=== PATIENT | male | born 1985 | race Caucasian/White ===

== ENCOUNTER 2025-08-27 11:47 | Day surgery (SDC) | payer OTHER, SELFPAY ==
--- NOTE | 2025-08-25 09:09 | EKG12_ITS ---
Test Reason : PRE OP Blood Pressure : */* mmHG Vent. Rate : 78 BPM Atrial Rate : 78 BPM P-R Int : 166 ms QRS Dur : 98 ms QT Int : 380 ms P-R-T Axes : 61 50 9 degrees QTcB Int : 433 ms Normal sinus rhythm Normal ECG Confirmed by Garo Omer ([id number]), editorial cartoonist ANJEL SANTIAGO ([id number]) on 08/26/2025 1:58:21 PM Referred By: Terrell Fox Confirmed By: Garo Omer
--- NOTE | 2025-08-25 09:50 | PAT.ANE_ITS ---
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 When Was Last Pacemaker Check QUESTION #4 FULL TEXT: You/Your Family Experience fever (hyperthermia) with Anesthesia Last Oral Intake Last Oral intake: Last Oral Intake NPO since Meds taken in AM with sips of water? Meds patient instructed to take am of surgery PONV PONV - electrostatic powder coating technician: PONV - electrostatic powder coating technician Female No 08/23/25 14:06 HX of Motion Sickness No 08/23/25 14:06 HX of N/V After Surgery No 08/23/25 14:06 Non-Smoker Yes 08/23/25 14:06 Duration of Surgery greater No 08/23/25 14:06 than 60 minutes Number of Risk Factors 1 08/23/25 14:06 PONV Score Low Risk 08/23/25 14:06 Respiratory Assessment Respiratory Assessment - electrostatic powder coating technician: Respiratory Tract Infection Hx - electrostatic powder coating technician Hx Respiratory Tract Infection No 08/23/25 14:06 STOP Sleep Apnea STOP Sleep Apnea - electrostatic powder coating technician: STOP Sleep Apnea - electrostatic powder coating technician Hx Hypertension Yes 08/23/25 14:06 Hx Sleep Apnea Yes 08/23/25 14:06 CPAP Yes 08/23/25 14:06 BIPAP No 08/23/25 14:06 Do you snore loudly (louder than talking or can be heard Do you often feel tired/ fatigued/ sleepy during daytime? Has anyone observed you stop breathing during sleep? STOP Results Positive 08/23/25 14:06 QUESTION #5 FULL TEXT : Do you snore loudly (louder than talking or can be heard through closed doors)? Tobacco Use History Tobacco Use History - electrostatic powder coating technician: Tobacco Use History - electrostatic powder coating technician Tobacco Use Smoking Status Never smoker 08/23/25 14:06 Hx Tobacco Use No 08/23/25 14:06 Years Smoking Packs Smoked per Day Smoking Cessation Date was within the last 15 years Hx Smoking Cessation Date Hx Smoking Cessation Counseling Hematologic Medial History Hematologic Hx - electrostatic powder coating technician: Hematologic Medical Hx - documentation consultant Hx of Blood Transfusion No 08/23/25 14:06 Hx of Transfusion in last 3 No 08/23/25 14:06 Months Date of Last Transfusion (if within last 3 months) Ever experience any problems No 08/23/25 14:06 with transfusion(s)? Specify any problems Hx of Preganancy in last 3 N/A 08/23/25 14:06 Months Nurse Filling Out Transfusion VLEHMAN 08/23/25 14:06 & Questions: Date: 08/23/25 08/23/25 14:06 Time: 14:16 08/23/25 14:06 Patient unable to answer at this time (ie. confused, unrespo /Reproduction History /Reproductive History - electrostatic powder coating technician: /Reproductive Hx- electrostatic powder coating technician Hx Now Gestational Age (in weeks): EDC: Hx Hx Para Hx Section SAB Does the father of the baby or his family experience fever w Father of the baby Malignant Hypertension history comment [facility] Medical History Wears contact lenses Cancer Anxiety Thyroid disease High cholesterol Gastric reflux CPAP (continuous positive airway pressure) dependence Sleep apnea Cardiology follow-up encounter History of echocardiogram Hypertension Hodgkin lymphoma History of carcinoma Home Medications ?Medication ?Instructions ?Recorded ?Last Taken ?Type finasteride 1 mg tablet 1 mg PO DAILY 08/23/25 Unkno wn History levothyroxine 175 mcg tablet 175 mcg PO DAILY 08/23/25 Unknown History lisinopril 20 mg tablet 20 mg PO QPM 08/23/25 Unknow n History lisinopril 20 1 tab PO DAILY 08/23/25 Unkn own History mg-hydrochlorothiazide 12.5 mg tablet minoxidil 2.5 mg tablet 2.5 mg PO DAILY 08/23/25 Unk nown History pantoprazole 40 mg tablet,delayed 40 mg PO DAILY 08/23 Unknown History release rosuvastatin 10 mg tablet 10 mg PO DAILY 08/23/25 Unkn own History sertraline 100 mg tablet 100 mg PO DAILY 08/23/25 Unk nown History Allergy/AdvReac Type Severity Reaction Status Date / Time No Known Allergies Allergy Verified 08/23/25 14:03 Surgical History History of vascular access device History of amputation of left great toe Social History Smoking Status: Never smoker Prior Cardiac Testing/Procedures Prior Cardiac Testing/Procedures: Echocardiogram (EF 55%, Bicuspid Aortic valve; mild regurgitation with mild . Followed by cardiology. no change in symptoms ) Addt'l Information Additional Findings: >4 Mets Recommendation Anesthesia Recommendation Anesthesia recommendation: OPTIMIZED for anesthesia
[2025-08-25 10:58] LABS: Magnesium 2.2 mg/dL (1.5-2.2)
[2025-08-25 11:08] LABS: Vitamin D,25 Hydroxy 22.8 ng/mL (30-100)
[2025-08-27] VITALS (8 sets, daily range): BP systolic 152–157; BP diastolic 90–100; PULSE 72–93; RESP 16–20; TEMP 36.1–37.2; O2SAT 95–100; BMI 44.4
--- NOTE | 2025-08-27 12:01 | PRE.ANES_ITS ---
ASA Classification* ASA Classification ASA Classification: 3 Assessment & Plan Anesthesia* Anesthesia Assessment Anesthesia Assessment: Discussed sedation and/or anesthesia options, risks, benefits, and alternatives with patient/parents/legal guardian/POA. Questions invited. The patient/parents/legal guardian/POA seems to understand and agrees to proceed with anesthesia plan. Reviewed the physical assessment, medical history, allergy history and patient home medications list prior to surgery/procedure/anesthetic and documented any changes. Performed airway and anesthesia risk assessments. Anesthesia Type Anesthesia Type: MAC (GA bkup. 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 When Was Last Pacemaker Check QUESTION #4 FULL TEXT: You/Your Family Experience fever (hyperthermia) with Anesthesia Last Oral Intake Last Oral intake: Last Oral Intake NPO since Meds taken in AM with sips of water? Meds patient instructed to take am of surgery PONV PONV - energy derivatives trader: PONV - energy derivatives trader Female No 08/23/25 14:06 HX of Motion Sickness No 08/23/25 14:06 HX of N/V After Surgery No 08/23/25 14:06 Non-Smoker Yes 08/23/25 14:06 Duration of Surgery greater No 08/23/25 14:06 than 60 minutes Number of Risk Factors 1 08/23/25 14:06 PONV Score Low Risk 08/23/25 14:06 Height & Weight Height & Weight: Anesthesia: Height & Weight Weight: 136.078 kg 08/26/25 09:51 Respiratory Assessment Respiratory Assessment - energy derivatives trader: Respiratory Tract Infection Hx - energy derivatives trader Hx Respiratory Tract Infection No 08/23/25 14:06 STOP Sleep Apnea STOP Sleep Apnea - energy derivatives trader: STOP Sleep Apnea - energy derivatives trader Hx Hypertension Yes 08/23/25 14:06 Hx Sleep Apnea Yes 08/23/25 14:06 CPAP Yes 08/23/25 14:06 BIPAP No 08/23/25 14:06 Do you snore loudly (louder than talking or can be heard Do you often feel tired/ fatigued/ sleepy during daytime? Has anyone observed you stop breathing during sleep? STOP Results Positive 08/23/25 14:06 QUESTION #5 FULL TEXT : Do you snore loudly (louder than talking or can be heard through closed doors)? Tobacco Use History Tobacco Use History - energy derivatives trader: Tobacco Use History - energy derivatives trader Tobacco Use Smoking Status Never smoker 08/23/25 14:06 Hx Tobacco Use No 08/23/25 14:06 Years Smoking Packs Smoked per Day Smoking Cessation Date was within the last 15 years Hx Smoking Cessation Date Hx Smoking Cessation Counseling Hematologic Medial History Hematologic Hx - energy derivatives trader: Hematologic Medical Hx - relish maker Hx of Blood Transfusion No 08/23/25 14:06 Hx of Transfusion in last 3 No 08/23/25 14:06 Months Date of Last Transfusion (if within last 3 months) Ever experience any problems No 08/23/25 14:06 with transfusion(s)? Specify any problems Hx of Preganancy in last 3 N/A 08/23/25 14:06 Months Nurse Filling Out Transfusion VLEHMAN 08/23/25 14:06 & Questions: Date: 08/23/25 08/23/25 14:06 Time: 14:16 08/23/25 14:06 Patient unable to answer at this time (ie. 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: /Reproductive Hx- energy derivatives trader Hx Now Gestational Age (in weeks): EDC: Hx Hx Para Hx Section SAB Does the father of the baby or his family experience fever w Father of the baby Malignant Hypertension history comment Active Medications Active Medications: Current Medications Generic Name Dose Route Start Last Admin Trade Name Freq PRN Reason Stop Dose Admin Acetaminophen 1,000 mg 08/27/25 14:00 Acetaminophen 500 Mg Tablet PO 08/27/25 14:01 PREOP ONE Gabapentin 600 mg 08/27/25 14:00 Gabapentin 600 Mg Tablet PO 08/27/25 14:01 PREOP ONE Cefazolin Sodium 3 gm/ Sodium 115 mls @ 200 mls/hr 08/27/25 14:00 Chloride IV 08/27/25 14:34 INTRAOP ONE Magnesium Sulfate 1 gm/ 102 mls @ 408 mls/hr 08/27/25 14:00 Dextrose IV 08/27/25 14:14 PREOP ONE Insulin Human Lispro 1 - 6 unit 08/27/25 14:00 Insulin Lispro 100 Unit/Ml Insuln.Pen SC 08/27/25 20:00 Q4H PRN PRN BG>/= 180, SEE PROTOCOL Protocol [facility] Medical History Wears contact lenses Cancer Anxiety Thyroid disease High cholesterol Gastric reflux CPAP (continuous positive airway pressure) dependence Sleep apnea Cardiology follow-up encounter History of echocardiogram Hypertension Hodgkin lymphoma History of carcinoma Home Medications ?Medication ?Instructions ?Recorded ?Last Taken ?Type finasteride 1 mg tablet 1 mg PO DAILY 08/23/25 Unkno wn History levothyroxine 175 mcg tablet 175 mcg PO DAILY 08/23/25 Unknown History lisinopril 20 mg tablet 20 mg PO QPM 08/23/25 Unknow n History lisinopril 20 1 tab PO DAILY 08/23/25 Unkn own History mg-hydrochlorothiazide 12.5 mg tablet minoxidil 2.5 mg tablet 2.5 mg PO DAILY 08/23/25 Unk nown History pantoprazole 40 mg tablet,delayed 40 mg PO DAILY 08/23 Unknown History release rosuvastatin 10 mg tablet 10 mg PO DAILY 08/23/25 Unkn own History sertraline 100 mg tablet 100 mg PO DAILY 08/23/25 Unk nown History Allergy/AdvReac Type Severity Reaction Status Date / Time No Known Allergies Allergy Verified 08/23/25 14:03 Surgical History History of vascular access device History of amputation of left great toe Social History Smoking Status: Never smoker Review of Systems (Anesthesia) ROS Narrative System reviewed and no additional complaints, except as documented.
--- NOTE | 2025-08-27 12:06 | PCM.OPRPT ---
Operative Report (Standard) Operative Information Date of Procedure: 08/27/25 Pre-Operative Diagnosis: 1. Pain, left foot 2. Hammertoe, second digit, left foot Post-Operative Diagnosis: 1. Pain, left foot 2. Hammertoe, second digit, left foot Surgery/Procedure Performed: Procedure #1: Proximal interphalangeal joint arthrodesis, second digit, left foot Procedure #2: Distal interphalangeal joint arthroplasty, second digit, left foot mail carriers supervisor: Yes Certified Travel Counselor: Kiya Henderson PGY2 Tasks completed by hair assistant: Closing and Retracting Additional entry level administrative assistant?: Yes Additional Marine Engine Mechanic #2: Anusha Celestin PGY1 Tasks completed by entry level administrative assistant #2: Retracting Additional entry level administrative assistant?: No Type of Anesthesia: Local MAC RN Documented Start/Stop Times: Operation Date: 08/27/25 14:00 Case Time Into Pre-Op 08/27/25 11:59 Out of Pre-Op 08/27/25 14:49 Anesthesia Start 08/27/25 14:55 Into Room 08/27/25 14:55 Procedure Start 08/27/25 15:16 Procedure End 08/27/25 16:26 Anesthesia End 08/27/25 16:29 Out of Room 08/27/25 16:29 Into Recovery 08/27/25 16:31 Into Phase II Recovery 08/27/25 16:51 Out of Recovery 08/27/25 16:51 Out of Phase II 08/27/25 17:56 Procedure Start Time: 15:16 Procedure Stop Time: 16:26 Select all DRAINS/GRAFTS/IMPLANTS that apply: Implanted device Implanted device details: [facility] proximal interphalangeal joint hammertoe implant Special Medications: Per anesthesia Estimated Blood Loss: 15 mL Fluids Replaced: Per anesthesia Specimen collected: No Description of surgery: Indications For Operation: Mr. Alvarado is a 40-year-old male who was admitted to [facility] for left foot second digit hammertoe surgery. Patient unfortunately sustained a high impact trauma a few years ago causing disruption and amputation to the left hallux and injuring his second digit. Since then the patient has dealt with a rigid contracture/claw toe since the injury. He has been having difficulty walking with pain to the left second digit. He was seen in the office for surgical consultation evaluation due to the contraction and pain to the left foot we both agreed to move forward with elective surgery. Patient did have formal surgical consultation with all risk and benefits discussed with patient great detail. Chart review consent was signed. Due to contracture and pain to the left foot it was deemed necessary at this time to take the patient to the operating room to perform the above procedure to help get him in a more rectus toe and to decrease his constant pain to the left foot. The nature of the problem, anticipated procedures, postop recovery/convalences and risk/complications include but not limited to infection, wound healing complications, digital amputation, hypertrophic scarring, numbness, tingling, chronic pain, CRPS, over and under correction, recurrence of deformity, DVT and or PE and the need for further surgery have been discussed in great detail with the patient. All questions have been answered to the patient's satisfaction. There are no guarantees given as to the outcome of the procedure. Description of Procedure: Under mild sedation, the patient was brought into the operating room and placed on the operating table in supine position. Once the patient was under monitored anesthesia care, the left second digit was blocked using approximately 20 cc 0.5% Marcaine plain. Next, a well-padded calf tourniquet was applied to the left lower extremity. Next, the left lower extremity was prepped and draped in normal aseptic manner. Next, a timeout was then undertaken verifying the correct patient, extremity, visibility of preoperative markings, availability of the equipment. Next, attention was directed to the left lower extremity. Using a foreign Esmarch, left lower extremity was exsanguinated and elevated to 60 degrees for 1 minute and set to 250 mmHg. Procedure #1: Proximal interphalangeal joint arthrodesis, second digit, left foot (CPT code: 91814?T1) Next, attention was directed to the dorsal aspect of the second digit. A sterile skin marker was used to alesia out incision from the level of the second metatarsal phalangeal joint to the distal intermediate phalanx of the second digit. Using a #15 blade full-thickness incision down to subcutaneous tissue was performed. Continued blunt dissection was carried down to the level of the extensor tendon with moist Ray-Sheri. Capsulotomy was performed at the level of the proximal interphalangeal joint and the extensor tendon was removed sharply back exposing the second metatarsal phalangeal joint. Next capsulotomy was performed at the level of the second metatarsal phalangeal joint. Louis push-up test was performed and the toe sat in a more rectus fashion. Next using a sagittal saw and #114 blade the osteotomy at the head of the proximal phalanx was performed, removed and passed the back table to be discarded. Next using the [place] elevator the deformed second digit nail was removed and discarded without incident. The base of the intermediate phalanx was removed using the sagittal saw and #114 blade without incident. The area was flushed with copious normal saline. Next using the K wire provided by [employer], this was inserted into the proximal phalanx and using the cannulated drill on power the company pilot hole for the implant was performed without incident. Next the K wire was retrograded through the intermediate phalanx and out the tip of the toe and the implant threads were made using the tap on power per the manufactures recommendation with the rep in the room. Next, the proximal interphalangeal joint PEEK was implanted in the intermediate phalanx and secured in place in the proximal phalanx with anatomic apposition obtained. Placement was identified clinically as well as on large C arm fluoroscopy and the area again was flushed with copious amounts of normal saline. Procedure #2: Distal interphalangeal joint arthroplasty, second digit, left foot Next, attention was directed to the distal interphalangeal joint that was rigidly contracted. Using a #15 blade the capsulotomy was performed and the joint was freed. Minimal range of motion was improved. Next using the sagittal saw and 114 blade the arthroplasty at the level of the head of the intermediate phalanx was performed. Once the osteotomy was performed there was improved range of motion to the distal interphalangeal joint and the toe sat in a more rectus position. The area was flushed with copious normal saline. The distal phalanx and intermediate phalanx were secured in a more rectus position using 3-0 Vicryl in over and over suture technique. The medial and lateral collateral ligaments of the proximal interphalangeal joint were reapproximated using 3-0 Vicryl and simple interrupted suture technique. The extensor tendon was placed on the dorsal aspect of the proximal phalanx with physiological tension and secured in place with over and over suture using 3-0 Vicryl. The subcutaneous layer was reapproximated and closed using 3-0 Vicryl in running locking suture technique. The calf tourniquet was deflated to the left lower extremity and reperfusion was noted instantly to the left lower extremity with all bleeders cauterized and ligated as necessary. The skin was reapproximated closed using 3-0 nylon in simple interrupted suture technique. The left lower extremity was wiped clean and patted dry. Betadine soaked Adaptic was applied over the incision followed by dry sterile dressing and a single layer Alex compression bandage was donned to left lower extremity followed by surgical shoe. The patient tolerated the procedure and anesthesia well and apparent satisfactory condition and was transported to the PACU for further monitoring prior to discharge home. Vital signs stable and vascular status intact to all digits bilateral. Post Operative Plan: Weightbearing: Partial weightbearing to heel left lower extremity with surgical shoe. Full weightbearing right lower extremity. Antibiotics: 3 g Ancef through the IV DVT Prophylaxis: Ambulation Acosta: None Dressing: Betadine soaked Adaptic, dry sterile dressing single-layer Alex compression bandage left lower extremity. Surgical shoe. X-Rays: Post-operative films taken on the operating room. Pain Medication: Oxycodone 5 mg, Tylenol 650 mg Follow-up: Patient will follow-up at already scheduled postoperative appointment. Surgical Findings: 1. Anatomic apposition at the level of the proximal interphalangeal joint and distal interphalangeal joint, second digit, left foot Complications Complications: No Admit VTE Documentation VTE Present on Admission: No VTE Mechan Device Prophylaxis: SCD's VTE Pharm Prophylaxis ordered?: No Reason prophylaxis not ordered: Procedure Not Indicated
--- OUTSIDE RECORDS SUMMARY | 2025-08-27 12:16 | XMS RPT_ITS | CCD ---
Author Organization [facility] Care Team Providers Care Ui Ux Web Developer Name Role Phone Tam Virk Unavailable Unavailable Moreau, Christopher Charley Unavailable Unavailable Moreau, Germania Unavailable Unavailable Moreau, Germania Whitehead Unavailable Unavailable MoreauGermania Unavailable Unavailable StencelTam Unavailable Unavailable Furness, Oliver T Unavailable Unavailable Moreau, Sarkisopher D Unavailable Unavailable StenTam rodrigez Primary Care Provider Tam Virk Primary Care Provider Unavail able Tam Virk MD Primary Care Provider Unav ailable Stencel Tam THOMAS Primary Care Provider Unav ailable Furness, Oliver T Unavailable Unavailable Unavailable Luisito THOMAS, Germania Primary Care Provider Luisito THOMAS, Germania Primary Care Provider [phone] PROVIDER, UNKNOWN Referring Unavailable PRAKASH CALDWELL Attending Unavailable Luisito, [facility] Unavailable SILVINA MATOS Attending Unavailable Luisito, [facility] Unavailable PROVIDER, UNKNOWN Referring Unavailable SILVINA MATOS Attending Unavailable Luisito, [facility] Primary Care Unavailable PROVIDER, UNKNOWN Referring Unavailable Luisito, [facility] Primary Care Unavailable EMILY KAN Attending Unavailable PROVIDER, UNKNOWN Referring Unavailable Germania Moreau Referring Unavaila ble Furness, Oliver Sammy Primary [facility] Dr. Arnaldo Paige Jr Attending Unavailab le Germania Moreau Attending Unavaila ble Germania Moreau Referring Unavaila ble Furness, Oliver Sammy Primary Care Germania Paige Attending Unavaila ble MoreauGermania whitehead Referring Unavaila ble Furness, Oliver Sammy Primary Care Unavai lable Furnsergio, Oliver Unavailable Cheyenne Broussard Unavailable Unavailable Germania Moreau Unavailable Ga Cunha Unavailable Unavailable Germania Moreau Primary Care Provider Prakash Caldwell MD Unavailable Furnsergio, Dr. Oliver Christianson Primary Care Un available Bobo, Ms. Cheyenne Alas Attending Unava ilable Guerline, Ms. Ga Adhikari Attending Unavai lable Furnsergio, Dr. Oliver Christianson Primary Care Un available Raza, Dr. Eduard Cabrera Attending Unavaila ble Furness, Dr. Oliver Christianson Primary Care Un available Luisito THOMAS, Germania Mcclure Primary Care Provider Germania Moreau Primary Care Provider Prakash Caldwell MD Unavailable VELASCO, LATRICE Attending Unavailable GERMANIA MOREAU Primary Care Unavaila ble VELASCO, LATRICE Attending Unavailable VELASCO, LATRICE Referring Unavailable MOREAU, GERMANIA MCCLURE Primary Care Unavaila ble VELASCO, LATRICE Attending Unavailable MOREAU, GERMANIA MCCLURE Primary Care Unavaila ble VELASCO, LATRICE Attending Unavailable VELASCO, LATRICE Referring Unavailable MOREAU, GERMANIA MCCLURE Primary Care Unavaila ble VELASCO, LATRICE Admitting Unavailable VELASCO, LATRICE Attending Unavailable MOREAU, GERMANIA MCCLURE Primary Care Unavaila ble VELASCO, LATRICE Attending Unavailable SELF Referring Unavailable MOREAU, GERMANIA MCCLURE Primary Care Unavaila ble VELASCO, LATRICE Attending Unavailable VELASCO, LATRICE Referring Unavailable MOREAUGERMANIA Whitehead Primary Care Unavaila ble Germania Moreau MD Primary Care Provider GERMANIA MOREAU Referring Unavailable GERMANIA MOREAU Primary Care Unavailable Germania Moreau Primary Care Provider Germania Moreau MD Primary Care Provider GERMANIA MOREAU Primary Care Unavailable GERMANIA MOREAU Primary Care Unavailable Germania Moreau Primary Care Provider [phone] Terrell Fox Attending Unavailable EMILY KAN Attending Unavailable EMILY KAN Referring Unavailable GERMANIA MOREAU Primary Care Unavailable PRAKASH CALDWELL Attending Unavailable GERMANIA MOREAU Primary Care Unavailable EMILY KAN Attending Unavailable GERMANIA MOREAU Primary Care Unavailable GERMANIA MOREAU Attending Unavailable GERMANIA MOREAU Primary Care Unavailable Medications Current Medications Medication Drug Class(es) Dates Sig (Normalized) Sig (Original) acetaminophen 325 mg / oxyCODONE hydrochloride 5 mg oral tablet (2 sources) Opioid Agonist Start: 07-28-2020 End: 08-04-2020 take 1 tablet by mouth every six hours as needed for pain oxyCODONE-acetam inophen (PERCOCET) 5-325 MG per tablet Indications: Mediastinal mass , S/P thoracotomy Take 1 tablet by mouth every 6 hours as needed for Pain (ACUTE POST SURGICAL PAIN) for up to 7 days. 20 tablet 0 07/28/2020 08/04/2020 Active albuterol 0.833 mg/ml / ipratropium bromide 0.167 mg/ml inhalant solution (1 source) Anticholinergic, beta2-Adrenergic Agonist Start: 07-27-2020 1 ampule, Inhalation, EVERY 4 HOURS WHILE AWAKE, First dose on Sat07/27/20 at 2000 ALPRAZolam 0.25 mg disintegrating oral tablet (2 sources) Benzodiazepine Start: 12-06-2020 ALPRAZolam (NIRAVAM) dissolvable tablet 0.25 mg Start: 07-27-2020 End: 07-27-2020 ALPRAZolam (NIRAVAM) dissolv able tablet 0.25 mg amoxicillin 875 mg / clavulanate 125 mg oral tablet (1 source) Penicillin-class Antibacterial Start: 10-26-2022 End: 11-04-2022 take 1 tablet by mouth twice daily at mealtime amoxicillin-clavulanate 875 mg-125 mg oral tablet ; 1 tab(s) orally 2 times a day x 10 days. Take with a meal. Quantity: 20 Refills: 0 Ordered: 26-Oct-2022 Cheyenne Broussard Start: 26-Oct-2022 End: 04-Nov-2022 Generic Substitution Allowed Comments: Finish all this medication unless otherwise directed by prescriber.Take with food or milk. Comment on above: Finish all this medi cation unless otherwise directed by prescriber.Take with food or milk. ascorbic acid 60 mg / beta carotene 5000 unt / copper sulfate 40 mg / dl-alpha tocopheryl acetate 30 unt / sodium selenite 0.04 mg / zinc oxide 40 mg oral tablet (15 sources) Vitamin C take 1 tablet by mouth once daily Multiple Vitamins-Minerals (THERAPEUTIC MULTIVITAMIN-MINERALS) tablet Take 1 tablet by mouth daily 0 Active brompheniramine maleate 0.4 mg/ml / dextromethorphan hydrobromide 2 mg/ml / pseudoephedrine hydrochloride 6 mg/ml oral solution (1 source) alpha-Adrenergic Agonist, Uncompetitive M-tezymk-K-asparta te Receptor Antagonist, Sigma-1 Agonist Start: 11-13-2022 take 10 mL by mouth every six hours brompheniramine/pseudoep hedrine/dextromethorphan [id number] mL oral syrup ; 5-10 milliliter(s) orally every 6 hours PRN cough/congestion Quantity: 240 Refills: 0 Ordered: 13-Nov-2022 Ga Cunha Start: 13-Nov-2022 Generic Substitution Allowed Comments: May cause drowsiness. Alcohol may intensify this effect. Use care when operating dangerous machinery.Obtain medical advice before taking any non-prescription drugs as some may affect the action of this medication. Comment on above: May cause drowsiness . Alcohol may intensify this effect. Use care when operating dangerous machinery.Obtain medical advice before taking any non-prescription drugs as some may affect the action of this medication. 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 90 tablet 3 05/16/2023 08/07/2023 Discontinued (Med List Cleanup) finasteride (Pro pecia) 1 MG tablet finasteride Irineo tity: 0 Refills: 0 Ordered: 28-Oct-2022 Lai Broussardn Generic Substitution Allowed 3 ml heparin sodium, porcine 100 unt/ml prefilled syringe (12 sources) Unfractionated Heparin, Anti-coagulant Start: 05-03-2021 End: 05-04-2021 heparin flush 100 UNIT/ML injection 500 Units Start: 01-17-2021 End: 01-18-2021 heparin flush 100 UNIT/ML in jection 500 Units Start: 01-03-2021 End: 01-04-2021 heparin flush 100 UNIT/ML in jection 500 Units Start: 12-20-2020 End: 12-21-2020 heparin flush 100 UNIT/ML in jection 500 Units Start: 12-07-2020 End: 12-08-2020 heparin flush 100 UNIT/ML in jection 500 Units Start: 11-22-2020 End: 11-23-2020 heparin flush 100 UNIT/ML in jection 500 Units Start: 11-08-2020 End: 11-09-2020 heparin flush 100 UNIT/ML in jection 500 Units Start: 10-25-2020 End: 10-26-2020 heparin flush 100 UNIT/ML in jection 500 Units Start: 10-11-2020 End: 10-12-2020 heparin flush 100 UNIT/ML in jection 500 Units Start: 09-27-2020 End: 09-28-2020 heparin flush 100 UNIT/ML in jection 500 Units Start: 09-13-2020 End: 09-14-2020 heparin flush 100 UNIT/ML in jection 500 Units Start: 08-30-2020 End: 08-31-2020 heparin flush 100 UNIT/ML in jection 500 Units hydroCHLOROthiazide 12.5 mg / lisinopril 20 mg oral tablet (20 sources) Thiazide Diuretic, Angiotensin Converting Enzyme Inhibitor Start: 05-16-2023 End: 02-15-2026 take 1 tablet by mouth once daily in the morning lisinopril-hydroCHLOROthiazide 20-12.5 MG tablet Take 1 tablet by mouth every morning. 90 tablet 3 02/15/2025 02/15/2026 Active Start: 08-05-2021 lisinopril-hyd roCHLOROthiazide (PRINZIDE;ZESTORETIC) 20-12.5 MG per tablet Start: 06-14-2021 take 1 tablet by meri th once daily Lisinopril-hydroCHLOROthiazide 20-12.5 M G Oral Tablet TAKE 1 TABLET BY MOUTH EVERY DAY Quantity: 60 Refills: 6 Ordered: 19-Jul-2021 Germania Moreau MD Start : 14-Jun-2021 Active End: 01-29-2024 take 1 tablet by mouth once daily lisinopril-hydroCHLOROthiazide 10-12.5 M G tablet Take 1 tablet by mouth daily. 0 01/29/2024 Discontinued (Dose adjustment) HYDROmorphone (DILAUDID) injection 0.25 mg (1 source) Start: 07-27-2020 HYDROmorphone (DILAUDID) injection 0.25 mg 4 ml labetalol hydrochloride 5 mg/ml cartridge (1 source) beta-Adrenergi c Adrian Start: 07-27-2020 10 mg, Intravenous, EVERY 4 HOURS PRN, High Blood Pressure, SBP >160, hold for HR <70, Starting 07/27/20 at 1708 levothyroxine sodium 0.175 mg oral tablet (20 sources) l-Thyroxine Start: 08-05-2024 End: 08-05-2025 take 1 tablet by mouth once daily levothyroxine (Synthroid, Levoxyl) 175 mcg tablet Indications: Hypothyroidism due to acquired atrophy of thyroid Take 1 tablet (175 mcg) by mouth once daily. 90 tablet 3 08/05/2024 08/05/2025 Active Start: 06-25-2024 End: 08-05-2024 take 1 tablet by mouth once daily levothyroxine (Synthroid, Levoxyl) 150 mcg tablet Indications: Hypothyroidism due to acquired atrophy of thyroid Take 1 tablet (150 mcg) by mouth once daily. 90 tablet 3 06/25/2024 08/05/2024 Discontinued (Reorder) Start: 12-24-2018 End: 05-15-2024 take 1 tablet by mouth once daily levothyroxine (Synthroid, Levoxyl) 150 mcg tablet Indications: Hypothyroidism due to acquired atrophy of thyroid Take 1 tablet (150 mcg) by mouth once daily. 90 tablet 3 05/16/2023 05/15/2024 Active Start: 01-26-2011 End: 01-29-2024 levothyroxine (Synthroid, Le voxyl) 112 MCG tablet Take 112 mcg by mouth. 0 01/26/2011 01/29/2024 Discontinued (Therapy completed) take 1 tablet by meri th once daily Synthroid 150 mcg (0.15 mg) oral tablet ; 1 tab(s) orally once a day Quantity: 0 Refills: 0 Ordered: 15-Feb-2020 Gila Palencia Generic Substitution Allowed Comment on above: Take 150 mcg by mout h once daily. lisinopril 20 mg oral tablet (20 sources) Angiotensin Converting Enzyme Inhibitor Start: 4 End: 6 take 1 tablet by mouth once daily in the evening lisinopril 20 MG tablet Take 1 tablet (20 mg) by mouth every evening. 90 tablet 3 02/15/2025 02/15/2026 Active Start: 05-06-2020 take 2 tablets by mo uth once daily lisinopril (ZESTRIL, PRINIVIL) 10 mg tablet Take 20 mg by mouth once daily. 0 05/06/2020 Active Start: 05-14-2018 take 1 tablet by meri th twice daily Lisinopril 10 MG Oral Tablet TAKE 1 TABLET TWICE DAILY. Quantity: 180 Refills: 3 Ordered: 25-Nov-2020 Oliver Pradhan MD Start : 14-May-2018 Active Start: 05-14-2018 lisinopril (ME INIVIL;ZESTRIL) 10 MG tablet Take 10 mg by mouth daily Taking 20mg 0 05/06/2020 Active Comment on above: Take 20 mg by mouth once daily. Multiple Vitamins-Minerals (THERAPEUTIC MULTIVITAMIN-MINERALS) tablet (7 sources) take 1 tablet by mouth once daily Multiple Vitamins-Minerals (THERAPEUTIC MULTIVITAMIN-MINERALS) tablet Take 1 tablet by mouth daily 0 Active Multivitamin preparation (2 sources) take 1 tablet by mouth once daily Multiple Vitamins oral tablet ; 1 tab(s) orally once a day Quantity: 0 Refills: 0 Ordered: 21-Jun-2021 Eloisa Mackey Generic Substitution Allowed ondansetron 8 mg disintegrating oral tablet (18 sources) Serotonin-3 Receptor Antagonist Start: 08-30-20 20 ondansetron (ZOFRAN-ODT) 8 MG TBDP disintegrating tablet Indications: CINV (chemotherapy-induced nausea and vomiting) Place 1 tablet under the tongue every 8 hours as needed for Nausea or Vomiting Don't use until day 3 of each cycle. 30 tablet 2 08/30/2020 Active Start: 07-27-2020 take 4 mg by mouth e very six hours as needed for nausea 4 mg, Intravenous, EVERY 6 HOURS PRN, Nausea, Vomiting, Starting Sat07/27/20 at 1708 Administer if oral route cannot be used. Post-op oxyCODONE (1 source) Opioid Agonist Start: 07-27-2020 oxyCODONE (ROXICODONE) immediate release tablet 5 mg pantoprazole 40 mg delayed release oral tablet (20 sources) Proton Pump Inhibitor Start: 03-12-2018 End: 08-05-2025 take 1 tablet by mouth in the morning pantoprazole (ProtoNix) 40 MG EC tablet Take 40 mg by mouth in the morning. 03/12/2018 Active Comment on above: Take 40 mg by mouth once daily. polyethylene glycol [id number] mg powder for oral solution (1 source) Osmotic Laxative Start: 07-28-2020 polyethylene glycol (GLYCOLAX) packet 17 g predniSONE 10 mg oral tablet (1 source) Start: 11-13-2022 End: 11-18-2022 take 6 tablets by mouth once daily at mealtime, then take 1 tablet by mouth once daily, then take 1 tablet by mouth once daily, then take 1 tablet by mouth once daily, then take 1 tablet by mouth once daily, then take 1 tablet by mouth once daily predniSONE 10 mg oral tablet ; 6 tab(s) orally once a day x 1 days5 tab(s) orally once a day x 1 days4 tab(s) orally once a day x 1 days3 tab(s) orally once a day x 1 days2 tab(s) orally once a day x 1 days1 tab(s) orally once a day x 1 days Quantity: 21 Refills: 0 Ordered: 13-Nov-2022 Ga Cunha Start: 13-Nov-2022 End: 18-Nov-2022 Generic Substitution Allowed Comments: It is very important that you take or use this exactly as directed. Do not skip doses or discontinue unless directed by your doctor.Obtain medical advice before taking any non-prescription drugs as some may affect the action of this medication.Take with food or milk. Comment on above: It is very important that you take or use this exactly as directed. Do not skip doses or discontinue unless directed by your doctor.Obtain medical advice before taking any non-prescription drugs as some may affect the action of this medication.Take with food or milk. prochlorperazine 10 mg oral tablet (17 sources) Phenothiazine Start: 08-30-2020 take 1 tablet by mouth every six hours as needed for nausea prochlorperazine (COMPAZINE) 10 MG tablet Indications: CINV (chemotherapy-induce d nausea and vomiting) Take 1 tablet by mouth every 6 hours as needed (nausea) 30 tablet 2 08/30/2020 Active rosuvastatin calcium 10 mg oral tablet (9 sources) HMG-CoA Reductase Inhibitor Start: 02-07-2024 End: 02-04-2026 take 1 tablet by mouth once daily rosuvastatin (Crestor) 10 MG tablet Indications: Mixed hyperlipidemia Take 1 tablet (10 mg) by mouth daily. 90 tablet 3 02/04/2025 02/04/2026 Active sertraline 100 mg oral tablet (20 sources) Serotonin Reuptake Inhibitor Start: 11-29-2021 take 1.5 tablets by mouth once daily Sertraline HCl - 100 MG Oral Tablet TAKE 1.5 TABLET Daily Quantity: 135 Refills: 3 Ordered: 29-Nov-2021 Germania Moreau MD Start : 29-Nov-2021 Active Start: 07-27-2020 take 100 mg by mouth once suzette y 100 mg, Oral, DAILY, First dose on Sat07/27/20 at 1730 Start: 03-03-2018 End: 08-05-2025 take 1 tablet by mouth once daily sertraline (Zoloft) 100 mg tablet Indications: Anxiety Take 1 tablet (100 mg) by mouth once daily. 90 tablet 3 08/05/2024 08/05/2025 Active Comment on above: Take 100 mg by mouth once daily. 3 ml sodium chloride 9 mg/ml injection (20 sources) Start: 05-03-2021 End: 05-04-2021 sodium chloride flush 0.9 % injection 5-40 mL Start: 01-31-2021 End: 01-31-2021 0.9 % sodium chloride infusi on Start: 01-17-2021 End: 01-18-2021 sodium chloride flush 0.9 % injection 10 mL Start: 01-17-2021 End: 01-17-2021 0.9 % sodium chloride infusi on Start: 01-03-2021 End: 01-04-2021 sodium chloride flush 0.9 % injection 10 mL Start: 01-03-2021 End: 01-03-2021 0.9 % sodium chloride infusi on Start: 12-20-2020 End: 12-21-2020 sodium chloride flush 0.9 % injection 10 mL Start: 12-20-2020 End: 12-20-2020 0.9 % sodium chloride infusi on Start: 12-07-2020 End: 12-08-2020 sodium chloride flush 0.9 % injection 10 mL Start: 12-06-2020 End: 12-07-2020 0.9 % sodium chloride infusi on Start: 11-22-2020 End: 11-23-2020 sodium chloride flush 0.9 % injection 10 mL Start: 11-22-2020 End: 11-22-2020 0.9 % sodium chloride infusi on Start: 11-08-2020 End: 11-09-2020 sodium chloride flush 0.9 % injection 10 mL Start: 11-08-2020 End: 11-08-2020 0.9 % sodium chloride infusi on Start: 10-25-2020 End: 10-26-2020 sodium chloride flush 0.9 % injection 10 mL Start: 10-25-2020 End: 10-25-2020 0.9 % sodium chloride infusi on Start: 10-11-2020 End: 10-11-2020 0.9 % sodium chloride infusi on Start: 10-11-2020 End: 10-12-2020 sodium chloride flush 0.9 % injection 10 mL Start: 09-27-2020 End: 09-28-2020 sodium chloride flush 0.9 % injection 10 mL Start: 09-27-2020 End: 09-27-2020 0.9 % sodium chloride infusi on Start: 09-13-2020 End: 09-14-2020 sodium chloride flush 0.9 % injection 10 mL Start: 09-13-2020 End: 09-13-2020 0.9 % sodium chloride infusi on Start: 08-30-2020 End: 08-31-2020 sodium chloride flush 0.9 % injection 10 mL Start: 08-30-2020 End: 08-30-2020 0.9 % sodium chloride infusi on Start: 08-19-2020 0.9 % sodium c hloride infusion Start: 07-27-2020 10 mL, Intrave nous, EVERY 12 HOURS SCHEDULED (2 times per day), First dose on Sat07/27/20 at 2100, Post-op Start: 07-27-2020 take 10 mL intravenous route o nce 10 mL, Intravenous, PRN, Line Care, Starting Sat07/27/20 at 1708 After every IV line use Post-op valACYclovir 1000 mg oral tablet (1 source) Herpesvirus Nucleoside Analog DNA Polymerase Inhibitor, Herpes Simplex Virus Nucleoside Analog DNA Polymerase Inhibitor, Herpes Zoster Virus Nucleoside Analog DNA Polymerase Inhibitor Start: 10-19-2020 End: 10-29-2020 take 1 tablet by mouth three times daily valACYclovir (VALTREX) 1 g tablet Take 1 tablet by mouth 3 times daily for 10 days 30 tablet 0 10/19/2020 10/29/2020 Active Completed/Discontinued Medications Medication Drug Class(es) Dates Sig (Normalized) Sig (Original) acetaminophen 325 mg oral tablet (14 sources) Start: 01-31-2021 End: 01-31-2021 acetaminophen (TYLENOL) tablet 650 mg Start: 01-17-2021 End: 01-17-2021 acetaminophen (TYLENOL) tabl et 650 mg Start: 01-03-2021 End: 01-03-2021 acetaminophen (TYLENOL) tabl et 650 mg Start: 12-20-2020 End: 12-20-2020 acetaminophen (TYLENOL) tabl et 650 mg Start: 12-07-2020 End: 12-07-2020 acetaminophen (TYLENOL) tabl et 650 mg Start: 11-22-2020 End: 11-22-2020 acetaminophen (TYLENOL) tabl et 650 mg Start: 11-08-2020 End: 11-08-2020 acetaminophen (TYLENOL) tabl et 650 mg Start: 10-25-2020 End: 10-25-2020 acetaminophen (TYLENOL) tabl et 650 mg Start: 10-11-2020 End: 10-11-2020 acetaminophen (TYLENOL) tabl et 650 mg Start: 09-27-2020 End: 09-27-2020 acetaminophen (TYLENOL) tabl et 650 mg Start: 09-13-2020 End: 09-13-2020 acetaminophen (TYLENOL) tabl et 650 mg Start: 08-30-2020 End: 08-30-2020 acetaminophen (TYLENOL) tabl et 650 mg Start: 07-27-2020 End: 07-27-2020 take 1 dose by mouth three times daily 1,000 mg, Oral, EVERY 8 HOURS SCHEDULED (3 times per day), First dose on Sat07/27/20 at 2200 Maximum dose of acetaminophen is 4000 mg from all sources in 24 hours. Post-op [id number] 200 actuat albuterol 0.09 mg/actuat metered dose inhaler (1 source) beta2-Adrenergic Agonist Start: 11-13-2022 take 2 puff(s) by inhalation twice daily as needed for cough albuterol 90 mcg/inh inhalation aerosol ; 2 puff(s) inhaled 2 times a day as needed for cough Quantity: 8.5 Refills: 0 Ordered: 13-Nov-2022 Ga Cunha Start: 13-Nov-2022 Generic Substitution Allowed Comments: For inhalation only.It is very important that you take or use this exactly as directed. Do not skip doses or discontinue unless directed by your doctor.Obtain medical advice before taking any non-prescription drugs as some may affect the action of this medication.Shake well before use. Comment on above: For inhalation only.It is very important that you take or use this exactly as directed. Do not skip doses or discontinue unless directed by your doctor.Obtain medical advice before taking any non-prescription drugs as some may affect the action of this medication.Shake well before use. alteplase (CATHFLO) injection 2 mg (3 sources) Start: 12-06-2020 End: 12-06-2020 alteplase (CATHFLO) injection 2 mg Start: 11-22-2020 End: 11-22-2020 alteplase (CATHFLO) injectio n 2 mg Start: 10-11-2020 End: 10-11-2020 alteplase (CATHFLO) injectio n 2 mg brentuximab vedotin (ADCETRI S) 120 mg in sodium chloride 0.9 % 100 mL chemo ivpb (12 sources) Start: 01-31-2021 End: 01-31-2021 brentuximab vedotin (ADCETRI S) 120 mg in sodium chloride 0.9 % 100 mL chemo ivpb Start: 01-17-2021 End: 01-17-2021 brentuximab vedotin (ADCETRI S) 120 mg in sodium chloride 0.9 % 100 mL chemo ivpb Start: 01-03-2021 End: 01-03-2021 brentuximab vedotin (ADCETRI S) 120 mg in sodium chloride 0.9 % 100 mL chemo ivpb Start: 12-20-2020 End: 12-20-2020 brentuximab vedotin (ADCETRI S) 120 mg in sodium chloride 0.9 % 100 mL chemo ivpb Start: 12-07-2020 End: 12-07-2020 brentuximab vedotin (ADCETRI S) 120 mg in sodium chloride 0.9 % 100 mL chemo ivpb Start: 11-22-2020 End: 11-22-2020 brentuximab vedotin (ADCETRI S) 120 mg in sodium chloride 0.9 % 100 mL chemo ivpb Start: 11-08-2020 End: 11-08-2020 brentuximab vedotin (ADCETRI S) 120 mg in sodium chloride 0.9 % 100 mL chemo ivpb Start: 10-25-2020 End: 10-25-2020 brentuximab vedotin (ADCETRI S) 120 mg in sodium chloride 0.9 % 100 mL chemo ivpb Start: 10-11-2020 End: 10-11-2020 brentuximab vedotin (ADCETRI S) 120 mg in sodium chloride 0.9 % 100 mL chemo ivpb Start: 09-27-2020 End: 09-27-2020 brentuximab vedotin (ADCETRI S) 120 mg in sodium chloride 0.9 % 100 mL chemo ivpb Start: 09-13-2020 End: 09-13-2020 brentuximab vedotin (ADCETRI S) 120 mg in sodium chloride 0.9 % 100 mL chemo ivpb Start: 08-30-2020 End: 08-30-2020 brentuximab vedotin (ADCETRI S) 120 mg in sodium chloride 0.9 % 100 mL chemo ivpb calcium chloride 0.0014 meq/ ml / potassium chloride 0.004 meq/ml / sodium chloride 0.103 meq/ml / sodium lactate 0.028 meq/ml injectable solution (2 sources) Start: 07-27-2020 End: 07-28-2020 Intravenous, at 75 mL/hr, CONTINUOUS, Starting 07/27/20 at 1730, For 12 hours, Post-op Start: 07-27-2020 End: 07-27-2020 lactated ringers infusion ceFAZolin 1000 mg injection (1 source) Cephalosporin Antibacterial Start: 08-19-2020 End: 08-19-2020 ceFAZolin (ANCEF) 1 g in dextrose 5 % 50 mL IVPB (premix) celecoxib 400 mg oral capsule (1 source) Nonsteroidal Anti-inflammatory Drug Start: 07-27-2020 End: 07-27-2020 celecoxib (CELEBREX) capsule 400 mg dacarbazine (DTIC) 1,010 mg in sodium chloride 0.9 % 500 mL chemo IVPB (12 sources) Start: 01-31-2021 End: 01-31-2021 dacarbazine (DTIC) 1,010 mg in sodium chloride 0.9 % 500 mL chemo IVPB Start: 01-17-2021 End: 01-17-2021 dacarbazine (DTIC) 1,010 mg in sodium chloride 0.9 % 500 mL chemo IVPB Start: 01-03-2021 End: 01-03-2021 dacarbazine (DTIC) 1,010 mg in sodium chloride 0.9 % 500 mL chemo IVPB Start: 12-20-2020 End: 12-20-2020 dacarbazine (DTIC) 1,010 mg in sodium chloride 0.9 % 500 mL chemo IVPB Start: 12-07-2020 End: 12-07-2020 dacarbazine (DTIC) 1,010 mg in sodium chloride 0.9 % 500 mL chemo IVPB Start: 11-22-2020 End: 11-22-2020 dacarbazine (DTIC) 1,010 mg in sodium chloride 0.9 % 500 mL chemo IVPB Start: 11-08-2020 End: 11-08-2020 dacarbazine (DTIC) 1,010 mg in sodium chloride 0.9 % 500 mL chemo IVPB Start: 10-25-2020 End: 10-25-2020 dacarbazine (DTIC) 1,010 mg in sodium chloride 0.9 % 500 mL chemo IVPB Start: 10-11-2020 End: 10-11-2020 dacarbazine (DTIC) 1,010 mg in sodium chloride 0.9 % 500 mL chemo IVPB Start: 09-27-2020 End: 09-27-2020 dacarbazine (DTIC) 1,010 mg in sodium chloride 0.9 % 500 mL chemo IVPB Start: 09-13-2020 End: 09-13-2020 dacarbazine (DTIC) 1,010 mg in sodium chloride 0.9 % 500 mL chemo IVPB Start: 08-30-2020 End: 08-30-2020 dacarbazine (DTIC) 1,010 mg in sodium chloride 0.9 % 500 mL chemo IVPB dexamethasone (DECADRON) 12 mg in sodium chloride 0.9 % IVPB (12 sources) Start: 01-31-2021 End: 01-31-2021 dexamethasone (DECADRON) 12 mg in sodium chloride 0.9 % IVPB Start: 01-17-2021 End: 01-17-2021 dexamethasone (DECADRON) 12 mg in sodium chloride 0.9 % IVPB Start: 01-03-2021 End: 01-03-2021 dexamethasone (DECADRON) 12 mg in sodium chloride 0.9 % IVPB Start: 12-20-2020 End: 12-20-2020 dexamethasone (DECADRON) 12 mg in sodium chloride 0.9 % IVPB Start: 12-07-2020 End: 12-07-2020 dexamethasone (DECADRON) 12 mg in sodium chloride 0.9 % IVPB Start: 11-22-2020 End: 11-22-2020 dexamethasone (DECADRON) 12 mg in sodium chloride 0.9 % IVPB Start: 11-08-2020 End: 11-08-2020 dexamethasone (DECADRON) 12 mg in sodium chloride 0.9 % IVPB Start: 10-25-2020 End: 10-25-2020 dexamethasone (DECADRON) 12 mg in sodium chloride 0.9 % IVPB Start: 10-11-2020 End: 10-11-2020 dexamethasone (DECADRON) 12 mg in sodium chloride 0.9 % IVPB Start: 09-27-2020 End: 09-27-2020 dexamethasone (DECADRON) 12 mg in sodium chloride 0.9 % IVPB Start: 09-13-2020 End: 09-13-2020 dexamethasone (DECADRON) 12 mg in sodium chloride 0.9 % IVPB Start: 08-30-2020 End: 08-30-2020 dexamethasone (DECADRON) 12 mg in sodium chloride 0.9 % IVPB diphenhydrAMINE (BENADRYL) 5 0 mg, famotidine (PEPCID) 20 mg in sodium chloride 0.9 % 50 mL IVPB (12 sources) Start: 01-31-2021 End: 01-31-2021 diphenhydrAMINE (BENADRYL) 5 0 mg, famotidine (PEPCID) 20 mg in sodium chloride 0.9 % 50 mL IVPB Start: 01-17-2021 End: 01-17-2021 diphenhydrAMINE (BENADRYL) 5 0 mg, famotidine (PEPCID) 20 mg in sodium chloride 0.9 % 50 mL IVPB Start: 01-03-2021 End: 01-03-2021 diphenhydrAMINE (BENADRYL) 5 0 mg, famotidine (PEPCID) 20 mg in sodium chloride 0.9 % 50 mL IVPB Start: 12-20-2020 End: 12-20-2020 diphenhydrAMINE (BENADRYL) 5 0 mg, famotidine (PEPCID) 20 mg in sodium chloride 0.9 % 50 mL IVPB Start: 12-07-2020 End: 12-07-2020 diphenhydrAMINE (BENADRYL) 5 0 mg, famotidine (PEPCID) 20 mg in sodium chloride 0.9 % 50 mL IVPB Start: 11-22-2020 End: 11-22-2020 diphenhydrAMINE (BENADRYL) 5 0 mg, famotidine (PEPCID) 20 mg in sodium chloride 0.9 % 50 mL IVPB Start: 11-08-2020 End: 11-08-2020 diphenhydrAMINE (BENADRYL) 5 0 mg, famotidine (PEPCID) 20 mg in sodium chloride 0.9 % 50 mL IVPB Start: 10-25-2020 End: 10-25-2020 diphenhydrAMINE (BENADRYL) 5 0 mg, famotidine (PEPCID) 20 mg in sodium chloride 0.9 % 50 mL IVPB Start: 10-11-2020 End: 10-11-2020 diphenhydrAMINE (BENADRYL) 5 0 mg, famotidine (PEPCID) 20 mg in sodium chloride 0.9 % 50 mL IVPB Start: 09-27-2020 End: 09-27-2020 diphenhydrAMINE (BENADRYL) 5 0 mg, famotidine (PEPCID) 20 mg in sodium chloride 0.9 % 50 mL IVPB Start: 09-13-2020 End: 09-13-2020 diphenhydrAMINE (BENADRYL) 5 0 mg, famotidine (PEPCID) 20 mg in sodium chloride 0.9 % 50 mL IVPB Start: 08-30-2020 End: 08-30-2020 diphenhydrAMINE (BENADRYL) 5 0 mg, famotidine (PEPCID) 20 mg in sodium chloride 0.9 % 50 mL IVPB 25 ml DOXOrubicin hydrochloride 2 mg/ml injection (12 sources) Anthracycline Topoisomerase Inhibitor Start: 01-31-2021 End: 01-31-2021 DOXOrubicin HCl (ADRIAMYCIN) chemo syringe 68 mg Start: 01-17-2021 End: 01-17-2021 DOXOrubicin HCl (ADRIAMYCIN) chemo syringe 68 mg Start: 01-03-2021 End: 01-03-2021 DOXOrubicin HCl (ADRIAMYCIN) chemo syringe 68 mg Start: 12-20-2020 End: 12-20-2020 DOXOrubicin HCl (ADRIAMYCIN) chemo syringe 68 mg Start: 12-07-2020 End: 12-07-2020 DOXOrubicin HCl (ADRIAMYCIN) chemo syringe 68 mg Start: 11-22-2020 End: 11-22-2020 DOXOrubicin HCl (ADRIAMYCIN) chemo syringe 68 mg Start: 11-08-2020 End: 11-08-2020 DOXOrubicin HCl (ADRIAMYCIN) chemo syringe 68 mg Start: 10-25-2020 End: 10-25-2020 DOXOrubicin HCl (ADRIAMYCIN) chemo syringe 68 mg Start: 10-11-2020 End: 10-11-2020 DOXOrubicin HCl (ADRIAMYCIN) chemo syringe 68 mg Start: 09-27-2020 End: 09-27-2020 DOXOrubicin HCl (ADRIAMYCIN) chemo syringe 68 mg Start: 09-13-2020 End: 09-13-2020 DOXOrubicin HCl (ADRIAMYCIN) chemo syringe 68 mg Start: 08-30-2020 End: 08-30-2020 DOXOrubicin HCl (ADRIAMYCIN) chemo syringe 68 mg doxycycline hyclate 100 mg oral tablet (3 sources) Tetracycline-class Drug Start: 03-06-2023 End: 03-20-2023 take 1 tablet by mouth twice daily at mealtime doxycycline (VIBRA-TABS) 100 mg tablet Indications: Traumatic amputation of left great toe, subsequent encounter ([facility]) Take 1 tablet by mouth twice daily with meals for 14 days. 28 tablet 0 03/06/2023 03/20/2023 Start: 11-13-2022 End: 11-22-2022 take 1 tablet by mouth twice daily doxycycline hyclate 100 mg oral tablet ; 1 tab(s) orally 2 times a day Quantity: 20 Refills: 0 Ordered: 13-Nov-2022 Ga Cunha Start: 13-Nov-2022 End: 22-Nov-2022 Generic Substitution Allowed Comments: Avoid prolonged or excessive exposure to direct and/or artificial sunlight while taking this medication.Do not take this drug if you are .Finish all this medication unless otherwise directed by prescriber.Medication should be taken with plenty of water. Comment on above: Avoid prolonged or e xcessive exposure to direct and/or artificial sunlight while taking this medication.Do not take this drug if you are .Finish all this medication unless otherwise directed by prescriber.Medication should be taken with plenty of water. Take 1 tablet by [facility] twice daily with meals for 14 days. EPINEPHrine 0.01 mg/ml / lidocaine hydrochloride 10 mg/ml injectable solution (1 source) Antiarrhythmic, alpha-Adrenergic Agonist, beta-Adrenergic Agonist, Catecholamine, Amide Local Anesthetic Start: 0 End: 0 lidocaine-EPINEPHrine 1 percent-[id number] injection famotidine 20 mg oral tablet (1 source) Histamine-2 Receptor Antagonist Start: 0 End: 0 famotidine (PEPCID) tablet 20 mg 2 ml fentaNYL 0.05 mg/ml injection (2 sources) Opioid Agonist Start: 0 End: 0 fentaNYL (SUBLIMAZE) injection fosaprepitant (EMEND) 150 mg in sodium chloride 0.9 % 250 mL IVPB (12 sources) Start: 1 End: 1 fosaprepitant (EMEND) 150 mg in sodium chloride 0.9 % 250 mL IVPB Start: 01-17-2021 End: 01-17-2021 fosaprepitant (EMEND) 150 mg in sodium chloride 0.9 % 250 mL IVPB Start: 01-03-2021 End: 01-03-2021 fosaprepitant (EMEND) 150 mg in sodium chloride 0.9 % 250 mL IVPB Start: 12-20-2020 End: 12-20-2020 fosaprepitant (EMEND) 150 mg in sodium chloride 0.9 % 250 mL IVPB Start: 12-07-2020 End: 12-07-2020 fosaprepitant (EMEND) 150 mg in sodium chloride 0.9 % 250 mL IVPB Start: 11-22-2020 End: 11-22-2020 fosaprepitant (EMEND) 150 mg in sodium chloride 0.9 % 250 mL IVPB Start: 11-08-2020 End: 11-08-2020 fosaprepitant (EMEND) 150 mg in sodium chloride 0.9 % 250 mL IVPB Start: 10-25-2020 End: 10-25-2020 fosaprepitant (EMEND) 150 mg in sodium chloride 0.9 % 250 mL IVPB Start: 10-11-2020 End: 10-11-2020 fosaprepitant (EMEND) 150 mg in sodium chloride 0.9 % 250 mL IVPB Start: 09-27-2020 End: 09-27-2020 fosaprepitant (EMEND) 150 mg in sodium chloride 0.9 % 250 mL IVPB Start: 09-13-2020 End: 09-13-2020 fosaprepitant (EMEND) 150 mg in sodium chloride 0.9 % 250 mL IVPB Start: 08-30-2020 End: 08-30-2020 fosaprepitant (EMEND) 150 mg in sodium chloride 0.9 % 250 mL IVPB gabapentin 300 mg oral capsule (1 source) Anti-epileptic Agent Start: 07-27-2020 End: 07-27-2020 gabapentin (NEURONTIN) capsule 300 mg homatropine hydrobromide 50 mg/ml ophthalmic solution (1 source) Cholinergic Muscarinic Agonist Start: 08-18-2020 End: 08-30-2020 homatropine 5 % ophthalmic solution hydroCHLOROthiazide 25 mg oral tablet (8 sources) Thiazide Diuretic hydroCHLOROthi azide (HYDRODIURIL, ESIDRIX) 25 mg tablet Take 12.5 mg by mouth once daily. 0 Active Comment on above: Take 12.5 mg by mout h once daily. 10 ml lidocaine hydrochloride 20 mg/ml injection (1 source) Antiarrhythmic, Amide Local Anesthetic Start: 08-19-2020 End: 08-19-2020 lidocaine PF 2 % injection 1 ml LORazepam 2 mg/ml injection (20 sources) Benzodiazepine Start: 01-03-2021 End: 01-03-2021 LORazepam (ATIVAN) injection 0.5 mg Start: 12-07-2020 End: 12-07-2020 LORazepam (ATIVAN) injection 0.5 mg Start: 06-22-2020 LORazepam (ATI VAN) 0.5 mg Take 0.5 mg by mouth as needed. 0 06/23/2020 Active Comment on above: Take 0.5 mg by mouth as needed. 2 ml midazolam 1 mg/ml injection (2 sources) Benzodiazepine Start: 08-19-20 End: 08-19-20 midazolam (VERSED) injection MULTI-VITAMIN ORAL (8 sources) take 1 capsule by mouth once daily MULTI-VITAMIN ORAL Take 1 capsule by mouth once daily. 0 Active Comment on above: Take 1 capsule by mo uth once daily. 5 ml palonosetron 0.05 mg/ml injection (12 sources) Serotonin-3 Receptor Antagonist Start: 02-01-20 End: 02-01-20 palonosetron (ALOXI) injection 0.25 mg Start: 01-17-2021 End: 01-17-2021 palonosetron (ALOXI) injecti on 0.25 mg Start: 01-03-2021 End: 01-03-2021 palonosetron (ALOXI) injecti on 0.25 mg Start: 12-20-2020 End: 12-20-2020 palonosetron (ALOXI) injecti on 0.25 mg Start: 12-07-2020 End: 12-07-2020 palonosetron (ALOXI) injecti on 0.25 mg Start: 11-22-2020 End: 11-22-2020 palonosetron (ALOXI) injecti on 0.25 mg Start: 11-08-2020 End: 11-08-2020 palonosetron (ALOXI) injecti on 0.25 mg Start: 10-25-2020 End: 10-25-2020 palonosetron (ALOXI) injecti on 0.25 mg Start: 10-11-2020 End: 10-11-2020 palonosetron (ALOXI) injecti on 0.25 mg Start: 09-27-2020 End: 09-27-2020 palonosetron (ALOXI) injecti on 0.25 mg Start: 09-13-2020 End: 09-13-2020 palonosetron (ALOXI) injecti on 0.25 mg Start: 08-30-2020 End: 08-30-2020 palonosetron (ALOXI) injecti on 0.25 mg 0.6 ml pegfilgrastim 10 mg/ml prefilled syringe (12 sources) Leukocyte Growth Factor Start: 01-31-2021 End: 01-31-2021 pegfilgrastim (NEULASTA) on-body injector 6 mg Start: 01-17-2021 End: 01-17-2021 pegfilgrastim (NEULASTA) on- body injector 6 mg Start: 01-03-2021 End: 01-03-2021 pegfilgrastim (NEULASTA) on- body injector 6 mg Start: 12-20-2020 End: 12-20-2020 pegfilgrastim (NEULASTA) on- body injector 6 mg Start: 12-07-2020 End: 12-07-2020 pegfilgrastim (NEULASTA) on- body injector 6 mg Start: 11-22-2020 End: 11-22-2020 pegfilgrastim (NEULASTA) on- body injector 6 mg Start: 11-08-2020 End: 11-08-2020 pegfilgrastim (NEULASTA) on- body injector 6 mg Start: 10-25-2020 End: 10-25-2020 pegfilgrastim (NEULASTA) on- body injector 6 mg Start: 10-11-2020 End: 10-11-2020 pegfilgrastim (NEULASTA) on- body injector 6 mg Start: 09-27-2020 End: 09-27-2020 pegfilgrastim (NEULASTA) on- body injector 6 mg Start: 09-13-2020 End: 09-13-2020 pegfilgrastim (NEULASTA) on- body injector 6 mg Start: 08-30-2020 End: 08-30-2020 pegfilgrastim (NEULASTA) on- body injector 6 mg perflutren lipid microspheres (DEFINITY) injection 0.64 mg (1 source) Start: 08-22-2020 End: 08-22-2020 perflutren lipid microspheres (DEFINITY) injection 0.64 mg perflutren protein A microsphere (Optison) 3 mL in sodium chloride (PF) 0.9 % 10 mL IV (2 sources) Start: 04-28-2025 End: 04-28-2025 0-10 mL, IntraVENous, IMG once PRN, other, suboptimal echo image, Starting on Sat04/28/25 at 0909, For 1 dose, CV Procedural Medications, Administer via slow IVP for suboptimal echocardiogram enhancement. May administer as divided doses to reach optimal image enhancement triamcinolone acetonide 1 mg/ml topical cream (6 sources) Corticosteroid Start: 06-14-2021 Triamcinolone Acetonide 0.1 % External Cream APPLY SPARINGLY TO AFFECTED AREA(S) 3 TIMES A DAY Quantity: 1 Refills: 2 Ordered: 14-Jun-2021 Germania Moreau MD Start : 14-Jun-2021 Active vinBLAStine (VELBAN) 16 mg in sodium chloride 0.9 % 50 mL chemo IVPB (10 sources) Start: 01-03-2021 End: 01-03-2021 vinBLAStine (VELBAN) 16 mg in sodium chloride 0.9 % 50 mL chemo IVPB Start: 12-20-2020 End: 12-20-2020 vinBLAStine (VELBAN) 16 mg i n sodium chloride 0.9 % 50 mL chemo IVPB Start: 12-07-2020 End: 12-07-2020 vinBLAStine (VELBAN) 16 mg i n sodium chloride 0.9 % 50 mL chemo IVPB Start: 11-22-2020 End: 11-22-2020 vinBLAStine (VELBAN) 16 mg i n sodium chloride 0.9 % 50 mL chemo IVPB Start: 11-08-2020 End: 11-08-2020 vinBLAStine (VELBAN) 16 mg i n sodium chloride 0.9 % 50 mL chemo IVPB Start: 10-25-2020 End: 10-25-2020 vinBLAStine (VELBAN) 16 mg i n sodium chloride 0.9 % 50 mL chemo IVPB Start: 10-11-2020 End: 10-11-2020 vinBLAStine (VELBAN) 16 mg i n sodium chloride 0.9 % 50 mL chemo IVPB Start: 09-27-2020 End: 09-27-2020 vinBLAStine (VELBAN) 16 mg i n sodium chloride 0.9 % 50 mL chemo IVPB Start: 09-13-2020 End: 09-13-2020 vinBLAStine (VELBAN) 16 mg i n sodium chloride 0.9 % 50 mL chemo IVPB Start: 08-30-2020 End: 08-30-2020 vinBLAStine (VELBAN) 16 mg i n sodium chloride 0.9 % 50 mL chemo IVPB water 1000 mg/ml injectable solution (1 source) Start: 10-11-2020 End: 10-11-2020 sterile water injection 2.2 mL Start: 10-11-2020 End: 10-11-2020 sterile water injection 2.2 mL Problems Active Problems Problem Classification Problem Date Documented Date Episodic/Chronic Acute bronchitis (1 source) Acute bronchitis, unspecified; Translations: [Acute bronchitis, unspecified] Onset: 11-13-2022 Episodic Anxiety disorders (20 sources) Anxiety; Translations: [Anxiety disorder, unspecified] Onset: 07-07-2020 07-07-2020 Chronic Cancer; other and unspecified primary (12 sources) H/O: neoplasm; Translations: [Personal history of other specified diseases] Episodic Comment on above: 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 removed on colonoscopy February 2020.; Cardiac and circulatory congenital anomalies (10 sources) Bicuspid aortic valve; Translations: [Congenital insufficiency of aortic valve] Onset: 04-28-2025 01-29-2024 Chronic Complications of surgical procedures or medical care (20 sources) Hypothyroidism following external radiotherapy; Translations: [Postprocedural hypothyroidism] Onset: 07-07-2020 07-07-2020 Chronic Disorders of lipid metabolism (4 sources) Mixed hyperlipidemia; Translations: [Mixed hyperlipidemia] 01-29-2024 Chronic E Codes: Adverse effects of medical drugs (3 sources) Antineoplastic adverse reaction; Translations: [Adverse effect of antineoplastic and immunosuppressive drugs, initial encounter] Onset: 05-16-2022 Episodic E Codes: Struck by; against (1 source) Other cause of strike by thrown, projected or falling object, initial encounter; Translations: [Oth cause of strike by thrown, projected or fall obj, init] Onset: 02-02-2023 Episodic Esophageal disorders (20 sources) Gastroesophageal reflux disease; Translations: [Gastro-esophageal reflux disease without esophagitis] Onset: 04-09-2013 07-07-2020 Chronic Essential hypertension (20 sources) Hypertensive disorder; Translations: [Essential (primary) hypertension] Onset: 07-07-2020 07-07-2020 Chronic Heart valve disorders (2 sources) Nonrheumatic aortic (valve) insufficiency; Translations: [Nonrheumatic aortic (valve) insufficiency] Onset: 05-16-2022 Chronic Hodgkin`s disease (20 sources) Hodgkin's disease (clinical); 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, nodular sclerosis of intrathoracic lymph nodes] Onset: 04-03-2012 07-07-2020 Chronic Non-Hodgkin`s lymphoma (1 source) History of Hodgkin lymphoma; Translations: [History of Hodgkin's lymphoma] Episodic Other aftercare (1 source) Other senior living (current) drug therapy; Translations: [Other director long term care (current) drug therapy] Onset: 02-02-2023 Episodic Other connective tissue disease (1 source) Pain in left foot; Translations: [Pain in left foot] Onset: 02-02-2023 Episodic Other injuries and conditions due to external causes (1 source) Unspecified injury of left foot, initial encounter; Translations: [Unspecified injury of left foot, initial encounter] Onset: 02-02-2023 Episodic Other lower respiratory disease (1 source) Solitary pulmonary nodule; Translations: [Lung nodule] Episodic Other nutritional; endocrine; and metabolic disorders (2 sources) Morbid (severe) obesity due to excess calories; Translations: [Morbid (severe) obesity due to excess calories] Onset: 07-04-2022 Chronic Other nutritional; endocrine; and metabolic disorders (2 sources) Body mass index (BMI) 40.0-44.9, adult; Translations: [Body mass index [BMI] 40.0-44.9, adult] Onset: 07-04-2022 Chronic Other nutritional; endocrine; and metabolic disorders (19 sources) Body mass index 40+ - severely obese; Translations: [Body mass index (BMI) 40.0-44.9, adult] Onset: 02-03-2023 Chronic Other nutritional; endocrine; and metabolic disorders (4 sources) Severe obesity; Translations: [Morbid (severe) obesity due to excess calories] Chronic Other upper respiratory disease (2 sources) Pain in throat 10-26-2022 Episodic Comment on above: SORE THROAT Other upper respiratory disease (1 source) Nasal congestion; Translations: [Nasal congestion] Onset: 11-13-2022 Episodic Other upper respiratory infections (9 sources) Acute sinusitis; Translations: [Acute sinusitis, unspecified] Onset: 10-26-2022 10-26-2022 Episodic Comment on above: URI Residual codes; unclassified (1 source) Hypersomnia; Translations: [Hypersomnia, unspecified] 08-07-2023 Chronic Residual codes; unclassified (2 sources) Hypersomnia, unspecified; Translations: [Hypersomnia, unspecified] Onset: 08-28-2023 Chronic Residual codes; unclassified (2 sources) Pallor; Translations: [Pallor] Onset: 02-02-2023 Episodic Thyroid disorders (20 sources) Hypothyroidism; Translations: [Hypothyroidism, unspecified] Onset: 04-03-2012 07-07-2020 Chronic Comment on above: Secondary to radiati on to neck/chest for his Hodgkin's lymphoma; Unclassified (19 sources) Patient encounter status; Translations: [Procreative management] Onset: 11-17-2015 07-07-2020 Unclassified (1 source) History of thoracic surgery; Translations: [S/P thoracotomy] Unclassified (19 sources) Radiation-induced hypothyroidism; Translations: [Other] Onset: 07-07-2020 07-03-2022 Unclassified (1 source) Cough, unspecified; Translations: [Cough, unspecified] Onset: 11-13-2022 Unclassified (1 source) Established Patient Onset: 02-20-2023 Past or Other Problems Problem Classification Problem Date Documented Da te Episodic/Chronic Allergic reactions (20 sources) Contact dermatitis; Translations: [Contact dermatitis and other eczema, unspecified cause] Onset: 08-23-2021 08-23-2021 Episodic Contraceptive and procreative management (20 sources) Patient encounter status; Translations: [Encounter for procreative management, unspecified] Onset: 11-17-2015 07-07-2020 Episodic Fracture of lower limb (3 sources) Displaced fracture of middle phalanx of left lesser toe(s), initial encounter for open fracture; Translations: [Open fracture of phalanx of foot] Onset: 02-02-2023 Resolved: 08-07-2023 08-07-2023 Episodic Gastrointestinal hemorrhage (20 sources) Rectal hemorrhage; Translations: [Hemorrhage of anus and rectum] Onset: 07-07-2020 Resolved: 08-07-2023 07-07-2020 Episodic Hemorrhoids (20 sources) Internal hemorrhoids; Translations: [Other hemorrhoids] Onset: 07-07-2020 Resolved: 08-07-2023 07-07-2020 Episodic Lymphadenitis (20 sources) Lymphadenopathy; Translations: [Generalized enlarged lymph nodes] Onset: 07-07-2020 Resolved: 08-07-2023 07-07-2020 Episodic Open wounds of extremities (11 sources) Partial traumatic amputation of left great toe, initial encounter; Translations: [Traumatic amputation, greater toe] Onset: 02-02-2023 Resolved: 08-07-2023 Chronic Other circulatory disease (20 sources) Difficult venous access; Translations: [Other specified disorders of veins] Onset: 04-11-2021 Resolved: 08-07-2023 Episodic Other lower respiratory disease (20 sources) Lung mass; Translations: [Other nonspecific abnormal finding of lung field] Onset: 07-07-2020 Resolved: 08-07-2023 07-07-2020 Episodic Other skin disorders (20 sources) Mediastinal mass; Translations: [Other diseases of mediastinum, not elsewhere classified] Onset: 07-27-2020 Resolved: 08-07-2023 07-27-2020 Episodic Other upper respiratory disease (1 source) Other specified disorders of nose and nasal sinuses; Translations: [Other specified disorders of nose and nasal sinuses] Onset: 10-26-2022 Episodic Thyroid disorders (6 sources) Atrophy of thyroid - acquired; Translations: [Atrophy of thyroid (acquired)] Onset: 02-19-2023 08-05-2024 Episodic NEGATED: Highlighted row has not occurred!Residual codes; unclassified (7 sources) Disease Episodic Results Test Name Value Interpretation Reference Range Facility 36on 07-20-2025 36 Cardiac risk assessm ent requested for 08/27/25 left foot arthrodesis of the 2nd proximal Interphalangeal joint and arthroplasty of the 2nd distal interphalangeal joint. [facility] 04/07/25 Normal [facility] US Heart TransthoracicOrdere d By: Nelson Condon on 04-28-2025 Aortic Arch 3.1 cm [employer] Phone: Aortic Sinus Valsalva 3.9 cm [employer] Phone: Aortic Sinus Valsalva Index 1.43 cm/m2 [employer] Phone: Aortic valve Mean systole pressure gradient by US.doppler derived full Bernoulli 11 mmHg [employer] Phone: Aortic valve Orifice area by US 4.2 cm2 [employer] Phone: Aortic valve Peak systolic flow by US.doppler 1.5 m/s [employer] Phone: Ascending Aorta 3.6 cm [employer] Phone: Ascending Aorta Index 1.32 cm/m2 [employer] Phone: AV Area by Peak Velocity 1.6 cm2 [employer] Phone: AV Area by VTI 1.5 cm2 [employer] Phone: AV Peak Gradient 19 mmHg [employer] Phone: AV Peak Velocity 2.2 m/s [employer] Phone: AV Velocity Ratio 0.36 [employer] Phone: AV VTI 51.7 cm [employer] Work Phone: ERIKA/BSA Peak Velocity 0.6 cm2/m2 Sum [facility] [employer] Work Phone: ERIKA/BSA VTI 0.6 cm2/m2 [facility] Phone: E/E' Lateral 7.55 [facility] [employer] Phone: E/E' Ratio (Averaged) 7.92 Sum [employer] Work Phone: E/E' Septal 8.3 [facility] [employer] Phone: Fractional Shortening 2D 27 % 28 - 44 % [facility] [employer] [facility] Phone: Interpretation and review of laboratory results Abnormal [facility] [employer] [facility] Phone: IVSd 1.2 cm Abnormal 0.6 - 1.0 cm [employer] Phone: LA Diameter 4.5 cm [facility] Phone: LA Size Index 1.65 cm/m2 [employer] Phone: LA Volume 2C 54 mL 18 - 58 mL [employer] Phone: LA Volume 4C 76 mL Abnormal 18 - 58 mL [employer] Phone: LA Volume A/L 73 mL [employer] Phone: LA Volume BP 67 mL Abnormal 18 - 58 mL [employer] Phone: LA Volume Index 2C 20 mL/m2 16 - 34 mL/m2 [facility] [employer] [facility] Phone: LA Volume Index 4C 28 mL/m2 16 - 34 mL/m2 [employer] Phone: LA Volume Index A/L 27 mL/m2 16 - 34 mL/m2 [facility] [employer] [facility] Phone: LA Volume Index BP 25 ml/m2 16 - 34 ml/m2 [employer] Phone: Left ventricular Ejection fraction by US.2D+Calculated by biplane method of disks 59 % 55 - 100 % [facility] [employer] [facility] Phone: LV E' Lateral Velocity 11 cm/s [facility] Work Phone: LV E' Septal Velocity 10 cm/s [facility] Work Phone: LV EDV A2C 84 mL [facility] [employer] Work Phone: LV EDV A4C 174 mL [facility] [employer] Work Phone: LV EDV BP 135 mL 67 - 155 mL [facility] [employer] Work Phone: LV EDV Index A2C 31 mL/m2 [facility] [employer] Work Phone: LV EDV Index A4C 64 mL/m2 [facility] [employer] Work Phone: LV EDV Index BP 50 mL/m2 [facility] [employer] Work Phone: LV Ejection Fraction A2C 55 % [facility] [employer] Work Phone: LV Ejection Fraction A4C 57 % [facility] [employer] Work Phone: LV ESV A2C 38 mL [facility] [employer] Work Phone: LV ESV A4C 75 mL [facility] [employer] Work Phone: LV ESV BP 55 mL 22 - 58 mL [facility] [employer] Work Phone: LV ESV Index A2C 14 mL/m2 [facility] [employer] Work Phone: LV ESV Index A4C 28 mL/m2 [facility] [employer] Work Phone: LV ESV Index BP 20 mL/m2 [facility] [employer] Work Phone: LV Mass 2D 206.4 g 88 - 224 g [facility] [employer] Work Phone: LV Mass 2D Index 75.9 g/m2 49 - 115 g/m2 [facility] [employer] Work Phone: LV RWT Ratio 0.46 [facility] [employer] Work Phone: LVIDd 4.8 cm 4.2 - 5.9 cm [facility] [employer] Work Phone: LVIDd Index 1.76 cm/m2 [facility] [employer] Work Phone: LVIDs 3.5 cm [facility] [employer] Work Phone: LVIDs Index 1.29 cm/m2 [facility] Work Phone: LVOT Cardiac Output 5.1 liter/mi nut e [facility] Work Phone: LV[facility] 2.3 [facility] Mean Gradient 2 [facility] [employer] Work Phone: LVOT Peak Gradient 3 mmHg [facility] [employer] Work Phone: LVOT Peak Velocity 0.8 m/s [facility] Phone: LVOT Stroke Volume Index 29.9 mL/m2 [facility] Phone: LVOT SV 81.4 ml [facility] [employer] Work Phone: LVOT VTI 19.6 cm [facility] [employer] Work Phone: LVOT:AV VTI Index 0.38 [facility] [employer] Work Phone: LVPWd 1.1 cm Abnormal 0.6 - 1.0 cm [facility] [employer] Work Phone: MV A Velocity 0.66 m/s [facility] [employer] Work Phone: MV E Velocity 0.83 m/s [facility] [employer] Work Phone: MV E Wave Deceleration Time 215.3 ms [facility] [employer] Work Phone: MV E/A 1.26 [facility] [employer] Work Phone: Pulm Vein Peak D Velocity 0.5 m/s [facility] [employer] Work Phone: Pulm Vein Peak S Velocity 0.6 m/s [facility] [employer] Work Phone: Pulm Vein S/D 1.2 [facility] [employer] Work Phone: RA Area 4C 48.3 mL [facility] [employer] Work Phone: RV Basal Dimension 3.4 cm [facility] [employer] Work Phone: RV Free Wall Peak S' 11 cm/s [facility] Work Phone: RV Longitudinal Dimension 9.5 cm [facility] [employer] Work Phone: RV Mid Dimension 3 cm [facility] [employer] Phone: Sinotubular Junction 3.[address] [facility] [employer] Work Phone: TAPSE 2.1 cm 1.7 cm [facility] [employer] Work Phone: [facility] [employer] Work Phone: Heart Transthoracicon Left Ventricle: Left ventricle size is normal. Mildly increased wall thickness. Normal left ventricular systolic function. EF by 2D Simpsons Biplane is 59%. Normal wall motion. Right Ventricle: Right ventricle size is normal. Normal systolic function. Aortic Valve: Bicuspid valve with commisural fusion of the left and noncoronary cusps. No cusp thickening. No cusp calcification. Mild (1+) regurgitation. Mild stenosis of the aortic valve. AV mean gradient is 11 mmHg. LVOT:AV VTI Index is 0.38. AV area by continuity VTI is 1.5 cm2. Left Ventricle Left ventricle size is normal. Mildly increased wall thickness. Normal left ventricular systolic function. EF by 2D Simpsons Biplane is 59%. Normal wall motion. Normal diastolic function. Right Ventricle Right ventricle size is normal. Normal systolic function. Left Atrium Left atrium size is normal. Normal flow patterns in the pulmonary veins. Right Atrium Right atrium size is normal. IVC/SVC Cannot estimate RA pressure due to the IVC not being visualized. Mitral Valve Valve structure is normal. No regurgitation. No stenosis noted. Tricuspid Valve Not well visualized. Valve structure is normal. Trace regurgitation. Unable to assess RVSP due to not being able to assess RA pressure. Aortic Valve Bicuspid valve with commisural fusion of the left and noncoronary cusps. No cusp thickening. No cusp calcification. Mild (1+) regurgitation. Mild stenosis of the aortic valve. AV mean gradient is 11 mmHg. LVOT:AV VTI Index is 0.38. AV area by continuity VTI is 1.5 cm2. Pulmonic Valve The pulmonic valve visualization is suboptimal but appears to be functioning normally. Valve structure is normal. Trace regurgitation. Ascending Aorta Normal sized sinuses of Valsalva and ascending aorta. Pericardium No pericardial effusion. Septum No interatrial shunt visualized on color Doppler. Study Details Image quality: suboptimal. Heart rate: 66 bpm. Blood pressure: 138/84 mmHg. Technical qualifiers: Technically difficult study, technically difficult study with poor endocardial visualization and technically difficult study due to patient's body habitus. Ultrasound enhancement agent was given to enhance imaging. Wall Scoring Baseline Score Index: 1.00 The left ventricular wall motion is normal. CV CPACS 37on 04-07-2025 37 Echocardiogram Normal [facility] Office Visiton 04-07-2025 Follow-up visit [id number] More Santos 1985 M Date Provider Department Center 04/07/2025 [id number] [facility]ADO [facility] None Family History Problem Relation Age of Onset Heart disease Maternal Grandfather High Blood Pressure Maternal Grandfather Hypertension Maternal Grandfather Anxiety disorder Father High Blood Pressure Father Hyperlipidemia Father Hypertension Father Heart disease Paternal Grandfather High Blood Pressure Paternal Grandfather Hyperlipidemia Paternal Grandfather Hypertension Paternal Grandfather High Blood Pressure Maternal Grandmother Diabetes Maternal Grandmother Cancer Maternal Grandmother Diabetes type II Maternal Grandmother Hyperlipidemia Maternal Grandmother Hypertension Maternal Grandmother High Blood Pressure Mother Hyperlipidemia Mother Hypertension Mother Cancer Paternal Grandmother Diabetes Paternal Grandmother High Blood Pressure Paternal Grandmother Hypertension Paternal Grandmother Family Status - Relation Status Age at Maternal Grandfather Father Alive Paternal Grandfather Maternal Grandmother Mother Alive Paternal Grandmother Level of Service:62519 ME OFFICE/OUTPATIENT ESTABLISHED MOD MDM 30 MIN Reason for Visit and Comments: Annual Exam [83] [facility] 36on 02-15-2025 36 [place] 01/28. Labs 07/22. NOV 04/07. Rx pended for review. [facility] 36 PT in need of refill on Lisinopril 20 mg before his NOV with GO on 04/07/25. Please route to [facility] [phone] [facility] 36on 02-04-2025 36 [place] 01/29/24, NOV 03/17 12/08- Lipids 05/20/24. Rx pended. [facility] 36 PT called to set up his annual 04/07/25 in [place]. Pt states he needs a refill Rosuvastatin 10 mg Please send to his [facility] [phone] [facility] Office Visiton 11-18-2024 Follow-up visit [id number] More Santos 1985 M Date Provider Department Center 11/18/2024 [id number] [facility] ONC None Family History Problem Relation Age of Onset Heart disease Maternal Grandfather High Blood Pressure Maternal Grandfather Hypertension Maternal Grandfather Anxiety disorder Father High Blood Pressure Father Hyperlipidemia Father Hypertension Father Heart disease Paternal Grandfather High Blood Pressure Paternal Grandfather Hyperlipidemia Paternal Grandfather Hypertension Paternal Grandfather High Blood Pressure Maternal Grandmother Diabetes Maternal Grandmother Cancer Maternal Grandmother Diabetes type II Maternal Grandmother Hyperlipidemia Maternal Grandmother Hypertension Maternal Grandmother High Blood Pressure Mother Hyperlipidemia Mother Hypertension Mother Cancer Paternal Grandmother Diabetes Paternal Grandmother High Blood Pressure Paternal Grandmother Hypertension Paternal Grandmother Family Status - Relation Status Age at Maternal Grandfather Father Alive Paternal Grandfather Maternal Grandmother Mother Alive Paternal Grandmother Level of Service:79864 ME OFFICE/OUTPATIENT ESTABLISHED LOW [facility] 20 MIN Reason for Visit and Comments: Follow-up [341348] [facility] Progress Noteon 11-18-2024 Progress Note Patient ID: Devorah Santos is a 39 y.o. male. HPI Doing well. No fevers, night sweats or weight loss. he has the following oncology history 1. Stage II Hodgkin's lymphoma diagnosed and treated at [facility] in 2000. He received 6 cycles of VIOLA/ABVD followed by XRT. Disease sites were neck and chest. 2. Survivorship course complicated by hypothyroidism and anxiety. 3. 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 4. Started Adriamycin, Brentuximab, vinblastine and dacarbazine with Neulasta support day 1 and day 15 every 28 days. Completed 6 cycles February 2021 Review of Systems - Oncology No nausea, vomiting, diarrhea, fever, night sweats, chills, cough, shortness of breath, chest pain BSA: 2.82 meters squared BP (!) 146/103 Pulse 83 Temp 36.3 ?C (97.4 ?F) (Temporal) Ht 1.88 m (6' 2) Wt (!) 152 kg (335 lb 8 oz) SpO2 93% BMI 43.08 kg/m? Physical Exam No lymphadenopathy or hepatosplenomegaly. No lower extremity edema. Lab Results Component Value Date WBC 6.6 05/20/2024 HGB 15.2 05/20/2024 HCT 44.4 05/20/2024 MCV 83.1 05/20/2024 PLT 214 05/20/2024 Assessment/Plan There are no diagnoses linked to this encounter. he appears to be in complete remission. Will do only symptom guided imaging. 2. Follow-up in 6 months. 3. Continue follow-up with medical weight management and Dr. Kan (cardio oncology) as well. 4. I have counseled him on diet and exercise. Patient verbalizes understanding and agrees with the plan. Plan as of 11/18/24 Normal [facility] TSH WITH REFLEX TO FREE T4 I F ABNORMALon 09-30-2024 TSH Qn 2.84 m[IU]/L Normal 0.44-3.98 [facility] Comment on above: Order Comment: TSH t esting is performed using different testing methodology at [facility] than at [facility]. Direct result comparisons should only be made within the same method. Performed By: #### T HYDS #### VERA MARTIN ([id number]) [facility] ([facility]) [address] [place] [address] 52284 CBC W Auto Differential pane l (Bld)on 07-22-2024 Basophils (Bld) [#/Vol] 0.03 x10*3/uL Normal 0.00-0.10 [facility] Comment on above: Performed By: #### 5 7021-8 #### VERA MARTIN ([id number]) [facility] ([facility]) [address] [place] [address] 90794 Basophils/100 WBC (Bld) 0.5 % Normal 0.0-2.0 [facility] Comment on above: Performed By: #### 5 7021-8 #### VERA MARTIN ([id number]) [facility] ([facility]) [address] [place] [address] 06259 Eosinophils (Bld) [#/Vol] 0.13 x10*3/uL Normal 0.00-0.70 [facility] Comment on above: Performed By: #### 5 7021-8 #### VERA MARTIN ([id number]) [facility] ([facility]) [address] [place] [address] 78615 Eosinophils/100 WBC (Bld) 2.0 % Normal 0.0-6.0 [facility] Comment on above: Performed By: #### 5 7021-8 #### VERA MARTIN ([id number]) [facility] ([facility]) [address] [place] [address] 40976 Erythrocyte distribution width (RBC) [Ratio] 12.2 % Normal 11.5-14.5 [facility] Comment on above: Performed By: #### 5 7021-8 #### VERA MARTIN ([id number]) [facility] ([facility]) [address] [place] [address] 95136 Hematocrit (Bld) [Volume fraction] 46.3 % Normal 41.0-52.0 [facility] Comment on above: Performed By: #### 5 7021-8 #### VERA MARTIN ([id number]) [facility] ([facility]) [address] [place] [address] 90686 Hemoglobin (Bld) [Mass/Vol] 15.7 g/dL Normal 13.5-17.5 [facility] Comment on above: Performed By: #### 5 7021-8 #### VERA MARTIN ([id number]) [facility] ([facility]) [address] [place] [address] 01423 Immature granulocytes (Bld) [#/Vol] 0.02 x10*3/uL Normal 0.00-0.70 [facility] Comment on above: Performed By: #### 5 7021-8 #### VERA MARTIN ([id number]) [facility] ([facility]) [address] [place] [address] 36654 Immature granulocytes/100 WBC (Bld) 0.3 % Normal 0.0-0.9 [facility] Comment on above: Result Comment: Noelle ture Granulocyte Count (IG) includes promyelocytes, myelocytes and metamyelocytes but does not include bands. Percent differential counts (%) should be interpreted in the context of the absolute cell counts (cells/UL). Performed By: #### 5 7021-8 #### VERA MARTIN ([id number]) [facility] ([facility]) [address] [place] [address] 51699 Lymphocytes (Bld) [#/Vol] 1.86 x10*3/uL Normal 1.20-4.80 [facility] Comment on above: Performed By: #### 5 7021-8 #### VERA MARTIN ([id number]) [facility] ([facility]) [address] [place] [address] 20839 Lymphocytes/100 WBC (Bld) 28.3 % Normal 13.0-44.0 [facility] Comment on above: Performed By: #### 5 7021-8 #### VERA MARTIN ([id number]) [facility] ([facility]) [address] [place] [address] 10215 MCH (RBC) [Entitic mass] 28.7 pg Normal 26.0-34.0 [facility] Comment on above: Performed By: #### 5 7021-8 #### VERA MARTIN ([id number]) [facility] ([facility]) [address] [place] [address] 20097 MCHC (RBC) [Mass/Vol] 33.9 g/dL Normal 32.0-36.0 [facility] Comment on above: Performed By: #### 5 7021-8 #### VERA MARTIN ([id number]) [facility]) [address] [place] [address] 17797 MCV (RBC) [Entitic vol] 85 fL Normal 80-100 [facility] Comment on above: Performed By: #### 5 7021-8 #### VERA MARTIN ([id number]) [facility] ([facility]) [address] [place] [address] 77414 Monocytes (Bld) [#/Vol] 0.52 x10*3/uL Normal 0.10-1.00 [facility] Comment on above: Performed By: #### 5 7021-8 #### VERA MARTIN ([id number]) [facility]) [address] [place] [address] 79636 Monocytes/100 WBC (Bld) 7.9 % Normal 2.0-10.0 [facility] Comment on above: Performed By: #### 5 7021-8 #### VERA MARTIN ([id number]) [facility] ([facility]) [address] [place] [address] 50846 Neutrophils (Bld) [#/Vol] 4.01 x10*3/uL Normal 1.20-7.70 [facility] Comment on above: Result Comment: Perc ent differential counts (%) should be interpreted in the context of the absolute cell counts (cells/uL). Performed By: #### 5 7021-8 #### VERA MARTIN ([id number]) [facility] ([facility]) [address] [place] [address] 34069 Neutrophils/100 WBC (Bld) 61.0 % Normal 40.0-80.0 [facility] Comment on above: Performed By: #### 5 7021-8 #### VERA MARTIN ([id number]) [facility] ([facility]) [address] [place] [address] 04082 Nucleated RBC/100 WBC (Bld) [Ratio] 0.0 /100 WBCs Normal 0.0-0.0 [facility] Comment on above: Performed By: #### 5 7021-8 #### VERA MARTIN ([id number]) [facility] ([facility]) [address] [place] [address] 55910 Platelets (Bld) [#/Vol] 223 x10*3/uL Normal 150-450 [facility] Comment on above: Performed By: #### 5 7021-8 #### VERA MARTIN ([id number]) [facility] ([facility]) [address] [place] [address] 77761 RBC (Bld) [#/Vol] 5.47 x10*6/uL Normal 4.50-5.90 [facility] Comment on above: Performed By: #### 5 7021-8 #### VERA MARTIN ([id number]) [facility]) [address] [place] [address] WBC (Bld) [#/Vol] 6.6 x10*3/uL Normal 4.4-11.3 [facility] Comment on above: Performed By: #### 5 7021-8 #### VERA MARTIN ([id number]) [facility] ([facility]) [address] [place] [address] Comprehensive metabolic 2000 panelon 07-22-2024 Albumin BCP dye [Mass/Vol] 4.5 g/dL Normal 3.4-5.0 [facility] Comment on above: Performed By: #### 2 4323-8 #### VERA MARTIN ([id number]) [facility]) [address] [place] [address] ALP [Catalytic activity/Vol] 80 U/L Normal 33-120 [facility] Comment on above: Performed By: #### 2 4323-8 #### VERA MARTIN ([id number]) [facility]) [address] [place] [address] ALT With P-5'-P [Catalytic activity/Vol] 35 U/L Normal 10-52 [facility] Comment on above: Result Comment: Maritza ents treated with Sulfasalazine may generate falsely decreased results for ALT. Performed By: #### 2 4323-8 #### VERA MARTIN ([id number]) [facility]) [address] [place] [address] Anion gap [Moles/Vol] 10 mmol/L Normal 10-20 [facility] Comment on above: Performed By: #### 2 4323-8 #### VERA MARTIN ([id number]) [facility]) [address] [place] [address] 22566 AST With P-5'-P [Catalytic activity/Vol] 28 U/L Normal 9-39 [facility] Comment on above: Performed By: #### 2 4323-8 #### VERA MARTIN ([id number]) [facility] ([facility]) [address] [place] [address] Bilirubin [Mass/Vol] 0.5 mg/dL Normal 0.0-1.2 [facility] Comment on above: Performed By: #### 2 4323-8 #### VERA MARTIN ([id number]) [facility] ([facility]) [address] [place] [address] Calcium [Mass/Vol] 9.8 mg/dL Normal 8.6-10.3 [facility] Comment on above: Performed By: #### 2 4323-8 #### VERA MARTIN ([id number]) [facility] ([facility]) [address] [place] [address] Chloride [Moles/Vol] 101 mmol/L Normal 98-107 [facility] Comment on above: Performed By: #### 2 4323-8 #### VERA MARTIN ([id number]) [facility]) [address] [place] [address] 06433 CO2 [Moles/Vol] 33 mmol/L High 21-32 [facility] Comment on above: Performed By: #### 2 4323-8 #### VERA MARTIN ([id number]) [facility]) [facility] [place] [address] Creatinine [Mass/Vol] 1.01 mg/dL Normal 0.50-1.30 [facility] Comment on above: Performed By: #### 2 4323-8 #### VERA MARTIN ([id number]) [facility]) [address] [place] [address] 52365 GFR/1.73 sq M.predicted MDRD (S/P/Bld) [Vol rate/Area] mL/min/{1.73_m2} Normal >60 [facility] Comment on above: Result Comment: Calc ulations of estimated GFR are performed using the 2020 CKD-EPI Study Refit equation without the race variable for the IDMS-Traceable creatinine methods. https://jasn.asnjournals.org/content//ASN.18403 25552 Performed By: #### 2 4323-8 #### VERA MARTIN ([id number]) [facility]) [facility] [place] [address] Glucose [Mass/Vol] 85 mg/dL Normal 74-99 [facility] Comment on above: Performed By: #### 2 432-8 #### VERA MARTIN ([id number]) [facility]) [address] [place] [address] 42767 Potassium [Moles/Vol] 4.0 mmol/L Normal 3.5-5.3 [facility] Comment on above: Performed By: #### 2 4322-8 #### VERA MARTIN ([id number]) [facility]) [address] [place] [address] 91981 Protein [Mass/Vol] 7.1 g/dL Normal 6.4-8.2 [facility] Comment on above: Performed By: #### 2 4322-8 #### VERA MARTIN ([id number]) [facility]) [address] [place] [address] 46863 Sodium [Moles/Vol] 140 mmol/L Normal 136-145 [facility] Comment on above: Performed By: #### 2 4322-8 #### VERA MARTIN ([id number]) [facility]) [address] [place] [address] 24555 Urea nitrogen [Mass/Vol] 18 mg/dL Normal 6-23 [facility] Comment on above: Performed By: #### 2 4322-8 #### VERA MARTIN ([id number]) [facility]) [address] [place] [address] 87496 TSH WITH REFLEX TO FREE T4 I F ABNORMALon 07-22-2024 TSH Qn 4.37 m[IU]/L High 0.44-3.98 [facility] Comment on above: Order Comment: TSH t esting is performed using different testing methodology at [facility] than at other [facility]. Direct result comparisons should only be made within the same method. Performed By: #### T HYDS #### VERA MARTIN ([id number]) [facility]) [facility] [place] [id number] Thyroxine.freeon 07-22-2024 Free T4 [Mass/Vol] 1.01 ng/dL Normal 0.61-1.12 [facility] Comment on above: Order Comment: Thyro xine Free testing is performed using different testing methodology at [facility] than at other [facility]. Direct result comparisons should only be made within the same method. Biotin can cause falsely elevated free T4 results. Patients taking a Biotin dose of up to 10 mg/day should refrain from taking Biotin for 24 hours before sample collection. Patient taking a Biotin dose of >10 mg/day should consult with their physician or the laboratory before the blood draw. Performed By: #### 3 024-7 #### GAMEZ MARIO ([id number]) [facility]) [facility] [place] [address] CBC W Auto Differential pane l (Bld)on 05-20-2024 Basophils (Bld) [#/Vol] 0.0 10*3/uL 0.0 - 0.2 10*3/uL [employer] Basophils/100 WBC (Bld) 0.6 % 0.0 - 2.0 % [employer] Eosinophils (Bld) [#/Vol] 0.2 10*3/uL 0.0 - 0.5 10*3/uL [facility] Eosinophils/100 WBC (Bld) 2.6 % 0.0 - 6.0 % [facility] [employer] Erythrocyte distribution width (RBC) [Ratio] 12.9 % 11.5 - 15.0 % [employer] Hematocrit (Bld) [Volume fraction] 44.4 % 40.0 - 52.0 % [employer] Hemoglobin (Bld) [Mass/Vol] 15.2 g/dL 13.0 - 18.0 g/dL [employer] Immature granulocytes (Bld) [#/Vol] 0.0 10*3/uL NINF - 0.1 10*3/uL [facility] [employer] Immature granulocytes/100 WBC (Bld) 0.3 % 0.0 - 2.0 % [facility] [employer] Interpretation and review of laboratory results Normal [facility] [employer] Lymphocytes (Bld) [#/Vol] 1.9 10*3/uL 1.0 - 4.3 10*3/uL [facility] Lymphocytes/100 WBC (Bld) 29.4 % 15.0 - 45.0 % [facility] MCH (RBC) [Entitic mass] 28.5 pg 26.0 - 34.0 pg [facility] MCHC (RBC) [Mass/Vol] 34.2 % 30.5 - 36.0 % [facility] MCV (RBC) [Entitic vol] 83.1 fL 77.0 - 99.0 fL [facility] Monocytes (Bld) [#/Vol] 0.6 10*3/uL 0.0 - 0.9 10*3/uL [facility] Monocytes/100 WBC (Bld) 9.5 % 5.0 - 13.0 % [facility] Neutrophils (Bld) [#/Vol] 3.8 10*3/uL 1.8 - 7.5 10*3/uL [facility] Neutrophils/100 WBC (Bld) 57.6 % 38.0 - 82.0 % [facility] Nucleated RBC/100 WBC (Bld) [Ratio] 0.0 % [facility] Platelet mean volume (Bld) [Entitic vol] 11.2 fL 9.0 - 12.7 fL [facility] Platelets (Bld) [#/Vol] 214 10*3/uL 140 - 440 10*3/uL [facility] RBC (Bld) [#/Vol] 5.34 10*6/uL 4.40 - 5.9 0 10*6/uL [facility] WBC (Bld) [#/Vol] 6.6 10*3/uL 3.6 - 10.7 10*3/uL [facility] CNOVon 07-10-2023 CNOV Office Visit (AGPOB1 ) ----- DEVORAH SANTOS ([id number]) 1985 M Date Time Provider Department 07/10/23 8:45 AM LATRICE VELASCO During your visit today, we recorded the following information about you: Respiration Weight Height 20/minute 149.8 kg 1.88 m Latrice Velasco MD 07/10/2023 2:57 PM Signed ORTHOPAEDIC OFFICE NOTE CHIEF COMPLAINT: Follow-up traumatic amputation left great toe and laceration left second toe HISTORY OF PRESENT ILLNESS: Devorah Santos is a 38 year old male who presents for Follow-up evaluation after traumatic amputation of left great toe and laceration of left second toe treated on 02/03/2023. Overall he is doing pretty well. For the most part he is pain-free and ambulates issue. He is using shoe orthotics which she thinks are helpful. He does have issues with going up and down stairs where he has pain in the second toe. He is also developed some callus along the bottom aspect of the toe. He denies current fevers chills nausea vomiting weight loss fatigue or malaise. Reviewed nursing note and current pain scale. 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- 6 months chemo and radiation PAST SURGICAL HISTORY Procedure Laterality Date COLONOSCOPY 02/2020 large benign polyp PAST SURGICAL HISTORY OF Right lymph node biopsy PAST SURGICAL HISTORY OF port placement PAST SURGICAL HISTORY OF removal port FAMILY HISTORY Problem Relation Age of Onset Hypertension Mother Hypertension Father Social History Tobacco Use Smoking status: Never Smokeless tobacco: Never Substance Use Topics Alcohol use: Never Drug use: Not Currently MEDICATIONS: Current Outpatient Medications Medication Sig hydroCHLOROthiazide (HYDRODIURIL, ESIDRIX) 25 mg tablet Take 12.5 mg by mouth once daily. sertraline (ZOLOFT) 100 mg tablet Take 100 mg by mouth once daily. MULTI-VITAMIN ORAL Take 1 capsule by mouth once daily. pantoprazole DR (PROTONIX) 40 mg tablet Take 40 mg by mouth once daily. levothyroxine (SYNTHROID) 150 mcg tablet Take 150 mcg by mouth once daily. lisinopril (ZESTRIL, PRINIVIL) 10 mg tablet Take 20 mg by mouth once daily. LORazepam (ATIVAN) 0.5 mg Take 0.5 mg by mouth as needed. No current facility-administered medications for this visit. ALLERGIES: ALLERGIES No Known Allergies PHYSICAL EXAMINATION: Resp 20 Ht 6' 2 (1.88m) Wt 330 lb 3.2 oz (149.8kg) BMI 42.38 kg/(m2). General Appearance: Well appearing, alert, in no acute distress, well-hydrated, well nourished. Skin: Skin color, texture, turgor normal, no suspicious rashes or lesions. Psych: Patient is alert and oriented to person, time and place. Mood and affect are normal. Respiratory: Breathing is symmetric and unlabored Extremities: Left lower extremities examined. Overall appearance is much improved. The great toe is now almost completely healed. There are small areas of scabbing along the lateral aspect of the wound. The second toe also is almost completely healed a small areas of scabbing on the plantar surface of the toe. There is still moderate swelling present at the toe. There is minimal tenderness palpation there is no sign of active infection Lymphatic: There is no palpable lymphadenopathy Neurologic: Bilateral lower extremities were examined. There is 5/5 strength with hip flexion, knee extension, dorsiflexion, EHL, plantar flexion. Sensation intact in all nerve dermatomes IMAGES: No results found for this or any previous visit (from the past 36 hour(s)). Plan ASSESSMENT AND PLAN: 1. Traumatic amputation of left great toe, subsequent encounter (HCC) - ICD9: V54.89, 895.0, ICD10: S98.112D Functional Plan: Patient is a 38-year-old male presenting for follow-up evaluation after traumatic amputation of left great toe and laceration of left second toe with multiple open fractures. Overall he is doing okay. For most part he is pain-free although he has developed a callus along the plantar aspect of the second toe. He did his think that the orthotics are helpful. I discussed this with him at length. I did recommend that he follow-up with the orthotics personally see if he can offload the second toe any better. We discussed if it becomes significantly symptomatic could discuss some sort of fusion procedure to correct the alignment at the toe. At this point time he would like to see how he does in the future. He would prefer to follow-up with me as needed for this or any other issue. All his questions were answered satisfactorily. He expressed understanding of and agreement with the treatment plan. Medical Decision Making: Problems: Moderate: Acute complicated injury Risk: Low: Low risk from testing/treatment Medical Decision Making Level: 3 - Low Return if s (more content not included)... Normal [facility] 05-08-2023 CNOV Office Visit (AGPOB1 ) ----- DEVORAH SANTOS ([id number]) 1985 M Date Time Provider Department 05/08/23 10:30 AM LATRICE VELASCO AGPOB1 During your visit today, we recorded the following information about you: Respiration Weight Height 20/minute 147.3 kg 1.88 m Latrice Velasco MD 05/08/2023 11:03 AM Signed ORTHOPAEDIC OFFICE NOTE CHIEF COMPLAINT: Follow-up traumatic amputation left great toe HISTORY OF PRESENT ILLNESS: Devorah Santos is a 38 year old male who presents for Follow-up evaluation of traumatic partial amputation of left great toe near potation of left second toe on 02/03/2023. Overall he is doing well. For the most part he is pain-free. He states that he has some issues with prolonged walking especially with golfing. Feels like he is placing pressure on different areas of his toes than before. He denies current fevers chills nausea vomiting weight loss fatigue or malaise. Reviewed nursing note and current pain scale. 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- 6 months chemo and radiation PAST SURGICAL HISTORY Procedure Laterality Date COLONOSCOPY 02/2020 large benign polyp PAST SURGICAL HISTORY OF Right lymph node biopsy PAST SURGICAL HISTORY OF port placement PAST SURGICAL HISTORY OF removal port FAMILY HISTORY Problem Relation Age of Onset Hypertension Mother Hypertension Father Social History Tobacco Use Smoking status: Never Smokeless tobacco: Never Substance Use Topics Alcohol use: Never Drug use: Not Currently MEDICATIONS: Current Outpatient Medications Medication Sig hydroCHLOROthiazide (HYDRODIURIL, ESIDRIX) 25 mg tablet Take 12.5 mg by mouth once daily. sertraline (ZOLOFT) 100 mg tablet Take 100 mg by mouth once daily. MULTI-VITAMIN ORAL Take 1 capsule by mouth once daily. pantoprazole DR (PROTONIX) 40 mg tablet Take 40 mg by mouth once daily. levothyroxine (SYNTHROID) 150 mcg tablet Take 150 mcg by mouth once daily. lisinopril (ZESTRIL, PRINIVIL) 10 mg tablet Take 20 mg by mouth once daily. LORazepam (ATIVAN) 0.5 mg Take 0.5 mg by mouth as needed. No current facility-administered medications for this visit. ALLERGIES: ALLERGIES No Known Allergies PHYSICAL EXAMINATION: Resp 20 Ht 6' 2 (1.88m) Wt 324 lb 12.8 oz (147.3kg) BMI 41.68 kg/(m2). General Appearance: Well appearing, alert, in no acute distress, well-hydrated, well nourished. Skin: Skin color, texture, turgor normal, no suspicious rashes or lesions. Psych: Patient is alert and oriented to person, time and place. Mood and affect are normal. Respiratory: Breathing is symmetric and unlabored Extremities: Left lower extremities examined. Overall appearance is much improved. The great toe is now almost completely healed. There are small areas of scabbing along the lateral aspect of the wound. The second toe also is almost completely healed a small areas of scabbing on the plantar surface of the toe. There is still moderate swelling present at the toe. There is minimal tenderness palpation there is no sign of active infection Lymphatic: There is no palpable lymphadenopathy Neurologic: Bilateral lower extremities were examined. There is 5/5 strength with hip flexion, knee extension, dorsiflexion, EHL, plantar flexion. Sensation intact in all nerve dermatomes IMAGES: No results found for this or any previous visit (from the past 36 hour(s)). Plan ASSESSMENT AND PLAN: 1. Traumatic amputation of left great toe, subsequent encounter ([facility]) - ICD9: V54.89, 895.0, ICD10: S98.112D Functional Plan: Patient is a 38-year-old male presenting for follow-up evaluation of traumatic partial rotation of left great toe and near amputation of the left second toe on 02/03/2023. Overall he is doing much better. For most part he is pain-free. The appearance of the toes is much improved. He ambulates independently without issue. He does have some discomfort with prolonged walking leg during golfing. I will place a referral to [employer] to discuss proper orthotic wear for him to provide support to specific areas of pressure. I will see him back in 2 months for repeat evaluation unless issue should arise sooner. All of his questions were answered satisfactorily. He expressed understanding of and agreement with the treatment plan. Medical Decision Making: Problems: Moderate: Acute complicated injury Risk: Low: Low risk from testing/treatment Medical Decision Making Level: 3 - Low Return in about 2 months (around 07/08/2023). Latrice Velasco MD Referring Provider: LATRICE VELASCO [[id number]] Allergies As of Date: 05/08/2023 (No Known Allergies) Date Reviewed: 05/08/2023 Reviewed by: Latrice Velasco MD - Fully Assessed Reason for Visit: Established Patient [175] P (more content not included)... Normal [facility] CBC W Auto Differential pane l (Bld)on 04-24-2023 Basophils (Bld) [#/Vol] 0.0 10*3/uL 0.0 - 0.2 10*3/uL [facility] BALALIKEA Basophils/100 WBC (Bld) 0.5 % 0.0 - 2.0 % [facility] Eosinophils (Bld) [#/Vol] 0.2 10*3/uL 0.0 - 0.5 10*3/uL [facility] Eosinophils/100 WBC (Bld) 2.7 % 1.0 - 6.0 % [facility] Erythrocyte distribution width (RBC) [Ratio] 13.4 % 11.5 - 14.5 % [facility] Hematocrit (Bld) [Volume fraction] 44.1 % 40.0 - 52.0 % [facility] Hemoglobin (Bld) [Mass/Vol] 15.1 g/dL 13.0 - 18.0 g/dL [facility] Interpretation and review of laboratory results Normal [facility] Lymphocytes (Bld) [#/Vol] 1.9 10*3/uL 1.0 - 4.3 10*3/uL [facility] Lymphocytes/100 WBC (Bld) 30.9 % 20.0 - 40.0 % [facility] MCH (RBC) [Entitic mass] 28.5 pg 26.0 - 34.0 pg [facility] MCHC (RBC) [Mass/Vol] 34.3 % 32.0 - 36.0 % [facility] MCV (RBC) [Entitic vol] 83.1 fL 80.0 - 98.0 fL [facility] Monocytes (Bld) [#/Vol] 0.6 10*3/uL 0.0 - 0.8 10*3/uL [facility] Monocytes/100 WBC (Bld) 10.0 % 2.0 - 10.0 % [facility] Neutrophils (Bld) [#/Vol] 3.5 10*3/uL 1.8 - 7.0 10*3/uL [facility] Neutrophils/100 WBC (Bld) 55.9 % 40.0 - 80.0 % [facility] Nucleated RBC/100 WBC (Bld) [Ratio] 0.1 % [facility] Platelet mean volume (Bld) [Entitic vol] 8.0 fL 7.4 - 12.4 fL [facility] Platelets (Bld) [#/Vol] 183 10*3/uL 140 - 440 10*3/uL [facility] RBC (Bld) [#/Vol] 5.31 10*6/uL 4.40 - 5.9 0 10*6/uL [facility] WBC (Bld) [#/Vol] 6.3 10*3/uL 3.6 - 10.7 10*3/uL [facility] CNPNon 04-23-2023 CNPN Telephone (AGPOB1) ----- DEVORAH SANTOS ([id number]) 1985 M Date Time Provider Department 04/23/23 LATRICE VELASCO [facility] During your visit today, we recorded the following information about you: Dhruv Liberty Myriam Rojasty 04/23/2023 10:12 AM Signed ----- Message from Germania Mccarty sent at 04/22/2023 11:18 AM EDT ----- Regarding: Orthopedics / Open Foot: Pain / Post Op Within 90 Day Period Subject Line Format: Orthopedics / [Provider Name or Open AND Body Part] / [Issue] Patient has been identified by name and Date of (Y/N): yes Patient: Devorah Santos Date of : 1985 Previous Provider Seen: joseline Body Part(s) Identified: left toe Diagnosis/Reason For Visit: post op Reason for the call/escalation: 90 days If reason for call/escalation is discharge from ED/ER or Hospital, which facility was the patient seen at: no Was an appointment scheduled (Y/N): n Person calling if other than patient: no Return call to if other than patient: no Best contact number: [phone] Thank you, Germania Mccarty April 22, 2023 11:18 AM Suad Woo 04/23/2023 10:12 AM Signed Sent to [facility] Allergies As of Date: 04/23/2023 (No Known Allergies) Date Reviewed: 03/20/2023 Reviewed by: Latrice Velasco MD - Fully Assessed Reason for Visit: Appointment [186] Prescriptions as of 04/23/2023 - hydroCHLOROthiazide (HYDRODIURIL, ESIDRIX) 25 mg tablet Take 12.5 mg by mouth once daily. - sertraline (ZOLOFT) 100 mg tablet Take 100 mg by mouth once daily. - MULTI-VITAMIN ORAL Take 1 capsule by mouth once daily. - pantoprazole DR (PROTONIX) 40 mg tablet Take 40 mg by mouth once daily. - levothyroxine (SYNTHROID) 150 mcg tablet Take 150 mcg by mouth once daily. - lisinopril (ZESTRIL, PRINIVIL) 10 mg tablet Take 20 mg by mouth once daily. - LORazepam (ATIVAN) 0.5 mg Take 0.5 mg by mouth as needed. Problem List As Of Date 04/23/2023 Noted Resolved Procreative management [Z31.9] 11/17/2015 Traumatic amputation toe, left, initial encount*02/02/2023 02/04/2023 Obesity, Class III, BMI >= 40 [E66.01] 02/03/2023 Encounter Status:Closed by SUAD WOO on 04/23/23 [facility] 04-11-2023 [facility] Telephone (AGPOB1) ----- DEVORAH SANTOS ([id number]) 1985 M Date Time Provider Department 04/11/23 LATRICE VELASCO During your visit today, we recorded the following information about you: Dhruv Liberty Suad Rojas 04/11/2023 9:32 AM Signed ----- Message from Anabella Perez sent at 04/09/2023 12:47 PM EDT ----- Regarding: Orthopedics / Open Foot: Pain / Post Op Within 90 Day Period Subject Line Format: Orthopedics / Open Foot: Pain / Post Op Within 90 Day Period Patient has been identified by name and Date of (Y/N): y Patient: Devorah Santos Date of : 1985 Previous Provider Seen: Dr. Velasco Body Part(s) Identified: left foot-great toe---requesting to reschedule on 04-24-23 in the afternoon he has another appointment on that day in the morning. Diagnosis/Reason For Visit: post op Reason for the call/escalation: post op within 90 day period If reason for call/escalation is discharge from ED/ER or Hospital, which facility was the patient seen at: n/a Was an appointment scheduled (Y/N): n Person calling if other than patient: no Return call to if other than patient: no Best contact number: [phone] Thank you, Anabella Perez April 09, 2023 12:47 PM Allergies As of Date: 04/11/2023 (No Known Allergies) Date Reviewed: 03/20/2023 Reviewed by: Latrice Velasco MD - Fully Assessed Reason for Visit: Appointment [186] Prescriptions as of 04/11/2023 - hydroCHLOROthiazide (HYDRODIURIL, ESIDRIX) 25 mg tablet Take 12.5 mg by mouth once daily. - sertraline (ZOLOFT) 100 mg tablet Take 100 mg by mouth once daily. - MULTI-VITAMIN ORAL Take 1 capsule by mouth once daily. - pantoprazole DR (PROTONIX) 40 mg tablet Take 40 mg by mouth once daily. - levothyroxine (SYNTHROID) 150 mcg tablet Take 150 mcg by mouth once daily. - lisinopril (ZESTRIL, PRINIVIL) 10 mg tablet Take 20 mg by mouth once daily. - LORazepam (ATIVAN) 0.5 mg Take 0.5 mg by mouth as needed. Problem List As Of Date 04/11/2023 Noted Resolved Procreative management [Z31.9] 11/17/2015 Traumatic amputation toe, left, initial encount*02/02/2023 02/04/2023 Obesity, Class III, BMI >= 40 [E66.01] 02/03/2023 Encounter Status:Closed by [facility] CAREGIVER SUAD ROJAS on 04/11/23 [facility] 04-09-2023 CNPN Telephone (AGHWN) ----- DEVORAH SANTOS ([id number]) 1985 M Date Time Provider Department 04/09/23 [facility] During your visit today, we recorded the following information about you: Ara Mcclure 04/09/2023 9:17 AM Signed Left vm to call us and have his appt rescheduled. Left number for main ortho line and my direct line. [facility] 04-09-23 9:12am Allergies As of Date: 04/09/2023 (No Known Allergies) Date Reviewed: 03/20/2023 Reviewed by: Latrice Velasco MD - Fully Assessed Reason for Visit: Appointment Rescheduled [1024] Prescriptions as of 04/09/2023 - hydroCHLOROthiazide (HYDRODIURIL, ESIDRIX) 25 mg tablet Take 12.5 mg by mouth once daily. - sertraline (ZOLOFT) 100 mg tablet Take 100 mg by mouth once daily. - MULTI-VITAMIN ORAL Take 1 capsule by mouth once daily. - pantoprazole DR (PROTONIX) 40 mg tablet Take 40 mg by mouth once daily. - levothyroxine (SYNTHROID) 150 mcg tablet Take 150 mcg by mouth once daily. - lisinopril (ZESTRIL, PRINIVIL) 10 mg tablet Take 20 mg by mouth once daily. - LORazepam (ATIVAN) 0.5 mg Take 0.5 mg by mouth as needed. Problem List As Of Date 04/09/2023 Noted Resolved Procreative management [Z31.9] 11/17/2015 Traumatic amputation toe, left, initial encount*02/02/2023 02/04/2023 Obesity, Class III, BMI >= 40 [E66.01] 02/03/2023 Encounter Status:Closed by ARA MCCLURE on 04/09/23 [facility] CNOVon 03-20-2023 CNOV Office Visit (AGPOB1 ) ----- TOMDEVORAH ([id number]) 1985 M Date Time Provider Department 03/20/23 2:45 PM LATRICE VELASCOB1 During your visit today, we recorded the following information about you: Respiration Weight Height 16/minute 148.3 kg 1.88 m Latrice Velasco MD 03/20/2023 3:50 PM Signed ORTHOPAEDIC OFFICE NOTE CHIEF COMPLAINT: Follow-up multiple left foot injuries HISTORY OF PRESENT ILLNESS: Devorah Santos is a 38 year old male who presents for Follow-up evaluation of traumatic amputation of great toe and multiple lacerations. Overall he is doing okay. He continues to be relatively pain-free. He gets around well with his postoperative shoe. He continues with daily dressing changes. He recently returned from [place] and tolerated this trip well. He denies current fevers chills nausea vomiting weight loss fatigue or malaise Reviewed nursing note and current pain scale. 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- 6 months chemo and radiation PAST SURGICAL HISTORY Procedure Laterality Date COLONOSCOPY 02/2020 large benign polyp PAST SURGICAL HISTORY OF Right lymph node biopsy PAST SURGICAL HISTORY OF port placement PAST SURGICAL HISTORY OF removal port FAMILY HISTORY Problem Relation Age of Onset Hypertension Mother Hypertension Father Social History Tobacco Use Smoking status: Never Smokeless tobacco: Never Substance Use Topics Alcohol use: Never Drug use: Not Currently MEDICATIONS: Current Outpatient Medications Medication Sig doxycycline (VIBRA-TABS) 100 mg tablet Take 1 tablet by mouth twice daily with meals for 14 days. hydroCHLOROthiazide (HYDRODIURIL, ESIDRIX) 25 mg tablet Take 12.5 mg by mouth once daily. sertraline (ZOLOFT) 100 mg tablet Take 100 mg by mouth once daily. MULTI-VITAMIN ORAL Take 1 capsule by mouth once daily. pantoprazole DR (PROTONIX) 40 mg tablet Take 40 mg by mouth once daily. levothyroxine (SYNTHROID) 150 mcg tablet Take 150 mcg by mouth once daily. lisinopril (ZESTRIL, PRINIVIL) 10 mg tablet Take 20 mg by mouth once daily. LORazepam (ATIVAN) 0.5 mg Take 0.5 mg by mouth as needed. No current facility-administered medications for this visit. ALLERGIES: ALLERGIES No Known Allergies PHYSICAL EXAMINATION: Resp 16 Ht 6' 2 (1.88m) Wt 327 lb (148.3kg) BMI 41.97 kg/(m2). General Appearance: Well appearing, alert, in no acute distress, well-hydrated, well nourished. Skin: Skin color, texture, turgor normal, no suspicious rashes or lesions. Psych: Patient is alert and oriented to person, time and place. Mood and affect are normal. Respiratory: Breathing is symmetric and unlabored Extremities: Left lower extremities examined. Partially amputated left great toe seems to be healing well. There is a small amount of eschar along the plantar lateral aspect of the wound. There is no drainage or sign of infection. Second toe appears okay. Overall appearance has improved. There is less swelling. There continues to be purplish discoloration along the end of the toe. There is multiple eschar formations. There is no longer significant drainage. 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 There is minimal tenderness palpation. Lymphatic: There is no palpable lymphadenopathy Neurologic: Bilateral lower extremities were examined. There is 5/5 strength with hip flexion, knee extension, dorsiflexion, EHL, plantar flexion. Sensation intact in all nerve dermatomes IMAGES: No results found for this or any previous visit (from the past 36 hour(s)). Plan ASSESSMENT AND PLAN: 1. Traumatic amputation of left great toe, subsequent encounter ([facility]) - ICD9: V54.89, 895.0, ICD10: S98.112D Functional Plan: Patient is a 38-year-old male presenting for follow-up evaluation after multiple traumatic left toe injuries. Overall he is doing okay. For the most part he is pain-free and is ambulating with the assistance of his postoperative shoe. Overall appearance is somewhat improved compared to last visit. He is no longer having significant drainage. He should continue with daily dressing changes and wound care. We will continue to watch this clinically. I will see him back in 3 weeks for repeat evaluation less issue should arise sooner. All his questions were answered satisfactorily. He expressed understanding of and agreement with the treatment plan. Return in about 3 weeks (around 04/10/2023). Latrice Velasco MD Referring Provider: SELF [200] Allergies As of Date: 03/20/2023 (No Known Allergies) Date Reviewed: 03/20/2023 Reviewed by: Latrice Velasco MD - Fully Assessed Reason for Visit: Established Patient [175] Follow Up [171] Primary Visit Diagnosis:Traumatic amputation of left great toe, subsequent encounter ([facility]) [S98.112D] Pr (more content not included)... Normal [facility] CNOVon 03-06-2023 CNOV Office Visit (AGPOB1 ) ----- DEVORAH SANTOS ([id number]) 1985 M Date Time Provider Department 03/06/23 3:30 PM LATRICE VELASCO During your visit today, we recorded the following information about you: Respiration Weight Height 18/minute 144.7 kg 1.88 m Latrice Velasco MD 03/07/2023 11:07 AM Signed ORTHOPAEDIC OFFICE NOTE CHIEF COMPLAINT: Follow-up traumatic amputation right great toe HISTORY OF PRESENT ILLNESS: Devorah Santos is a 38 year old male who presents for Follow-up evaluation after traumatic right great toe amputation and open fractures with lacerations of the left second toe. Overall he seems to be doing okay. For the most part his pain is well controlled. He has been doing regular dressing changes on the second toe. He has been using a knee walker to ambulate at work. He has been wearing a cast shoe otherwise. He is getting set to go on a trip to [place] next week. He denies current fevers chills nausea vomiting weight loss fatigue or malaise. Reviewed nursing note and current pain scale. 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- 6 months chemo and radiation PAST SURGICAL HISTORY Procedure Laterality Date COLONOSCOPY 02/2020 large benign polyp PAST SURGICAL HISTORY OF Right lymph node biopsy PAST SURGICAL HISTORY OF port placement PAST SURGICAL HISTORY OF removal port FAMILY HISTORY Problem Relation Age of Onset Hypertension Mother Hypertension Father Social History Tobacco Use Smoking status: Never Smokeless tobacco: Never Substance Use Topics Alcohol use: Never Drug use: Not Currently MEDICATIONS: Current Outpatient Medications Medication Sig hydroCHLOROthiazide (HYDRODIURIL, ESIDRIX) 25 mg tablet Take 12.5 mg by mouth once daily. sertraline (ZOLOFT) 100 mg tablet Take 100 mg by mouth once daily. MULTI-VITAMIN ORAL Take 1 capsule by mouth once daily. pantoprazole DR (PROTONIX) 40 mg tablet Take 40 mg by mouth once daily. levothyroxine (SYNTHROID) 150 mcg tablet Take 150 mcg by mouth once daily. lisinopril (ZESTRIL, PRINIVIL) 10 mg tablet Take 20 mg by mouth once daily. LORazepam (ATIVAN) 0.5 mg Take 0.5 mg by mouth as needed. doxycycline (VIBRA-TABS) 100 mg tablet Take 1 tablet by mouth twice daily with meals for 14 days. No current facility-administered medications for this visit. ALLERGIES: ALLERGIES No Known Allergies PHYSICAL EXAMINATION: Resp 18 Ht 6' 2 (1.88m) Wt 319 lb (144.7kg) BMI 40.94 kg/(m2). General Appearance: Well appearing, alert, in no acute distress, well-hydrated, well nourished. Skin: Skin color, texture, turgor normal, no suspicious rashes or lesions. Psych: Patient is alert and oriented to person, time and place. Mood and affect are normal. Respiratory: Breathing is symmetric and unlabored Extremities: Left lower extremities examined. Partially amputated left great toe seems to be healing well. There is a small amount of eschar along the plantar lateral aspect of the wound. There is no drainage or sign of infection. Second toe appears okay. Some of the eschar has sloughed off and there is fresh appearing skin underneath. There is mild associated drainage. There is still significant swelling and ecchymosis at the distal aspect of the toe. Overall the discoloration seems little bit improved.. There is minimal tenderness palpation. Lymphatic: There is no palpable lymphadenopathy Neurologic: Bilateral lower extremities were examined. There is 5/5 strength with hip flexion, knee extension, dorsiflexion, EHL, plantar flexion. Sensation intact in all nerve dermatomes IMAGES: No results found for this or any previous visit (from the past 36 hour(s)). Plan ASSESSMENT AND PLAN: 1. Traumatic amputation of left great toe, subsequent encounter ([facility]) - ICD9: V54.89, 895.0, ICD10: S98.112D Functional Plan: Patient is a 38-year-old male presenting for follow-up evaluation after traumatic partial amputation of his left great toe and laceration with open fractures left second toe. Overall he is doing okay. Clinically seems to be doing well. There is no significant pain or sign of infection. Soft tissue on his second toe continues to look questionable. Some of his blisters have sloughed off and there is underlying wounds. Overall his swelling and discoloration seems a bit improved. He is getting set to go on a trip with his family this been planned for quite a while. We will give him plenty of dressings for his local wound care. I will also prescribe him some antibiotics as a precautionary measure. I would like him to get into wound care once he returns from his trip. I will see him back in approximately 3 weeks for repeat evaluation less issue should arise sooner. All of his questions were answered s (more content not included)... Normal [facility] CNOVon 02-20-2023 CNOV Office Visit (AGPOB1 ) ----- DEVORAH SANTOS ([id number]) 1985 M Date Time Provider Department 02/20/23 10:00 AM LATRICE VELASCO AGPOB1 During your visit today, we recorded the following information about you: Respiration Weight Height 20/minute 144.8 kg 1.88 m Latrice Velasco MD 02/20/2023 1:23 PM Signed ORTHOPAEDIC OFFICE NOTE CHIEF COMPLAINT: Follow-up traumatic left great toe amputation and open second toe fractures. HISTORY OF PRESENT ILLNESS: Devorah Santos is a 37 year old male who presents for Follow-up evaluation of traumatic left great toe amputation and open left second toe fractures on on 02/03/2023. Overall the patient is doing well. For most part he is pain-free. He is getting around with a postoperative shoe and using a knee walker at work. He is doing dressing changes daily. He denies current fevers chills nausea vomiting weight loss fatigue or malaise. Reviewed nursing note and current pain scale. 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- 6 months chemo and radiation PAST SURGICAL HISTORY Procedure Laterality Date COLONOSCOPY 02/2020 large benign polyp PAST SURGICAL HISTORY OF Right lymph node biopsy PAST SURGICAL HISTORY OF port placement PAST SURGICAL HISTORY OF removal port FAMILY HISTORY Problem Relation Age of Onset Hypertension Mother Hypertension Father Social History Tobacco Use Smoking status: Never Smokeless tobacco: Never Substance Use Topics Alcohol use: Never Drug use: Not Currently MEDICATIONS: Current Outpatient Medications Medication Sig hydroCHLOROthiazide (HYDRODIURIL, ESIDRIX) 25 mg tablet Take 12.5 mg by mouth once daily. sertraline (ZOLOFT) 100 mg tablet Take 100 mg by mouth once daily. MULTI-VITAMIN ORAL Take 1 capsule by mouth once daily. pantoprazole DR (PROTONIX) 40 mg tablet Take 40 mg by mouth once daily. levothyroxine (SYNTHROID) 150 mcg tablet Take 150 mcg by mouth once daily. lisinopril (ZESTRIL, PRINIVIL) 10 mg tablet Take 20 mg by mouth once daily. LORazepam (ATIVAN) 0.5 mg Take 0.5 mg by mouth as needed. No current facility-administered medications for this visit. ALLERGIES: ALLERGIES No Known Allergies PHYSICAL EXAMINATION: Resp 20 Ht 6' 2 (1.88m) Wt 319 lb 3.2 oz (144.8kg) BMI 40.97 kg/(m2). General Appearance: Well appearing, alert, in no acute distress, well-hydrated, well nourished. Skin: Skin color, texture, turgor normal, no suspicious rashes or lesions. Psych: Patient is alert and oriented to person, time and place. Mood and affect are normal. Respiratory: Breathing is symmetric and unlabored Extremities: Left lower extremities examined. Partially amputated left great toe seems to be healing well. There is a small amount of eschar along the plantar lateral aspect of the wound. There is no drainage or sign of infection. The second toe laceration appears to be healing well again with some scarring and eschar along the laceration site. There is still persistent swelling at the second toe and purplish discoloration. There is fracture blistering along the dorsal aspect of the toe. There is minimal tenderness palpation. Lymphatic: There is no palpable lymphadenopathy Neurologic: Bilateral lower extremities were examined. There is 5/5 strength with hip flexion, knee extension, dorsiflexion, EHL, plantar flexion. Sensation intact in all nerve dermatomes IMAGES: No results found for this or any previous visit (from the past 36 hour(s)). Plan ASSESSMENT AND PLAN: 1. Traumatic amputation of left great toe, subsequent encounter ([facility]) - ICD9: V54.89, 895.0, ICD10: S98.112D Functional Plan: Patient is a 37-year-old male presenting follow-up evaluation after partial amputation left great toe and left open second toe fractures treated on 02/03/2023. Overall he is doing well. For the most part he is pain-free. He has been compliant with wearing his postoperative shoe and is using a knee walker to ambulate at work. Today his great toe appears to be healing well. There is persistent swelling discoloration and blistering at the second toe. Overall this looks a little worse compared to his previous visit. There is no signs of active infection. We will continue to watch this closely clinically. I will see him back in approximately 10 days for repeat evaluation less issue should arise sooner. All of his questions were answered satisfactorily. He expressed understanding of and agreement with the treatment plan Return in about 10 days (around 2023). Latrice Velasco MD Referring Provider: SELF [200] Allergies As of Date: 02/20/2023 (No Known Allergies) Date Reviewed: 02/20/2023 Reviewed by: Latrice Velasco MD - Fully Assessed Reason for Visit: Established Patient [175] Follow Up [171] (more content not included)... Normal [facility] CNOVon 02-14-2023 CNOV Office Visit (AGHWN) ----- DEVORAH SANTOS ([id number]) 1985 M Date Time Provider Department 02/14/23 3:45 PM LATRICE VELASCO During your visit today, we recorded the following information about you: Respiration Weight Height 18/minute 142.9 kg 1.88 m Latrice Velasco MD 02/14/2023 5:12 PM Signed ORTHOPAEDIC OFFICE NOTE CHIEF COMPLAINT: Left great toe amputation HISTORY OF PRESENT ILLNESS: Devorah Santos is a 37 year old male who presents for Postoperative evaluation following revision amputation left great toe as well as laceration of left second toe and open fractures of the left second toe. Overall he seems to be doing well. His pain is progressing regularly. He has been compliant with his postoperative shoe wear. He has been ambulating with the assistance of a knee walker at work. He denies current fevers chills nausea vomiting weight loss fatigue or malaise. Reviewed nursing note and current pain scale. 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- 6 months chemo and radiation PAST SURGICAL HISTORY Procedure Laterality Date COLONOSCOPY 02/2020 large benign polyp PAST SURGICAL HISTORY OF Right lymph node biopsy PAST SURGICAL HISTORY OF port placement PAST SURGICAL HISTORY OF removal port FAMILY HISTORY Problem Relation Age of Onset Hypertension Mother Hypertension Father Social History Tobacco Use Smoking status: Never Smokeless tobacco: Never Substance Use Topics Alcohol use: Never Drug use: Not Currently MEDICATIONS: Current Outpatient Medications Medication Sig hydroCHLOROthiazide (HYDRODIURIL, ESIDRIX) 25 mg tablet Take 12.5 mg by mouth once daily. sertraline (ZOLOFT) 100 mg tablet Take 100 mg by mouth once daily. MULTI-VITAMIN ORAL Take 1 capsule by mouth once daily. pantoprazole DR (PROTONIX) 40 mg tablet Take 40 mg by mouth once daily. levothyroxine (SYNTHROID) 150 mcg tablet Take 150 mcg by mouth once daily. lisinopril (ZESTRIL, PRINIVIL) 10 mg tablet Take 20 mg by mouth once daily. LORazepam (ATIVAN) 0.5 mg Take 0.5 mg by mouth as needed. No current facility-administered medications for this visit. ALLERGIES: ALLERGIES No Known Allergies PHYSICAL EXAMINATION: Resp 18 Ht 6' 2 (1.88m) Wt 315 lb (142.9kg) BMI 40.43 kg/(m2). General Appearance: Well appearing, alert, in no acute distress, well-hydrated, well nourished. Skin: Skin color, texture, turgor normal, no suspicious rashes or lesions. Psych: Patient is alert and oriented to person, time and place. Mood and affect are normal. Respiratory: Breathing is symmetric and unlabored Extremities: Left lower extremities examined. Partially amputated left great toe seems to be healing well. There is a small amount of eschar along the plantar lateral aspect of the wound. Sutures are in place. There is no drainage or sign of infection. The second toe laceration appears to be healing well again with some scarring and eschar along the laceration site. There is still persistent swelling at the second toe and purplish discoloration. There is fracture blistering along the dorsal aspect of the toe. There is minimal tenderness palpation. Lymphatic: There is no palpable lymphadenopathy Neurologic: Bilateral lower extremities were examined. There is 5/5 strength with hip flexion, knee extension, dorsiflexion, EHL, plantar flexion. Sensation intact in all nerve dermatomes IMAGES: No results found for this or any previous visit (from the past 36 hour(s)). Plan ASSESSMENT AND PLAN: 1. Traumatic amputation of left great toe, subsequent encounter ([facility]) - ICD9: V54.89, 895.0, ICD10: S98.112D Functional Plan: Patient is a 37-year-old male present for follow-up evaluation partial amputation of left great toe and open fractures of the left second toe. Overall he is doing well. His pain is progressing regularly. He has been compliant with his postoperative shoe wear. I like him to continue to wear this. Sutures were removed in clinic today. Overall his second toe is a somewhat dusky appearance. I would like to continue to monitor his wounds as well as blood flow to the second toe closely. I will see him back next week for repeat evaluation and wound check unless issues arise sooner. All of his questions were answered satisfactorily. He expressed understanding of and agreement with treatment plan. Return in about 1 week (around 02/21/2023). Latrice Velasco MD Referring Provider: LATRICE VELASCO [[id number]] Allergies As of Date: 02/14/2023 (No Known Allergies) Date Reviewed: 02/14/2023 Reviewed by: Latrice Velasco MD - Fully Assessed Reason for Visit: Post Op [174] Primary Visit Diagnosis:Traumatic amputation of left great toe, subsequent encounter ([facility]) [S98.112D] Prescriptions as of 0 (more content not included)... Normal [facility] ----- DEVORAH SANTOS ([id number]) 1985 M Date Time Provider Department 02/12/23 NARENDRA CRAMER P[facility]P During your visit today, we recorded the following information about you: Allergies As of Date: 02/12/2023 (No Known Allergies) Date Reviewed: 02/04/2023 Reviewed by: Savannah Oleary RN - Fully Assessed Reason for Visit: Follow Up Phone Call [[id number]] Cmt: Post Discharge F/U - attempt made. No answer. Prescriptions as of 02/12/2023 - hydroCHLOROthiazide (HYDRODIURIL, ESIDRIX) 25 mg tablet Take 12.5 mg by mouth once daily. - sertraline (ZOLOFT) 100 mg tablet Take 100 mg by mouth once daily. - MULTI-VITAMIN ORAL Take 1 capsule by mouth once daily. - pantoprazole DR (PROTONIX) 40 mg tablet Take 40 mg by mouth once daily. - levothyroxine (SYNTHROID) 150 mcg tablet Take 150 mcg by mouth once daily. - lisinopril (ZESTRIL, PRINIVIL) 10 mg tablet Take 20 mg by mouth once daily. - LORazepam (ATIVAN) 0.5 mg Take 0.5 mg by mouth as needed. Problem List As Of Date 02/12/2023 Noted Resolved Procreative management [Z31.9] 11/17/2015 Traumatic amputation toe, left, initial encount*02/02/2023 02/04/2023 Obesity, Class III, BMI >= 40 [E66.01] 02/03/2023 Encounter Status:Closed by NARENDRA CRAMER on 02/12/23 Normal [facility] Basic metabolic 2000 panelon 02-04-2023 Anion gap [Moles/Vol] 11 mmol/L Normal 9-18 [facility] Comment on above: Order Comment: Speci men Type: BLOOD SPECIMEN Ordering Facility: [facility] Address: [address] [place] [address] Performed By: #### 2 4321-2 #### [facility] CLIA [id number] 1 [place] [address] [place] Calcium [Mass/Vol] 8.7 mg/dL Normal 8.5-10.2 [facility] Comment on above: Order Comment: Speci men Type: BLOOD SPECIMEN Ordering Facility: [facility] Address: [address] [place] [address] Performed By: #### 2 4321-2 #### [facility] CLIA [id number] 1 [place] [address] [place] Chloride [Moles/Vol] 100 mmol/L Normal 97-105 [facility] Comment on above: Order Comment: Speci men Type: BLOOD SPECIMEN Ordering Facility: [facility] Address: [address] [place] [address] Performed By: #### 2 4321-2 #### [facility] CLIA [id number] [address] OF [facility] CO2 [Moles/Vol] 28 mmol/L Normal 22-30 [facility] Comment on above: Order Comment: Speci men Type: BLOOD SPECIMEN Ordering Facility: [facility] Address: [address] [address] Performed By: #### 2 4321-2 #### [facility] CLIA [id number] [address] [place] [address] Creatinine [Mass/Vol] 1.23 mg/dL High 0.73-1.22 [facility] Comment on above: Order Comment: Speci men Type: BLOOD SPECIMEN Ordering Facility: [facility] Address: [address] [place] [address] Performed By: #### 2 4321-2 #### [facility] CLIA [id number] [address] [place] [address] ESTIMATED GLOMERULAR FILTRATION RATE 78 mL/min/1.73m??? Normal >=60 [facility] Comment on above: Order Comment: Speci men Type: BLOOD SPECIMEN Ordering Facility: [facility] Address: [address] [place] [address] Result Comment: Chelsey mated Glomerular Filtration Rate (eGFR) is calculated using the 2020 CKD-EPI creatinine equation. This equation utilizes serum creatinine, sex, and age as parameters. The creatinine assay has traceable calibration to isotope dilution-mass spectrometry. Refer to KDIGO guidelines for clinical interpretation. In patients with unstable renal function, e.g. those with acute kidney injury, the eGFR may not accurately reflect actual GFR. Performed By: #### 2 4321-2 #### [facility] CLIA [id number] [address] [place] [address] Glucose [Mass/Vol] 112 mg/dL High 74-99 [facility] Comment on above: Order Comment: Rafaeli men Type: BLOOD SPECIMEN Ordering Facility: [facility] Address: [address] [place] [address] Result Comment: The [place] [employer] (ADA) provides guidance for cutoff values for fasting glucose and random glucose. The ADA defines fasting as no caloric intake for at least 8 hours. Fasting plasma glucose results between 100 to 125 mg/dL indicate increased risk for diabetes (prediabetes). Fasting plasma glucose results greater than or equal to 126 mg/dL meet the criteria for diagnosis of diabetes. In the absence of unequivocal hyperglycemia, results should be confirmed by repeat testing. In a patient with classic symptoms of hyperglycemia or hyperglycemic crisis, random plasma glucose results greater than or equal to 200 mg/dL meet the criteria for diagnosis of diabetes. Reference: Standards of Medical Care in Diabetes 2016, [place] [employer]. Diabetes Care. 2016.39(Suppl 1). Performed By: #### 2 4321-2 #### [facility] CLIA [id number] 1 [place] [address] [place] Potassium [Moles/Vol] 3.7 mmol/L Normal 3.7-5.1 [facility] Comment on above: Order Comment: Deo virk Type: BLOOD SPECIMEN Ordering Facility: [facility] Address: [address] [place] [address] Performed By: #### 2 4321-2 #### [facility] CLIA [id number] 1 [place] [address] [place] Sodium [Moles/Vol] 139 mmol/L Normal 136-144 [facility] Comment on above: Order Comment: Rafaeli men Type: BLOOD SPECIMEN Ordering Facility: [facility] Address: [address] [place] [address] Performed By: #### 2 4321-2 #### [facility] CLIA [id number] [address] [place] Urea nitrogen [Mass/Vol] 12 mg/dL Normal 9-24 [facility] Comment on above: Order Comment: Rafaeli men Type: BLOOD SPECIMEN Ordering Facility: [facility] Address: [address] [address] Performed By: #### 2 4321-2 #### [facility] CLIA [id number] [address] CBC W Auto Differential pane l (Bld)on 02-04-2023 Basophils (Bld) [#/Vol] 0.03 10*3/uL Normal <0.11 [facility] Comment on above: Order Comment: Speci men Type: BLOOD SPECIMEN Ordering Facility: [facility] Address: [address] [address] Performed By: #### 5 7021-8 #### [facility] CLIA [id number] [address] Basophils/100 WBC (Bld) 0.2 % Normal [facility] Comment on above: Order Comment: Speci men Type: BLOOD SPECIMEN Ordering Facility: [facility] Address: [address] [address] Performed By: #### 5 7021-8 #### [facility] CLIA [id number] [address] Differential cell count method Nom (Bld) Auto Normal [facility] Comment on above: Order Comment: Speci men Type: BLOOD SPECIMEN Ordering Facility: [facility] Address: [address] [address] Performed By: #### 5 7021-8 #### [facility] CLIA [id number] [address] [place] Eosinophils (Bld) [#/Vol] 0.09 10*3/uL Normal <0.46 [facility] Comment on above: Order Comment: Speci men Type: BLOOD SPECIMEN Ordering Facility: [facility] Address: [address] [address] Performed By: #### 5 7021-8 #### [facility] CLIA [id number] [address] Eosinophils/100 WBC (Bld) 0.7 % Normal [facility] Comment on above: Order Comment: Speci men Type: BLOOD SPECIMEN Ordering Facility: [facility] Address: [address] [address] Performed By: #### 5 7021-8 #### [facility] CLIA [id number] [address] Erythrocyte distribution width (RBC) [Ratio] 13.1 % Normal 11.5-15.0 [facility] Comment on above: Order Comment: Speci men Type: BLOOD SPECIMEN Ordering Facility: [facility] Address: [address] [address] Performed By: #### 5 7021-8 #### [facility] CLIA [id number] [address] OF [facility] Hematocrit (Bld) [Volume fraction] 37.5 % Low 39.0-51.0 [facility] Comment on above: Order Comment: Speci men Type: BLOOD SPECIMEN Ordering Facility: [facility] Address: [address] [place] [address] Performed By: #### 5 7021-8 #### [facility] CLIA [id number] [address] Hemoglobin (Bld) [Mass/Vol] 12.6 g/dL Low 13.0-17.0 [facility] Comment on above: Order Comment: Speci men Type: BLOOD SPECIMEN Ordering Facility: [facility] Address: [address] [address] Performed By: #### 5 7021-8 #### [facility] CLIA [id number] [address] Immature granulocytes (Bld) [#/Vol] 0.07 10*3/uL Normal <0.10 [facility] Comment on above: Order Comment: Speci men Type: BLOOD SPECIMEN Ordering Facility: [facility] Address: [address] [place] [address] Performed By: #### 5 7021-8 #### [facility] CLIA [id number] [address] Immature granulocytes/100 WBC (Bld) 0.5 % Normal [facility] Comment on above: Order Comment: Speci men Type: BLOOD SPECIMEN Ordering Facility: [facility] Address: [address] [place] [address] Performed By: #### 5 7021-8 #### [facility] CLIA [id number] [address] Lymphocytes (Bld) [#/Vol] 2.11 10*3/uL Normal 1.00-4.00 [facility] Comment on above: Order Comment: Speci men Type: BLOOD SPECIMEN Ordering Facility: [facility] Address: [address] [place] [address] Performed By: #### 5 7021-8 #### [facility] CLIA [id number] [address] [place] [address] Lymphocytes/100 WBC (Bld) 16.2 % Normal [facility] Comment on above: Order Comment: Speci men Type: BLOOD SPECIMEN Ordering Facility: [facility] Address: [address] [place] [address] Performed By: #### 5 7021-8 #### [facility] CLIA [id number] [address] MCH (RBC) [Entitic mass] 28.5 pg Normal 26.0-34.0 [facility] Comment on above: Order Comment: Speci men Type: BLOOD SPECIMEN Ordering Facility: [facility] Address: [address] [place] [address] Performed By: #### 5 7021-8 #### [facility] CLIA [id number] [address] MCHC (RBC) [Mass/Vol] 33.6 g/dL Normal 30.5-36.0 [facility] Comment on above: Order Comment: Speci men Type: BLOOD SPECIMEN Ordering Facility: [facility] Address: [address] [place] [address] Performed By: #### 5 7021-8 #### [facility] CLIA [id number] 1 [place] [address] [place] MCV (RBC) [Entitic vol] 84.8 fL Normal 80.0-100.0 [facility] Comment on above: Order Comment: Speci men Type: BLOOD SPECIMEN Ordering Facility: [facility] Address: [address] [address] Performed By: #### 5 7021-8 #### [facility] CLIA [id number] 1 [place] [address] [place] Monocytes (Bld) [#/Vol] 1.16 10*3/uL High <0.87 [facility] Comment on above: Order Comment: Speci men Type: BLOOD SPECIMEN Ordering Facility: [facility] Address: [address] [place] [address] Performed By: #### 5 7021-8 #### [facility] CLIA [id number] [address] Monocytes/100 WBC (Bld) 8.9 % Normal [facility] Comment on above: Order Comment: Speci men Type: BLOOD SPECIMEN Ordering Facility: [facility] Address: [address] [place] [address] Performed By: #### 5 7021-8 #### [facility] CLIA [id number] [address] [place] Neutrophils (Bld) [#/Vol] 9.53 10*3/uL High 1.45-7.50 [facility] Comment on above: Order Comment: Speci men Type: BLOOD SPECIMEN Ordering Facility: [facility] Address: [address] [address] Performed By: #### 5 7021-8 #### [facility] CLIA [id number] [address] [place] Neutrophils/100 WBC (Bld) 73.5 % Normal [facility] Comment on above: Order Comment: Speci men Type: BLOOD SPECIMEN Ordering Facility: [facility] Address: [address] [address] Performed By: #### 5 7021-8 #### [facility] CLIA [id number] [address] [address] [place] Nucleated RBC (Bld) [#/Vol] 10*3/uL Normal <0.01 [facility] Comment on above: Order Comment: Speci men Type: BLOOD SPECIMEN Ordering Facility: [facility] Address: [address] [address] Performed By: #### 5 7021-8 #### [facility] CLIA [id number] [address] [place] Nucleated RBC/100 WBC (Bld) [Ratio] 0.0 /100 WBC Normal [facility] Comment on above: Order Comment: Speci men Type: BLOOD SPECIMEN Ordering Facility: [facility] Address: [address] [address] Performed By: #### 5 7021-8 #### [facility] CLIA [id number] [address] [place] Platelet mean volume (Bld) [Entitic vol] 10.6 fL Normal 9.0-12.7 [facility] Comment on above: Order Comment: Speci men Type: BLOOD SPECIMEN Ordering Facility: [facility] Address: [address] [address] Performed By: #### 5 7021-8 #### [facility] CLIA [id number] [address] [place] Platelets (Bld) [#/Vol] 174 10*3/uL Normal 150-400 [facility] Comment on above: Order Comment: Speci men Type: BLOOD SPECIMEN Ordering Facility: [facility] Address: [address] [address] Performed By: #### 5 7021-8 #### [facility] CLIA [id number] [address] [place] RBC (Bld) [#/Vol] 4.42 10*6/uL Normal 4.20-6.00 [facility] Comment on above: Order Comment: Speclavinia virk Type: BLOOD SPECIMEN Ordering Facility: [facility] Address: [address] Performed By: #### 5 7021-8 #### [facility] CLIA [id number] [address] WBC (Bld) [#/Vol] 12.99 10*3/uL High 3.70-11.00 [facility] Comment on above: Order Comment: Speci men Type: BLOOD SPECIMEN Ordering Facility: [facility] Address: [address] Performed By: #### 5 7021-8 #### [facility] CLIA [id number] [address] CNDSon 02-04-2023 CNDS HNO ID: [id number] Author: Rossana Rouse APRN.STYLIST APPRENTICE Service: Orthopaedic Surgery Author Type: Nurse Practitioner Type: Discharge Summary Filed: 02/04/2023 10:49 AM Note Text: ----- Attestation signed by Latrice Velasco MD at 02/12/2023 1:58 PM Latrice Velasco M.D. Attending Staff, Department of Orthopedic Surgery [facility] ----- ORTHOPEDIC SURGERY DISCHARGE SUMMARY ADMISSION DATE: 02/02/2023 DISCHARGE DATE: 02/04/2023 Attending Physician: Latrice Velasco MD Admitting Diagnosis: Traumatic amputation left great toe, laceration left great toe Discharge Diagnosis: Same as admitting Additional Diagnoses: ACTIVE PROBLEM LIST Procreative Management Obesity, Class III, BMI >= 40 Surgeries During Hospitalization: Procedure(s) (LRB): AMPUTATION TOE(S) (Left) DEBRIDEMENT MUSCLE/FASCIAFIRST 20 SQ CM OR LESS FOOT (Left) Consultations: Physical Therapy Case Management Occupational Therapy Hospital Course: The patient is a 37 year old male who has been followed by Dr. Latrice Velasco MD, . It was determined he would benefit from surgery. The procedure, its risks, benefits, and potential complications were discussed in detail with the patient or POA prior to surgery. Understanding of all topics was conveyed by the patient or POA, and consent was given for surgery. The patient was emergently admitted through the Emergency Department to [facility] on 02/02/2023. Surgery was scheduled and on 02/03/2023 he underwent a Procedure(s) (LRB): AMPUTATION TOE(S) (Left) DEBRIDEMENT MUSCLE/FASCIAFIRST 20 SQ CM OR LESS FOOT (Left). The procedure was tolerated well and he was sent to the post operative recovery room in stable condition, where he also did well. He was subsequently sent to his hospital room for postoperative management. Once on the floor his postoperative course was unremarkable and he did well. His diet was advanced which he tolerated. His pain was well controlled. He was weaned to room air. He was stable for discharge on POD#1. Complete and comprehensive discharge instructions were provided to the patient as well as necessary prescriptions. The patient had no further questions and was advised to call with any questions, concerns, or problems. Patient was hemodynamically stable postoperatively. Relevant labs included: Hemoglobin (g/dL) Date Value 02/04/2023 12.6 (L) 02/03/2023 14.4 Hematocrit (%) Date Value 02/04/2023 37.5 (L) 02/03/2023 43.6 Discharge Antibiotics: Prior to surgery the patient was treated with antibiotics and continued with antibiotics 24 hours postoperatively. Duricef BID x 7 days at discharge. DVT Prophylaxis: Sequential Compression Devices Complications: Internal medicine was consulted for post op medical management. Weight Bearing: WBAT LLE in post op shoe. Patient Condition @ Discharge: Stable BP 105/51 Pulse 62 Temp 36.6 ?C (97.9 ?F) (Oral) Resp 18 Ht 188 cm (6' 2) Wt (!) 142.9 kg (315 lb) SpO2 98% on RA BMI 40.44 kg/m? Discharge Disposition: Home with Self Care The patient was instructed to follow-up in FOLLOW UP WITH DR. LATRICE VELASCO IN 2 WEEKS. CALL FOR SCHEDULED APPOINTMENT Highest Readmission Risk Score: 12 The 30 day readmissions risk score is derived from an internally validated risk model which evaluates patient level characteristics, utilization history, medication orders and lab results up until the day of discharge. Patients with a score of 40 or above are considered highest risk for readmission. Specific patient level drivers will be listed at the bottom of the summary. The 30 day readmissions risk score is derived from an internally validated risk model which evaluates patient level characteristics, utilization history, medication orders and lab results up until the day of discharge. Patients with a score of 40 or above are considered highest risk for readmission. Specific patient level drivers will be listed at the bottom of the summary. Discharge Medications: Current Discharge Medication List START taking these medications oxyCODONE IR (ROXICODONE) 5 mg Take 5 mg by mouth every 6 hours as needed for pain. Qty: 28 tablet Refills: 0 Associated Diagnoses:Partial traumatic amputation of great toe, left, initial encounter (HCC); Traumatic amputation toe, left, initial encounter (HCC) cefADROxil (DURICEF) 500 mg Take 500 mg by mouth every 12 hours. Qty: 14 capsule Refills: 0 CONTINUE these medications which have NOT CHANGED hydroCHLOROthiazide (HYDRODIURIL, ESIDRIX) 12.5 mg Take 12.5 mg by mouth once daily. sertraline (ZOLOFT) 100 mg Take 100 mg by mouth once daily. pantoprazole DR (PROTONIX) 40 mg Take 40 mg by mouth once daily. levothyroxine (SYNTHROID) 150 mcg Take 150 mcg by mouth once daily. (more content not included)... [facility] Suzie 02-04-2023 SHADIA Telephone (AGPOB1) ----- TOM,DEVORAH Urbina ([id number]) 1985 M Date Time Provider Department 02/04/23 LATRICE VELASCO During your visit today, we recorded the following information about you: Holli Brcok [facility] 02/04/2023 2:59 PM Addendum Pt scheduled to see Dr. Velasco next week on February [address] Velasco' direction. -ML ----- Message from Mirna Camilla sent at 02/04/2023 1:28 PM EDT ----- Regarding: Orthopedics / Open Foot: Pain / Post Op Within 90 Day Period Subject Line Format: Orthopedics / [Provider Name or Open AND Body Part] / [Issue] Patient has been identified by name and Date of (Y/N): Y Patient: Devorah Santos Date of : 1985 Previous Provider Seen: DR. Maximus VELASCO Body Part(s) Identified: TOE AMPUTATION Diagnosis/Reason For Visit: Reason for the call/escalation: POST OP If reason for call/escalation is discharge from ED/ER or Hospital, which facility was the patient seen at: NA Was an appointment scheduled (Y/N): N Person calling if other than patient: SPOUSE - ARMIDA Return call to if other than patient: Best contact number: [phone] Thank you, Mirna Cmailla February 04, 2023 1:28 PM Allergies As of Date: 02/04/2023 (No Known Allergies) Date Reviewed: 02/04/2023 Reviewed by: Savannah Oleary RN - Fully Assessed Reason for Visit: Returning Patient's Call [[id number]] Prescriptions as of 02/04/2023 - oxyCODONE IR (ROXICODONE) 5 mg immediate release tablet Take 1 tablet by mouth every 6 hours as needed for pain for up to 7 days. - cefADROxil (DURICEF) 500 mg capsule Take 1 capsule by mouth every 12 hours for 7 days. - hydroCHLOROthiazide (HYDRODIURIL, ESIDRIX) 25 mg tablet Take 12.5 mg by mouth once daily. - sertraline (ZOLOFT) 100 mg tablet Take 100 mg by mouth once daily. - MULTI-VITAMIN ORAL Take 1 capsule by mouth once daily. - pantoprazole DR (PROTONIX) 40 mg tablet Take 40 mg by mouth once daily. - levothyroxine (SYNTHROID) 150 mcg tablet Take 150 mcg by mouth once daily. - lisinopril (ZESTRIL, PRINIVIL) 10 mg tablet Take 20 mg by mouth once daily. - LORazepam (ATIVAN) 0.5 mg Take 0.5 mg by mouth as needed. Problem List As Of Date 02/04/2023 Noted Resolved Procreative management [Z31.9] 11/17/2015 Traumatic amputation toe, left, initial encount*02/02/2023 02/04/2023 Obesity, Class III, BMI >= 40 [E66.01] 02/03/2023 Encounter Status:Closed by [facility] HOLLI ROJAS on 02/04/23 [facility] ALLIED HEALTHon 02-03-2023 ALLIED HEALTH HNO ID: [id number] Author: RT Corrie(R) Service: Radiology Author Type: Tank Driver Type: Allied Health Filed: 02/03/2023 11:54 AM Note Text: Radiology Service Progress Note PATIENT NAME: Devorah Santos DATE OF SERVICE: February 03, 2023 TIME: 11:53 AM PATIENT IDENTITY VERIFICATION COMPLETED USING TWO (2) IDENTIFIERS: Name and Date of confirmed by patient verbally and Name and Date of confirmed by identification band. FALL SCREENING: Has the patient had 2 falls in the last year or 1 fall with injury or currently using an Ambulatory Assistive Device (Walker, Cane, Wheelchair, Crutches, etc.)? Inpatient: Screened on floor PATIENT GENDER DATA: Male PATIENT RELEVANT IMPLANT DATA REVIEWED: Not Applicable RADIOLOGY DEPARTMENT: General X-ray: Exam(s) Completed: Chest X-Ray PERIPHERAL IV DATA: Not applicable SIGNED BY: RT Monica(R) February 03, 2023 11:53 AM [facility] ANES POSTPROC EVALon 023 ANES POSTPROC EVAL HNO ID: [id number] Author: Kaiser Jones MD Service: Anesthesiology Author Type: Physician Type: Anesthesia Postprocedure Evaluation Filed: 02/03/2023 2:00 PM Note Text: POST ANESTHESIA EVALUATION NOTE : 1985 Procedure Summary Date: 02/03/23 Room / Location: [facility] OR / OR OR Anesthesia Start: 927 Anesthesia Stop: 1047 Procedures: AMPUTATION TOE(S) (Left: Toe great ) DEBRIDEMENT MUSCLE/FASCIAFIRST 20 SQ CM OR LESS FOOT (Left: Foot) Diagnosis: Traumatic amputation toe, left, initial encounter (HCC) (Traumatic amputation toe, left, initial encounter (HCC) [S98.132A]) Surgeons: Latrice Velasco MD Responsible Provider: Kaiser Jones MD Anesthesia Type: general ASA Status: 3 Anesthesia Type: general Airway Type: LMA Last Vitals Vitals Value Taken Time BP 95/59 02/03/23 1320 Temp 36.7 ?C (98.1 ?F) 02/03/23 1300 HR SpO2 89 02/03/23 1326 Resp 16 02/03/23 1326 SpO2 93 % 02/03/23 1326 Vitals shown include unvalidated device data. Post Anesthesia Patient Status Patient Evaluation: PACU. PACU/ICU Patient Condition: stable. Anticipated Disposition: inpatient floor unplanned admission. Neurological Status: aware and responsive. Pulmonary Status: breathing comfortably on supplemental oxygen Airway Control: returned to baseline unsupported. Cardiovascular Status: stable. Pain Management: clinically adequate Postoperative Hydration: acceptable. Intraoperative Events: no significant anesthesia events Post Operative Nausea/Vomiting Status: no significant post operative nausea or vomiting Recommendation: continue current plan of care and further care per PACU/ICU/floor team. Other Remarks: Patient with possible aspiration after removal of iGel. Maintained O2 saturation above 90% in PACU, but required supplemental oxygen. Decision to admit patient overnight for observation and O2 weaning.. Anesthesia Observations No Documentation SIGNATURE: Kaiser Jones MD PATIENT NAME: Devorah Santos DATE: February 03, 2023 TIME: 1:58 PM CSN: [id number] Normal [facility] ANES PRE-OPon 02-03-2023 ANES PRE-OP HNO ID: [id number] Author: Kaiser Jones MD Service: Anesthesiology Author Type: Physician Type: Anesthesia Preprocedure Evaluation Filed: 02/03/2023 9:18 AM Note Text: ANESTHESIOLOGY DAY OF SURGERY NOTE : 1985 Procedure Information Date: 02/03/23 Procedures: AMPUTATION TOE(S) (Left: Foot) DEBRIDEMENT MUSCLE/FASCIAFIRST 20 SQ CM OR LESS FOOT (Left: Foot) Location: [facility] [place] Surgeons: Latrice Velasco MD Estimated body mass index is 40.44 kg/m? as calculated from the following: Height as of this encounter: 188 cm (6' 2). Weight as of this encounter: 142.9 kg (315 lb). Most recent hematocrit and potassium results: No results found for this basename: HCT,HEMATOCRIT,K,POTASSIU M Relevant Problems Dermatology (+) Traumatic amputation toe, left, initial encounter (HCC) HTN Morbid obesity History of peripheral neuropathy 2/2 chemo for lymphoma Presented with traumatic partial amputation of left 1st and 2nd toes. Now for revision amputation. I - PHYSICAL EVALUATION AIRWAY Patient intubated: No. Tracheostomy tube not present Mallampati: III. TM distance: >3 FB. Neck ROM: full ROM without neurological symptoms. Mouth opening: adequate. Short neck: no. Thick neck: yes Britt present: no Lip Bite Test: I DENTAL Dental findings: teeth intact. Additional exam findings: no II - ANESTHESIA PLAN ASA Score: 3 Anesthetic Plan: general Airway type: LMA The patient is not a current smoker. NPO Status: adequate Beta Adrian Monitoring Plan Monitoring plan: standard ASA. Post Procedure Analgesic Plan Postoperative analgesic plan: parenteral or oral opioids. Informed Consent Anesthetic risks, benefits, alternatives, personnel and consent discussed: yes. Patient / Responsible Alliance Party agrees to proceed: yes Patient / Surrogate agrees to blood products: blood products not planned Significant changes in the patient condition since the History and Physical, not otherwise documented in primary service progress note: no. Potential Anesthesia issues that may suggest increased risk of complications or contraindication to planned procedure: none. Vitals Value Taken Time BP 137/91 02/02/23 2200 Pulse 77 02/02/23 2200 Resp 15 02/02/23 2200 Temp SpO2 95 % 02/02/23 2308 Vitals shown include unvalidated device data. Facility-Administered Medications as of 02/02/2023 Medication Dose Route Frequency - [COMPLETED] fentaNYL 50 mcg/mL 50 mcg injection (SUBLIMAZE) 50 mcg INTRAVENOUS ONCE - [COMPLETED] lidocaine 10 mg/mL (1 %) 200 mg injection (XYLOCAINE) 20 mL INTRADERMAL ONCE - [COMPLETED] tetanus diphtheria pertussis Tdap vaccine (PF) 0.5 mL injection (ADACEL) 0.5 mL INTRAMUSCULAR ONCE (IMMUNIZATION) - ceFAZolin iv piggyback 2 g in D5W (iso-osmotic) 100 mL (ANCEF) 2 g INTRAVENOUS q 8 HR - [COMPLETED] HYDROmorphone 1 mg injection (DILAUDID) 1 mg INTRAVENOUS ONCE Outpatient Medications as of 02/02/2023 Medication Sig - hydroCHLOROthiazide (HYDRODIURIL, ESIDRIX) 25 mg tablet Take 12.5 mg by mouth once daily. - sertraline (ZOLOFT) 100 mg tablet Take 100 mg by mouth once daily. - MULTI-VITAMIN ORAL Take 1 capsule by mouth once daily. - pantoprazole DR (PROTONIX) 40 mg tablet Take 40 mg by mouth once daily. - levothyroxine (SYNTHROID) 150 mcg tablet Take 150 mcg by mouth once daily. - lisinopril (ZESTRIL, PRINIVIL) 10 mg tablet Take 20 mg by mouth once daily. - LORazepam (ATIVAN) 0.5 mg Take 0.5 mg by mouth as needed. I have interviewed and examined the patient. I have reviewed the medical record and/or the pre-anesthesia evaluation, pertinent labs, and test results. This contains updated information obtained within 48 hours of Surgery/Procedure. SIGNATURE: Kaiser Jones MD PATIENT NAME: Devorah Santos DATE: February 02, 2023 TIME: 11:16 PM CSN: [id number] [facility] BRIEF OP NOTon 02-03-2023 BRIEF OP NOT HNO ID: [id number] Author: Anson Onofre MD Service: Orthopaedic Surgery Author Type: Resident Type: Brief Op Note Filed: 02/03/2023 11:27 PM Note Text: BRIEF OPERATIVE / PROCEDURE NOTE LOG ID: [id number] SURGERY/PROCEDURE DATE: 02/03/2023 INCISION/PROCEDURE START TIME: 9:49 AM INCISION CLOSE/PROCEDURE END TIME: 10:20 AM SURGEON(S)/PROCEDURALIST( S) AND PATTERNMAKER(S): Surgeon(s) and Role: * Latrice Velasco MD - Primary * Bam Richard MD - Resident - Assisting * Anson Onofre MD - Resident - Observing No Additional Staff SURGERY/PROCEDURE(S): Revision amputation left great toe, primary closure left 2nd toe laceration ANESTHESIA: Choice - Anesthesia Consult FINDINGS: See OP note ESTIMATED BLOOD LOSS: Less than 20 mls ANTIBIOTICS: Ancef SPECIMENS: None COMPLICATIONS: None PRE-OP/PRE-PROCEDURE DIAGNOSIS: Traumatic amputation left great toe, laceration left great toe POST-OP/POST-PROCEDURE DIAGNOSIS: Same Post-Operative Plan: -management per ortho -dressing/splints status: Soft dressings LLE with colin taping 2nd/3rd toes; post-op shoe LLE -WBAT LLE in post-op shoe -pain control -DVT ppx: SCDs, early ambuation -post-operative antibiotics: Duricef x 7 days -diet: clears liquid diet advance diet as tolerated to regular diet -disposition: DC home tomorrow, will keep the patient over the night due to oxygen requirements after possible aspiration event during extubation. Consulted medicine for respiratory management. Esteban Richard MD Orthopaedic Surgery 02/03/2023 10:32 AM Normal [facility] Basic metabolic 2000 panelon 02-03-2023 Anion gap [Moles/Vol] 10 mmol/L Normal 9-18 [facility] Comment on above: Order Comment: Speci men Type: BLOOD SPECIMEN Ordering Facility: [facility] Address: [address] [place] [address] Performed By: #### 2 4321-2 #### [facility] CLIA [id number] [address] [place] [address] [place] Calcium [Mass/Vol] 9.3 mg/dL Normal 8.5-10.2 [facility] Comment on above: Order Comment: Speci men Type: BLOOD SPECIMEN Ordering Facility: [facility] Address: [address] [address] Performed By: #### 2 4321-2 #### [facility] CLIA [id number] [address] [place] [address] [place] Chloride [Moles/Vol] 101 mmol/L Normal 97-105 [facility] Comment on above: Order Comment: Speci men Type: BLOOD SPECIMEN Ordering Facility: [facility] Address: [address] [address] Performed By: #### 2 4321-2 #### [facility] CLIA [id number] [address] CO2 [Moles/Vol] 28 mmol/L Normal 22-30 [facility] Comment on above: Order Comment: Speci men Type: BLOOD SPECIMEN Ordering Facility: [facility] Address: [address] [place] [address] Performed By: #### 2 4321-2 #### [facility] CLIA [id number] [address] Creatinine [Mass/Vol] 0.92 mg/dL Normal 0.73-1.22 [facility] Comment on above: Order Comment: Speci men Type: BLOOD SPECIMEN Ordering Facility: [facility] Address: [address] [place] [address] Performed By: #### 2 4321-2 #### [facility] CLIA [id number] [address] ESTIMATED GLOMERULAR FILTRATION RATE 110 mL/min/1.73m??? Normal >=60 [facility] Comment on above: Order Comment: Speci men Type: BLOOD SPECIMEN Ordering Facility: [facility] Address: [address] [place] [address] Result Comment: Chelsey mated Glomerular Filtration Rate (eGFR) is calculated using the 2020 CKD-EPI creatinine equation. This equation utilizes serum creatinine, sex, and age as parameters. The creatinine assay has traceable calibration to isotope dilution-mass spectrometry. Refer to KDIGO guidelines for clinical interpretation. In patients with unstable renal function, e.g. those with acute kidney injury, the eGFR may not accurately reflect actual GFR. Performed By: #### 2 4321-2 #### [facility] CLIA [id number] [address] Glucose [Mass/Vol] 116 mg/dL High 74-99 [facility] Comment on above: Order Comment: Speci men Type: BLOOD SPECIMEN Ordering Facility: [facility] Address: [address] [place] [address] Result Comment: The [place] [employer] (ADA) provides guidance for cutoff values for fasting glucose and random glucose. The ADA defines fasting as no caloric intake for at least 8 hours. Fasting plasma glucose results between 100 to 125 mg/dL indicate increased risk for diabetes (prediabetes). Fasting plasma glucose results greater than or equal to 126 mg/dL meet the criteria for diagnosis of diabetes. In the absence of unequivocal hyperglycemia, results should be confirmed by repeat testing. In a patient with classic symptoms of hyperglycemia or hyperglycemic crisis, random plasma glucose results greater than or equal to 200 mg/dL meet the criteria for diagnosis of diabetes. Reference: Standards of Medical Care in Diabetes 2016, [place] [employer]. Diabetes Care. 2016.39(Suppl 1). Performed By: #### 2 4321-2 #### [facility] CLIA [id number] [address] [place] [address] Potassium [Moles/Vol] 3.7 mmol/L Normal 3.7-5.1 [facility] Comment on above: Order Comment: Deo virk Type: BLOOD SPECIMEN Ordering Facility: [facility] Address: [address] [address] Performed By: #### 2 4321-2 #### [facility] CLIA [id number] [address] [place] [address] Sodium [Moles/Vol] 139 mmol/L Normal 136-144 [facility] Comment on above: Order Comment: Deo virk Type: BLOOD SPECIMEN Ordering Facility: [facility] Address: [address] [address] Performed By: #### 2 4321-2 #### [facility] CLIA [id number] [address] [place] [address] Urea nitrogen [Mass/Vol] 11 mg/dL Normal 9-24 [facility] Comment on above: Order Comment: Rafaeli men Type: BLOOD SPECIMEN Ordering Facility: [facility] Address: [address] [address] Performed By: #### 2 4321-2 #### [facility] CLIA [id number] [address] [place] [address] [place] CBC W Auto Differential pane l (Bld)on 02-03-2023 Basophils (Bld) [#/Vol] 0.03 10*3/uL Normal <0.11 [facility] Comment on above: Order Comment: Speci men Type: BLOOD SPECIMEN Ordering Facility: [facility] Address: [address] [address] Performed By: #### 5 7021-8 #### [facility] CLIA [id number] [address] [place] [address] [place] Basophils/100 WBC (Bld) 0.3 % Normal [facility] Comment on above: Order Comment: Speci men Type: BLOOD SPECIMEN Ordering Facility: [facility] Address: [address] [place] [address] Performed By: #### 5 7021-8 #### [facility] CLIA [id number] [address] [place] Differential cell count method Nom (Bld) Auto Normal [facility] Comment on above: Order Comment: Speci men Type: BLOOD SPECIMEN Ordering Facility: [facility] Address: [address] [address] Performed By: #### 5 7021-8 #### [facility] CLIA [id number] [address] [place] Eosinophils (Bld) [#/Vol] 0.06 10*3/uL Normal <0.46 [facility] Comment on above: Order Comment: Speci men Type: BLOOD SPECIMEN Ordering Facility: [facility] Address: [address] [address] Performed By: #### 5 7021-8 #### [facility] CLIA [id number] [address] [place] Eosinophils/100 WBC (Bld) 0.6 % Normal [facility] Comment on above: Order Comment: Speci men Type: BLOOD SPECIMEN Ordering Facility: [facility] Address: [address] [address] Performed By: #### 5 7021-8 #### [facility] CLIA [id number] [address] OF [facility] Erythrocyte distribution width (RBC) [Ratio] 12.6 % Normal 11.5-15.0 [facility] Comment on above: Order Comment: Speci men Type: BLOOD SPECIMEN Ordering Facility: [facility] Address: [address] [address] Performed By: #### 5 7021-8 #### [facility] CLIA [id number] [address] OF [facility] Hematocrit (Bld) [Volume fraction] 43.6 % Normal 39.0-51.0 [facility] Comment on above: Order Comment: Speci men Type: BLOOD SPECIMEN Ordering Facility: [facility] Address: [address] [place] [address] Performed By: #### 5 7021-8 #### [facility] CLIA [id number] [address] OF [place] Hemoglobin (Bld) [Mass/Vol] 14.4 g/dL Normal 13.0-17.0 [facility] Comment on above: Order Comment: Speci men Type: BLOOD SPECIMEN Ordering Facility: [facility] Address: [address] [place] [address] Performed By: #### 5 7021-8 #### [facility] CLIA [id number] [address] Immature granulocytes (Bld) [#/Vol] 0.03 10*3/uL Normal <0.10 [facility] Comment on above: Order Comment: Speci men Type: BLOOD SPECIMEN Ordering Facility: [facility] Address: [address] [place] [address] Performed By: #### 5 7021-8 #### [facility] CLIA [id number] [address] Immature granulocytes/100 WBC (Bld) 0.3 % Normal [facility] Comment on above: Order Comment: Speci men Type: BLOOD SPECIMEN Ordering Facility: [facility] Address: [address] [address] Performed By: #### 5 7021-8 #### [facility] CLIA [id number] [address] Lymphocytes (Bld) [#/Vol] 1.66 10*3/uL Normal 1.00-4.00 [facility] Comment on above: Order Comment: Speci men Type: BLOOD SPECIMEN Ordering Facility: [facility] Address: [address] [address] Performed By: #### 5 7021-8 #### [facility] CLIA [id number] [address] Lymphocytes/100 WBC (Bld) 16.5 % Normal [facility] Comment on above: Order Comment: Speci men Type: BLOOD SPECIMEN Ordering Facility: [facility] Address: [address] [address] Performed By: #### 5 7021-8 #### [facility] CLIA [id number] [address] MCH (RBC) [Entitic mass] 27.8 pg Normal 26.0-34.0 [facility] Comment on above: Order Comment: Speci men Type: BLOOD SPECIMEN Ordering Facility: [facility] Address: [address] [address] Performed By: #### 5 7021-8 #### [facility] CLIA [id number] [address] OF [facility] MCHC (RBC) [Mass/Vol] 33.0 g/dL Normal 30.5-36.0 [facility] Comment on above: Order Comment: Speci men Type: BLOOD SPECIMEN Ordering Facility: [facility] Address: [address] [address] Performed By: #### 5 7021-8 #### [facility] CLIA [id number] [address] OF [facility] MCV (RBC) [Entitic vol] 84.2 fL Normal 80.0-100.0 [facility] Comment on above: Order Comment: Speci men Type: BLOOD SPECIMEN Ordering Facility: [facility] Address: [address] [address] Performed By: #### 5 7021-8 #### [facility] CLIA [id number] [address] OF [place] Monocytes (Bld) [#/Vol] 0.70 10*3/uL Normal <0.87 [facility] Comment on above: Order Comment: Speci men Type: BLOOD SPECIMEN Ordering Facility: [facility] Address: [address] [address] Performed By: #### 5 7021-8 #### [facility] CLIA [id number] [address] Monocytes/100 WBC (Bld) 6.9 % Normal [facility] Comment on above: Order Comment: Speci men Type: BLOOD SPECIMEN Ordering Facility: [facility] Address: [address] [address] Performed By: #### 5 7021-8 #### [facility] CLIA [id number] [address] [place] Neutrophils (Bld) [#/Vol] 7.60 10*3/uL High 1.45-7.50 [facility] Comment on above: Order Comment: Speci men Type: BLOOD SPECIMEN Ordering Facility: [facility] Address: [address] [place] [address] Performed By: #### 5 7021-8 #### [facility] CLIA [id number] [address] [place] Neutrophils/100 WBC (Bld) 75.4 % Normal [facility] Comment on above: Order Comment: Speci men Type: BLOOD SPECIMEN Ordering Facility: [facility] Address: [address] [place] [address] Performed By: #### 5 7021-8 #### [facility] CLIA [id number] [address] OF [place] Nucleated RBC (Bld) [#/Vol] 10*3/uL Normal <0.01 [facility] Comment on above: Order Comment: Speci men Type: BLOOD SPECIMEN Ordering Facility: [facility] Address: [address] [address] Performed By: #### 5 7021-8 #### [facility] CLIA [id number] [address] [place] Nucleated RBC/100 WBC (Bld) [Ratio] 0.0 /100 WBC Normal [facility] Comment on above: Order Comment: Speci men Type: BLOOD SPECIMEN Ordering Facility: [facility] Address: [address] [address] Performed By: #### 5 7021-8 #### [facility] CLIA [id number] [address] [place] Platelet mean volume (Bld) [Entitic vol] 10.1 fL Normal 9.0-12.7 [facility] Comment on above: Order Comment: Speci men Type: BLOOD SPECIMEN Ordering Facility: [facility] Address: [address] [address] Performed By: #### 5 7021-8 #### [facility] CLIA [id number] [address] [place] Platelets (Bld) [#/Vol] 212 10*3/uL Normal 150-400 [facility] Comment on above: Order Comment: Speci men Type: BLOOD SPECIMEN Ordering Facility: [facility] Address: [address] [address] Performed By: #### 5 7021-8 #### [facility] CLIA [id number] 1 [place] [address] [place] RBC (Bld) [#/Vol] 5.18 10*6/uL Normal 4.20-6.00 [facility] Comment on above: Order Comment: Speci men Type: BLOOD SPECIMEN Ordering Facility: [facility] Address: [address] [address] Performed By: #### 5 7021-8 #### [facility] CLIA [id number] [address] OF [facility] WBC (Bld) [#/Vol] 10.08 10*3/uL Normal 3.70-11.00 [facility] Comment on above: Order Comment: Speci men Type: BLOOD SPECIMEN Ordering Facility: [facility] Address: [address] [place] [address] Performed By: #### 5 7021-8 #### [facility] CLIA [id number] [address] CONFIRM BLOOD TYPEon 023 ABO AB Normal [facility] Comment on above: Order Comment: Speci men Type: BLOOD SPECIMEN Ordering Facility: [facility] Address: [address] [place] [address] Performed By: #### C ONABO #### [facility] CLIA [id number] [address] [place] [address] Rh Nom (Bld) Positive Normal [facility] Comment on above: Order Comment: Speci men Type: BLOOD SPECIMEN Ordering Facility: [facility] Address: [address] [place] [address] Performed By: #### C ONABO #### [facility] CLIA [id number] [address] [place] [address] ED NOTEon 02-03-2023 ED NOTE HNO ID: [id number] Author: Rossy Bartholomew RN Service: ? Author Type: Registered Nurse Type: ED Notes Filed: 02/02/2023 10:58 PM Note Text: Report to 52B RN. Normal [facility] NURSING PROGon 02-03-2023 NURSING PROG HNO ID: [id number] Author: Merle Forman RN Service: Nursing Author Type: Registered Nurse Type: Nursing Progress Note Filed: 02/03/2023 1:19 PM Note Text: Spoke to Dr. Onofre re: increased need for oxygen=4liters nasal cannula, per suggestion of Dr. Jones and to keep patient overnight on 5200B with continuous pulse oximeter monitoring. Normal [facility] NURSING PROG HNO ID: [id number] Author: Merle Forman RN Service: Nursing Author Type: Registered Nurse Type: Nursing Progress Note Filed: 02/03/2023 1:17 PM Note Text: Dr. Jones aware that patient requires 4 liters of oxygen to maintain saturation of 90-92%. Using inc. Spirometer well and pulling 4000 ml with each breath. Instructed to call ortho resident to have patient stay overnight on floor with continuous pulse ox monitoring. Normal [facility] NURSING PROG HNO ID: [id number] Author: Merle Forman RN Service: Nursing Author Type: Registered Nurse Type: Nursing Progress Note Filed: 02/03/2023 11:16 AM Note Text: Dr. Jones at the bedside and aware that patient lung sounds are abnormal.On expiration lungs sounds are questionable pleural rub. Orders received. Normal [facility] OPERATIVE NOon 02-03-2023 OPERATIVE NO HNO ID: [id number] Author: Latrice Velasco MD Service: Orthopaedic Surgery Author Type: Physician Type: Operative Report Filed: 02/12/2023 2:02 PM Note Text: [facility] - Operative Report DEVORAH SANTOS : 1985 AGE: 37. SEX: M PATIENT TYPE: I HOSP SVC: Surgical LOCATION: [id number] ATTENDING PHYSICIAN: LATRICE VELASCO CSN NUMBER: [id number] DATE OF SURGERY/PROCEDURE: 02/03/2023 INCISION/PROCEDURE START TIME: 9:49 AM INCISION CLOSE/PROCEDURE END TIME: 10:20 AM PREOPERATIVE DIAGNOSIS: 1. Near complete amputation left great toe with open distal phalanx fracture. 2. Open left second distal and middle phalanx fractures. POSTOPERATIVE DIAGNOSIS: 1. Near complete amputation left great toe with open distal phalanx fracture. 2. Open left second distal and middle phalanx fractures. SURGEON: Latrice Velasco MD PATTERNMAKER: 1. Esteban Richard M.D. 2. Anson Onofre M.D. SURGERY/PROCEDURE: 1. I and D open left great toe distal phalanx fracture. 2. Amputation left great toe at the IP joint. 3. Irrigation and debridement open left middle and proximal phalanx fractures. 4. Repair moderately complex laceration, left second toe, 4 cm. ANESTHESIA: General endotracheal plus local. FLUIDS: Per Anesthesia Service. OPERATIVE INDICATIONS: The patient is a 37-year-old male, who presented to the emergency department after sustaining a crush injury to the left foot. Clinically, he had circumferential laceration at the left great toe at the level of the distal phalanx. This was almost completely amputated with disruption of the neurovascular bundle on either side of the toe leaving the toe dysvascular. This was associated with a comminuted open distal phalanx fracture. There was also a moderately complex bakari-circumferential laceration along the medial aspect of the left second toe near the PIP joint. This was associated with open fractures of the middle and proximal phalanx. He was subsequently placed in a splint and given antibiotics. He was then admitted and indicated for the above-stated procedure. He was apprised of risks, benefits, and alternatives to surgery. All questions were answered satisfactorily. He decided to proceed with the operation. DESCRIPTION OF PROCEDURE: The patient was met in the preoperative holding area. History and physical as well as a valid signed consent form was updated. The site was marked. A preoperative huddle was performed. All checkpoints were met satisfactorily. Patient then brought back to the operating room on a hospital bed. He was transferred supine on the operating table. The Anesthesia Service took control of the head, neck, and airway. General endotracheal anesthesia was induced. All dependent areas were padded appropriately. The lower extremity was then prepped and draped in normal sterile fashion. A time-out was performed per [facility] protocol and all checkpoints met satisfactorily. The patient was continued on the antibiotics that he was receiving on the floor. An upper body Dre Hugger was started for warming. SCD was placed in the right lower extremity for DVT prophylaxis. At the conclusion of the time-out, the left lower extremity examined. Again, the great toe had a circumferential laceration associated with open distal phalanx fracture. The tip of the toe was noted to be dysvascular and decision was made to proceed with amputation of the toe. The wound at the open fracture site was thoroughly irrigated with 3 L of sterile normal saline. The toe was found to be only connected to the rest of the foot via the flexor tendon. This was divided sharply and the toe was freed from the table. Exposed distal phalanx was then debrided back with a rongeur at the level of the IP joint. The end of the proximal phalanx was then reshaped and skin flaps were found to be adequate for closure. There was some excess skin along the distal medial aspect of the wound that was debrided back sharply to offer equal flaps on either side. This was closed loosely with multiple 2-0 nylon sutures. We then turned our attention to the left 2nd toe. There was a moderately complex bakari-circumferential laceration extending over the PIP joint. This was noted to track down to fracture site at the middle and proximal phalanges. This area was thoroughly irrigated with 3 L of sterile normal saline and all nonviable skin and subcutaneous tissue was excised. The wound was then closed with interrupted 3-0 nylon sutures. Sterile dressings were applied and a well- padded cast shoe was placed. The patient was then awoken by Anesthesia and transferred back to hospital bed. He was delivered to the recovery room in stable and extubated condition, having tolerated surgery well. POSTOPERATIVE PLAN: 1. Pain control. 2. Nonweightbearing left lower extremity. 3. Plan discharge with 1 week of p.o. antibiotics given his open fracture. (more content not included)... Normal [facility] PT panel Coag (PPP)on 2022 INR Coag (PPP) [Relative time] 1.0 {INR} Normal 0.9-1.3 [facility] Comment on above: Order Comment: Speci men Type: BLOOD SPECIMEN Ordering Facility: [facility] Address: [address] [place] [id number] Result Comment: Kandis min K Antagonist (VKA) Therapeutic Range: INR 2 to 3 (Target INR of 2.5) Note: For patients treated with VKA drugs, such as warfarin, the [employer] 2012 Guideline recommends a therapeutic INR range of 2 to 3 (target INR of 2.5). This recommendation includes high-risk patients with antiphospholipid syndrome with previous arterial or venous thromboembolism, current-generation mechanical or bioprosthetic aortic heart valve replacement. Note: Patients with mechanical aortic valve replacement and additional risk factors for thromboembolic events (atrial fibrillation, previous thromboembolism, LV dysfunction, hypercoagulable conditions) or an older generation mechanical AVR (i.e., ball in-Cage) or any mechanical MVR should have a INR therapeutic range of 2.5 to 3.5 (target INR of 3). Suman GH, et al. Chest 2012, 141:7S-47S Mel RA, et al. [facility] 2017, 70: 252-289 Performed By: #### 5 7021-8 #### [facility] CLIA [id number] [address] OF [facility] PT Coag (PPP) [Time] 10.7 s Normal 9.7-13.0 [facility] Comment on above: Order Comment: Speci men Type: BLOOD SPECIMEN Ordering Facility: [facility] Address: [address] [place] [address] Performed By: #### 5 7021-8 #### [facility][1] CLIA [id number] [address] SURGICAL PATHOLOGYon 023 CASE REPORT Normal [facility] Comment on above: Order Comment: Speci men Type: TISSUE SPECIMENOrdering Facility: [facility] Address: [address] [place] [address] Result Comment: Surg ical Pathology Report Case: [id number] Authorizing Provider: Latrice Velasco MD Collected: 02/03/2023 09:51 AM Ordering Location: [facility] Received: 02/04/2023 08:51 AM Pathologist: Kamille Gary MD Specimen: DIGIT FIRST, LEFT FOOT, big toe Performed By: #### S ####[facility] [id number] [address] CLINICAL HISTORY Normal [facility] Comment on above: Order Comment: Speci men Type: TISSUE SPECIMENOrdering Facility: [facility] Address: [address] [place] [address] Result Comment: Pre- op diagnosis: Traumatic amputation toe, left, initial encounter ([facility]) [S98.132A] Performed By: #### S ####[facility] [id number] [address] FINAL DIAGNOSIS Normal [facility] Comment on above: Order Comment: Speci men Type: TISSUE SPECIMENOrdering Facility: [facility] Address: [address] [place] [address] Result Comment: A. L eft foot, third digit, amputation: -- Bone with fresh intertrabecular hemorrhage, consistent with fracture site. -- Overlying skin and soft tissue with fresh hemorrhage and vascular congestion, clinically trauma. Performed By: #### S ####[facility] [id number] [address] FINAL PERFORMING LAB Normal [facility] Comment on above: Order Comment: Deo virk Type: TISSUE SPECIMENOrdering Facility: [facility] Address: [address] [place] [address] Result Comment: Diag nostic interpretation performed at [facility], [address] [place] [address] CLIA# [id number] Ccnp: Andreina Benito M.D. Performed By: #### S ####[facility] [id number] [address] GROSS DESCRIPTION Normal [facility] Comment on above: Order Comment: Deo virk Type: TISSUE SPECIMENOrdering Facility: [facility] Address: [address] [place] [address] Result Comment: A. D IGIT FIRST, LEFT FOOT Received in formalin labeled as big toe is a digit with additional skin and bone fragments measuring 4 x 4 x 2 cm. The proximal digit demonstrates crush artifact with dark red hemorrhagic bone. The additional fragments also show focal hemorrhage and aggregating to 4.0 x 3.0 x 1.0 cm. A skin lesion is not seen. A primary care sales representative section of the digit and a probable fracture site is submitted in 1 cassette after decalcification. Gross examination performed at [facility], [address] [place] [address] CLIA#[id number] [facility] February 04, 2023 12:42 PM Performed By: #### S ####[facility] [id number] [address] OF [place] TYPE + SCREENon 02-03-2023 ABO AB Normal [facility] Comment on above: Order Comment: Speci men Type: BLOOD SPECIMEN Ordering Facility: [facility] Address: [address] [place] [address] Performed By: #### T SCR #### [facility] CLIA [id number] [address] HISTORICAL AB SCR STATUS Negative Normal [facility] Comment on above: Order Comment: Speci men Type: BLOOD SPECIMEN Ordering Facility: [facility] Address: [address] [place] [address] Performed By: #### T SCR #### [facility] CLIA [id number] [address] Rh Nom (Bld) Positive Normal [facility] Comment on above: Order Comment: Speci men Type: BLOOD SPECIMEN Ordering Facility: [facility] Address: [address] [place] [address] Performed By: #### T SCR #### [facility] CLIA [id number] [address] TYPE AND SCREEN EXPIRATION 02/05/2023 23:59 Normal [facility] Comment on above: Order Comment: Speci men Type: BLOOD SPECIMEN Ordering Facility: [facility] Address: [address] [place] [address] Performed By: #### T SCR #### [facility] CLIA [id number] [address] OF [place] XR CHEST 1V FRONTALon 2022 XR CHEST 1V FRONTAL * * *Final Report* * * DATE OF EXAM: Feb 03 2023 11:54AM AKX [id number] - XR CHEST 1V FRONTAL / PROCEDURE REASON: Post-operative / post-procedure assessment, asymptomatic * * * * Physician Interpretation * * * * EXAMINATION: CHEST RADIOGRAPH (SINGLE VIEW AP OR PA) CLINICAL HISTORY: Post-operative / post-procedure assessment, asymptomatic hypoxia; possible aspiration MQ: XC1_5 Comparison: RESULT: Lines, tubes, and devices: None. Lungs and pleura: No consolidation. No lung mass. No pleural effusion. Cardiomediastinal silhouette: Normal cardiomediastinal silhouette. Other: . IMPRESSION: No acute radiographic abnormality. Manager Generation: SUZAN Transcribe Date/Time: Feb 03 2023 4:52P Dictated by : MARJORIE MORSE MD This examination was interpreted and the report reviewed and electronically signed by: MARJORIE MORSE MD on Feb 03 2023 4:53PM EST [id number] Normal [facility] aPTT PPPon 02-03-2023 aPTT Coag (PPP) [Time] 24.5 s Normal 23.0-32.4 [facility] Comment on above: Order Comment: Speci men Type: BLOOD SPECIMEN Ordering Facility: [facility] Address: [address] [place] [address] Performed By: #### 5 7021-8 #### [facility] CLIA [id number] [address] ED NOTEon 02-02-2023 ED NOTE HNO ID: [id number] Author: Rossy Bartholomew RN Service: ? Author Type: Registered Nurse Type: ED Notes Filed: 02/02/2023 8:32 PM Note Text: Ortho at bedside. [facility] ED NOTE HNO ID: [id number] Author: Rossy Bartholomew RN Service: ? Author Type: Registered Nurse Type: ED Notes Filed: 02/02/2023 8:14 PM Note Text: Xray at bedside. [facility] ED NOTE HNO ID: [id number] Author: Rossy Bartholomew RN Service: ? Author Type: Registered Nurse Type: ED Notes Filed: 02/02/2023 8:06 PM Note Text: Xray made aware. [facility] ED NOTE HNO ID: [id number] Author: Maryann Guthrie RN Service: ? Author Type: Registered Nurse Type: ED Notes Filed: 02/02/2023 7:30 PM Note Text: Bed: 11-ED Expected date: Expected time: Means of arrival: Comments: Squad when clean Normal [facility] ED PROV NOTEon 02-02-2023 ED PROV NOTE HNO ID: [id number] Author: Lenin Contreras DO Service: Emergency Medicine Author Type: Physician Type: ED Provider Notes Filed: 02/20/2023 11:38 PM Note Text: Attending Note I have personally performed a face to face assessment of the patient and have reviewed the resident note. I performed a substantive portion of the visit including all aspects of the following. My erickson findings include: 37-year-old male presenting with a open fractures to the left first and second digits on the left foot. 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 He was wearing his steel toed boot. Suffered a near amputation of the left great toe and an open fracture to the left second toe as well. Initially seen at another facility and transferred here for orthopedic evaluation. Unsure of tetanus. Did receive antibiotics at the other facility. Here for further evaluation. Patient afebrile blood pressure 1 454/94 pulse 84 respirations 16 sat 98% on room air Focused exam left lower extremity shows open fractures to the left first and second toes. No other trauma to the foot ankle or remainder of the left lower extremity. Plan repeat x-rays, orthopedic evaluation, update tetanus. 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 20 g R arm. The patient is a 37-year-old male with past medical history as below presenting for left toe pain. Patient is a transfer from [facility] for orthopedic consult. 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 He is here for orthopedic consultation. PAST MEDICAL HISTORY Diagnosis Date Anxiety GERD (gastroesophageal reflux disease) Hypertension Hypothyroid Lymphoma (HCC) 2001 hodgkins- 6 months chemo and radiation PAST SURGICAL HISTORY Procedure Laterality Date COLONOSCOPY 02/2020 large benign polyp PAST SURGICAL HISTORY OF Right lymph node biopsy PAST SURGICAL HISTORY OF port placement PAST SURGICAL HISTORY OF removal port FAMILY HISTORY Problem Relation Age of Onset Hypertension Mother Hypertension Father Social History Tobacco Use Smoking status: Never Smokeless tobacco: Never Substance and Sexual Activity Alcohol use: Never Drug use: Not Currently Sexual activity: Not on file ALLERGIES No Known Allergies Review of Systems Constitutional: Negative for fatigue and fever. HENT: Negative for congestion, ear discharge, rhinorrhea and trouble swallowing. Eyes: Negative for photophobia and redness. Respiratory: Negative for cough, shortness of breath and wheezing. Cardiovascular: Negative for chest pain, palpitations and leg swelling. Gastrointestinal: Negative for abdominal pain, constipation, diarrhea, nausea and vomiting. Genitourinary: Negative for dysuria and flank pain. Musculoskeletal: Negative for joint swelling and myalgias. Skin: Positive for color change and wound. Negative for rash. Neurological: Negative for seizures, syncope, light-headedness and headaches. Psychiatric/Behavioral: Negative for behavioral problems, confusion and decreased concentration. The patient is not nervous/anxious and is not hyperactive. Physical Exam Vitals [02/02/23 1933] BP Pulse Temp Temp src Resp SpO2 Weight Height 151/99 84 36.7 ?C (98.1 ?F) Oral 16 98 % (!) 142.9 kg (315 lb) 1.88 m (6' 2) Physical Exam Vitals and nursing note reviewed. Constitutional: Appearance: Normal appearance. HENT: Head: Normocephalic and atraumatic. Right Ear: External ear normal. Left Ear: External ear normal. Nose: Nose normal. Mouth/Throat: Mouth: Mucous membranes are moist. Pharynx: Oropharynx is clear. Eyes: Extraocular Movements: Extraocular movements intact. Conjunctiva/sclera: Conjunctivae normal. Pupils: Pupils are equal, round, and reactive to light. Cardiovascular: Rate and Rhythm: Normal rate and regular rhythm. Pulses: Normal pulses. Heart sounds: Normal heart sounds. No murmur heard. No gallop. Pulmonary: Effort: Pulmonary effort is normal. No respiratory distress. Breath sounds: Normal breath sounds. No wheezing, rhonchi or rales. Abdominal: General: Abdomen is flat. Palpations: Abdomen is soft. Tenderness: There is no abdominal tenderness. There is no guarding or rebound. Musculoskeletal: General: Deformity (Mostly amputated toes noted to the left foot. Great toe dusky in color with decreased sensation. Second digit also dusky with decreased sensation although patient does have sensation to light touch. No ankle injury) present. No swelling or tenderness. Cervical back: Normal range of motion and neck supple. No muscular tenderness. Right lower leg: No edema. Left lower leg: No edema. Skin: General: Skin is warm and dry. Capillary Refill: Capillary refill takes less than 2 seconds. Coloration: Skin is not pale. Findings: No rash. Neurological: General: No focal deficit present. Mental Status: He is alert and oriented to person, place, and time. Mental status is at baseline. Motor: No weakness. Psychiatric: Mood and Affect: Mood normal. Behavior: Behavior normal. Thought Content: Thought content normal. Judgment: Judgment normal. Diagnostic Testing ED Labs Ordered and Reviewed - No data to display Procedures ED Course / Clinical Impression Clinical Impressions as of 02/02/232101 Partial traumatic amputation of great toe, left, initial encounter (HCC) MDM / Disposition / Plan 37 year old male presents with partial toe amputation. On initial assessment patient was found non-toxic, no acute distress, vitals hemodynamically stable and afebrile. Initial concern for need for orthopedic consult. Orthopedic surgery was consult (more content not included)... Normal [facility] FOOT COMPLETE, MIN 3 VIEWSon 02-02-2023 FOOT COMPLETE, MIN 3 VIEWS Patient Name: DEVORAH SANTOS STUDY: FOOT; COMPLETE, MIN 3 VIEWS; Left; 02/02/2023 4:45 pm INDICATION: trauma . COMPARISON: None. ACCESSION NUMBER(S): [id number] ORDERING CLINICIAN: EDUARD RAZA FINDINGS: There is an acute fracture involving the distal phalanx of the great toe with lateral displacement. No evidence of intra-articular extension area there is also a comminuted intra-articular fracture of the base of the 2nd middle phalanx with lateral displacement of the fracture fragments. There are a few punctate radiodense foci in the soft tissues of the great toe that may be bone fragments or radiopaque foreign bodies. There is a juxta-articular erosion at the 5th PIP joint involving the middle phalanx. This could be related to prior gout or infection. IMPRESSION: Please see above. Electronically signed by: MARIA R BRADLEY MD [facility] HISTORY PHYSICALon HISTORY PHYSICAL HNO ID: [id number] Author: Latrice Velasco MD Service: Orthopaedic Surgery Author Type: Physician Type: HANDP Filed: 02/03/2023 11:41 PM Note Text: ATTENDING STAFF REVIEW I personally saw and examined the patient. I agree with the resident's assessment and plan. I communicated with the resident staff as needed if, in my opinion, additional clarification, evaluation, and/or treatment was necessary. Patient with open fracture of the left great and second toe with near amputation of the great toe. The great toe is dysvascular and we discussed IANDD with amputation and well as IANDD + wound closure of 2nd toe. We will plan non-operative management of 2nd toe fractures otherwise. All questions were answered. Plan OR today. Delayed Entry - I saw/examined the patient on 02/03/2023 Latrice Velasco M.D. Attending Staff, Department of Orthopedic Surgery [facility] Orthopaedic Surgery History and Physical Chief Complaint: Partial amputation of the left great toe and second toe Admitting Physician: Dr. Velasco Date: February 02, 2023 Time: 8:57 PM History of Present Illness Devorah Santos is a 37 year old male who presents for the above injury. 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 Patient had immediate and severe pain in the left foot. He was initially seen at an outside hospital which demonstrated a partial amputation of the left great toe and laceration to the medial second toe. Patient does not have sensation at the tip of the partially amputated great toe. Tenuous sensation of the second toe however the patient does have peripheral neuropathy status postchemotherapy for lymphoma. He denies any other complaints at this time.. Review of Systems A 10-point review of systems was completed and is otherwise non-contributory to the patient's presenting condition. History 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- 6 months chemo and radiation PAST SURGICAL HISTORY Procedure Laterality Date COLONOSCOPY 02/2020 large benign polyp PAST SURGICAL HISTORY OF Right lymph node biopsy PAST SURGICAL HISTORY OF port placement PAST SURGICAL HISTORY OF removal port HEPATITIS B(1 of 3 - 3-dose series) Never done HEPATITIS C SCREENING Never done HIV SCREENING Never done DTAP,TDAP,TD(1 - Tdap) Never done COVID-19 VACCINE(5 - Booster for Moderna series) due on 09/16/2021 DEPRESSION ASSESSMENT Never done INFLUENZA(Season Ended) due on 05/17/2023 LIPID SCREEN due on 10/10/2027 A review of the patient's history was completed and is otherwise non-contributory to the patient's presenting condition. Medications hydroCHLOROthiazide (HYDRODIURIL, ESIDRIX) 25 mg tabletTake 12.5 mg by mouth once daily.Disp: Rfl: sertraline (ZOLOFT) 100 mg tabletTake 100 mg by mouth once daily.Disp: Rfl: MULTI-VITAMIN ORALTake 1 capsule by mouth once daily.Disp: Rfl: pantoprazole DR (PROTONIX) 40 mg tabletTake 40 mg by mouth once daily.Disp: Rfl: levothyroxine (SYNTHROID) 150 mcg tabletTake 150 mcg by mouth once daily.Disp: Rfl: lisinopril (ZESTRIL, PRINIVIL) 10 mg tabletTake 20 mg by mouth once daily.Disp: Rfl: LORazepam (ATIVAN) 0.5 mgTake 0.5 mg by mouth as needed.Disp: Rfl: Allergies Patient has no known allergies. Family History Family History Reviewed Including Cardiac Diseases, Psychiatric Diseases, AND Substance Abuse Problem: Hypertension Relation: Mother Age of Onset: (Not Specified) Problem: Hypertension Relation: Father Age of Onset: (Not Specified) Social History Employer And Job Title: None on file Years Of Education Completed: Not specified Marital Status: Social History Tobacco Use Smoking status: Never Smokeless tobacco: Never Substance Use Topics Alcohol use: Never Drug use: Not Currently Physical Examination Vitals BP 154/94 Pulse 84 Temp 36.7 ?C (98.1 ?F) (Oral) Resp 16 Ht 188 cm (6' 2) Wt (!) 142.9 kg (315 lb) SpO2 98% BMI 40.44 kg/m? General Alert and oriented. NAD. Skin No rashes or lesions. Appropriate skin turgor. Cardiovascular RRR. Peripheral pulses symmetric. Pulmonary Non-labored breathing on room air. Symmetric chest expansion. GI/Abdomen Abdomen soft, non-tender, and non-distended. Neuro CN II-XII grossly intact. Psych Appropriate mood and affect. Left Lower Extremity There is obvious deformity involving the left great toe. There is also a laceration involving the medial aspect of the left second toe that extends to the plantar aspect of the toe. Skin bridge attachment of the great toe. Sensation not intact to the distal tip of the great toe. Capillary refill not intact to the great toe. Pinprick to the great toe did not demo (more content not included)... Normal [facility] Provider Note - ED v3on 05-2 Provider Note - ED v3 Provider Note: Chart Review: ED NOTES ED NOTES: 37-year-old male presents with a traumatic near amputation of distal aspect of left great toe. Patient was at work wearing steel toed shoes when he had a large heavy piece of rock come down on the shoe causing his steel in the boot to near amputated the end of the left great toe. Patient was pale and pasty upon arrival. IV was established and he was given 2 mg of IV morphine and a liter of fluids along with 1 g of Ancef. Continued to have pain with minimal oozing of blood. Patient received another 2 mg of IV morphine. Patient continued to have pain and was given 50 mcg of fentanyl IV. Patient states this helped significantly. Patient has been reassessed by myself multiple times and I have updated him with plan of care. I was able to clean the amputated segment with chlorhexidine. I did reposition the segment with the residual portion of the great toe. Adaptic was placed over the wound in a circumferential manner. A splint was placed under the great toe and this was wrapped with Jennifer to stabilize. Patient did have a small amount of oozing of blood. The base of the second toe and medial aspect of that showed a open laceration also. There is no bleeding from that area. I was able to speak to the trauma attending at [facility]. accept the patient. Ambulance has been contacted and await their arrival. Patient has remained stable while here in the department. Patient's vital signs improved as did his color after fluid resuscitation. Patient is hemodynamically stable upon discharge. 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 rock came up steel toe boot cut Into his Lt great toe.)(1). The historian is the patientspouse. Triage Information: Most recent Vital Sign Value Date Temp (F): 99 02-02-2023 16:19 Temp (C): 37.2 02-02-2023 16:19 Heart Rate (beats/min): 79 02-02-2023 16:19 Respirations (breaths/min): 20 02-02-2023 16:19 SpO2 (%): 94 02-02-2023 16:19 BP Systolic (mm Hg): 94 02-02-2023 16:19 BP Diastolic (mm Hg): 58 02-02-2023 16:19 PAST MEDICAL HISTORY ALLERGIES/INTOLERANCES: No Known Allergies HEALTH HISTORY: Medical History Name:Hypertension Code:I10 Name:Hypothyroidism Code:E03.9 Name:Anxiety Code:F41.9 Name:GERD (gastroesophageal reflux disease) Code:K21.9 Name:History of Hodgkin's lymphoma Code:Z85.71 OUTPATIENT MEDICATIONS: Home Medications Review Status for Reconciliation: Complete Med Status: Patient Currently Takes Medications Drug Name: Synthroid 150 mcg (0.15 mg) oral tablet Instructions: 1 tab(s) orally once a day Drug Name: Protonix 40 mg oral delayed release tablet Instructions: 1 tab(s) orally once a day Drug Name: sertraline 100 mg oral tablet Instructions: 1 tab(s) orally once a day Drug Name: lisinopril-hydrochlorothi azide 20 mg-12.5 mg oral tablet Instructions: 1 tab(s) orally once a day Drug Name: Multiple Vitamins oral tablet Instructions: 1 tab(s) orally once a day Drug Name: finasteride 1 mg oral tablet Instructions: 1 tab(s) orally once a day Drug Name: clobetasol 0.05% topical solution Instructions: Apply topically to scalp area once a day SIGNIFICANT EVENTS: No documented data. REVIEW OF SYSTEMS MUSCULOSKELETAL: POSITIVE for: pain All other systems reviewed and are negative PHYSICAL EXAM Image Comments: Physical examination-skin very pale and pallorous Extremity-left great toe is almost totally amputated above the IP joint. Neurovascular is intact with no active bleeding. CRITICAL CARE VITAL SIGNS: T PRBP SpO2O2(LPM) %FiO2 Method 02-Feb-2023 16:19:[id number]/58 94 room air, no respiratory support DISPOSITION Diagnosis/Annotation: ED Dx Name:Traumatic amputation of left great toe Code:S98.112A Name:Open fracture of second toe of left foot Code:S92.502B Disposition: transferred Facility Name: [facility] Consulting Physician Name: James Transfer Accepted: no CONSULT CRITICAL CARE TIME Is this a critically ill patient: yes Billing Provider Critical Care Time (mins): 50 Primary Critical Care Issue/Treatment (See MDM/ED Course/Tx Plan for greater detail): -- This patient is known, or believed, to have sustained life or limb threatening trauma. We are treating with appropriate blood products, fluids and/or pressors, and orthopedic/surgical intervention, as indicated, as well as doing intensive diagnostic evaluation and monitoring. Please see MDM/ED Course/Treatment Plan for greater detail. Additional Critical Care Provided: direct patient care (not related to procedure), additional history taking, interpretation of diagnostic studies, documentation and consultation with other physicians Electronic (more content not included)... 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 Triage Date/Time: 02-Feb-2023 16:19 JENNIFER: 2 Pain Rating (0-10): 9 = Severe Pain location: left foot Vital Signs: Temperature: 99.0F ( 37.2C) Blood Pressure: 94/58 Mean: Heart Rate: 79 Respiratory Rate: 20 Pulse Oximetry: 94% on room air, no respiratory support. Height: 6 feet 0.00 inches. 182.8 CM Weight: 308.6 pounds. Calculated 140.0 kg. (stated) Calculated BMI (kg/m2): 41.896 Calculated BSA (m2) 2.67 [place] Coma Scale: Best Eye Response: (E4) spontaneous Best Motor Response: (M6) obeys commands Best Verbal Response: (V5) oriented Trey Score: 15 Patient has homicidal thoughts: no Risk Screens Suicide Risk Screen In the Past Month: Have you wished you were or wished you could go to sleep and not wake up no In the Past Month: Have you had any actual thoughts of killing yourself no In Your Lifetime: Have you ever done anything, started to do anything, or prepared to do anything to end your life no Mendez Fall Scale Screening Has the patient fallen before (or is the patient in the ED as a result of a fall) has not had a fall Does the patient have an impaired gait does not have impaired gait Is the patient cognitively impaired not cognitively impaired Interventions: Mendez Fall Interventions: LOW INTERVENTIONS: *patient oriented to surroundings and call system, * patient/family falls education completed and documented, *patients fall status communicated during bedside handoff, *whiteboard updated, *mode of toileting discussed with patient, *bed in low position with brakes locked, *call light in reach, * non-skid footwear TRAVEL HISTORY Travel History Coronavirus Screening: no exposure or symptoms Travel Exposure History: NO travel to International locations in the past 30 days PAIN Pain Scale Used: CURRY Pain Rating (0-10): 9 = Severe Past Medical History: Past Medical History Reviewedno Electronic Signatures: Ximena Crowder (ELAINE GREENE) (Signed 02-Feb-2023 16:22) Authored: Quick Triage, Risk Screens, Pain, Travel History, Chart Review, Scores, Past Medical History Last Updated: 02-Feb-2023 16:22 by Ximena Crowder (ELAINE GREENE) [facility] XR FOOT 3V AP/LAT/OBL LTon 0 02-02-2023 XR FOOT 3V AP/LAT/OBL LT * * *Final Report* * * DATE OF EXAM: Feb 02 2023 8:21PM [id number] - XR FOOT 3V AP/LAT/OBL LT / PROCEDURE REASON: Fracture, foot * * * * Physician Interpretation * * * * EXAMINATION: XR FOOT 3V AP/LAT/OBL LT HISTORY: LEFT FOOT (TOE) PAIN INJURY Fracture, foot. TECHNIQUE: XR FOOT 3V AP/LAT/OBL LT Laterality: LEFT Number of different views (projections): 3 M: XB_1 COMPARISON: RESULT: There is a transverse fracture through the base of the first distal phalanx. There is associated soft tissue injury. Overall anatomic alignment is grossly maintained. No obvious intra-articular involvement. There is a mildly displaced fracture of the base of the second intermediate phalanx. Fracture fragment is displaced laterally. There also appears to be a small fracture fragment displaced medially. There appears to be associated soft tissue injury. This fracture appears to be intra-articular. Small fractures at the base of the third intermediate phalanx with intra-articular extension. No other significant abnormality. IMPRESSION: Fractures of the hallux, second and third digits as detailed above.. Manager Generation: SUZAN Transcribe Date/Time: Feb 02 2023 8:29P Dictated by : MARJORIE MORSE MD This examination was interpreted and the report reviewed and electronically signed by: MARJORIE MORSE MD on Feb 02 2023 8:34PM EST [id number] Normal [facility] Provider Note - ED v3on - Provider Note - ED v3 Provider Note: Chart Review: ED NOTES ED NOTES: Patient presents for evaluation of cough, sore throat, nasal congestion, rhinorrhea that has been ongoing for the past few days and refractory to OTC meds. Patient states that he was recently treated with Augmentin for sinusitis which she completed. He states symptoms returned proximately 2 days after completion of antibiotics. Denies fevers, nausea vomiting/diarrhea, chest pain, shortness of breath, abdominal pains or any other associated symptom or complaint. HISTORY OF PRESENTING ILLNESS DEVORAH is a 37 year old Male and was seen by me at 13-Nov-2022 11:40. Triage Information: Most recent Vital Sign Value Date PAST MEDICAL HISTORY ALLERGIES/INTOLERANCES: No Known Allergies HEALTH HISTORY: Medical History Name:Hypertension Code:I10 Name:Hypothyroidism Code:E03.9 Name:Anxiety Code:F41.9 Name:GERD (gastroesophageal reflux disease) Code:K21.9 Name:History of Hodgkin's lymphoma Code:Z85.71 OUTPATIENT MEDICATIONS: Home Medications Review Status for Reconciliation: Incomplete Med Status: Patient Currently Takes Medications Drug Name: Synthroid 150 mcg (0.15 mg) oral tablet Instructions: 1 tab(s) orally once a day Drug Name: Protonix 40 mg oral delayed release tablet Instructions: 1 tab(s) orally once a day Drug Name: sertraline 100 mg oral tablet Instructions: 1 tab(s) orally once a day Drug Name: lisinopril-hydrochlorothi azide 20 mg-12.5 mg oral tablet Instructions: 1 tab(s) orally once a day Drug Name: Multiple Vitamins oral tablet Instructions: 1 tab(s) orally once a day Drug Name: finasteride Instructions: null Drug Name: doxycycline hyclate 100 mg oral tablet Instructions: 1 tab(s) orally 2 times a day Drug Name: predniSONE 10 mg oral tablet Instructions: 6 tab(s) orally once a day x 1 days 5 tab(s) orally once a day x 1 days 4 tab(s) orally once a day x 1 days 3 tab(s) orally once a day x 1 days 2 tab(s) orally once a day x 1 days 1 tab(s) orally once a day x 1 days Drug Name: albuterol 90 mcg/inh inhalation aerosol Instructions: 2 puff(s) inhaled 2 times a day as needed for cough Drug Name: brompheniramine/pseudoeph edrine/dextromethorphan [id number]/5 mL oral syrup Instructions: 5-10 milliliter(s) orally every 6 hours PRN cough/congestion SIGNIFICANT EVENTS: No documented data. REVIEW OF SYSTEMS All other systems reviewed and are negative REVIEW OF SYSTEMS: Comments See HPI PHYSICAL EXAM CONSTITUTIONAL: Dull nasally voice, but appears well nourished, awake, alert, oriented to person, place, time/situation and in no apparent distress. HENMT: Airway patent, ears with clear tympanic membranes bilaterally. Nasal mucosa clear. Mouth with normal mucosa. Throat has no vesicles, no oropharyngeal exudates and uvula is midline. Face with no lymph node enlargement. EYES: Clear bilaterally, pupils equal, round and reactive to light. CARDIOVASCULAR: Normal rate, regular rhythm. Heart sounds S1, S2. No murmurs, rubs or gallops. PMI non-displaced. RESPIRATORY: Breath sounds clear and diminished bilaterally. Frequent dry cough during exam. NEUROLOGICAL: Alert and oriented, no focal deficits, no motor or sensory deficits. SKIN: Skin normal color for race, warm, dry and intact. No evidence of trauma. PSYCHIATRIC: Alert and oriented to person, place, time/situation. normal mood and affect. No apparent risk to self or others. CRITICAL CARE VITAL SIGNS: T PRBP SpO2O2(LPM) %FiO2 Method 28-Feb-2023 11:33:[id number]/91 95 MDM MDM/ED COURSE: Discussed Findings with: patient Data Reviewed: vital signs Treatment Plan: Rx doxycycline, prednisone, albuterol inhaler and Bromfed DM. Patient's clinical presentation is otherwise unremarkable at this time. Patient is discharged with instructions to follow-up with primary care or seek emergency medical attention for worsening symptoms or any new concerns. DISPOSITION Diagnosis/Annotation: ED Dx Name:Acute sinusitis Code:J01.90 Name:Acute bronchitis Code:J20.9 Disposition: discharged Type: home CONSULT CRITICAL CARE TIME Is this a critically ill patient: no Electronic Signatures: Ga Cunha (ESCALATOR MECHANIC-STYLIST APPRENTICE) (Signed 13-Nov-2022 13:52) Authored: ED Notes, HPI, PMH, ROS, PE, Results/Vital Signs, MDM/ED Course, Clinical Impression, Attestation, Chart Review, Scores Last Updated: 13-Nov-2022 13:52 by Ga Cunha (ESCALATOR MECHANIC-STYLIST APPRENTICE) [facility] Provider Note - ED v3on 10-17 Provider Note - ED v3 Provider Note: Chart Review: HISTORY OF PRESENTING ILLNESS DEVORAH is a 37 year old Male and was seen by me at 26-Oct-2022. The historian is the patient. Triage Information: Most recent Vital Sign Value Date PAST MEDICAL HISTORY ALLERGIES/INTOLERANCES: No Known Allergies HEALTH HISTORY: Medical History Name:Hypertension Code:I10 Name:Hypothyroidism Code:E03.9 Name:Anxiety Code:F41.9 Name:GERD (gastroesophageal reflux disease) Code:K21.9 Name:History of Hodgkin's lymphoma Code:Z85.71 Name:Hair loss Family history: no pertinent history. Social history: non-smoker. OUTPATIENT MEDICATIONS: Home Medications Review Status for Reconciliation: Complete Med Status: Patient Currently Takes Medications Drug Name: Synthroid 150 mcg (0.15 mg) oral tablet Instructions: 1 tab(s) orally once a day Drug Name: Protonix 40 mg oral delayed release tablet Instructions: 1 tab(s) orally once a day Drug Name: sertraline 100 mg oral tablet Instructions: 1 tab(s) orally once a day Drug Name: lisinopril-hydrochlorothi azide 20 mg-12.5 mg oral tablet Instructions: 1 tab(s) orally once a day Drug Name: Multiple Vitamins oral tablet Instructions: 1 tab(s) orally once a day Drug Name: amoxicillin-clavulanate 875 mg-125 mg oral tablet Instructions: 1 tab(s) orally 2 times a day x 10 days. Take with a meal. 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 No other known significant events or other known past surgical history. Has received 3 doses of the COVID-19 vaccine; has received the [id number] influenza vaccine. CRITICAL CARE VITAL SIGNS: T PRBP SpO2O2(LPM) %FiO2 Method 26-Oct-2022 18:19:[id number] 98 MDM MDM/ED COURSE: This note was generated with voice recognition software and may contain errors including spelling, grammar, syntax, and misrecognization of what was dictated Chief Complaint Sinus pressure/congestion, sore throat History of Present Illness Patient presents today for evaluation of sinus pressure/pain/tenderness (R side >L), a sore throat, and nasal congestion (yellow mucus) x 2 weeks. He also has a mild, non-productive cough and PND. Reports sinus discomfort increases when he leans over, and he is notably more congested in the AM when he wakes up. Has a slight headache today. Denies any fever/chills, body aches, ear pain, rashes, abdominal pain, chest pain, wheezing/shortness of breath, urinary symptoms, nausea/vomiting, and diarrhea. Appetite is normal and he is able to eat and drink fluids without difficulty; denies any loss of sense of taste or smell. Reports symptoms have persisted without much change since onset. Has been taking Mucinex, nasal spray, and using a humidifier without much relief; no other [id number] medications or home remedies for symptom management. His [id number] was recently ill with a sinus infection; no other known ill contacts. Has received the COVID-19 vaccine x3; has received this year's flu vaccine. Had COVID infection in 03/2022. Is not a smoker. No recent antibiotic use. Review of Systems 10 systems reviewed negative with exception of history of present illness listed above. Physical Examination General: Mildly ill-appearing, well nourished male; alert and oriented, in no acute distress. + audible nasal congestion. Eyes: Pupils equal, round and reactive to light. No conjunctival erythema; eyes non-icteric. HENT: + maxillary sinus tenderness (R>L), with audible nasal congestion. Bilat ear canals clear/unremarkable, but TMs with clear effusions bilat; no erythema, and not retracted or bulging. Nasal mucosa moderately boggy and edematous (R>L). Airway patent, oral mucosa moist. Posterior pharynx mildly injected but without vesicles or oropharyngeal exudate aside from PND. Uvula is midline. Trachea is midline. Managing oral secretions without difficulty. Neck: Supple. No palpable lymphadenopathy. Respiratory: Lungs are clear to auscultation; no wheezes, rhonchi, or rales. Respirations unlabored, Breath sounds are equal, Symmetrical chest wall expansion. + non-productive cough noted only upon request. Cardiovascular: Normal rate, Regular rhythm. Normal S1S2. No m/r/g. No peripheral edema. Gastrointestinal: Bowel sounds normoactive. Musculoskeletal: Grossly normal Integumentary: [place], warm, dry, and intact. No rashes or skin discoloration appreciated. Neurologic: Alert and oriented, no focal deficits Cognition and Speech: Oriented, Speech clear and coherent. Psychiatric: Cooperative, Appropriate mood & affect. Medical Decision Making Course: stable. Impression/Plan: Symptoms consistent with maxillary sinusitis, and per history, no improvement despite 2 weeks of conservative measures, so will begin treatment (more content not included)... Normal [facility] CBC AND DIFFERENTIALon 10-24 % AUTOMATED IMMATURE GRAN 0.2 % Normal 0.0 - 0.9 [facility] Comment on above: Result Comment: Noelle ture Granulocyte Count (IG) includes promyelocytes, myelocytes and metamyelocytes but does not include bands. Percent differential counts (%) should be interpreted in the context of the absolute cell counts (cells/L). Performed By: #### C BCDF #### [facility] [address] [place] [address] Basophils (Bld) [#/Vol] 0.04 10*3/uL Normal 0.00 - 0.10 [facility] Comment on above: Performed By: #### C BCDF #### [address] [address] Basophils/100 WBC (Bld) 0.5 % Normal 0.0 - 2.0 [facility] Comment on above: Performed By: #### C BCDF #### [address] [address] Eosinophils (Bld) [#/Vol] 0.20 10*3/uL Normal 0.00 - 0.70 [facility] Comment on above: Performed By: #### C BCDF #### [address] [address] Eosinophils/100 WBC (Bld) 2.3 % Normal 0.0 - 6.0 [facility] Comment on above: Performed By: #### C BCDF #### [address] [address] Erythrocyte distribution width (RBC) [Ratio] 12.0 % Normal 11.5 - 14.5 [facility] Comment on above: Performed By: #### C BCDF #### [address] [address] Hematocrit (Bld) [Volume fraction] 43.2 % Normal 41.0 - 52.0 [facility] Comment on above: Performed By: #### C BCDF #### [address] [address] Hemoglobin (Bld) [Mass/Vol] 14.7 g/dL Normal 13.5 - 17.5 [facility] Comment on above: Performed By: #### C BCDF #### [address] [address] Lymphocytes (Bld) [#/Vol] 1.75 10*3/uL Normal 1.20 - 4.80 [facility] Comment on above: Performed By: #### C BCDF #### [address] [address] Lymphocytes/100 WBC (Bld) 19.9 % Normal 13.0 - 44.0 [facility] Comment on above: Performed By: #### C BCDF #### [address] [place] [address] MCHC (RBC) [Mass/Vol] 34.0 g/dL Normal 32.0 - 36.0 [facility] Comment on above: Performed By: #### C BCDF #### [address] [address] MCV (RBC) [Entitic vol] 84 fL Normal 80 - 100 [facility] Comment on above: Performed By: #### C BCDF #### [address] [address] Monocytes (Bld) [#/Vol] 0.95 10*3/uL Normal 0.10 - 1.00 [facility] Comment on above: Performed By: #### C BCDF #### [address] [address] Monocytes/100 WBC (Bld) 10.8 % Normal 2.0 - 10.0 [facility] Comment on above: Performed By: #### C BCDF #### [address] [address] Neutrophils (Bld) [#/Vol] 5.85 10*3/uL Normal 1.20 - 7.70 [facility] Comment on above: Result Comment: Perc ent differential counts (%) should be interpreted in the context of the absolute cell counts (cells/L). Performed By: #### C BCDF #### [address] [address] Neutrophils/100 WBC (Bld) 66.3 % Normal 40.0 - 80.0 [facility] Comment on above: Performed By: #### C BCDF #### [address] [address] Platelets (Bld) [#/Vol] 223 10*3/uL Normal 150 - 450 [facility] Comment on above: Performed By: #### C BCDF #### [address] [address] RBC 5.16 x10E12/L Normal 4.50 - 5.90 [facility] Comment on above: Performed By: #### C BCDF #### [address] [address] WBC (Bld) [#/Vol] 8.8 10*3/uL Normal 4.4 - 11.3 [facility] Comment on above: Performed By: #### C BCDF #### [address] [address] BNPon 10-10-2022 Natriuretic peptide B (Bld) [Mass/Vol] 13 pg/mL Normal 0 - 99 [facility] Comment on above: Result Comment: . <1 00 pg/mL - Heart failure unlikely 100-299 pg/mL - Intermediate probability of acute heart . failure exacerbation. Correlate with clinical . context and patient history. >=300 pg/mL - Heart Failure likely. Correlate with clinical . context and patient history. BNP testing is performed using different testing methodology at [facility] than at [facility]. Direct result comparisons should only be made within the same method. Performed By: #### B NP2 #### [address] [address] LIPID PANEL (CORONARY RISK 2 )on 10-10-2022 Cholesterol [Mass/Vol] 208 mg/dL High 0 - 199 [facility] Comment on above: Result Comment: . AGE DESIRABLE BORDERLINE HIGH HIGH 0-19 Y 0 - 169 170 - 199 >/= 200 20-24 Y 0 - 189 190 - 224 >/= 225 >24 Y 0 - 199 200 - 239 >/= 240 All ranges are based on fasting samples. Specific therapeutic targets will vary based on patient-specific cardiac risk. . Pediatric guidelines reference:Pediatrics 2011, 128(S5). Adult guidelines reference: NCEP ATPIII Guidelines, LUISA 2001, 258:2486-97 . Venipuncture immediately after or during the administration of Metamizole may lead to falsely low results. Testing should be performed immediately prior to Metamizole dosing. Performed By: #### L IPID #### [address] [address] Cholesterol in HDL [Mass/Vol] 35.0 mg/dL Abnormal [facility] Comment on above: Result Comment: . AGE VERY LOW LOW NORMAL HIGH 0-19 Y < 35 < 40 40-45 ---- 20-24 Y ---- < 40 >45 ---- >24 Y ---- < 40 40-60 >60 . Performed By: #### L IPID #### [address] [address] Cholesterol in LDL [Mass/Vol] 128 mg/dL High 0 - 99 [facility] Comment on above: Result Comment: . NEAR BORD AGE DESIRABLE OPTIMAL HIGH HIGH VERY HIGH 0-19 Y 0 - 109 --- 110-129 >/= 130 ---- 20-24 Y 0 - 119 --- 120-159 >/= 160 ---- >24 Y 0 - 99 100-129 130-159 160-189 >/=190 . Performed By: #### L IPID #### [address] [address] Cholesterol in VLDL [Mass/Vol] 45 mg/dL High 0 - 40 [facility] Comment on above: Performed By: #### L IPID #### [address] [address] Cholesterol.total/Chol esterol in HDL [Mass ratio] 5.9 {ratio} Abnormal [facility] Comment on above: Result Comment: REF VALUES DESIRABLE < 3.4 HIGH RISK > 5.0 Performed By: #### L IPID #### [address] [address] NON-HDL CHOLESTEROL 173 mg/dL Normal [facility] Comment on above: Result Comment: AGE DESIRABLE BORDERLINE HIGH HIGH VERY HIGH 0-19 Y 0 - 119 120 - 144 >/= 145 >/= 160 20-24 Y 0 - 149 150 - 189 >/= 190 ---- >24 Y 30 MG/DL ABOVE LDL CHOLESTEROL GOAL . Performed By: #### L IPID #### [address] [address] Triglyceride [Mass/Vol] 226 mg/dL High 0 - 149 [facility] Comment on above: Result Comment: . AGE DESIRABLE BORDERLINE HIGH HIGH VERY HIGH 0 D-90 D 19 - 174 ---- ---- ---- 91 D- 9 Y 0 - 74 75 - 99 >/= 100 ---- 10-19 Y 0 - 89 90 - 129 >/= 130 ---- 20-24 Y 0 - 114 115 - 149 >/= 150 ---- >24 Y 0 - 149 150 - 199 200- 499 >/= 500 . Venipuncture immediately after or during the administration of Metamizole may lead to falsely low results. Testing should be performed immediately prior to Metamizole dosing. Performed By: #### L IPID #### [address] [address] ECG 12 lead - CLINIC PERFORM EDon 10-03-2022 Sinus Rhythm WITHIN NORMAL LIMITS [facility] COMPREHENSIVE PANELon 2021 Albumin [Mass/Vol] 4.3 g/dL Normal 3.4 - 5.0 [facility] Comment on above: Performed By: #### C MP #### [address] [address] ALP [Catalytic activity/Vol] 77 U/L Normal 33 - 120 [facility] Comment on above: Performed By: #### C MP #### [address] [address] ALT [Catalytic activity/Vol] 26 U/L Normal 10 - 52 [facility] Comment on above: Result Comment: Maritza ents treated with Sulfasalazine may generate falsely decreased results for ALT. Performed By: #### C MP #### [address] [address] Anion gap [Moles/Vol] 10 mmol/L Normal 10 - 20 [facility] Comment on above: Performed By: #### C MP #### [address] [address] AST [Catalytic activity/Vol] 24 U/L Normal 9 - 39 [facility] Comment on above: Performed By: #### C MP #### [address] [address] Bilirubin [Mass/Vol] 0.5 mg/dL Normal 0.0 - 1.2 [facility] Comment on above: Performed By: #### C MP #### [address] [address] Calcium [Mass/Vol] 9.7 mg/dL Normal 8.6 - 10.3 [facility] Comment on above: Performed By: #### C MP #### [address] [address] Chloride [Moles/Vol] 102 mmol/L Normal 98 - 107 [facility] Comment on above: Performed By: #### C MP #### [address] [address] Creatinine [Mass/Vol] 1.05 mg/dL Normal 0.50 - 1.30 [facility] Comment on above: Performed By: #### C MP #### [address] [address] eGFR MALE >90 Normal >90 [facility] Comment on above: Result Comment: CALC ULATIONS OF ESTIMATED GFR ARE PERFORMED USING THE 2020 CKD-EPI STUDY REFIT EQUATION WITHOUT THE RACE VARIABLE FOR THE IDMS-TRACEABLE CREATININE METHODS. https://jasn.asnjournals.org/content/early/ASN.41324 [address] Performed By: #### C MP #### [address] [address] Glucose [Mass/Vol] 100 mg/dL High 74 - 99 [facility] Comment on above: Performed By: #### C MP #### [address] [address] HCO3 (Bld) [Moles/Vol] 31 mmol/L Normal 21 - 32 [facility] Comment on above: Performed By: #### C MP #### [address] [address] Potassium [Moles/Vol] 4.1 mmol/L Normal 3.5 - 5.3 [facility] Comment on above: Performed By: #### C MP #### [address] [address] Protein [Mass/Vol] 7.5 g/dL Normal 6.4 - 8.2 [facility] Comment on above: Performed By: #### C MP #### [address] [address] Sodium [Moles/Vol] 139 mmol/L Normal 136 - 145 [facility] Comment on above: Performed By: #### C MP #### [address] [address] Urea nitrogen [Mass/Vol] 22 mg/dL Normal 6 - 23 [facility] Comment on above: Performed By: #### C MP #### [address] [address] Office Visit (Primary Care T xt/Forms)on 08-01-2022 Follow-up visit Diagnoses/Problems Assessed Hair loss (704.00) (L65.9) Hypertension (401.9) (I10) Hypothyroidism (244.9) (E03.9) Secondary to radiation to neck/chest for his Hodgkin's lymphoma Hodgkin's disease (201.90) (C81.90) Anxiety (300.00) (F41.9) GERD (gastroesophageal reflux disease) (530.81) (K21.9) Orders Anxiety Changed: From Sertraline HCl - 100 MG Oral Tablet TAKE 1.5 TABLET Daily To Sertraline HCl - 100 MG Oral Tablet Take 1 tablet daily Hodgkin's disease Complete Blood Count + Differential; Status:Active; Requested for:[id number]; Hypertension Renew: Lisinopril-hydroCHLOROthi azide 20-12.5 MG Oral Tablet; TAKE 1 TABLET BY MOUTH EVERY DAY Comprehensive Metabolic Panel; Status:Active; Requested for:[id number]; Hypothyroidism Renew: Levothyroxine Sodium 150 MCG Oral Tablet; take 1 tablet by mouth once daily TSH - Thyroid Stimulating Hormone, Serum; Status:Active; Requested for:[id number]; Patient Discussion/Summary Follow-up in 1 year with blood testing prior Provider Impressions Provider Impressions Free Text Note Form: Patient presents to the office today for 6-month follow-up for hypertension and hypothyroidism. Blood testing was just done this morning, results of which are not back yet, patient did have some blood test done this summer with oncology with normal CBC, seen cardiology for history of Adriamycin and radiation therapy to his chest for his lymphoma, cholesterol testing was slightly elevated, is also now established with bariatric medicine is trying to work on diet exercise and weight loss, was encouraged to do this for his cholesterol and defer medication at this point. Blood pressures under good control renal function in the past has been normal, acid reflux seems controlled with medication and dietary changes, anxiety is also doing okay with 100 mg of sertraline a day. Patient is using finasteride per dermatology for hair loss, seems to be helping with his hair loss, encouraged about diet exercise and weight loss we will plan to recheck again in 1 year. Chief Complaint 6 MO History of Present Illness No headache, chest pain, shortness of breath, dizziness, lightheadedness, or edema The patient is taking thyroid medications as directed without problems, labs done in the last year, no symptoms of excessive fatigue, edema or weight gain. Taking PPI daily without breakthrough symptoms. Reviewed dietary, caffeine, tobacco, alcohol, and NSAID use. No dyspepsia, dysphagia, reflux, melena, or abdominal pain. Seen cardiology and oncology for lymphoma had labs and Echo, trying to work on diet for cholesterol seen Bariatric medicine for weight HBP less than 140/90 emotionally doing OK taking finasteride for hair loss Review of Systems Constitutional: NAD, no fevers, chills, sweats or fatigue Rep: no cough or shortness of breath Cardio: no chest pain, edema, or palpitations GI: no nausea, vomiting, diarrhea, constipation, or heartburn : normal urine flow and stream, no nocturia or dysuria MS: no joint pain or significant limits of function Skin: no visible rashes or suspicious lesions Neuro: alert and oriented X4, no numbness, tingling or issues with balance Psych: no anxiety or depression 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49) (Z82.49) Maternal Grandfather Family history of coronary artery disease (V17.3) (Z82.49) Family history of mitral valve disorder (V17.49) (Z82.49) Paternal Grandfather Family history of mitral valve disorder (V17.49) (Z82.49) Aunt Family history of malignant neoplasm of breast (V16.3) (Z80.3) Social History Problems Denies alcohol consumption (V49.89) (Z78.9) Non-smoker (V49.89) (Z78.9) Patient has active power of defense attorney for health care (V49.89) (Z78.9) Patient has living will (V49.89) (Z78.9) Current Meds Medicati (more content not included)... Normal [facility] TSHon 08-01-2022 TSH Qn 3.02 m[IU]/L Normal 0.44 - 3.98 [facility] Comment on above: Result Comment: TSH testing is performed using different testing methodology at [facility] than at other [facility]. Direct result comparisons should only be made within the same method. Performed By: #### T SH2 #### [address] [address] Echocardiogram Cardio-Oncolo gyon 05-16-2022 TRANSTHORACIC ECHOCARDIOGRAM PATIENT: Devorah Santos STUDY DATE: 05/16/2022 : 1985 AGE: 37 HT/WT: 188 cm (74 142.9 kg in) (314.3 lb) GENDER: M BP: 149 / 100 LOCATION: [facility] PATIENT Outpatient [facility] STATUS: *ORDERING PHYSICIAN: * Emily Kan *READING PHYSICIAN: * Elisha Vallecillo *EMERGENCY OPERATOR: * Regi Arana INDICATIONS: Chemotherapy. CONCLUSIONS SUMMARY: 1. Left ventricle: Systolic function is normal by visual assessment. The estimated ejection fraction is 55%. There are no regional wall motion abnormalities. 2. Right ventricle: The cavity size is normal. Systolic function is normal. 3. Aortic valve: Bicuspid (fusion of non and left coronary cusp.); mildly thickened, mildly calcified leaflets. There is no stenosis. There is trivial, less than 1+ regurgitation. STUDY DATA: Complete transthoracic echocardiogram. Procedure: Image quality was adequate. The study was technically limited due to poor acoustic window availability. Intravenous imaging enhancement (Definity) was administered to opacify the chamber. Definity lot #: [id number]. M-mode, complete 2D, strain rate, complete spectral Doppler, and color flow Doppler images were acquired and archived for permanent storage and are available for subsequent review. Study status: Routine. Patient status: Outpatient. FINDINGS LEFT VENTRICLE: Average LV global longitudinal strain is 14. The cavity size is normal. Wall thickness is normal. Systolic function is normal by visual assessment. The estimated ejection fraction is 55%. There are no regional wall motion abnormalities. Left ventricular diastolic function parameters are normal. RIGHT VENTRICLE: The cavity size is normal. Systolic function is normal. VENTRICULAR SEPTUM: There is no evidence of a ventricular septal defect. LEFT ATRIUM: The atrium is normal in size. RIGHT ATRIUM: The atrium is normal in size. ATRIAL SEPTUM: Color Doppler shows no shunt. MITRAL VALVE: Structurally normal valve. Normal (thickness) leaflets. Doppler: There is no evidence for stenosis. There is no regurgitation. AORTIC VALVE: Bicuspid (fusion of non and left coronary cusp.); mildly thickened, mildly calcified leaflets. Doppler: There is no stenosis. There is trivial, less than 1+ regurgitation. Dimensionless index: 0.64. The valve area by the velocity-time integral method is 2.3 cm^2. The valve area index by the velocity-time integral method is 0.8 cm^2/m^2. The mean systolic gradient is 7 mm Hg. The peak systolic gradient is 11 mm Hg. The peak systolic velocity is 1.7 m/sec. TRICUSPID VALVE: Structurally normal valve. Normal thickness leaflets. Doppler: There is no significant regurgitation. PULMONIC VALVE: Well visualized. Structurally normal valve. Doppler: There is trivial, less than 1+ regurgitation. AORTA: The aorta is well visualized, normal, and normal size. PERICARDIUM: There is no pericardial effusion. SYSTEMIC VEINS: Inferior vena cava: The vessel is normal. The IVC collapses by greater than 50% with inspiration. Measurements Value Reference Aortic root ID 3.7 cm <4.6 Aortic root ID, STJ, ED 3.0 cm 2.3 - 3.5 Aortic root ID/bsa, STJ, ED 1.1 cm/m^2 1.1 - 1.9 Left ventricle Value Reference GLS, 2D 14.26 % LV ID, ED 4.8 cm 4.2 - 5.8 LV ID, ES 3.3 cm 2.5 - 4.0 LV ID/bsa, ED (L) 1.7 cm/m^2 2.2 - 3.0 LV ID/bsa, ES (L) 1.2 cm/m^2 1.3 - 2.1 LV PW thickness, ED 1.0 cm 0.6 - 1.0 LV PW/LV ID ratio, ED 0.21 LV wall mass 173 g 96 - 200 LV wall mass/bsa 62 g/m^2 50 - 102 Stroke volume/bsa, 1-p A2C 20.7 ml/m^2 LV end-diastolic volume, 1-p A4C 120 ml 69 - 185 LV end-systolic volume, 1-p A4C 45 ml 22 - 78 LV end-diastolic volume, 2-p 109 ml 62 - 150 LV end-systolic volume, 2-p 43 ml 21 - 61 (more content not included)... [facility] CARDIOLOGY Elisha Vallecillo MD - 05/16/2022 TRANSTHORACIC ECHOCARDIOGRAM PATIENT: Devorah Santos STUDY DATE: 05/16/2022 : 1985 AGE: 37 HT/WT: 188 cm (74 142.9 kg in) (314.3 lb) GENDER: M BP: 149 / 100 LOCATION: [facility] PATIENT Outpatient [facility] STATUS: *ORDERING PHYSICIAN: * Emily Kan *READING PHYSICIAN: * Elisha Vallecillo *EMERGENCY OPERATOR: * Regi Arana INDICATIONS: Chemotherapy. CONCLUSIONS SUMMARY: 1. Left ventricle: Systolic function is normal by visual assessment. The estimated ejection fraction is 55%. There are no regional wall motion abnormalities. 2. Right ventricle: The cavity size is normal. Systolic function is normal. 3. Aortic valve: Bicuspid (fusion of non and left coronary cusp.); mildly thickened, mildly calcified leaflets. There is no stenosis. There is trivial, less than 1+ regurgitation. STUDY DATA: Complete transthoracic echocardiogram. Procedure: Image quality was adequate. The study was technically limited due to poor acoustic window availability. Intravenous imaging enhancement (Definity) was administered to opacify the chamber. Definity lot #: [id number]. M-mode, complete 2D, strain rate, complete spectral Doppler, and color flow Doppler images were acquired and archived for permanent storage and are available for subsequent review. Study status: Routine. Patient status: Outpatient. FINDINGS LEFT VENTRICLE: Average LV global longitudinal strain is 14. The cavity size is normal. Wall thickness is normal. Systolic function is normal by visual assessment. The estimated ejection fraction is 55%. There are no regional wall motion abnormalities. Left ventricular diastolic function parameters are normal. RIGHT VENTRICLE: The cavity size is normal. Systolic function is normal. VENTRICULAR SEPTUM: There is no evidence of a ventricular septal defect. LEFT ATRIUM: The atrium is normal in size. RIGHT ATRIUM: The atrium is normal in size. ATRIAL SEPTUM: Color Doppler shows no shunt. MITRAL VALVE: Structurally normal valve. Normal (thickness) leaflets. Doppler: There is no evidence for stenosis. There is no regurgitation. AORTIC VALVE: Bicuspid (fusion of non and left coronary cusp.); mildly thickened, mildly calcified leaflets. Doppler: There is no stenosis. There is trivial, less than 1+ regurgitation. Dimensionless index: 0.64. The valve area by the velocity-time integral method is 2.3 cm^2. The valve area index by the velocity-time integral method is 0.8 cm^2/m^2. The mean systolic gradient is 7 mm Hg. The peak systolic gradient is 11 mm Hg. The peak systolic velocity is 1.7 m/sec. TRICUSPID VALVE: Structurally normal valve. Normal thickness leaflets. Doppler: There is no significant regurgitation. PULMONIC VALVE: Well visualized. Structurally normal valve. Doppler: There is trivial, less than 1+ regurgitation. AORTA: The aorta is well visualized, normal, and normal size. PERICARDIUM: There is no pericardial effusion. SYSTEMIC VEINS: Inferior vena cava: The vessel is normal. The IVC collapses by greater than 50% with inspiration. Measurements Value Reference Aortic root ID 3.7 cm <4.6 Aortic root ID, STJ, ED 3.0 cm 2.3 - 3.5 Aortic root ID/bsa, STJ, ED 1.1 cm/m^2 1.1 - 1.9 Left ventricle Value Reference GLS, 2D 14.26 % LV ID, ED 4.8 cm 4.2 - 5.8 LV ID, ES 3.3 cm 2.5 - 4.0 LV ID/bsa, ED (L) 1.7 cm/m^2 2.2 - 3.0 LV ID/bsa, ES (L) 1.2 cm/m^2 1.3 - 2.1 LV PW thickness, ED 1.0 cm 0.6 - 1.0 LV PW/LV ID ratio, ED 0.21 LV wall mass 173 g 96 - 200 LV wall mass/bsa 62 g/m^2 50 - 102 Stroke volume/bsa, 1-p A2C 20.7 ml/m^2 LV end-diastolic volume, 1-p A4C 120 ml 69 - 185 LV end-systolic volume, 1-p A4C 45 ml 22 - 78 LV end-diastolic volume, 2-p 109 ml 62 - 150 LV end-systolic volume, 2-p 43 ml 21 - 61 LV ejection fraction, 2-p 55 % 52 - 72 LV E/e', medial 8.8 Ventricular septum Value Reference IVS thickness, ED 1.0 cm 0.6 - 1.0 LVOT Value Reference LVOT ID, A-P 2.2 cm LVOT mean velocity, S 0.7 m/sec LVOT peak gradient, S 3 mm Hg Stroke volume (SV), LVOT DP 68 ml Stroke index (SV/bsa), LVOT DP 24 ml/m^2 Aortic valve Value Reference Aortic valve peak velocity, S 1.7 m/sec Aortic valve mean velocity, S 1.3 m/sec Aortic mean gradient, S 7 mm Hg Aortic peak gradient, S 11 mm H (more content not included)... [facility] Work Phone: Echocardiogram Cardio-Oncology Patient Name: [id number] Ultrasound ACCESSION EXAM DATE/TIME PROCEDURE ORDERING PROVIDER [phone] 05/16/2022 11:49 EDT Echocardiogram Cardio- MD KISHORE, EMILY Oncology Reason For Exam (Echocardiogram Cardio-Oncology) Adverse effect of antineoplastic and immunosuppressive drugs, initial encounter Report TRANSTHORACIC ECHOCARDIOGRAM PATIENT: Devorah Santos STUDY DATE: 05/16/2022 : 1985 AGE: 37 HT/WT: 188 cm (74 142.9 kg in) (314.3 lb) GENDER: M BP: 149 / 100 LOCATION: [facility] PATIENT [facility] STATUS: *ORDERING PHYSICIAN: * Emily Kan *READING PHYSICIAN: * Elisha Vallecillo *EMERGENCY OPERATOR: * Regi Arana INDICATIONS: Chemotherapy. CONCLUSIONS SUMMARY: 1. Left ventricle: Systolic function is normal by visual assessment. The estimated ejection fraction is 55%. There are no regional wall motion abnormalities. 2. Right ventricle: The cavity size is normal. Systolic function is normal. 3. Aortic valve: Bicuspid (fusion of non and left coronary cusp.); mildly thickened, mildly calcified leaflets. There is no stenosis. There is trivial, less than 1+ regurgitation. STUDY DATA: Complete transthoracic echocardiogram. Procedure: Image quality was adequate. The study was technically limited due to poor acoustic window availability. Intravenous imaging enhancement (Definity) was administered to opacify the chamber. Definity lot #: [id number]. M-mode, complete 2D, strain rate, complete spectral Doppler, and color flow Doppler images were acquired and archived for permanent storage and are available for subsequent review. Study status: Routine. Patient status: Outpatient. FINDINGS LEFT VENTRICLE: Average LV global longitudinal strain is 14. The cavity size is normal. Wall thickness is normal. Systolic function is Ultrasound Report normal by visual assessment. The estimated ejection fraction is 55%. There are no regional wall motion abnormalities. Left ventricular diastolic function parameters are normal. RIGHT VENTRICLE: The cavity size is normal. Systolic function is normal. VENTRICULAR SEPTUM: There is no evidence of a ventricular septal defect. LEFT ATRIUM: The atrium is normal in size. RIGHT ATRIUM: The atrium is normal in size. ATRIAL SEPTUM: Color Doppler shows no shunt. MITRAL VALVE: Structurally normal valve. Normal (thickness) leaflets. Doppler: There is no evidence for stenosis. There is no regurgitation. AORTIC VALVE: Bicuspid (fusion of non and left coronary cusp.); mildly thickened, mildly calcified leaflets. Doppler: There is no stenosis. There is trivial, less than 1+ regurgitation. Dimensionless index: 0.64. The valve area by the velocity-time integral method is 2.3 cm^2. The valve area index by the velocity-time integral method is 0.8 cm^2/m^2. The mean systolic gradient is 7 mm Hg. The peak systolic gradient is 11 mm Hg. The peak systolic velocity is 1.7 m/sec. TRICUSPID VALVE: Structurally normal valve. Normal thickness leaflets. Doppler: There is no significant regurgitation. PULMONIC VALVE: Well visualized. Structurally normal valve. Doppler: There is trivial, less than 1+ regurgitation. AORTA: The aorta is well visualized, normal, and normal size. PERICARDIUM: There is no pericardial effusion. SYSTEMIC VEINS: Inferior vena cava: The vessel is normal. The IVC collapses by greater than 50% with inspiration. Measurements Value Reference Aortic root ID 3.7 cm <4.6 Aortic root ID, STJ, ED 3.0 cm 2.3 - 3.5 Aortic root ID/bsa, STJ, ED 1.1 cm/m^2 1.1 - 1.9 Left ventricle Value Reference GLS, 2D 14.26 % LV ID, ED 4.8 cm 4.2 - 5.8 LV ID, ES 3.3 cm 2.5 - 4.0 LV ID/bsa, ED (L) 1.7 cm/m^2 2.2 - 3.0 LV ID/bsa, ES (L) 1.2 cm/m^2 1.3 - 2.1 LV PW thickness, ED 1.0 cm 0.6 - 1.0 LV PW/LV ID ratio, ED 0.21 LV wall mass 173 g 96 - 200 LV wall mass/bsa 62 g/m^2 50 - 102 Stroke volume/bsa, 1-p A2C 20.7 ml/m^2 LV end-diastolic volume, 1-p A4C 120 ml 69 - 185 LV end-systolic volume, 1-p A4C 45 ml 22 - 78 LV end-diastolic volume, 2-p 109 ml 62 - 150 LV end-systolic volume, 2-p 43 ml 21 - 61 LV ejection fraction, 2-p 55 % 52 - 72 LV E/e', medial 8.8 Ventricular septum Value Reference IVS thickness, ED 1.0 cm 0.6 - 1.0 LVOT Value Reference LVOT ID, A-P 2.2 cm LVOT mean velocity, S 0.7 m/sec LVOT peak gradient, S 3 mm Hg Ultrasound Repo (more content not included)... Normal [place] Echocardiogram Cardio-Oncolo gyOrdered By: Elisha Vallecillo on 05-16-2022 [employer] Work Phone: Office Visit (Primary Care T xt/Forms)on 01-24-2022 Follow-up visit Diagnoses/Problems Assessed Hypertension (401.9) (I10) GERD (gastroesophageal reflux disease) (530.81) (K21.9) Anxiety (300.00) (F41.9) Hodgkin's disease (201.90) (C81.90) Hypothyroidism (244.9) (E03.9) Secondary to radiation to neck/chest for his Hodgkin's lymphoma Orders GERD (gastroesophageal reflux disease) Renew: Pantoprazole Sodium 40 MG Oral Tablet Delayed Release; TAKE ONE TABLET BY MOUTH DAILY Hypertension Comprehensive Metabolic Panel; Status:Active; Requested for:27Jul2022; Hypothyroidism TSH - Thyroid Stimulating Hormone, Serum; Status:Active; Requested for:27Jul2022; Patient Discussion/Summary Follow-up in 6 months with blood testing prior for hypertension Provider Impressions Provider Impressions Free Text Note Form: Patient arrives to the office today for routine check on chronic medical problems. Blood pressures under good control, renal function is normal, patient had follow-up with oncology in the past couple months with negative evaluation. Patient's emotional normal state seems to be doing better, will recheck again in 6 months with blood test at that office visit. Chief Complaint 6 MO F/U REV LABS History of Present Illness No headache, chest pain, shortness of breath, dizziness, lightheadedness, or edema The patient is taking thyroid medications as directed without problems, labs done in the last year, no symptoms of excessive fatigue, edema or weight gain. Taking PPI daily without breakthrough symptoms. Reviewed dietary, caffeine, tobacco, alcohol, and NSAID use. No dyspepsia, dysphagia, reflux, melena, or abdominal pain. moods better, less anxious, not needing to use Ativan, overall some better seen oncologist in December, good evaluation HBP not checking, had been doing well Review of Systems Constitutional: NAD, no fevers, chills, sweats or fatigue Rep: no cough or shortness of breath Cardio: no chest pain, edema, or palpitations GI: no nausea, vomiting, diarrhea, constipation, or heartburn : normal urine flow and stream, no nocturia or dysuria MS: no joint pain or significant limits of function Skin: no visible rashes or suspicious lesions Neuro: alert and oriented X4, no numbness, tingling or issues with balance Psych: no anxiety or depression 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49) (Z82.49) Maternal Grandfather Family history of coronary artery disease (V17.3) (Z82.49) Family history of mitral valve disorder (V17.49) (Z82.49) Paternal Grandfather Family history of mitral valve disorder (V17.49) (Z82.49) Aunt Family history of malignant neoplasm of breast (V16.3) (Z80.3) Social History Problems Denies alcohol consumption (V49.89) (Z78.9) Non-smoker (V49.89) (Z78.9) Patient has active power of defense attorney for health care (V49.89) (Z78.9) Patient has living will (V49.89) (Z78.9) Current Meds Medication NameInstruction Levothyroxine Sodium 150 MCG Oral Tablettake 1 tablet by mouth once daily Lisinopril-hydroCHLOROthi azide 20-12.5 MG Oral TabletTAKE 1 TABLET BY MOUTH EVERY DAY LORazepam 0.5 MG Oral TabletTAKE 1 TABLET TWICE DAILY NEEDED. Pantoprazole Sodium 40 MG Oral Tablet Delayed ReleaseTAKE ONE TABLET BY MOUTH DAILY Sertraline HCl - 100 MG Oral TabletTAKE 1.5 TABLET Daily Allergies Medication No Known Drug Allergies Vitals Vital Signs Recorded: 24Jan2022 09:45AM Heart Rate: 81 Systolic: 100 Diastolic: 70 Height: 6 ft 2 in Weight: 318 lb 9 oz BMI Calculated: 40.9 kg/m2 BSA Calculated: 2.65 Tobacco Use: b) No O2 Saturation: 97 Patient Recorded Blood Pressure Systolic: 100 Patient Recorded Blood Pressure Diastolic: 70 Physical Exam Gen: Alert and oriented, no acute distress HEENT: normal TMs/external ear, conjunctiva normal, PERRLA/EOMI, neck supple, no lymphadenopathy or thyromegaly (more content not included)... Normal [employer] Tobacco Screening.on 022 Tobacco use status CPHS b) No [facility] Work Phone: CBC AND DIFFERENTIALon 01-17 Basophils (Bld) [#/Vol] 0.00 10*3/uL Normal 0.00 - 0.10 [facility] Comment on above: Performed By: #### C BCDF #### [address] [address] Basophils/100 WBC (Bld) 0.4 % Normal 0.0 - 2.0 [facility] Comment on above: Performed By: #### C BCDF #### [address] [address] Eosinophils (Bld) [#/Vol] 0.10 10*3/uL Normal 0.00 - 0.70 [facility] Comment on above: Performed By: #### C BCDF #### [address] [address] Eosinophils/100 WBC (Bld) 2.3 % Normal 0.0 - 6.0 [facility] Comment on above: Performed By: #### C BCDF #### [address] [address] Erythrocyte distribution width (RBC) [Ratio] 13.6 % Normal 11.5 - 14.5 [facility] Comment on above: Performed By: #### C BCDF #### [address] [address] Hematocrit (Bld) [Volume fraction] 43.9 % Normal 41.0 - 52.0 [facility] Comment on above: Performed By: #### C BCDF #### [address] [address] Hemoglobin (Bld) [Mass/Vol] 15.1 g/dL Normal 13.5 - 17.5 [facility] Comment on above: Performed By: #### C BCDF #### [address] [address] Lymphocytes (Bld) [#/Vol] 1.50 10*3/uL Normal 1.20 - 4.80 [facility] Comment on above: Performed By: #### C BCDF #### [address] [address] Lymphocytes/100 WBC (Bld) 26.7 % Normal 13.0 - 44.0 [facility] Comment on above: Performed By: #### C BCDF #### [address] [address] MCHC (RBC) [Mass/Vol] 34.4 g/dL Normal 32.0 - 36.0 [facility] Comment on above: Performed By: #### C BCDF #### [address] [address] MCV (RBC) [Entitic vol] 84 fL Normal 80 - 100 [facility] Comment on above: Performed By: #### C BCDF #### [address] [address] Monocytes (Bld) [#/Vol] 0.50 10*3/uL Normal 0.10 - 1.00 [facility] Comment on above: Performed By: #### C BCDF #### [address] [address] Monocytes/100 WBC (Bld) 9.5 % Normal 2.0 - 10.0 [facility] Comment on above: Performed By: #### C BCDF #### [address] [address] Neutrophils (Bld) [#/Vol] 3.50 10*3/uL Normal 1.20 - 7.70 [facility] Comment on above: Result Comment: Perc ent differential counts (%) should be interpreted in the context of the absolute cell counts (cells/L). Performed By: #### C BCDF #### [address] [address] Neutrophils/100 WBC (Bld) 61.1 % Normal 40.0 - 80.0 [facility] Comment on above: Performed By: #### C BCDF #### [address] [address] NUCLEATED RBC 0.1 /100 WBC Normal [facility] Comment on above: Performed By: #### C BCDF #### [address] [address] Platelets (Bld) [#/Vol] 197 10*3/uL Normal 150 - 450 [facility] Comment on above: Performed By: #### C BCDF #### [address] [address] RBC 5.25 x10E12/L Normal 4.50 - 5.90 [facility] Comment on above: Performed By: #### C BCDF #### [address] [address] WBC (Bld) [#/Vol] 5.8 10*3/uL Normal 4.4 - 11.3 [facility] Comment on above: Performed By: #### C BCDF #### [address] [address] COMPREHENSIVE PANELon 2021 Albumin [Mass/Vol] 4.5 g/dL Normal 3.4 - 5.0 [facility] Comment on above: Performed By: #### C MP #### [address] [address] ALP [Catalytic activity/Vol] 81 U/L Normal 33 - 120 [facility] Comment on above: Performed By: #### C MP #### [address] [address] ALT [Catalytic activity/Vol] 27 U/L Normal 10 - 52 [facility] Comment on above: Result Comment: Maritza ents treated with Sulfasalazine may generate falsely decreased results for ALT. Performed By: #### C MP #### [address] [address] Anion gap [Moles/Vol] 10 mmol/L Normal 10 - 20 [facility] Comment on above: Performed By: #### C MP #### [address] [address] AST [Catalytic activity/Vol] 27 U/L Normal 9 - 39 [facility] Comment on above: Performed By: #### C MP #### [address] [address] Bilirubin [Mass/Vol] 0.5 mg/dL Normal 0.0 - 1.2 [facility] Comment on above: Performed By: #### C MP #### [address] [address] Calcium [Mass/Vol] 9.2 mg/dL Normal 8.6 - 10.3 [facility] Comment on above: Performed By: #### C MP #### [address] [address] Chloride [Moles/Vol] 101 mmol/L Normal 98 - 107 [facility] Comment on above: Performed By: #### C MP #### [address] [address] Creatinine [Mass/Vol] 0.87 mg/dL Normal 0.50 - 1.30 [facility] Comment on above: Performed By: #### C MP #### [address] [address] eGFR MALE >90 Normal >90 [facility] Comment on above: Result Comment: CALC ULATIONS OF ESTIMATED GFR ARE PERFORMED USING THE 2020 CKD-EPI STUDY REFIT EQUATION WITHOUT THE RACE VARIABLE FOR THE IDMS-TRACEABLE CREATININE METHODS. https://jasn.asnjournals.org/content//ASN.95139 [address] Performed By: #### C MP #### [address] [address] Glucose [Mass/Vol] 98 mg/dL Normal 74 - 99 [facility] Comment on above: Performed By: #### C MP #### [address] [address] HCO3 (Bld) [Moles/Vol] 33 mmol/L High 21 - 32 [facility] Comment on above: Performed By: #### C MP #### [address] [address] Potassium [Moles/Vol] 4.1 mmol/L Normal 3.5 - 5.3 [facility] Comment on above: Performed By: #### C MP #### [address] [address] Protein [Mass/Vol] 7.3 g/dL Normal 6.4 - 8.2 [facility] Comment on above: Performed By: #### C MP #### [address] [address] Sodium [Moles/Vol] 140 mmol/L Normal 136 - 145 [facility] Comment on above: Performed By: #### C MP #### [address] [address] Urea nitrogen [Mass/Vol] 13 mg/dL Normal 6 - 23 [facility] Comment on above: Performed By: #### C MP #### [address] [address] Complete Blood Count + Diffe zuhair 01-17-2022 Basophils/100 WBC (Bld) 0.4 % 0.0 - 2.0 [facility] Work Phone: Erythrocyte distribution width (RBC) [Ratio] 13.6 % See Below [facility] Work Phone: Comment on above: Reference Range: 11. 5 - 14.5 Hematocrit (Bld) [Volume fraction] 43.9 % See Below [facility] Work Phone: Comment on above: Reference Range: 41. 0 - 52.0 Hemoglobin (Bld) [Mass/Vol] 15.1 g/dL See Below [facility] Work Phone: Comment on above: Reference Range: 13. 5 - 17.5 Lymphocytes/100 WBC (Bld) 26.7 % See Below [facility] Work Phone: Comment on above: Reference Range: 13. 0 - 44.0 MCHC (RBC) [Mass/Vol] 34.4 g/dL See Below [facility] Work Phone: Comment on above: Reference Range: 32. 0 - 36.0 MCV (RBC) [Entitic vol] 84 fL 80 - 100 [facility] Work Phone: Monocytes/100 WBC (Bld) 9.5 % 2.0 - 10.0 [facility] Work Phone: Neutrophils/100 WBC (Bld) 61.1 % See Below [facility] Work Phone: Comment on above: Reference Range: 40. 0 - 80.0 Platelets (Bld) [#/Vol] 197 10*3/uL 150 - 450 [facility] Work Phone: RBC (Bld) [#/Vol] 5.25 {x10E12/L} See Below [facility] [employer] [facility] Work Phone: Comment on above: Reference Range: 4.5 0 - 5.90 WBC (Bld) [#/Vol] 5.8 10*3/uL 4.4 - 11.3 [facility] Work Phone: Complete Blood Count + Differential 0.00 {x10E9/L} See Below [facility] Work Phone: Comment on above: Reference Range: 0.0 0 - 0.10 Complete Blood Count + Differential 0.10 {x10E9/L} See Below [facility] Work Phone: Comment on above: Reference Range: 0.0 0 - 0.70 Complete Blood Count + Differential 0.50 {x10E9/L} See Below [facility] Work Phone: Comment on above: Reference Range: 0.1 0 - 1.00 Complete Blood Count + Differential 1.50 {x10E9/L} See Below [facility] Work Phone: Comment on above: Reference Range: 1.2 0 - 4.80 Complete Blood Count + Differential 3.50 {x10E9/L} See Below [facility] Work Phone: Comment on above: Reference Range: 1.2 0 - 7.70 Percent differential counts (%) should be interpreted in the context of the absolute cell counts (cells/L). Complete Blood Count + Differential 2.3 % 0.0 - 6.0 [facility] Work Phone: Complete Blood Count + Differential 0.1 {/100_WBC} [facility] Work Phone: Laboratory - Chemistry and C hemistry - challengeon 01-17-2022 Albumin BCP dye [Mass/Vol] 4.5 g/dL 3.4 - 5.0 [facility] Work Phone: ALP [Catalytic activity/Vol] 81 U/L 33 - 120 [facility] Work Phone: ALT With P-5'-P [Catalytic activity/Vol] 27 U/L 10 - 52 [facility] Work Phone: Comment on above: Patients treated wit h Sulfasalazine may generate falsely decreased results for ALT. Anion gap [Moles/Vol] 10 mmol/L 10 - 20 [facility] Work Phone: AST With P-5'-P [Catalytic activity/Vol] 27 U/L 9 - 39 [facility] [employer] [facility] Work Phone: Bilirubin [Mass/Vol] 0.5 mg/dL 0.0 - 1.2 [facility] [employer] [facility] [facility] Work Phone: Calcium [Mass/Vol] 9.2 mg/dL 8.6 - 10.3 [facility] [employer] [facility] Work Phone: Chloride [Moles/Vol] 101 mmol/L 98 - 107 [facility] [employer] [facility] Work Phone: CO2 [Moles/Vol] 33 mmol/L above high threshold 21 - 32 [facility] Work Phone: Creatinine [Mass/Vol] 0.87 mg/dL See Below [facility] [employer] [facility] Work Phone: Comment on above: Reference Range: 0.5 0 - 1.30 Glucose [Mass/Vol] 98 mg/dL 74 - 99 [facility] [employer] [facility] Work Phone: Potassium [Moles/Vol] 4.1 mmol/L 3.5 - 5.3 [facility] [employer] [facility] Work Phone: Protein [Mass/Vol] 7.3 g/dL 6.4 - 8.2 [facility] [employer] [facility] Work Phone: Sodium [Moles/Vol] 140 mmol/L 136 - 145 [facility] [employer] [facility] Work Phone: Urea nitrogen [Mass/Vol] 13 mg/dL 6 - 23 [facility] Work Phone: No Panel Informationon 01-17 >90 >90 [facility] Work Phone: Comment on above: CALCULATIONS OF CHELSEY MATED GFR ARE PERFORMED USING THE 2020 CKD-EPI STUDY REFIT EQUATION WITHOUT THE RACE VARIABLE FOR THE IDMS-TRACEABLE CREATININE METHODS.https://jasn.asnjournals.org/content/early//A SN.6555427237 Office Visit (Primary Care T xt/Forms)on 11-29-2021 Follow-up visit Diagnoses/Problems Assessed Anxiety (300.00) (F41.9) Orders Anxiety Start: Sertraline HCl - 100 MG Oral Tablet; TAKE 1.5 TABLET Daily Hypothyroidism Renew: Levothyroxine Sodium 150 MCG Oral Tablet; take 1 tablet by mouth once daily Patient Discussion/Summary Keep Follow-Up continue with sertraline at 150 mg a day Provider Impressions Provider Impressions Free Text Note Form: Patient seen today for reevaluation of anxiety. Increase sertraline to 150 mg about a month ago and seems to be doing some better. 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 Chief Complaint ANX MED CK History of Present Illness Anxiety seems to be better taking 150 mg sertraline having more anxiety, worry about cancer and recurrence of lymphoma, seems obsessed about checking had increased medicine in the past month with some help seeing counseling sleeping OK HBP less than 140/90 No headache, chest pain, shortness of breath, dizziness, lightheadedness, or edema Review of Systems Constitutional: feeling tired, but no fever and no chills. Psychiatric: no mood changes, no sleep disturbances, no substance use, no feelings of anxiety, no panic attacks, no feelings of depression and no suicidal thoughts. 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49) (Z82.49) Maternal Grandfather Family history of coronary artery disease (V17.3) (Z82.49) Family history of mitral valve disorder (V17.49) (Z82.49) Paternal Grandfather Family history of mitral valve disorder (V17.49) (Z82.49) Aunt Family history of malignant neoplasm of breast (V16.3) (Z80.3) Social History Problems Denies alcohol consumption (V49.89) (Z78.9) Non-smoker (V49.89) (Z78.9) Patient has active power of defense attorney for health care (V49.89) (Z78.9) Patient has living will (V49.89) (Z78.9) Current Meds Medication NameInstruction Levothyroxine Sodium 150 MCG Oral Tablettake 1 tablet by mouth once daily Lisinopril-hydroCHLOROthi azide 20-12.5 MG Oral TabletTAKE 1 TABLET BY MOUTH EVERY DAY LORazepam 0.5 MG Oral TabletTAKE 1 TABLET TWICE DAILY NEEDED. Pantoprazole Sodium 40 MG Oral Tablet Delayed ReleaseTAKE ONE TABLET BY MOUTH DAILY Allergies Medication No Known Drug Allergies Vitals Vital Signs Recorded: 29Nov2021 09:28AM Systolic: 138 Diastolic: 80 Recorded: 29Nov2021 09:10AM Heart Rate: 86 Systolic: 150 Diastolic: 90 Height: 6 ft 2 in Weight: 319 lb 2 oz BMI Calculated: 40.97 kg/m2 BSA Calculated: 2.65 Tobacco Use: b) No PHQ-2 #1. Over the last 2 weeks have you felt down, depressed or hopeless? (If yes, answer PHQ-9 below): No PHQ-2 #2. Over the last 2 weeks have you felt little interest or pleasure in doing things? (If yes, answer PHQ-9 below): No Fall Screening: a) No falls within the last year O2 Saturation: 97 Physical Exam Constitutional - Well developed, well nourished, well hydrated and no acute distress. Vital signs reviewed. Neck - Full range of motion. No significant adenopathy. Thyroid not enlarged and no palpable nodules. Pulmonary - No grunting, flaring or retractions. No rales or wheezing. Good air exchange. Cardiovascular - Regular rate and rhythm. No significant murmur. Psychiatric - Judgment and insight: Intact. Mood and affect: Normal. Alert and oriented x 3. Recent and remote memory: Normal. Signatures Electronically signed by : Germania Moreau MD; Nov 29 2021 9:38AM EST (Author) Normal [employer] Tobacco Screening.on 022 Adult depression screening assessment No [employer] [facility] Work Phone: Fall risk assessment a) No falls within the last year [employer] [facility] Work Phone: Tobacco use status CP b) No [employer] [facility] Work Phone: Prothrombin Timeon 1 INR 1.0 Normal 0.9-1.1 [facility] [employer] [facility] Comment on above: Result Comment: Gumaro mmended Anticoagulant Therapy: SEE BELOW ----- INR of 2.0 - 3.0 : - Prophylaxis of Venous Thrombosis (high-risk surgery) - Treatment of Venous Thrombosis - Treatment of Pulmonary Embolism (Includes tissue heart valves, Acute Myocardial Infarction to prevent systemic embolism, Valvular Heart Disease, and Atrial Fibrillation) ----- INR of 2.5 - 3.5 : - Mechanical Prosthetic Valves (high risk) - If oral anticoagulant therapy is used to prevent Myocardial Infarction Performed By: #### P T #### [facility] [address] [place] [address] PT Coag (PPP) [Time] 10.9 s Normal 9.0-12.[address] [facility] [employer] [facility] Comment on above: Result Comment: . Performed By: #### P T #### [facility] [employer] [address] [place] [address] XA Special Angiography Elva mathews 08-29-2021 XA Special Angiography Procedure Patient Name: DEVORAH SANTOS Special Procedures ACCESSION EXAM DATE/TIME PROCEDURE ORDERING PROVIDER [id number] 08/29/2021 09:40 EST XA Special Angiography PRAKASH CALDWELL Procedure Reason For Exam (XA Special Angiography Procedure) med port removal Report EXAMINATION: Mediport removal. CLINICAL INFORMATION: Lymphoma. Mediport no longer required. Prior to the procedure, the details of the examination were explained to the patient. He understands the risks, alternative, and benefits and wishes to proceed. Informed written consent is obtained and placed in the chart. ANESTHESIA: 1 mg Versed and 50 mcg Fentanyl IV for intraservice conscious sedation. The patient was monitored by an independent observer/nurse for a total of 30 minutes. Local anesthesia is maintained with Lidocaine. OTHER MEDICATIONS: 1 gram Ancef IV. PROCEDURE: The patient was placed supine on the angiographic table. The right Mediport site was prepped and draped in the usual fashion. All elements of sterile technique were applied: cap, mask, sterile gown, proper hand hygiene including sterile gloves, a large sterile sheet, and hospital-approved cutaneous antisepsis at the site. An incision was made overlying the Mediport. Blunt dissection was required to remove the device. The site was closed with 2-O and 4-O absorbable Vicryl sutures. There were no immediate complications. The patient tolerated the procedure without difficulty and was transferred to the recovery room in stable condition. IMPRESSION: 1. Successful removal of the right-sided Mediport. There were no immediate complications. Report Dictated on Workstation: [id number] Final Dictating Physician: MD WERNER JEFFREY Signed Date and Time: 08/29/2021 10:55 am Signed by: MD WERNER JEFFREY Transcribed Date and Time: 08/29/2021 10:56 Normal [facility] Tobacco Screening.on 021 Fall risk assessment a) No falls within the last year [employer] [facility] Work Phone: Tobacco use status CPHS b) No -Medical [employer] [facility] Work Phone: Laboratory - Chemistry and C hemistry - challengeon 07-12-2021 Anion gap [Moles/Vol] 11 mmol/L 10 - 20 [facility] Medical [employer] [facility] Work Phone: Calcium [Mass/Vol] 9.6 mg/dL 8.6 - 10.3 [employer] [facility] Work Phone: Chloride [Moles/Vol] 100 mmol/L 98 - 107 [employer] [facility] Work Phone: CO2 [Moles/Vol] 31 mmol/L 21 - 32 Daily [employer] [facility] Work Phone: Creatinine [Mass/Vol] 0.91 mg/dL See Below [employer] [facility] Work Phone: Comment on above: Reference Range: 0.5 0 - 1.30 Glucose [Mass/Vol] 91 mg/dL 74 - 99 [employer] [facility] Work Phone: Potassium [Moles/Vol] 3.9 mmol/L 3.5 - 5.3 [employer] [facility] Work Phone: Sodium [Moles/Vol] 138 mmol/L 136 - 145 [employer] [facility] Work Phone: Urea nitrogen [Mass/Vol] 17 mg/dL 6 - 23 [employer] [facility] Work Phone: No Panel Informationon 07-12 >60 >60 [employer] [facility] Work Phone: Comment on above: CALCULATIONS OF CHELSEY MATED GFR ARE PERFORMED USING THE MDRD STUDY EQUATION FOR THE IDMS-TRACEABLE CREATININE METHODS. CLIN CHEM 2007;53:766-72 No Panel Informationon 06-21 [facility] Work Phone: [email or web address]} [facility] Work Phone: Coronavirus 2019 RNA by PCR, Screening Asymptomticon 06-19-2021 Coronavirus 2019 RNA by PCR, Screening Asymptomtic Not detected Normal See Below [facility] Work Phone: Comment on above: SOURCE: Nasal, Nasop haryngealReference Range: Not Detected.This assay is designed to detect the N, ORF1ab and/or S genes of SARS-CoV-2 via nucleic acid amplification. A Negative (NOT DETECTED) result does not preclude 2019-nCoV infection since the adequacy of sample collection and/or low viral burden may result in presence of viral nucleic acids below the clinical sensitivity of this test method. Negative (NOT DETECTED) result should not be used as the sole basis for treatment or other patient management decisions. Rather negative results should be combined with clinical observations, patient history, and epidemiological information to make patient management decisions.Fact sheet for providers: https://www.fda.gov/media/077463/downloadFact sheet for patients: https://www.fda.gov/media/639640/downloadThis test has received FDA Emergency Use Authorization (EUA) and has been verified by [facility] ([facility]). This test is only authorized for the duration of time that circumstances exist to justify the authorization of the emergency use of in vitro diagnostic tests for the detection of SARS-CoV-2 virus and/or diagnosis of COVID-19 infection under section 564(b)(1) of the Act, 21 U.S.C. 360bbb-3(b)(1), unless the authorization is terminated or revoked sooner. [facility] is certified under CLIA-88 as qualified to perform high complexity testing. Testing is performed in the [facility] laboratories located at [address] [place] [address]. Tobacco Screening.on 021 Fall risk assessment a) No falls within the last year [facility] Work Phone: Tobacco use status [facility] b) No [facility] Work Phone: Tobacco Screening.on 021 Fall risk assessment a) No falls within the last year [facility] Work Phone: Tobacco use status [facility] b) No [facility] Work Phone: Complete Blood Count + Emmanuele zuhair 05-17-2021 Basophils/100 WBC (Bld) 0.6 % 0.0 - 2.0 [facility] Work Phone: Erythrocyte distribution width (RBC) [Ratio] 14.0 % See Below [facility] Work Phone: Comment on above: Reference Range: 11. 5 - 14.5 Hematocrit (Bld) [Volume fraction] 44.8 % See Below [facility] Work Phone: Comment on above: Reference Range: 41. 0 - 52.0 Hemoglobin (Bld) [Mass/Vol] 15.2 g/dL See Below [facility] Work Phone: Comment on above: Reference Range: 13. 5 - 17.5 Lymphocytes/100 WBC (Bld) 27.3 % See Below [facility] Work Phone: Comment on above: Reference Range: 13. 0 - 44.0 MCHC (RBC) [Mass/Vol] 33.9 g/dL See Below [facility] [employer] [facility] Work Phone: Comment on above: Reference Range: 32. 0 - 36.0 MCV (RBC) [Entitic vol] 81 fL 80 - 100 [facility] Work Phone: Monocytes/100 WBC (Bld) 8.8 % 2.0 - 10.0 [facility] Work Phone: Neutrophils/100 WBC (Bld) 59.6 % See Below [facility] Work Phone: Comment on above: Reference Range: 40. 0 - 80.0 Platelets (Bld) [#/Vol] 191 10*3/uL 150 - 450 [facility] Work Phone: RBC (Bld) [#/Vol] 5.51 {x10E12/L} See Below [facility] Work Phone: Comment on above: Reference Range: 4.5 0 - 5.90 WBC (Bld) [#/Vol] 5.5 10*3/uL 4.4 - 11.3 [facility] Work Phone: Complete Blood Count + Differential 0.00 {x10E9/L} See Below [facility] Work Phone: Comment on above: Reference Range: 0.0 0 - 0.10 Complete Blood Count + Differential 0.20 {x10E9/L} See Below [facility] Work Phone: Comment on above: Reference Range: 0.0 0 - 0.70 Complete Blood Count + Differential 0.50 {x10E9/L} See Below [facility] Work Phone: Comment on above: Reference Range: 0.1 0 - 1.00 Complete Blood Count + Differential 1.50 {x10E9/L} See Below [facility] Work Phone: Comment on above: Reference Range: 1.2 0 - 4.80 Complete Blood Count + Differential 3.30 {x10E9/L} See Below [facility] Work Phone: Comment on above: Reference Range: 1.2 0 - 7.70 Percent differential counts (%) should be interpreted in the context of the absolute cell counts (cells/L). Complete Blood Count + Differential 3.7 % 0.0 - 6.0 [facility] Work Phone: Complete Blood Count + Differential 0.3 {/100_WBC} [facility] Work Phone: Laboratory - Chemistry and C hemistry - challengeon 05-17-2021 Albumin BCP dye [Mass/Vol] 4.3 g/dL 3.4 - 5.0 [facility] Work Phone: ALP [Catalytic activity/Vol] 103 U/L 33 - 120 -[facility] Work Phone: ALT With P-5'-P [Catalytic activity/Vol] 33 U/L 10 - 52 -[facility] Work Phone: Comment on above: Patients treated wit h Sulfasalazine may generate falsely decreased results for ALT. Anion gap [Moles/Vol] 9 mmol/L below low threshold 10 - 20 [facility] Work Phone: AST With P-5'-P [Catalytic activity/Vol] 29 U/L 9 - 39 [facility] Work Phone: Bilirubin [Mass/Vol] 0.4 mg/dL 0.0 - 1.2 [facility] [employer] [facility] Work Phone: Calcium [Mass/Vol] 9.4 mg/dL 8.6 - 10.3 [facility] Work Phone: Chloride [Moles/Vol] 103 mmol/L 98 - 107 [facility] Work Phone: CO2 [Moles/Vol] 30 mmol/L 21 - 32 -[facility]ic [facility] Work Phone: Creatinine [Mass/Vol] 0.93 mg/dL See Below [facility] Work Phone: Comment on above: Reference Range: 0.5 0 - 1.30 Glucose [Mass/Vol] 95 mg/dL 74 - 99 -[facility] ical [employer] [facility] Work Phone: Potassium [Moles/Vol] 4.0 mmol/L 3.5 - 5.3 - [facility] Work Phone: Protein [Mass/Vol] 7.2 g/dL 6.4 - 8.2 -[employer] [facility] Work Phone: Sodium [Moles/Vol] 138 mmol/L 136 - 145 [facility] Work Phone: Urea nitrogen [Mass/Vol] 17 mg/dL 6 - 23 [facility] Work Phone: No Panel Informationon 05-17 >60 >60 -[facility] Work Phone: Comment on above: CALCULATIONS OF CHELSEY MATED GFR ARE PERFORMED USING THE MDRD STUDY EQUATION FOR THE IDMS-TRACEABLE CREATININE METHODS. CLIN CHEM 2007;53:766-72 TSH - Thyroid Stimulating Ho Lazaro burnson 05-17-2021 TSH Qn 3.40 m[IU]/L See Below [facility] Work Phone: Comment on above: Reference Range: 0.4 4 - 3.98 TSH testing is performed using different testing methodology at [facility] than at other [facility]. Direct result comparisons should only be made within the same method. PET [facility]ASE [facility] GHOrdered By: Prakash Caldwell on 04-07-2021 Patient Name: DEVORAH ALLAN PET ACCESSION EXAM DATE/TIME PROCEDURE ORDERING PROVIDER [id number] 04/07/2021 11:30 EDT PT w/ CT Scan Skull Base PRAKASH CALDWELL to [facility] CPT code 54749 A9552 Reason For Exam (PT w/ CT Scan Skull Base to [facility]) Hodgkin lymphoma, unspecified, intrathoracic lymph nodes Report PET/CT CLINICAL INDICATION: Hodgkin's lymphoma restaging, status post chemotherapy. Following the intravenous administration of 11.7 mCi of fluorine-18 fluorodeoxyglucose (FDG) a PET scan of the torso was acquired after an approximately one hour delay. Blood glucose level at the time of injection was 96 mg/dl. Contemporaneously, noncontrast axial CT images were obtained using low dose technique. The images were reconstructed in three orthogonal planes and digitally coregistered. The CT data was used for attenuation correction as well. COMPARISON: PET/CT dated 07/19/2020 NECK AND CHEST: The previously noted intensely FDG avid anterior mediastinal mass on the staging CT from 07/19/2020 has decreased in size and now demonstrates mild FDG accumulation, similar to the mediastinal blood pool (Deauville 2/5). Small, previously FDG avid lymph nodes scattered throughout the mediastinum and base of the neck bilaterally have either resolved or demonstrate only minimal FDG accumulation. There are no new areas of abnormal tracer uptake identified within the neck or chest to suggest recurrent or progressive malignancy. There are no FDG avid pulmonary nodules. There is mild FDG accumulation within a nonenlarged right axillary lymph node, probably related to inflammation from a recent COVID-19 vaccination received an the right arm. ABDOMEN AND PELVIS: No FDG avid lymphadenopathy is identified within the abdomen or pelvis. On the current examination, there is moderately intense uptake within the bilateral adrenal glands (maximal SUV 7), new when compared to the prior examination. The morphology of the right adrenal gland is normal. There is a slightly hyperdense nodule within the left adrenal gland measuring 1.5 cm in diameter, similar to the prior examination. MUSCULOSKELETAL: PET Report Unremarkable. No evidence of osseous metastatic disease. IMPRESSION: There has been marked improvement of the previously noted intensely FDG avid mediastinal mass as well as FDG avid lymphadenopathy within the base of the neck bilaterally and mediastinum. On the current examination, the mediastinal mass demonstrates mild diffuse FDG accumulation felt to be most likely related to inflammation (Deauville score 2/5). There is moderate FDG accumulation within the bilateral adrenal glands. Although there is a 1.5 cm slightly hyperdense left adrenal nodule which is nonspecific in appearance, the uptake within the adrenal glands is felt to be related to a benign etiology such as adrenal hyperplasia, given that the normal-appearing right adrenal gland also demonstrates increased FDG uptake (Deauville score X). Report Dictated on --- Final --- Dictated: 04/07/2021 3:38 pm Dictating Physician: MD WEIR JONATHAN R Signed Date and Time: 04/07/2021 3:46 pm Signed by: MD WEIR JONATHAN R Transcribed Date and Time: 04/07/2021 3:38 [facility] Work Phone: Anil, Marlys [facility]coming [facility] - 04/07/2021 3:48 PM EDT Patient Name: DEVORAH SANTOS PET ACCESSION EXAM DATE/TIME PROCEDURE ORDERING PROVIDER [id number] 04/07/2021 11:30 EDT PT w/ CT Scan Skull Base PAULETTE, PRAKASH to [facility] CPT code 49049 A9552 Reason For Exam (PT w/ CT Scan Skull Base to [facility]) Hodgkin lymphoma, unspecified, intrathoracic lymph nodes Report PET/CT CLINICAL INDICATION: Hodgkin's lymphoma restaging, status post chemotherapy. Following the intravenous administration of 11.7 mCi of fluorine-18 fluorodeoxyglucose (FDG) a PET scan of the torso was acquired after an approximately one hour delay. Blood glucose level at the time of injection was 96 mg/dl. Contemporaneously, noncontrast axial CT images were obtained using low dose technique. The images were reconstructed in three orthogonal planes and digitally coregistered. The CT data was used for attenuation correction as well. COMPARISON: PET/CT dated 07/19/2020 NECK AND CHEST: The previously noted intensely FDG avid anterior mediastinal mass on the staging CT from 07/19/2020 has decreased in size and now demonstrates mild FDG accumulation, similar to the mediastinal blood pool (Deauville 2/5). Small, previously FDG avid lymph nodes scattered throughout the mediastinum and base of the neck bilaterally have either resolved or demonstrate only minimal FDG accumulation. There are no new areas of abnormal tracer uptake identified within the neck or chest to suggest recurrent or progressive malignancy. There are no FDG avid pulmonary nodules. There is mild FDG accumulation within a nonenlarged right axillary lymph node, probably related to inflammation from a recent COVID-19 vaccination received an the right arm. ABDOMEN AND PELVIS: No FDG avid lymphadenopathy is identified within the abdomen or pelvis. On the current examination, there is moderately intense uptake within the bilateral adrenal glands (maximal SUV 7), new when compared to the prior examination. The morphology of the right adrenal gland is normal. There is a slightly hyperdense nodule within the left adrenal gland measuring 1.5 cm in diameter, similar to the prior examination. MUSCULOSKELETAL: PET Report Unremarkable. No evidence of osseous metastatic disease. IMPRESSION: There has been marked improvement of the previously noted intensely FDG avid mediastinal mass as well as FDG avid lymphadenopathy within the base of the neck bilaterally and mediastinum. On the current examination, the mediastinal mass demonstrates mild diffuse FDG accumulation felt to be most likely related to inflammation (Deauville score 2/5). There is moderate FDG accumulation within the bilateral adrenal glands. Although there is a 1.5 cm slightly hyperdense left adrenal nodule which is nonspecific in appearance, the uptake within the adrenal glands is felt to be related to a benign etiology such as adrenal hyperplasia, given that the normal-appearing right adrenal gland also demonstrates increased FDG uptake (Deauville score X). Report Dictated on --- Final --- Dictated: 04/07/2021 3:38 pm Dictating Physician: MD WEIR JONATHAN R Signed Date and Time: 04/07/2021 3:46 pm Signed by: MD WEIR JONATHAN R Transcribed Date and Time: 04/07/2021 3:38 [facility] Work Phone: [facility] Work Phone: PT w/ CT Scan Skull Base to Midthighon 04-07-2021 PT w/ CT Scan Skull Base to Midthigh Patient Name: DEVORAH SANTOS PET ACCESSION EXAM DATE/TIME PROCEDURE ORDERING PROVIDER [id number] 04/07/2021 11:30 EDT PT w/ CT Scan Skull Base PAULETTE, PRAKASH to Midthigh CPT code 69976 [id number] Reason For Exam (PT w/ CT Scan Skull Base to Midthigh) Hodgkin lymphoma, unspecified, intrathoracic lymph nodes Report PET/CT CLINICAL INDICATION: Hodgkin's lymphoma restaging, status post chemotherapy. Following the intravenous administration of 11.7 mCi of fluorine-18 fluorodeoxyglucose (FDG) a PET scan of the torso was acquired after an approximately one hour delay. Blood glucose level at the time of injection was 96 mg/dl. Contemporaneously, noncontrast axial CT images were obtained using low dose technique. The images were reconstructed in three orthogonal planes and digitally coregistered. The CT data was used for attenuation correction as well. COMPARISON: PET/CT dated 07/19/2020 NECK AND CHEST: The previously noted intensely FDG avid anterior mediastinal mass on the staging CT from 07/19/2020 has decreased in size and now demonstrates mild FDG accumulation, similar to the mediastinal blood pool (Deauville 2/5). Small, previously FDG avid lymph nodes scattered throughout the mediastinum and base of the neck bilaterally have either resolved or demonstrate only minimal FDG accumulation. There are no new areas of abnormal tracer uptake identified within the neck or chest to suggest recurrent or progressive malignancy. There are no FDG avid pulmonary nodules. There is mild FDG accumulation within a nonenlarged right axillary lymph node, probably related to inflammation from a recent COVID-19 vaccination received an the right arm. ABDOMEN AND PELVIS: No FDG avid lymphadenopathy is identified within the abdomen or pelvis. On the current examination, there is moderately intense uptake within the bilateral adrenal glands (maximal SUV 7), new when compared to the prior examination. The morphology of the right adrenal gland is normal. There is a slightly hyperdense nodule within the left adrenal gland measuring 1.5 cm in diameter, similar to the prior examination. MUSCULOSKELETAL: PET Report Unremarkable. No evidence of osseous metastatic disease. IMPRESSION: There has been marked improvement of the previously noted intensely FDG avid mediastinal mass as well as FDG avid lymphadenopathy within the base of the neck bilaterally and mediastinum. On the current examination, the mediastinal mass demonstrates mild diffuse FDG accumulation felt to be most likely related to inflammation (Deauville score 2/5). There is moderate FDG accumulation within the bilateral adrenal glands. Although there is a 1.5 cm slightly hyperdense left adrenal nodule which is nonspecific in appearance, the uptake within the adrenal glands is felt to be related to a benign etiology such as adrenal hyperplasia, given that the normal-appearing right adrenal gland also demonstrates increased FDG uptake (Deauville score X). Report Dictated on Final Dictated: 04/07/2021 3:38 pm Dictating Physician: MD WEIR JONATHAN R Signed Date and Time: 04/07/2021 3:46 pm Signed by: MD WEIR JONATHAN R Transcribed Date and Time: 04/07/2021 3:38 Normal [facility] CBC Auto DifferentialOrdered By: Prakash Caldwell on 01-31-2021 Basophils % [facility] Work Phone: [phone] Basophils Absolute [facility] Work Phone: () [phone] Eosinophils % [facility] Work Phone: [phone] Eosinophils Absolute [facility] Work Phone: [phone] Hematocrit (Bld) [Volume fraction] 38.6 % Abnormal 41 - 53 % [facility] Work Phone: [phone] Hemoglobin.gastrointes tinal spec 1 Ql (Stl) 13.3 g/dL Abnormal 13.5 - 17.5 g/dL [facility] Work Phone: [phone] Interpretation and review of laboratory results Abnormal [facility] Work Phone: () [phone] Lymphocytes % [facility] Work Phone: [phone] Lymphocytes Absolute [facility] Work Phone: [phone] MCH (RBC) [Entitic mass] [facility] Work Phone: [phone] MCHC (RBC) [Mass/Vol] [facility] Work Phone: [phone] MCV (RBC) [Entitic vol] 90.6 fL [facility] Work Phone: [phone] Monocytes % [facility] Work Phone: () [phone] Monocytes Absolute [facility] Work Phone: [phone] Neutrophils % [facility] Work Phone: [phone] Neutrophils Absolute 9.4 / L [facility] Work Phone: [phone] Platelet distribution width (Bld) [Ratio] [facility] Work Phone: [phone] Platelet mean volume (Bld) [Entitic vol] [facility] Work Phone: [phone] Platelets (Bld) [#/Vol] 168 10*3/uL K/ L [facility] Work Phone: [phone] RBC (Bld) [#/Vol] [facility] Work Phone: [phone] WBC (Bld) [#/Vol] 12.5 10^3/mL [facility] Work Phone: [phone] [facility] Work Phone: [phone] CBC Auto DifferentialOrdered By: Prakash Caldwell on 01-17-2021 Basophils (Bld) [#/Vol] 0.1 10*3/uL / L [facility] Work Phone: [phone] Basophils/100 WBC (Bld) 0.7 % [facility] Work Phone: [phone] Eosinophils Absolute 0.2 / L [facility] Work Phone: [phone] Eosinophils/100 WBC (Bld) 1.5 % [facility] Work Phone: [phone] Hematocrit (Bld) [Volume fraction] 38.7 % Abnormal 41 - 53 % [facility] Work Phone: [phone] Hemoglobin.gastrointes tinal spec 1 Ql (Stl) 13.2 g/dL Abnormal 13.5 - 17.5 g/dL [facility] Work Phone: [phone] Lymphocytes Absolute 1.8 / L [facility] Work Phone: [phone] Lymphocytes/100 WBC (Bld) 12.0 % [facility] Work Phone: [phone] MCH (RBC) [Entitic mass] 31.1 pg [facility] Work Phone: [phone] MCHC (RBC) [Mass/Vol] 34.2 g/dL [facility] Work Phone: [phone] MCV (RBC) [Entitic vol] 90.7 fL [facility] Work Phone: [phone] Monocytes Absolute 1.4 / L [facility] Work Phone: [phone] Monocytes/100 WBC (Bld) 9.5 % [facility] Work Phone: [phone] Neutrophils Absolute 11.6 / L [facility] Work Phone: [phone] Neutrophils/100 WBC (Bld) 76.3 % [facility] Work Phone: [phone] Platelet distribution width (Bld) [Ratio] 18.3 % [facility] Work Phone: [phone] Platelet mean volume (Bld) [Entitic vol] 7.5 fL [facility] Work Phone: [phone] Platelets (Bld) [#/Vol] 243 10*3/uL K/ L [facility] Work Phone: [phone] RBC (Bld) [#/Vol] 4.26 10*6/uL 10^6/ L [employer] Work Phone: WBC (Bld) [#/Vol] 15.2 10^3/mL [employer] Work Phone: COMPREHENSIVE METABOLIC PANE LOrdered By: Prakash Caldwell on 01-17-2021 ALP (Bld) [Catalytic activity/Vol] 123 U/L 38 - 126 U/L [employer] Work Phone: ALT [Catalytic activity/Vol] 61 U/L High 0 - 49 U/L [employer] Work Phone: Comment on above: The ALT test is perf ormed by an updated assay method. Please note that the reference intervals have been changed and are now sex specific. Anion gap [Moles/Vol] 9 mmol/L 3 - 13 mmol/L [employer] Work Phone: AST [Catalytic activity/Vol] 56 U/L High 15 - 46 U/L [employer] Work Phone: Bilirubin [Mass/Vol] 0.3 mg/dL 0.2 - 1 .3 mg/dL [employer] Work Phone: Calcium [Mass/Vol] 9.4 mg/dL 8.4 - 10. 4 mg/dL [employer] Work Phone: CO2 [Moles/Vol] 27 mmol/L 22 - 30 mmol/L [employer] Work Phone: Creatinine [Mass/Vol] 0.81 mg/dL 0.52 - 1.25 mg/dL [employer] Work Phone: EGFR IF NonAfrican Turkmen >90.0 >60 mL/min [employer] Work Phone: Comment on above: KDIGO guidelines pro vide the following GFR categories: Stage GFR(ml/min/1.73 m2) Terms G1 >=90 Normal or high G2 60-89 Mildly decreased* G3a 45-59 Mildly to moderately decreased G3b 30-44 Moderately to severely decreased G4 15-29 Severely decreased G5 <15 Kidney failure *Relative to young adult level. In the absence of evidence of kidney damage, neither GFR category G1 nor G2 fulfill the criteria for CKD. The CKD-EPI equation is validated in individuals 18 years of age and older. Currently the best equation for estimating glomerular filtration rate (GFR) from serum creatinine in children is the Bedside Sanches equation. It is less accurate in patients with extremes of muscle mass, restriction of dietary protein, ingestion of creatine, extra-renal metabolism of creatinine, or treatment with medications that affect renal tubular creatinine secretion. Free PSA/Total PSA [Mass fraction] 7.4 g/dL 6.3 - 8.2 g/dL [facility] Work Phone: GFR/1.73 sq M.predicted among blacks MDRD (S/P/Bld) [Vol rate/Area] mL/min/{1.73_m2} >60 mL/min [facility] Work Phone: Glucose [Mass/Vol] 125 mg/dL High 70 - 100 mg/dL [facility] Work Phone: Urea nitrogen (BldV) [Mass/Vol] 16 mg/dL 7 - 20 mg/dL [facility] Work Phone: Test Performed by [facility], [address] [place] [phone] [facility] Work Phone: Comp Metabolic Panelon 01-17 ALP [Catalytic activity/Vol] 123 U/L Normal 38-126 [facility] Comment on above: Performed By: #### C MP3 #### [address] ALT [Catalytic activity/Vol] 61 U/L High 0-49 [facility] Comment on above: Result Comment: The ALT test is performed by an updated assay method. Please note that the reference intervals have been changed and are now sex specific. Performed By: #### C MP3 #### [facility] [employer] [address] [phone] Anion gap [Moles/Vol] 9 mmol/L Normal 3-13 [facility] Comment on above: Performed By: #### C MP3 #### [address] [phone] AST [Catalytic activity/Vol] 56 U/L High 15-46 [facility] Comment on above: Performed By: #### C MP3 #### [facility] [address] [place], [place] Bilirubin [Mass/Vol] 0.3 mg/dL Normal 0.2-1.3 [facility] Comment on above: Performed By: #### C MP3 #### [facility] [address] [place], [place] Calcium [Mass/Vol] 9.4 mg/dL Normal 8.4-10.4 [facility] Comment on above: Performed By: #### C MP3 #### [facility] [address] [place], [place] CO2 [Moles/Vol] 27 mmol/L Normal 22-30 [facility] Comment on above: Performed By: #### C MP3 #### [facility] [address] [place], [place] Glucose [Mass/Vol] 125 mg/dL High 70-100 [facility] Comment on above: Performed By: #### C MP3 #### [place] [address] [address] [place], [place] Protein [Mass/Vol] 7.4 g/dL Normal 6.3-8.2 [facility] Comment on above: Performed By: #### C MP3 #### [address] [place] [address] [address] [place], [place] Urea nitrogen [Mass/Vol] 16 mg/dL Normal 7-20 [facility] Comment on above: Performed By: #### C MP3 #### [facility] [address] [place], [place] Creatinine [Mass/Vol] 0.81 mg/dL Normal 0.52-1.25 [facility] Comment on above: Performed By: #### C MP3 #### [facility] [address] [place], [place] eGFR OTHER > 90.0 Normal >60 [facility] Comment on above: Result Comment: KDIG O guidelines provide the following GFR categories: Stage GFR(ml/min/1.73 m2) Terms G1 >=90 Normal or high G2 60-89 Mildly decreased* G3a 45-59 Mildly to moderately decreased G3b 30-44 Moderately to severely decreased G4 15-29 Severely decreased G5 <15 Kidney failure *Relative to young adult level. In the absence of evidence of kidney damage, neither GFR category G1 nor G2 fulfill the criteria for CKD. The CKD-EPI equation is validated in individuals 18 years of age and older. Currently the best equation for estimating glomerular filtration rate (GFR) from serum creatinine in children is the Bedside Sanches equation. It is less accurate in patients with extremes of muscle mass, restriction of dietary protein, ingestion of creatine, extra-renal metabolism of creatinine, or treatment with medications that affect renal tubular creatinine secretion. Performed By: #### C MP3 #### [facility] [address] GFR/1.73 sq M.predicted among blacks MDRD (S/P/Bld) [Vol rate/Area] mL/min/{1.73_m2} Normal >60 [facility] Comment on above: Performed By: #### C MP3 #### [facility] [address] Comp Metabolic PanelOrdered By: Prakash Caldwell on 01-17-2021 Albumin [Mass/Vol] 4.4 g/dL Normal 3.5-5.0 [facility] Work Phone: Comment on above: Performed By: #### C MP3 #### [facility] [address] Chloride [Moles/Vol] 103 mmol/L Normal 98-107 [facility] Work Phone: Comment on above: Performed By: #### C MP3 #### [facility] [address] Potassium [Moles/Vol] 3.8 mmol/L Normal 3.5-5.1 [facility] Work Phone: Comment on above: Performed By: #### C MP3 #### [facility] [employer] [address] Sodium [Moles/Vol] 139 mmol/L Normal 135-145 [facility] Work Phone: Comment on above: Performed By: #### C MP3 #### [facility] [employer] System [address] [place] [phone] No Panel InformationOrdered By: Prakash Caldwell on 01-17-2021 Interpretation and review of laboratory results Abnormal [facility] Work Phone: [phone] CBC Auto DifferentialOrdered By: Prakash Caldwell on 01-03-2021 Basophils (Bld) [#/Vol] 0.1 10*3/uL / L [facility] Work Phone: [phone] Basophils/100 WBC (Bld) 1 % [facility] Work Phone: [phone] Eosinophils Absolute 0.2 / L [facility] Work Phone: [phone] Eosinophils/100 WBC (Bld) 1.5 % [facility] Work Phone: [phone] Hematocrit (Bld) [Volume fraction] 37.2 % Abnormal 41 - 53 % [facility] Work Phone: [phone] Hemoglobin.gastrointes tinal spec 1 Ql (Stl) 12.7 g/dL Abnormal 13.5 - 17.5 g/dL [facility] Work Phone: [phone] Interpretation and review of laboratory results Abnormal [facility] Work Phone: [phone] Lymphocytes Absolute 1.7 / L [facility] Work Phone: [phone] Lymphocytes/100 WBC (Bld) 15.7 % [facility] Work Phone: [phone] MCH (RBC) [Entitic mass] 31.1 pg [facility] Work Phone: [phone] MCHC (RBC) [Mass/Vol] 34 g/dL [facility] Work Phone: [phone] MCV (RBC) [Entitic vol] 91.4 fL [facility] Work Phone: [phone] Monocytes Absolute 1 / L [facility] Work Phone: [phone] Monocytes/100 WBC (Bld) 9.1 % [facility] Work Phone: [phone] Neutrophils Absolute 8.1 / L [facility] Work Phone: [phone] Neutrophils/100 WBC (Bld) 72.7 % [facility] Work Phone: [phone] Platelet distribution width (Bld) [Ratio] 18.9 % [facility] Work Phone: [phone] Platelet mean volume (Bld) [Entitic vol] 7.6 fL [facility] Work Phone: [phone] Platelets (Bld) [#/Vol] 270 10*3/uL K/ L [facility] Work Phone: () 222 RBC (Bld) [#/Vol] 4.07 10*6/uL 10^6/ L [facility] Work Phone: () 222 WBC (Bld) [#/Vol] 11.1 10^3/mL [facility] Work Phone: [phone] CBC Auto Differentialon 04-0 Basophils (Bld) [#/Vol] 0.2 10*3/uL / L [facility] Work Phone: () 222 Basophils/100 WBC (Bld) 1.0 % [facility] Work Phone: () 222 Eosinophils (Bld) [#/Vol] 0.2 10*3/uL / L [facility] Work Phone: ) 222 Eosinophils/100 WBC (Bld) 1.4 % [facility] Work Phone: ) 222 Erythrocyte distribution width (RBC) [Ratio] 21.1 % [facility] Work Phone: ( 222 Hematocrit (Bld) [Volume fraction] 37.4 % Abnormal 41 - 53 % [facility] Work Phone: () 222 Hemoglobin (Bld) [Mass/Vol] 12.2 g/dL Abnormal 13.5 - 17.5 g/dL [facility] Work Phone: ) 222 Lymphocytes (Bld) [#/Vol] 1.5 10*3/uL / L [facility] Work Phone: () 222 Lymphocytes/100 WBC (Bld) 9.9 % [facility] Work Phone: () 222 MCH (RBC) [Entitic mass] 29.8 pg [facility] Work Phone: () 222 MCHC (RBC) [Mass/Vol] 32.7 g/dL [facility] Work Phone: () 222 MCV (RBC) [Entitic vol] 91.2 fL [facility] Work Phone: ) 222 Monocytes (Bld) [#/Vol] 1.7 10*3/uL / L [facility] Work Phone: [phone] Monocytes/100 WBC (Bld) 11.1 % [facility] Work Phone: [phone] 222 Neutrophils Absolute 11.6 / L [facility] Work Phone: [phone] 222 Neutrophils/100 WBC (Bld) 76.6 % [facility] Work Phone: [phone] Platelet mean volume (Bld) [Entitic vol] 7.3 fL [facility] Work Phone: [phone] 222 Platelets (Bld) [#/Vol] 229 10*3/uL K/ L [facility] Work Phone: [phone] 222 RBC (Bld) [#/Vol] 4.11 10*6/uL 10^6/ L [facility] Work Phone: () 222 WBC (Bld) [#/Vol] 15.1 10^3/mL [facility] Work Phone: [phone] COMPREHENSIVE METABOLIC PANE Esequiel 12-20-2020 Albumin [Mass/Vol] 4.5 g/dL 3.5 - 5.0 g/dL [facility] Work Phone: [phone] ALP [Catalytic activity/Vol] 115 U/L 38 - 126 U/L [facility] Work Phone: ) 222 ALT [Catalytic activity/Vol] 66 U/L High 0 - 49 U/L [facility] Work Phone: ) [phone] Comment on above: The ALT test is perf ormed by an updated assay method. Please note that the reference intervals have been changed and are now sex specific. Anion gap [Moles/Vol] 7 mmol/L 3 - 13 mmol/L [facility] Work Phone: [phone] AST [Catalytic activity/Vol] 60 U/L High 15 - 46 U/L [facility] Work Phone: [phone] Bilirubin Ql (U) 0.5 mg/dL 0.2 - 1.3 mg/dL [facility] Work Phone: [phone] Calcium [Mass/Vol] 9.4 mg/dL 8.4 - 10. 4 mg/dL [facility] Work Phone: ) 222 Chloride [Moles/Vol] 103 mmol/L 98 - 10 7 mmol/L [facility] Work Phone: [phone] CO2 [Moles/Vol] 28 mmol/L 22 - 30 mmol/L [facility] Work Phone: [phone] Creatinine [Mass/Vol] 0.83 mg/dL 0.52 - 1.25 mg/dL [facility] Work Phone: [phone] EGFR IF NonAfrican Turkmen >90.0 >60 mL/min [facility] Work Phone: [phone] Comment on above: KDIGO guidelines pro vide the following GFR categories: Stage GFR(ml/min/1.73 m2) Terms G1 >=90 Normal or high G2 60-89 Mildly decreased* G3a 45-59 Mildly to moderately decreased G3b 30-44 Moderately to severely decreased G4 15-29 Severely decreased G5 <15 Kidney failure *Relative to young adult level. In the absence of evidence of kidney damage, neither GFR category G1 nor G2 fulfill the criteria for CKD. The CKD-EPI equation is validated in individuals 18 years of age and older. Currently the best equation for estimating glomerular filtration rate (GFR) from serum creatinine in children is the Bedside Sanches equation. It is less accurate in patients with extremes of muscle mass, restriction of dietary protein, ingestion of creatine, extra-renal metabolism of creatinine, or treatment with medications that affect renal tubular creatinine secretion. GFR/1.73 sq M predicted among blacks MDRD (S/P/Bld) [Vol rate/Area] mL/min/{1.73_m2} >60 mL/min [facility] Work Phone: [phone] Glucose [Mass/Vol] 107 mg/dL High 70 - 100 mg/dL [facility] Work Phone: [phone] Potassium [Moles/Vol] 3.9 mmol/L 3.5 - 5.1 mmol/L [facility] Work Phone: [phone] Protein [Mass/Vol] 7.4 g/dL 6.3 - 8.2 g/dL [facility] Work Phone: [phone] Sodium [Moles/Vol] 139 mmol/L 135 - 145 mmol/L [facility] Work Phone: [phone] Urea nitrogen [Mass/Vol] 16 mg/dL 7 - 20 mg/dL [facility] Work Phone: Test Performed by [facility], [address] [place] [address] [facility] Work Phone: Comp Metabolic Panelon 12-20 ALP [Catalytic activity/Vol] 115 U/L Normal 38-126 [facility] Comment on above: Performed By: #### C MP3 #### [facility] [address] [facility] [place] ALT [Catalytic activity/Vol] 66 U/L High 0-49 [facility] Comment on above: Result Comment: The ALT test is performed by an updated assay method. Please note that the reference intervals have been changed and are now sex specific. Performed By: #### C MP3 #### [facility] [address] [facility] [place] Calcium [Mass/Vol] 9.4 mg/dL Normal 8.4-10.4 [facility] Comment on above: Performed By: #### C MP3 #### [place] [address] [address] [place], [place] Glucose [Mass/Vol] 107 mg/dL High 70-100 [facility] Comment on above: Performed By: #### C MP3 #### [place] [address] [address] [facility] [place] Urea nitrogen [Mass/Vol] 16 mg/dL Normal 7-20 [facility] Comment on above: Performed By: #### C MP3 #### [facility] [address] [place], [place] Anion gap [Moles/Vol] 7 mmol/L Normal 3-13 [facility] Comment on above: Performed By: #### C MP3 #### [facility] [address] [place], [place] AST [Catalytic activity/Vol] 60 U/L High 15-46 [facility] Comment on above: Performed By: #### C MP3 #### [facility] [address] [place], [place] Bilirubin [Mass/Vol] 0.5 mg/dL Normal 0.2-1.3 [facility] Comment on above: Performed By: #### C MP3 #### [facility] [address] [place], [place] CO2 [Moles/Vol] 28 mmol/L Normal 22-30 [facility] Comment on above: Performed By: #### C MP3 #### [facility] [address] [place], [place] Creatinine [Mass/Vol] 0.83 mg/dL Normal 0.52-1.25 [facility] Comment on above: Performed By: #### C MP3 #### [facility] [address] [place], [place] eGFR OTHER > 90.0 Normal >60 [facility] Comment on above: Result Comment: KDIG O guidelines provide the following GFR categories: Stage GFR(ml/min/1.73 m2) Terms G1 >=90 Normal or high G2 60-89 Mildly decreased* G3a 45-59 Mildly to moderately decreased G3b 30-44 Moderately to severely decreased G4 15-29 Severely decreased G5 <15 Kidney failure *Relative to young adult level. In the absence of evidence of kidney damage, neither GFR category G1 nor G2 fulfill the criteria for CKD. The CKD-EPI equation is validated in individuals 18 years of age and older. Currently the best equation for estimating glomerular filtration rate (GFR) from serum creatinine in children is the Bedside Sanches equation. It is less accurate in patients with extremes of muscle mass, restriction of dietary protein, ingestion of creatine, extra-renal metabolism of creatinine, or treatment with medications that affect renal tubular creatinine secretion. Performed By: #### C MP3 #### [facility] [address] [place], [place] GFR/1.73 sq M.predicted among blacks MDRD (S/P/Bld) [Vol rate/Area] mL/min/{1.73_m2} Normal >60 [facility] Comment on above: Performed By: #### C MP3 #### [facility] [address], [place] Protein [Mass/Vol] 7.4 g/dL Normal 6.3-8.2 [facility] Comment on above: Performed By: #### C MP3 #### [facility] [address] [place] [address] Potassium [Moles/Vol] 3.9 mmol/L Normal 3.5-5.1 [facility] Comment on above: Performed By: #### C MP3 #### [facility] [address] [place] [address] Sodium [Moles/Vol] 139 mmol/L Normal 135-145 [facility] Comment on above: Performed By: #### C MP3 #### [facility] [address] [place] [address] Albumin [Mass/Vol] 4.5 g/dL Normal 3.5-5.0 [facility] Comment on above: Performed By: #### C MP3 #### [facility] [address] [place] [address] Chloride [Moles/Vol] 103 mmol/L Normal 98-107 [facility] Comment on above: Performed By: #### C MP3 #### [facility] [address] [place] [address] Otheron 12-20-2020 Interpretation and review of laboratory results Abnormal [facility] Work Phone: CBC Auto Differentialon 11-15 Basophils (Bld) [#/Vol] 0.1 10*3/uL / L [facility] Work Phone: [phone] Basophils/100 WBC (Bld) 1.0 % [facility] Work Phone: [phone] Eosinophils (Bld) [#/Vol] 0.2 10*3/uL / L [facility] Work Phone: [phone] Eosinophils/100 WBC (Bld) 1.3 % [facility] Work Phone: [phone] Erythrocyte distribution width (RBC) [Ratio] 21.9 % [facility] Work Phone: Hematocrit (Bld) [Volume fraction] 36.7 % Abnormal 41 - 53 % [facility] Work Phone: [phone] Hemoglobin (Bld) [Mass/Vol] 12.2 g/dL Abnormal 13.5 - 17.5 g/dL [facility] Work Phone: [phone] Interpretation and review of laboratory results Abnormal [facility] Work Phone: [phone] Lymphocytes (Bld) [#/Vol] 1.7 10*3/uL / L [facility] Work Phone: [phone] Lymphocytes/100 WBC (Bld) 12.0 % [facility] Work Phone: [phone] MCH (RBC) [Entitic mass] 29.5 pg [facility] Work Phone: [phone] MCHC (RBC) [Mass/Vol] 33.2 g/dL [facility] Work Phone: [phone] MCV (RBC) [Entitic vol] 88.8 fL [facility] Work Phone: [phone] Monocytes (Bld) [#/Vol] 1.4 10*3/uL / L [facility] Work Phone: [phone] Monocytes/100 WBC (Bld) 9.7 % [facility] Work Phone: () [phone] Neutrophils Absolute 10.9 / L [facility] Work Phone: [phone] Neutrophils/100 WBC (Bld) 76.0 % [facility] Work Phone: [phone] Platelet mean volume (Bld) [Entitic vol] 7.4 fL [facility] Work Phone: () [phone] Platelets (Bld) [#/Vol] 238 10*3/uL K/ L [facility] Work Phone: [phone] RBC (Bld) [#/Vol] 4.13 10*6/uL 10^6/ L [facility] Work Phone: [phone] WBC (Bld) [#/Vol] 14.3 10^3/mL [facility] Work Phone: [phone] Prothrombin Timeon 1 INR 1.0 Normal 0.9-1.1 [facility] [employer] [facility] Comment on above: Result Comment: Gumaro mmended Anticoagulant Therapy: SEE BELOW ----- INR of 2.0 - 3.0 : - Prophylaxis of Venous Thrombosis (high-risk surgery) - Treatment of Venous Thrombosis - Treatment of Pulmonary Embolism (Includes tissue heart valves, Acute Myocardial Infarction to prevent systemic embolism, Valvular Heart Disease, and Atrial Fibrillation) ----- INR of 2.5 - 3.5 : - Mechanical Prosthetic Valves (high risk) - If oral anticoagulant therapy is used to prevent Myocardial Infarction Performed By: #### P T #### [facility] [employer] [address] [place] [phone] PT Coag (PPP) [Time] 11.0 s Normal 9.0-12.[address] [facility] [employer] Comment on above: Result Comment: . Performed By: #### P T #### [facility] [employer] [address] [address] Protime-INRon 12-06-2020 INR Coag (PPP) [Relative time] 1.0 {INR} [employer] Work Phone: Comment on above: Recommended Anticoag ulant Therapy: SEE BELOW ----- INR of 2.0 - 3.0 : - Prophylaxis of Venous Thrombosis (high-risk surgery) - Treatment of Venous Thrombosis - Treatment of Pulmonary Embolism (Includes tissue heart valves, Acute Myocardial Infarction to prevent systemic embolism, Valvular Heart Disease, and Atrial Fibrillation) ----- INR of 2.5 - 3.5 : - Mechanical Prosthetic Valves (high risk) - If oral anticoagulant therapy is used to prevent Myocardial Infarction PT Coag (PPP) [Time] 11 s 9.0 - 1 2.0 s [employer] Work Phone: Comment on above: . Test Performed by [facility] [employer] [facility], [address] [place] [id number] [employer] Work Phone: XA Special Angiography Proce dure 12-06-2020 XA Special Angiography Procedure Patient Name: [id number] Special Procedures ACCESSION EXAM DATE/TIME PROCEDURE ORDERING PROVIDER [id number] 12/06/2020 15:34 EDT XA Special Angiography PRAKASH CALDWELL Procedure Reason For Exam (XA Special Angiography Procedure) venogram with cath stripping Report CLINICAL HISTORY: Mediport catheter within patient's neck Procedures: Fluoroscopic guided repositioning of a right-sided Mediport catheter Physician: Dr. Franks MEDICATIONS: Local lidocaine EBL: Minimal. Contrast: None Specimen sent: None COMPLICATIONS: None Fluoroscopy Time: 8.6 minutes. Angiographic runs: One Fluoroscopic spot images: 0 Fluoroscopic saved images were obtained. These images do NOT add additional exposure to ionizing radiation and were captured electronically from the imaging chain. Procedural details: Prior to the procedure red rules were performed which included patient name, date of , and procedure type. All of the risk, benefits, and alternative treatments were explained to the patient and informed consent was obtained and documented. The patient was brought into the interventional radiology suite and placed in a supine position. An audible timeout was performed. The patient's right groin was prepped and draped in the usual sterile fashion. Maximal sterile barrier technique was utilized. All elements of maximal sterile barrier technique were used including a hat, mask, sterile gown, sterile gloves, and a sterile drape. Appropriate hand hygiene using 2 percent chlorhexidine for cutaneous antisepsis was utilized. A sterile ultrasound probe cover and sterile ultrasound gel was utilized. The right common femoral vein was interrogated with ultrasound and found to be widely patent. A permanent ultrasound image was stored to the patient record. The overlying subcutaneous tissues were anesthetized using one percent lidocaine. Under direct ultrasound visualization, the right common femoral vein was accessed using 21-gauge microneedle puncture needle at the level of the femoral head. Access was upsized to a 12 [place] Special Procedures Report vascular sheath. A 0.035 Glidewire along with a 5 [place] pigtail catheter were advanced into the SVC. The pigtail catheter was manipulated around the existing Mediport catheter. The 0.035 Glidewire was then advanced inferiorly back down into the IVC. The end of the glide wire was then snared using a 25 mm gooseneck snare. The glide wire loop was then pulled slowly under fluoroscopic observation. This pulled the Mediport catheter out of the patient's right neck. The Mediport catheter now terminates within the proximal right atrium. Mediport catheter flushed and aspirated appropriately. Injection of contrast through the Mediport catheter showed no evidence of a fibrin sheath. All wires and catheters were then removed and hemostasis was obtained using manual pressure. The patient tolerated the procedure well. There were no immediate complications. FINDINGS: Tip of Mediport catheter has been repositioned and now terminates within the proximal right atrium. No evidence of fibrin sheath. The Mediport catheter flushes and aspirates appropriately. IMPRESSION: Successful uncomplicated fluoroscopic guided snaring and repositioning of malpositioned Mediport catheter. Report Dictated on Final Dictated: 12/06/2020 3:53 pm Dictating Physician: MD FRANKS YUN ROBERT Signed Date and Time: 12/06/2020 4:11 pm Signed by: MD FRANKS YUN ROBERT Transcribed Date and Time: 12/06/2020 3:53 Normal [facility] XA Special Angiography Procedure Patient Name: DEVORAH SANTOS Special Procedures ACCESSION EXAM DATE/TIME PROCEDURE ORDERING PROVIDER [id number] 12/06/2020 11:03 EDT XA Special Angiography PRAKASH CALDWELL Procedure Reason For Exam (XA Special Angiography Procedure) port check; no blood return. Report CLINICAL HISTORY: Port check Procedures: Chest radiograph for evaluation of portal Physician: Dr. Hughes MEDICATIONS: None EBL: None. Contrast: None Specimen sent: None COMPLICATIONS: None Fluoroscopy Time: Less than 0.1 minutes Angiographic runs: 0 Fluoroscopic spot images: 0 Fluoroscopic saved images were obtained. These images do NOT add additional exposure to ionizing radiation and were captured electronically from the imaging chain. Procedural details: Prior to the procedure red rules were performed which included patient name, date of , and procedure type. All of the risk, benefits, and alternative treatments were explained to the patient and informed consent was obtained and documented. The patient was brought into the angiography suite and placed in the supine position. Veterinary Medicine Scientist radiograph of the chest was performed. Based on diagnostic images, no further manipulation of the port was performed. IMPRESSION/FINDINGS: Right IJ Mediport catheter extends superiorly, the tip malpositioned in the mid to peripheral right internal jugular vein. After discussion with the patient, the patient will return this afternoon for catheter repositioning via endovascular snaring. Special Procedures Report Report Dictated on Workstation: [id number] Final Dictated: 12/06/2020 4:54 pm Dictating Physician: MD HUGHES KEVIN Signed Date and Time: 12/06/2020 4:57 pm Signed by: MD HUGHES KEVIN Transcribed Date and Time: 12/06/2020 4:54 Normal [facility] CBC Auto Differentialon 03-0 Basophils (Bld) [#/Vol] 0.2 10*3/uL / L [facility] Work Phone: [phone] Basophils/100 WBC (Bld) 1 % [facility] Work Phone: [phone] Eosinophils (Bld) [#/Vol] 0.4 10*3/uL / L [facility] Work Phone: [phone] Eosinophils/100 WBC (Bld) 2.2 % [facility] Work Phone: [phone] Erythrocyte distribution width (RBC) [Ratio] 21.4 % [facility] Work Phone: [phone] Hematocrit (Bld) [Volume fraction] 37.3 % Abnormal 41 - 53 % [facility] Work Phone: [phone] Hemoglobin (Bld) [Mass/Vol] 12.5 g/dL Abnormal 13.5 - 17.5 g/dL [facility] Work Phone: [phone] Interpretation and review of laboratory results Abnormal [facility] Work Phone: [phone] Lymphocytes (Bld) [#/Vol] 1.7 10*3/uL / L [facility] Work Phone: [phone] Lymphocytes/100 WBC (Bld) 10.9 % [facility] Work Phone: [phone] MCH (RBC) [Entitic mass] 29.2 pg [facility] Work Phone: [phone] MCHC (RBC) [Mass/Vol] 33.6 g/dL [facility] Work Phone: [phone] MCV (RBC) [Entitic vol] 87 fL [facility] Work Phone: [phone] Monocytes (Bld) [#/Vol] 1.5 10*3/uL / L [facility] Work Phone: [phone] Monocytes/100 WBC (Bld) 9.7 % [facility] Work Phone: [phone] Neutrophils Absolute 12 / L [facility] Work Phone: [phone] Neutrophils/100 WBC (Bld) 76.2 % [facility] Work Phone: [phone] Platelet mean volume (Bld) [Entitic vol] 7.5 fL [facility] Work Phone: [phone] Platelets (Bld) [#/Vol] 218 10*3/uL K/ L [facility] Work Phone: [phone] RBC (Bld) [#/Vol] 4.29 10*6/uL 10^6/ L [facility] Work Phone: ) [phone] WBC (Bld) [#/Vol] 15.8 10^3/mL [facility] Work Phone: [phone] COMPREHENSIVE METABOLIC PANE Esequiel 11-22-2020 Albumin [Mass/Vol] 4.3 g/dL 3.5 - 5.0 g/dL [facility] Work Phone: ) [phone] ALP [Catalytic activity/Vol] 94 U/L 38 - 126 U/L [facility] Work Phone: [phone] ALT [Catalytic activity/Vol] 79 U/L High 0 - 49 U/L [facility] Work Phone: ) Comment on above: The ALT test is perf ormed by an updated assay method. Please note that the reference intervals have been changed and are now sex specific. Anion gap [Moles/Vol] 8 mmol/L 3 - 13 mmol/L [facility] Work Phone: [phone] AST [Catalytic activity/Vol] 56 U/L High 15 - 46 U/L [facility] Work Phone: [phone] Bilirubin Ql (U) 0.4 mg/dL 0.2 - 1.3 mg/dL [facility] Work Phone: [phone]) Calcium [Mass/Vol] 9.2 mg/dL 8.4 - 10. 4 mg/dL [facility] Work Phone: ) [phone] Chloride [Moles/Vol] 102 mmol/L 98 - 10 7 mmol/L [facility] Work Phone: ) [phone] CO2 [Moles/Vol] 27 mmol/L 22 - 30 mmol/L [facility] Work Phone: [phone] Creatinine [Mass/Vol] 0.79 mg/dL 0.52 - 1.25 mg/dL [facility] Work Phone: [phone] IF NonAfrican Turkmen >90.0 >60 mL/min [facility] Work Phone: [phone] Comment on above: KDIGO guidelines pro vide the following GFR categories: Stage GFR(ml/min/1.73 m2) Terms G1 >=90 Normal or high G2 60-89 Mildly decreased* G3a 45-59 Mildly to moderately decreased G3b 30-44 Moderately to severely decreased G4 15-29 Severely decreased G5 <15 Kidney failure *Relative to young adult level. In the absence of evidence of kidney damage, neither GFR category G1 nor G2 fulfill the criteria for CKD. The CKD-EPI equation is validated in individuals 18 years of age and older. Currently the best equation for estimating glomerular filtration rate (GFR) from serum creatinine in children is the Bedside Sanches equation. It is less accurate in patients with extremes of muscle mass, restriction of dietary protein, ingestion of creatine, extra-renal metabolism of creatinine, or treatment with medications that affect renal tubular creatinine secretion. GFR/1.73 sq M predicted among blacks MDRD (S/P/Bld) [Vol rate/Area] mL/min/{1.73_m2} >60 mL/min [employer] Work Phone: Glucose [Mass/Vol] 97 mg/dL 70 - 100 mg/dL [employer] Work Phone: Interpretation and review of laboratory results Abnormal [employer] Work Phone: Potassium [Moles/Vol] 4.0 mmol/L 3.5 - 5.1 mmol/L [employer] Work Phone: [phone] Protein [Mass/Vol] 7.7 g/dL 6.3 - 8.2 g/dL [employer] Work Phone: Sodium [Moles/Vol] 137 mmol/L 135 - 145 mmol/L [employer] Work Phone: Urea nitrogen [Mass/Vol] 13 mg/dL 7 - 20 mg/dL [employer] Work Phone: Test Performed by [facility] [employer], [address] [place] [phone] [facility] Work Phone: Comp Metabolic Panelon 11-22 Calcium [Mass/Vol] 9.2 mg/dL Normal 8.4-10.4 [facility] [employer] Comment on above: Performed By: #### C MP3 #### [facility] [address] [place] [phone] ALP [Catalytic activity/Vol] 94 U/L Normal 38-126 [facility] Comment on above: Performed By: #### C MP3 #### [facility] [address], [place] ALT [Catalytic activity/Vol] 79 U/L High 0-49 [facility] Comment on above: Result Comment: The ALT test is performed by an updated assay method. Please note that the reference intervals have been changed and are now sex specific. Performed By: #### C MP3 #### [facility] [address], [place] Anion gap [Moles/Vol] 8 mmol/L Normal 3-13 [facility] Comment on above: Performed By: #### C MP3 #### [place] [address] [place], [place] AST [Catalytic activity/Vol] 56 U/L High 15-46 [facility] Comment on above: Performed By: #### C MP3 #### [place] [address] [place], [place] Bilirubin [Mass/Vol] 0.4 mg/dL Normal 0.2-1.3 [facility] Comment on above: Performed By: #### C MP3 #### [place] [address] [place], [place] CO2 [Moles/Vol] 27 mmol/L Normal 22-30 [facility] Comment on above: Performed By: #### C MP3 #### [place] [address] [place], [place] Creatinine [Mass/Vol] 0.79 mg/dL Normal 0.52-1.25 [facility] Comment on above: Performed By: #### C MP3 #### [place] [address] [place], [place] eGFR OTHER > 90.0 Normal >60 [facility] Comment on above: Result Comment: KDIG O guidelines provide the following GFR categories: Stage GFR(ml/min/1.73 m2) Terms G1 >=90 Normal or high G2 60-89 Mildly decreased* G3a 45-59 Mildly to moderately decreased G3b 30-44 Moderately to severely decreased G4 15-29 Severely decreased G5 <15 Kidney failure *Relative to young adult level. In the absence of evidence of kidney damage, neither GFR category G1 nor G2 fulfill the criteria for CKD. The CKD-EPI equation is validated in individuals 18 years of age and older. Currently the best equation for estimating glomerular filtration rate (GFR) from serum creatinine in children is the Bedside Sanches equation. It is less accurate in patients with extremes of muscle mass, restriction of dietary protein, ingestion of creatine, extra-renal metabolism of creatinine, or treatment with medications that affect renal tubular creatinine secretion. Performed By: #### C MP3 #### [place] [address] [place] [address] GFR/1.73 sq M.predicted among blacks MDRD (S/P/Bld) [Vol rate/Area] mL/min/{1.73_m2} Normal >60 [facility] Comment on above: Performed By: #### C MP3 #### [place] [address] [place] [address] Glucose [Mass/Vol] 97 mg/dL Normal 70-100 [facility] Comment on above: Performed By: #### C MP3 #### [place] [address] [place] [address] Protein [Mass/Vol] 7.7 g/dL Normal 6.3-8.2 [facility] Comment on above: Performed By: #### C MP3 #### [place] [address] [place] [address] Urea nitrogen [Mass/Vol] 13 mg/dL Normal 7-20 [facility] Comment on above: Performed By: #### C MP3 #### [address] [address] Potassium [Moles/Vol] 4.0 mmol/L Normal 3.5-5.1 [facility] Comment on above: Performed By: #### C MP3 #### [place] [address] [place] [address] Albumin [Mass/Vol] 4.3 g/dL Normal 3.5-5.0 [facility] Comment on above: Performed By: #### C MP3 #### [place] [address] [place] [address] Chloride [Moles/Vol] 102 mmol/L Normal 98-107 [facility] Comment on above: Performed By: #### C MP3 #### [facility] [address] [place] [address] Sodium [Moles/Vol] 137 mmol/L Normal 135-145 [facility] Comment on above: Performed By: #### C MP3 #### [facility] [address] [place] [address] [address] Chest/Abdomen/Pelvis (IV Only)on 11-16-2020 CT Chest/Abdomen/Pelvis (IV Only) Patient Name: DEVORAH SANTOS Computed Tomography ACCESSION EXAM DATE/TIME PROCEDURE ORDERING PROVIDER [id number] 11/16/2020 10:[address] Chest/Abdomen/Pelvis PRAKASH CALDWELL (IV Only) CPT code 63033 [id number] Reason For Exam (CT Chest/Abdomen/Pelvis (IV Only)) Hodgkin lymphoma, unspecified, intrathoracic lymph nodes Report CT CHEST, ABDOMEN, AND PELVIS CLINICAL INDICATION: Hodgkin lymphoma, unspecified, intrathoracic lymph nodes TECHNIQUE: CT scan of the chest, abdomen and pelvis with IV contrast. Multiplanar reformations. COMPARISON: PET scan from 07/19/2020 FINDINGS: CT CHEST: Right Mediport catheter tip is in the jugular vein. Thoracic aorta is normal in caliber. No aneurysm or dissection seen. No adenopathy seen at the thoracic inlet. Superior mediastinal adenopathy between the SVC and right brachiocephalic artery about the same in size. Prevascular adenopathy has improved. Adenopathy adjacent to the right atrium and ascending aorta much better on the current study, measuring about 4.3 x 2.5 cm, previously at the same level was about 5.3 x 5.7 cm. Right middle lobe mass has been resected. CT Abdomen and Pelvis: Liver shows no significant abnormality. Gallbladder and biliary tree appear normal. Mild splenomegaly similar to the previous study. Left adrenal nodule appears a little larger, 16.3 x 16.5 mm, previously was about 16 x 12.6 mm. Pancreas shows no significant abnormality. Kidneys show no significant abnormality. Abdominal aorta is nonaneurysmal. The appendix appears normal. No bowel obstruction. No pelvic, retroperitoneal, or mesenteric adenopathy seen. IMPRESSION: 1. Resection of previously seen right middle lobe mass. Overall Computed Tomography Report decreased mediastinal adenopathy. Left adrenal nodule slightly larger currently. Mild splenomegaly about the same. Report Dictated on Final Dictated: 11/16/2020 9:50 pm Dictating Physician: MD CARDOSO JOHN R Signed Date and Time: 11/16/2020 10:03 pm Signed by: MD CARDOSO JOHN R Transcribed Date and Time: 11/16/2020 9:50 Normal [facility] CBC Auto Differentialon 10-18 Basophils (Bld) [#/Vol] [facility] Work Phone: [phone] Basophils/100 WBC (Bld) [facility] Work Phone: [phone] Eosinophils (Bld) [#/Vol] [facility] Work Phone: [phone] Eosinophils/100 WBC (Bld) [facility] Work Phone: [phone] Erythrocyte distribution width (RBC) [Ratio] [facility] Work Phone: [phone] Hematocrit (Bld) [Volume fraction] 35.1 % Abnormal 41 - 53 % [facility] Work Phone: [phone] Hemoglobin (Bld) [Mass/Vol] 11.9 g/dL Abnormal 13.5 - 17.5 g/dL [facility] Work Phone: [phone] Lymphocytes (Bld) [#/Vol] [facility] Work Phone: [phone] Lymphocytes/100 WBC (Bld) [facility] Work Phone: [phone] MCH (RBC) [Entitic mass] [facility] Work Phone: [phone] MCHC (RBC) [Mass/Vol] [facility] Work Phone: [phone] MCV (RBC) [Entitic vol] 86.3 fL [facility] Work Phone: [phone] Monocytes (Bld) [#/Vol] [facility] Work Phone: [phone] Monocytes/100 WBC (Bld) [facility] Work Phone: [phone] Neutrophils Absolute 5.1 / L [facility] Work Phone: [phone] Neutrophils/100 WBC (Bld) [facility] Work Phone: [phone] Platelet mean volume (Bld) [Entitic vol] [facility] Work Phone: [phone] Platelets (Bld) [#/Vol] 346 10*3/uL K/ L [facility] Work Phone: [phone] RBC (Bld) [#/Vol] [facility] Work Phone: [phone] WBC (Bld) [#/Vol] 8.4 10^3/mL [facility] Work Phone: [phone] Comp Metabolic Panelon 11-08 ALP [Catalytic activity/Vol] 94 U/L Normal 38-126 [facility] Comment on above: Performed By: #### C MP3 #### [facility] [address], [place] ALT [Catalytic activity/Vol] 71 U/L High 0-49 [facility] Comment on above: Result Comment: The ALT test is performed by an updated assay method. Please note that the reference intervals have been changed and are now sex specific. Performed By: #### C MP3 #### [facility] [address], [place] Anion gap [Moles/Vol] 10 mmol/L Normal 3-13 [facility] Comment on above: Performed By: #### C MP3 #### [facility] [address] [place], [place] AST [Catalytic activity/Vol] 54 U/L High 15-46 [facility] Comment on above: Performed By: #### C MP3 #### [facility] [address] [place], [place] Bilirubin [Mass/Vol] 0.5 mg/dL Normal 0.2-1.3 [facility] Comment on above: Performed By: #### C MP3 #### [facility] [address] [place], [place] Calcium [Mass/Vol] 9.2 mg/dL Normal 8.4-10.4 [facility] Comment on above: Performed By: #### C MP3 #### [facility] [address] [place] [address] CO2 [Moles/Vol] 27 mmol/L Normal 22-30 [facility] Comment on above: Performed By: #### C MP3 #### [facility] [facility] [address] [place] [address] Glucose [Mass/Vol] 93 mg/dL Normal 70-100 [facility] Comment on above: Performed By: #### C MP3 #### [facility] [address] [place] [address] Protein [Mass/Vol] 7.7 g/dL Normal 6.3-8.2 [facility] Comment on above: Performed By: #### C MP3 #### [facility] [address] [place] [address] Urea nitrogen [Mass/Vol] 13 mg/dL Normal 7-20 [facility] Comment on above: Performed By: #### C MP3 #### [facility] [address] [place] [address] Creatinine [Mass/Vol] 0.68 mg/dL Normal 0.52-1.25 [facility] Comment on above: Performed By: #### C MP3 #### [facility] [address] [place] [address] eGFR OTHER > 90.0 Normal >60 [facility] Comment on above: Result Comment: KDIG O guidelines provide the following GFR categories: Stage GFR(ml/min/1.73 m2) Terms G1 >=90 Normal or high G2 60-89 Mildly decreased* G3a 45-59 Mildly to moderately decreased G3b 30-44 Moderately to severely decreased G4 15-29 Severely decreased G5 <15 Kidney failure *Relative to young adult level. In the absence of evidence of kidney damage, neither GFR category G1 nor G2 fulfill the criteria for CKD. The CKD-EPI equation is validated in individuals 18 years of age and older. Currently the best equation for estimating glomerular filtration rate (GFR) from serum creatinine in children is the Bedside Sanches equation. It is less accurate in patients with extremes of muscle mass, restriction of dietary protein, ingestion of creatine, extra-renal metabolism of creatinine, or treatment with medications that affect renal tubular creatinine secretion. Performed By: #### C MP3 #### [place] [address] [place], [place] GFR/1.73 sq M.predicted among blacks MDRD (S/P/Bld) [Vol rate/Area] mL/min/{1.73_m2} Normal >60 [facility] Comment on above: Performed By: #### C MP3 #### [place] [address] [place], [place] Albumin [Mass/Vol] 4.5 g/dL Normal 3.5-5.0 [facility] Comment on above: Performed By: #### C MP3 #### [place] [address] [place], [place] Chloride [Moles/Vol] 102 mmol/L Normal 98-107 [facility] Comment on above: Performed By: #### C MP3 #### [place] [address] [place], [place] Potassium [Moles/Vol] 3.9 mmol/L Normal 3.5-5.1 [facility] Comment on above: Performed By: #### C MP3 #### [place] [address] [place], [place] Sodium [Moles/Vol] 139 mmol/L Normal 135-145 [facility] Comment on above: Performed By: #### C MP3 #### [place] [address] [place], [place] Comprehensive Metabolic Pane esequiel 11-08-2020 Albumin [Mass/Vol] 4.5 g/dL 3.5 - 5 g/dL [facility] Work Phone: ALP [Catalytic activity/Vol] 94 U/L 38 - 126 U/L [facility] Work Phone: ALT [Catalytic activity/Vol] 71 U/L High 0 - 49 U/L [facility] Work Phone: Comment on above: The ALT test is perf ormed by an updated assay method. Please note that the reference intervals have been changed and are now sex specific. Anion gap [Moles/Vol] 10 mmol/L 3 - 13 mmol/L [facility] Work Phone: AST [Catalytic activity/Vol] 54 U/L High 15 - 46 U/L [facility] Work Phone: [phone] Bilirubin Ql (U) 0.5 mg/dL 0.2 - 1.3 mg/dL [facility] Work Phone: Calcium [Mass/Vol] 9.2 mg/dL 8.4 - 10. 4 mg/dL [facility] Work Phone: [phone] Chloride [Moles/Vol] 102 mmol/L 98 - 10 7 mmol/L [facility] Work Phone: [phone] CO2 [Moles/Vol] 27 mmol/L 22 - 30 mmol/L [facility] Work Phone: [phone] Creatinine [Mass/Vol] 0.68 mg/dL 0.52 - 1.25 mg/dL [facility] Work Phone: EGFR IF NonAfrican Turkmen >90.0 >60 mL/min [facility] Work Phone: [phone] Comment on above: KDIGO guidelines pro vide the following GFR categories: Stage GFR(ml/min/1.73 m2) Terms G1 >=90 Normal or high G2 60-89 Mildly decreased* G3a 45-59 Mildly to moderately decreased G3b 30-44 Moderately to severely decreased G4 15-29 Severely decreased G5 <15 Kidney failure *Relative to young adult level. In the absence of evidence of kidney damage, neither GFR category G1 nor G2 fulfill the criteria for CKD. The CKD-EPI equation is validated in individuals 18 years of age and older. Currently the best equation for estimating glomerular filtration rate (GFR) from serum creatinine in children is the Bedside Sanches equation. It is less accurate in patients with extremes of muscle mass, restriction of dietary protein, ingestion of creatine, extra-renal metabolism of creatinine, or treatment with medications that affect renal tubular creatinine secretion. GFR/1.73 sq M predicted among blacks MDRD (S/P/Bld) [Vol rate/Area] mL/min/{1.73_m2} >60 mL/min [facility] Work Phone: Glucose [Mass/Vol] 93 mg/dL 70 - 100 mg/dL [facility] Work Phone: Potassium [Moles/Vol] 3.9 mmol/L 3.5 - 5.1 mmol/L [facility] Work Phone: Protein [Mass/Vol] 7.7 g/dL 6.3 - 8.2 g/dL [facility] Work Phone: [phone] Sodium [Moles/Vol] 139 mmol/L 135 - 145 mmol/L [facility] Work Phone: Urea nitrogen [Mass/Vol] 13 mg/dL 7 - 20 mg/dL [facility] Work Phone: Test Performed by [facility], [address] [place] [address] [facility] Work Phone: Otheron 11-08-2020 Interpretation and review of laboratory results Abnormal [facility] Work Phone: CBC Auto Differentialon Basophils (Bld) [#/Vol] 0.2 10*3/uL / L [place] Basophils/100 WBC (Bld) 0.8 % [place] Eosinophils (Bld) [#/Vol] 0.3 10*3/uL / L [place] Eosinophils/100 WBC (Bld) 1.6 % [place] Erythrocyte distribution width (RBC) [Ratio] 20.7 % [place] Hematocrit (Bld) [Volume fraction] 37.2 % Abnormal 41 - 53 % [place] Hemoglobin (Bld) [Mass/Vol] 12.7 g/dL Abnormal 13.5 - 17.5 g/dL [place] Interpretation and review of laboratory results Abnormal [place] Lymphocytes (Bld) [#/Vol] 2.1 10*3/uL / L [place] Lymphocytes/100 WBC (Bld) 10.9 % [place] MCH (RBC) [Entitic mass] 28.9 pg [place] MCHC (RBC) [Mass/Vol] 34 g/dL [place] MCV (RBC) [Entitic vol] 85 fL [place] Monocytes (Bld) [#/Vol] 1.5 10*3/uL / L [place] Monocytes/100 WBC (Bld) 7.9 % [place] Neutrophils Absolute 15.3 / L [place] Neutrophils/100 WBC (Bld) 78.8 % [place] Platelet mean volume (Bld) [Entitic vol] 7.3 fL [place] Platelets (Bld) [#/Vol] 299 10*3/uL K/ L [place] RBC (Bld) [#/Vol] 4.38 10*6/uL 10^6/ L [place] WBC (Bld) [#/Vol] 19.4 10^3/mL [place] COMPREHENSIVE METABOLIC PANE Esequiel 10-25-2020 Albumin [Mass/Vol] 4.5 g/dL 3.5 - 5 g/dL [place] ALP [Catalytic activity/Vol] 114 U/L 38 - 126 U/L [place] ALT [Catalytic activity/Vol] 88 U/L High 0 - 49 U/L [place] Comment on above: The ALT test is perf ormed by an updated assay method. Please note that the reference intervals have been changed and are now sex specific. Anion gap [Moles/Vol] 9 mmol/L [place] AST [Catalytic activity/Vol] 65 U/L High 15 - 46 U/L [place] Bilirubin Ql (U) 0.4 mg/dL 0.2 - 1.3 mg/dL [place] Calcium [Mass/Vol] 9.0 mg/dL 8.4 - 10. 4 mg/dL [place] Chloride [Moles/Vol] 102 mmol/L 98 - 10 7 mmol/L [place] CO2 [Moles/Vol] 26 mmol/L 22 - 30 mmol/L [place] Creatinine [Mass/Vol] 0.74 mg/dL 0.52 - 1.25 mg/dL [place] EGFR IF NonAfrican Turkmen >90.0 >60 mL/min [place] Comment on above: KDIGO guidelines pro vide the following GFR categories: Stage GFR(ml/min/1.73 m2) Terms G1 >=90 Normal or high G2 60-89 Mildly decreased* G3a 45-59 Mildly to moderately decreased G3b 30-44 Moderately to severely decreased G4 15-29 Severely decreased G5 <15 Kidney failure *Relative to young adult level. In the absence of evidence of kidney damage, neither GFR category G1 nor G2 fulfill the criteria for CKD. The CKD-EPI equation is validated in individuals 18 years of age and older. Currently the best equation for estimating glomerular filtration rate (GFR) from serum creatinine in children is the Bedside Sanches equation. It is less accurate in patients with extremes of muscle mass, restriction of dietary protein, ingestion of creatine, extra-renal metabolism of creatinine, or treatment with medications that affect renal tubular creatinine secretion. GFR/1.73 sq M predicted among blacks MDRD (S/P/Bld) [Vol rate/Area] mL/min/{1.73_m2} >60 mL/min [place] Glucose [Mass/Vol] 101 mg/dL High 70 - 100 mg/dL [place] Interpretation and review of laboratory results Abnormal [place] Potassium [Moles/Vol] 3.9 mmol/L 3.5 - 5.1 mmol/L [place] Protein [Mass/Vol] 7.3 g/dL 6.3 - 8.2 g/dL [place] Sodium [Moles/Vol] 137 mmol/L 135 - 145 mmol/L [place] Urea nitrogen [Mass/Vol] 17 mg/dL 7 - 20 mg/dL [place] Test Performed by [facility], [address] [place] [address] [place], [place] Comp Metabolic Panelon 10-25 Calcium [Mass/Vol] 9.0 mg/dL Normal 8.4-10.4 [facility] Comment on above: Performed By: #### C MP3 #### [facility] [address] [place] [address] ALP [Catalytic activity/Vol] 114 U/L Normal 38-126 [facility] Comment on above: Performed By: #### C MP3 #### [facility] [address] [facility], [place] ALT [Catalytic activity/Vol] 88 U/L High 0-49 [facility] Comment on above: Result Comment: The ALT test is performed by an updated assay method. Please note that the reference intervals have been changed and are now sex specific. Performed By: #### C MP3 #### [facility] [address] [facility] [place] Anion Gap 9 Normal [facility] Comment on above: Performed By: #### C MP3 #### [facility] [address] [facility] [place] AST [Catalytic activity/Vol] 65 U/L High 15-46 [facility] Comment on above: Performed By: #### C MP3 #### [facility] [address] [facility], [place] Bilirubin [Mass/Vol] 0.4 mg/dL Normal 0.2-1.3 [facility] Comment on above: Performed By: #### C MP3 #### [facility] [address] [facility], [place] CO2 [Moles/Vol] 26 mmol/L Normal 22-30 [facility] Comment on above: Performed By: #### C MP3 #### [facility] [address] [facility], [place] Glucose [Mass/Vol] 101 mg/dL High 70-100 [facility] Comment on above: Performed By: #### C MP3 #### [facility] [address] [facility], [place] Protein [Mass/Vol] 7.3 g/dL Normal 6.3-8.2 [facility] Comment on above: Performed By: #### C MP3 #### [facility] [address] [facility], [place] Urea nitrogen [Mass/Vol] 17 mg/dL Normal 7-20 [facility] Comment on above: Performed By: #### C MP3 #### [facility] [address] [facility], [place] Creatinine [Mass/Vol] 0.74 mg/dL Normal 0.52-1.25 [facility] Comment on above: Performed By: #### C MP3 #### [address] eGFR OTHER > 90.0 Normal >60 [facility] Comment on above: Result Comment: KDIG O guidelines provide the following GFR categories: Stage GFR(ml/min/1.73 m2) Terms G1 >=90 Normal or high G2 60-89 Mildly decreased* G3a 45-59 Mildly to moderately decreased G3b 30-44 Moderately to severely decreased G4 15-29 Severely decreased G5 <15 Kidney failure *Relative to young adult level. In the absence of evidence of kidney damage, neither GFR category G1 nor G2 fulfill the criteria for CKD. The CKD-EPI equation is validated in individuals 18 years of age and older. Currently the best equation for estimating glomerular filtration rate (GFR) from serum creatinine in children is the Bedside Sanches equation. It is less accurate in patients with extremes of muscle mass, restriction of dietary protein, ingestion of creatine, extra-renal metabolism of creatinine, or treatment with medications that affect renal tubular creatinine secretion. Performed By: #### C MP3 #### [place] [address] [place], [place] GFR/1.73 sq M.predicted among blacks MDRD (S/P/Bld) [Vol rate/Area] mL/min/{1.73_m2} Normal >60 [facility] Comment on above: Performed By: #### C MP3 #### [place] [address] [place], [place] Albumin [Mass/Vol] 4.5 g/dL Normal 3.5-5.0 [facility] Comment on above: Performed By: #### C MP3 #### [address] Chloride [Moles/Vol] 102 mmol/L Normal 98-107 [facility] Comment on above: Performed By: #### C MP3 #### [place] [address] [place], [place] Potassium [Moles/Vol] 3.9 mmol/L Normal 3.5-5.1 [facility] Comment on above: Performed By: #### C MP3 #### [facility] [address] [place] [address] Sodium [Moles/Vol] 137 mmol/L Normal 135-145 [facility] Comment on above: Performed By: #### C MP3 #### [facility] [address] [place] [address] CBC Auto Differentialon 09-17 Basophils (Bld) [#/Vol] [place], [place] Basophils/100 WBC (Bld) [place] Eosinophils (Bld) [#/Vol] [place] Eosinophils/100 WBC (Bld) [place] Erythrocyte distribution width (RBC) [Ratio] [place] Hematocrit (Bld) [Volume fraction] 36.6 % Abnormal 41 - 53 % [place] Hemoglobin (Bld) [Mass/Vol] 12.4 g/dL Abnormal 13.5 - 17.5 g/dL [place] Interpretation and review of laboratory results Abnormal [place] Lymphocytes (Bld) [#/Vol] [place] Lymphocytes/100 WBC (Bld) [place] MCH (RBC) [Entitic mass] [place] MCHC (RBC) [Mass/Vol] [place] MCV (RBC) [Entitic vol] 83.3 fL [place] Monocytes (Bld) [#/Vol] [place] Monocytes/100 WBC (Bld) [place] Neutrophils Absolute 9.2 / L [place], [place] Neutrophils/100 WBC (Bld) [place] Platelet mean volume (Bld) [Entitic vol] [place] Platelets (Bld) [#/Vol] 250 10*3/uL K/ L [place] RBC (Bld) [#/Vol] [place] WBC (Bld) [#/Vol] 13.5 10^3/mL [place] CBC Auto Differentialon 09-16 Basophils (Bld) [#/Vol] [place] Basophils/100 WBC (Bld) [place] Eosinophils (Bld) [#/Vol] [place] Eosinophils/100 WBC (Bld) [place] Erythrocyte distribution width (RBC) [Ratio] [place] Hematocrit (Bld) [Volume fraction] 38.4 % Abnormal 41 - 53 % [place] Hemoglobin (Bld) [Mass/Vol] 12.8 g/dL Abnormal 13.5 - 17.5 g/dL [place] Lymphocytes (Bld) [#/Vol] [place] Lymphocytes/100 WBC (Bld) [place] MCH (RBC) [Entitic mass] [place] MCHC (RBC) [Mass/Vol] [place] MCV (RBC) [Entitic vol] 82.4 fL [place] Monocytes (Bld) [#/Vol] [place] Monocytes/100 WBC (Bld) [place] Neutrophils Absolute 14.8 / L [place], [place] Neutrophils/100 WBC (Bld) [place] Platelet mean volume (Bld) [Entitic vol] [place] Platelets (Bld) [#/Vol] 316 10*3/uL K/ L [place] RBC (Bld) [#/Vol] [place] WBC (Bld) [#/Vol] 19 10^3/mL [place] COMPREHENSIVE METABOLIC PANE Esequiel 09-27-2020 Albumin [Mass/Vol] 4.2 g/dL 3.5 - 5 g/dL [place] ALP [Catalytic activity/Vol] 94 U/L 38 - 126 U/L [place] ALT [Catalytic activity/Vol] 137 U/L High 0 - 49 U/L [place] Comment on above: The ALT test is perf ormed by an updated assay method. Please note that the reference intervals have been changed and are now sex specific. Anion gap [Moles/Vol] 7 mmol/L [place] AST [Catalytic activity/Vol] 72 U/L High 15 - 46 U/L [place] Bilirubin Ql (U) 0.5 mg/dL 0.2 - 1.3 mg/dL [place] Calcium [Mass/Vol] 9.0 mg/dL 8.4 - 10. 4 mg/dL [place] Chloride [Moles/Vol] 101 mmol/L 98 - 10 7 mmol/L [place] CO2 [Moles/Vol] 27 mmol/L 22 - 30 mmol/L [place] Creatinine [Mass/Vol] 0.74 mg/dL 0.52 - 1.25 mg/dL [place] EGFR IF NonAfrican Turkmen >90.0 >60 mL/min [place] Comment on above: KDIGO guidelines pro vide the following GFR categories: Stage GFR(ml/min/1.73 m2) Terms G1 >=90 Normal or high G2 60-89 Mildly decreased* G3a 45-59 Mildly to moderately decreased G3b 30-44 Moderately to severely decreased G4 15-29 Severely decreased G5 <15 Kidney failure *Relative to young adult level. In the absence of evidence of kidney damage, neither GFR category G1 nor G2 fulfill the criteria for CKD. The CKD-EPI equation is validated in individuals 18 years of age and older. Currently the best equation for estimating glomerular filtration rate (GFR) from serum creatinine in children is the Bedside Sanches equation. It is less accurate in patients with extremes of muscle mass, restriction of dietary protein, ingestion of creatine, extra-renal metabolism of creatinine, or treatment with medications that affect renal tubular creatinine secretion. GFR/1.73 sq M predicted among blacks MDRD (S/P/Bld) [Vol rate/Area] mL/min/{1.73_m2} >60 mL/min [place] Glucose [Mass/Vol] 108 mg/dL High 70 - 100 mg/dL [place] Potassium [Moles/Vol] 4.0 mmol/L 3.5 - 5.1 mmol/L [place] Protein [Mass/Vol] 7.4 g/dL 6.3 - 8.2 g/dL [place] Sodium [Moles/Vol] 135 mmol/L 135 - 145 mmol/L [place] Urea nitrogen [Mass/Vol] 15 mg/dL 7 - 20 mg/dL [place] Test Performed by [facility], [address] [facility] [place] [address] [place], [place] Comp Metabolic Panelon 09-27 ALT [Catalytic activity/Vol] 137 U/L High 0-49 [facility] Comment on above: Result Comment: The ALT test is performed by an updated assay method. Please note that the reference intervals have been changed and are now sex specific. Performed By: #### C MP3 #### [facility] [address] [place], [place] Calcium [Mass/Vol] 9.0 mg/dL Normal 8.4-10.4 [facility] Comment on above: Performed By: #### C MP3 #### [place] [address] [place], [place] ALP [Catalytic activity/Vol] 94 U/L Normal 38-126 [facility] Comment on above: Performed By: #### C MP3 #### [place] [address] [place], [place] Anion Gap 7 Normal [facility] Comment on above: Performed By: #### C MP3 #### [place] [address] [place], [place] AST [Catalytic activity/Vol] 72 U/L High 15-46 [facility] Comment on above: Performed By: #### C MP3 #### [facility] [address] [place], [place] Bilirubin [Mass/Vol] 0.5 mg/dL Normal 0.2-1.3 [facility] Comment on above: Performed By: #### C MP3 #### [facility] [address] [place], [place] CO2 [Moles/Vol] 27 mmol/L Normal 22-30 [facility] Comment on above: Performed By: #### C MP3 #### [facility] [address] [place], [place] Creatinine [Mass/Vol] 0.74 mg/dL Normal 0.52-1.25 [facility] Comment on above: Performed By: #### C MP3 #### [address] eGFR OTHER > 90.0 Normal >60 [facility] Comment on above: Result Comment: KDIG O guidelines provide the following GFR categories: Stage GFR(ml/min/1.73 m2) Terms G1 >=90 Normal or high G2 60-89 Mildly decreased* G3a 45-59 Mildly to moderately decreased G3b 30-44 Moderately to severely decreased G4 15-29 Severely decreased G5 <15 Kidney failure *Relative to young adult level. In the absence of evidence of kidney damage, neither GFR category G1 nor G2 fulfill the criteria for CKD. The CKD-EPI equation is validated in individuals 18 years of age and older. Currently the best equation for estimating glomerular filtration rate (GFR) from serum creatinine in children is the Bedside Sanches equation. It is less accurate in patients with extremes of muscle mass, restriction of dietary protein, ingestion of creatine, extra-renal metabolism of creatinine, or treatment with medications that affect renal tubular creatinine secretion. Performed By: #### C MP3 #### [place] [address] [place], [place] GFR/1.73 sq M.predicted among blacks MDRD (S/P/Bld) [Vol rate/Area] mL/min/{1.73_m2} Normal >60 [facility] Comment on above: Performed By: #### C MP3 #### [place] [address] [place], [place] Glucose [Mass/Vol] 108 mg/dL High 70-100 [facility] Comment on above: Performed By: #### C MP3 #### [place] [address] [place], [place] Protein [Mass/Vol] 7.4 g/dL Normal 6.3-8.2 [facility] Comment on above: Performed By: #### C MP3 #### [address] Urea nitrogen [Mass/Vol] 15 mg/dL Normal 7-20 [facility] Comment on above: Performed By: #### C MP3 #### [facility] [address] [place] [address] Potassium [Moles/Vol] 4.0 mmol/L Normal 3.5-5.1 [facility] Comment on above: Performed By: #### C MP3 #### [facility] [address] [place] [address] Sodium [Moles/Vol] 135 mmol/L Normal 135-145 [facility] Comment on above: Performed By: #### C MP3 #### [facility] [address] [place] [address] Albumin [Mass/Vol] 4.2 g/dL Normal 3.5-5.0 [facility] Comment on above: Performed By: #### C MP3 #### [facility] [address] [place] [address] Chloride [Moles/Vol] 101 mmol/L Normal 98-107 [facility] Comment on above: Performed By: #### C MP3 #### [facility] [address] [place] [address] Otheron 09-27-2020 Interpretation and review of laboratory results Abnormal [place] CBC Auto Differentialon 08-17 Basophils (Bld) [#/Vol] 0.1 10*3/uL / L [place] Basophils/100 WBC (Bld) 0.8 % [place] Eosinophils (Bld) [#/Vol] 0.5 10*3/uL / L [place] Eosinophils/100 WBC (Bld) 3.2 % [place] Erythrocyte distribution width (RBC) [Ratio] 13.5 % [place] Hematocrit (Bld) [Volume fraction] 40.5 % Abnormal 41 - 53 % [place] Hemoglobin (Bld) [Mass/Vol] 13.9 g/dL 13.5 - 17.5 g/dL [place] Interpretation and review of laboratory results Abnormal [place] Lymphocytes (Bld) [#/Vol] 1.9 10*3/uL / L [place] Lymphocytes/100 WBC (Bld) 12.7 % [place] MCH (RBC) [Entitic mass] 27.9 pg [place] MCHC (RBC) [Mass/Vol] 34.3 g/dL [place] MCV (RBC) [Entitic vol] 81.4 fL [place] Monocytes (Bld) [#/Vol] 1.4 10*3/uL / L [place] Monocytes/100 WBC (Bld) 9.8 % [place] Neutrophils Absolute 10.8 / L [place] Neutrophils/100 WBC (Bld) 73.5 % [place] Platelet mean volume (Bld) [Entitic vol] 7.4 fL [place] Platelets (Bld) [#/Vol] 161 10*3/uL K/ L [place] RBC (Bld) [#/Vol] 4.98 10*6/uL 10^6/ L [place] WBC (Bld) [#/Vol] 14.7 10^3/mL [place] Surgical Pathology 020 Surgical Pathology [id number] [facility] PATHOLOGY AND [facility]ORATORY MEDICINE [address] [place] [id number] FINAL CONSULTATION REPORT NAME: DEVORAH SANTOS : 1985 35 Y M BILLING NO.: [id number] LOCATION: 1SPO PROCEDURE 09/03/2020 DATE: SURGEON: ANDREINA WORKMAN M.D. RECEIVED 09/13/2020 DATE: ATTENDING ANDREINA WORKMAN M.D. REPORT DATE: 09/13/2020 : COPIES TO: DIAGNOSIS: CONSULT FOR BILLING ONLY FOR [id number] BALBIR/BALBIR Signature> ED SERNA Printed September 13, 2020 at 4:06:03 PM CLINICAL INFORMATION: Consult for billing only for [id number] SPECIMEN: PARAFFIN BLOCK(S) GROSS DESCRIPTION: Consult for billing only. BALBIR/BALBIR Disclaimer: The following statement applies to all immunohistochemistry, in situ hybridization, molecular studies, and immunofluorescence testing. The use of one or more reagents in the above tests is regulated as an analyte specific reagent (ASR). These tests were developed and their performance characteristics determined by the clinical laboratories of [facility]. They have not been cleared by the US Food and Drug Administration (FDA). The FDA has determined that such clearance or approval is not necessary. All the above immunostains were performed on paraffin embedded tissue. Appropriate positive and negative controls (where applicable) were run in parallel with the patient's specimen; these controls showed expected staining pattern, with acceptable intensity of staining. Immunohistochemical assays have not been validated on decalcified tissues. Results should be interpreted with caution given the raised possibility of false negativity on decalcified specimens. Case reviewed at [facility] [place], [place] [id number] Normal [facility] CBC Auto Differentialon 12- Basophils (Bld) [#/Vol] 0.1 10*3/uL / L [place], [place] Basophils/100 WBC (Bld) 0.8 % [place] Eosinophils (Bld) [#/Vol] 0.8 10*3/uL / L [place] Eosinophils/100 WBC (Bld) 8.9 % [place] Erythrocyte distribution width (RBC) [Ratio] 13.5 % [place] Hematocrit (Bld) [Volume fraction] 41.8 % 41 - 53 % [place] Hemoglobin (Bld) [Mass/Vol] 14.2 g/dL 13.5 - 17.5 g/dL [place] Lymphocytes (Bld) [#/Vol] 1.5 10*3/uL / L [place] Lymphocytes/100 WBC (Bld) 17.4 % [place] MCH (RBC) [Entitic mass] 27.8 pg [place] MCHC (RBC) [Mass/Vol] 34.1 g/dL [place] MCV (RBC) [Entitic vol] 81.5 fL [place] Monocytes (Bld) [#/Vol] 0.9 10*3/uL / L [place] Monocytes/100 WBC (Bld) 10.6 % [place] Neutrophils Absolute 5.3 / L [place], [place] Neutrophils/100 WBC (Bld) 62.3 % [place] Platelet mean volume (Bld) [Entitic vol] 7.4 fL [place] Platelets (Bld) [#/Vol] 237 10*3/uL K/ L [place] RBC (Bld) [#/Vol] 5.13 10*6/uL 10^6/ L [place] WBC (Bld) [#/Vol] 8.6 10^3/mL [place] COMPREHENSIVE METABOLIC PANE Esequiel 08-30-2020 Albumin [Mass/Vol] 4.2 g/dL 3.5 - 5 g/dL [place] ALP [Catalytic activity/Vol] 107 U/L 38 - 126 U/L [place] ALT [Catalytic activity/Vol] 23 U/L 0 - 49 U/L [place] Comment on above: The ALT test is perf ormed by an updated assay method. Please note that the reference intervals have been changed and are now sex specific. Anion gap [Moles/Vol] 8 mmol/L [place] AST [Catalytic activity/Vol] 36 U/L 15 - 46 U/L [place] Bilirubin Ql (U) 0.3 mg/dL 0.2 - 1.3 mg/dL [place] Calcium [Mass/Vol] 9.2 mg/dL 8.4 - 10. 4 mg/dL [place] Chloride [Moles/Vol] 101 mmol/L 98 - 10 7 mmol/L [place] CO2 [Moles/Vol] 29 mmol/L 22 - 30 mmol/L [place] Creatinine [Mass/Vol] 0.7 mg/dL 0.52 - 1.25 mg/dL [place] EGFR IF NonAfrican Turkmen >90.0 >60 mL/min [place] Comment on above: KDIGO guidelines pro vide the following GFR categories: Stage GFR(ml/min/1.73 m2) Terms G1 >=90 Normal or high G2 60-89 Mildly decreased* G3a 45-59 Mildly to moderately decreased G3b 30-44 Moderately to severely decreased G4 15-29 Severely decreased G5 <15 Kidney failure *Relative to young adult level. In the absence of evidence of kidney damage, neither GFR category G1 nor G2 fulfill the criteria for CKD. The CKD-EPI equation is validated in individuals 18 years of age and older. Currently the best equation for estimating glomerular filtration rate (GFR) from serum creatinine in children is the Bedside Sanches equation. It is less accurate in patients with extremes of muscle mass, restriction of dietary protein, ingestion of creatine, extra-renal metabolism of creatinine, or treatment with medications that affect renal tubular creatinine secretion. GFR/1.73 sq M predicted among blacks MDRD (S/P/Bld) [Vol rate/Area] mL/min/{1.73_m2} >60 mL/min [place] Glucose [Mass/Vol] 101 mg/dL High 70 - 100 mg/dL [place] Interpretation and review of laboratory results Abnormal [place] Potassium [Moles/Vol] 4.1 mmol/L 3.5 - 5.1 mmol/L [place] Protein [Mass/Vol] 7.3 g/dL 6.3 - 8.2 g/dL [place] Sodium [Moles/Vol] 138 mmol/L 135 - 145 mmol/L [place] Urea nitrogen [Mass/Vol] 17 mg/dL 7 - 20 mg/dL [place] Test Performed by [facility], [address] [place] [address] [place], [place] Comp Metabolic Panelon 08-30 Calcium [Mass/Vol] 9.2 mg/dL Normal 8.4-10.4 [facility] Comment on above: Performed By: #### C MP3 #### [place] [address] [address] [place], [place] ALP [Catalytic activity/Vol] 107 U/L Normal 38-126 [facility] Comment on above: Performed By: #### C MP3 #### [address] ALT [Catalytic activity/Vol] 23 U/L Normal 0-49 [facility] Comment on above: Result Comment: The ALT test is performed by an updated assay method. Please note that the reference intervals have been changed and are now sex specific. Performed By: #### C MP3 #### [place] [address] [address] [place], [place] Anion Gap 8 Normal [facility] Comment on above: Performed By: #### C MP3 #### [place] [address] [place], [place] AST [Catalytic activity/Vol] 36 U/L Normal 15-46 [facility] Comment on above: Performed By: #### C MP3 #### [address] Bilirubin [Mass/Vol] 0.3 mg/dL Normal 0.2-1.3 [facility] Comment on above: Performed By: #### C MP3 #### [facility] [address] [place], [place] CO2 [Moles/Vol] 29 mmol/L Normal 22-30 [facility] Comment on above: Performed By: #### C MP3 #### [facility] [address] [place], [place] Glucose [Mass/Vol] 101 mg/dL High 70-100 [facility] Comment on above: Performed By: #### C MP3 #### [facility] [address] [place], [place] Protein [Mass/Vol] 7.3 g/dL Normal 6.3-8.2 [facility] Comment on above: Performed By: #### C MP3 #### [facility] [address] [place], [place] Urea nitrogen [Mass/Vol] 17 mg/dL Normal 7-20 [facility] Comment on above: Performed By: #### C MP3 #### [facility] [address] [place], [place] Creatinine [Mass/Vol] 0.70 mg/dL Normal 0.52-1.25 [facility] Comment on above: Performed By: #### C MP3 #### [facility] [address] [place], [place] eGFR OTHER > 90.0 Normal >60 [facility] Comment on above: Result Comment: KDIG O guidelines provide the following GFR categories: Stage GFR(ml/min/1.73 m2) Terms G1 >=90 Normal or high G2 60-89 Mildly decreased* G3a 45-59 Mildly to moderately decreased G3b 30-44 Moderately to severely decreased G4 15-29 Severely decreased G5 <15 Kidney failure *Relative to young adult level. In the absence of evidence of kidney damage, neither GFR category G1 nor G2 fulfill the criteria for CKD. The CKD-EPI equation is validated in individuals 18 years of age and older. Currently the best equation for estimating glomerular filtration rate (GFR) from serum creatinine in children is the Bedside Sanches equation. It is less accurate in patients with extremes of muscle mass, restriction of dietary protein, ingestion of creatine, extra-renal metabolism of creatinine, or treatment with medications that affect renal tubular creatinine secretion. Performed By: #### C MP3 #### [facility] [address] [place], [place] GFR/1.73 sq M.predicted among blacks MDRD (S/P/Bld) [Vol rate/Area] mL/min/{1.73_m2} Normal >60 [facility] Comment on above: Performed By: #### C MP3 #### [facility] [address] [place], [place] Albumin [Mass/Vol] 4.2 g/dL Normal 3.5-5.0 [facility] Comment on above: Performed By: #### C MP3 #### [facility] [address] [place], [place] Chloride [Moles/Vol] 101 mmol/L Normal 98-107 [facility] Comment on above: Performed By: #### C MP3 #### [facility] [address] [place], [place] Potassium [Moles/Vol] 4.1 mmol/L Normal 3.5-5.1 [facility] Comment on above: Performed By: #### C MP3 #### [facility] [address] [place], [place] Sodium [Moles/Vol] 138 mmol/L Normal 135-145 [facility] Comment on above: Performed By: #### C MP3 #### [facility] [address] [place], [place] ECHO Complete 2D W Doppler W [place] 08-22-2020 TRANSTHORACIC ECHOCARDIOGRAM PATIENT: Devorah Santos STUDY DATE: 08/22/2020 : 1985 AGE: 35 HT/WT: 188 cm (74 139.3 kg in) (306.4 lb) GENDER: M BP: 133 / 87 LOCATION: [place] [address] PATIENT Outpatient [facility] [address] STATUS: *ORDERING PHYSICIAN: * Prakash Caldwell *READING PHYSICIAN: * Asad Goodson, *EMERGENCY OPERATOR: * Sophia DAMON MD INDICATIONS: Pre chemo. HISTORY: Risk factors: Hypertension. CONCLUSIONS SUMMARY: 1. Left ventricle: There is mild concentric hypertrophy. Systolic function is normal by the biplane method of disks. The estimated ejection fraction is 60%. There are no regional wall motion abnormalities. Left ventricular diastolic function parameters are normal. 2. Right ventricle: The cavity size is mildly dilated. 3. Right atrium: The atrium is mildly dilated. 4. Systemic veins: Poorly visualized. 5. Unable to estimate RVSP. STUDY DATA: Complete transthoracic echocardiogram. Procedure: Image quality was suboptimal. The study was technically limited due to body habitus. Intravenous imaging enhancement (Definity) was administered. Definity lot #: [id number]. M-mode, complete 2D, complete spectral Doppler, and color flow Doppler images were acquired and archived for permanent storage and are available for subsequent review. Study status: Routine. Patient status: Outpatient. FINDINGS LEFT VENTRICLE: The cavity size is normal. Wall thickness is mildly increased. There is mild concentric hypertrophy. Systolic function is normal by the biplane method of disks. The estimated ejection fraction is 60%. There are no regional wall motion abnormalities. Left ventricular diastolic function parameters are normal. RIGHT VENTRICLE: The cavity size is mildly dilated. Systolic function is normal. LEFT ATRIUM: The atrium is normal in size. RIGHT ATRIUM: The atrium is mildly dilated. ATRIAL SEPTUM: Doppler shows no shunt. MITRAL VALVE: Structurally normal valve. Doppler: There is no significant regurgitation. AORTIC VALVE: Probably trileaflet; normal thickness leaflets. Doppler: There is trivial, less than 1+ regurgitation. The peak systolic gradient is 10 mm Hg. The peak systolic velocity is 1.6 m/sec. TRICUSPID VALVE: Structurally normal valve. Doppler: There is trivial, less than 1+ regurgitation. PULMONIC VALVE: Structurally normal valve. Doppler: There is no significant regurgitation. AORTA: Aortic root: The aortic root is normal in size. Ascending aorta: The ascending aorta is normal in size. PERICARDIUM: There is no pericardial effusion. SYSTEMIC VEINS: Poorly visualized. Measurements Value Reference Ascending aorta ID, A-P, S 3.1 cm Ascending aorta ID/bsa, A-P, S 1.1 cm/m^2 Left ventricle Value Reference LV ID, ED 4.7 cm 4.2 - 5.8 LV ID, ES 3.1 cm 2.5 - 4.0 LV ID/bsa, ED (L) 1.7 cm/m^2 2.2 - 3.0 LV ID/bsa, ES (L) 1.1 cm/m^2 1.3 - 2.1 LV PW thickness, ED (H) 1.3 cm 0.6 - 1.0 LV PW/LV ID ratio, ED 0.27 LV wall mass (H) 241 g 96 - 200 LV wall mass/bsa 88 g/m^2 50 - 102 Stroke volume/bsa, 1-p A2C 29.6 ml/m^2 LV end-diastolic volume, 1-p A4C 142 ml 69 - 185 LV end-systolic volume, 1-p A4C 53 ml 22 - 78 LV end-diastolic volume, 2-p 150 ml 62 - 150 LV end-systolic volume, 2-p 60 ml 21 - 61 LV ejection fraction, 2-p 60 % 52 - 72 Ventricular septum Value Reference IVS thickness, ED (H) 1.3 cm 0.6 - 1.0 LVOT Value Reference LVOT ID, A-P 2.4 cm LVOT mean velocity, S 0.7 m/sec LVOT peak gradient, S 4 mm Hg Stroke volume (SV), LVOT DP 73 ml Stroke index (SV/bsa), LVOT DP 27 ml/m^2 Aortic valve Value Reference Aortic valve peak velocity, S 1.6 m/sec Aortic peak gradient, S 10 mm Hg Left atrium Value Reference LA volume/bsa, ES, 2-p 22 ml/m^2 16 - 34 Right atrium Value Reference RA area, ES, A4C (H) 22 cm^2 10 - 18 Systemic veins Value Reference Estimated RAP 8 mm Hg Right ventricle Value Reference RV ID, minor axis, ED, A4C base (H) 4.4 cm 2.5 - 4.1 RV ID, minor axis, ED, A4C mid 3.0 cm 1.9 - 3.5 TAPSE, 2D 2.6 cm 1.7 - 3.1 RV s', lateral 9.9 cm/sec 6.0 - 13.4 Legend: (L) and (H) eduard values outside specified reference range. Electronically signed by Asad Goodson MD 08/22/2020 11:42 Prior Signatures: [facility] [place], [place] Anil, [facility] Incoming Cardiology Results From [facility] - 08/22/2020 11:42 AM EST TRANSTHORACIC ECHOCARDIOGRAM PATIENT: Devorah Santos STUDY DATE: 08/22/2020 : 1985 AGE: 35 HT/WT: 188 cm (74 139.3 kg in) (306.4 lb) GENDER: M BP: 133 / 87 LOCATION: [place] [address] [address] STATUS: *ORDERING PHYSICIAN: * Prakash Caldwell *READING PHYSICIAN: * Asad Goodson, *EMERGENCY OPERATOR: Damaris DAMON MD INDICATIONS: Pre chemo. HISTORY: Risk factors: Hypertension. CONCLUSIONS SUMMARY: 1. Left ventricle: There is mild concentric hypertrophy. Systolic function is normal by the biplane method of disks. The estimated ejection fraction is 60%. There are no regional wall motion abnormalities. Left ventricular diastolic function parameters are normal. 2. Right ventricle: The cavity size is mildly dilated. 3. Right atrium: The atrium is mildly dilated. 4. Systemic veins: Poorly visualized. 5. Unable to estimate RVSP. STUDY DATA: Complete transthoracic echocardiogram. Procedure: Image quality was suboptimal. The study was technically limited due to body habitus. Intravenous imaging enhancement (Definity) was administered. Definity lot #: [id number]. M-mode, complete 2D, complete spectral Doppler, and color flow Doppler images were acquired and archived for permanent storage and are available for subsequent review. Study status: Routine. Patient status: Outpatient. FINDINGS LEFT VENTRICLE: The cavity size is normal. Wall thickness is mildly increased. There is mild concentric hypertrophy. Systolic function is normal by the biplane method of disks. The estimated ejection fraction is 60%. There are no regional wall motion abnormalities. Left ventricular diastolic function parameters are normal. RIGHT VENTRICLE: The cavity size is mildly dilated. Systolic function is normal. LEFT ATRIUM: The atrium is normal in size. RIGHT ATRIUM: The atrium is mildly dilated. ATRIAL SEPTUM: Doppler shows no shunt. MITRAL VALVE: Structurally normal valve. Doppler: There is no significant regurgitation. AORTIC VALVE: Probably trileaflet; normal thickness leaflets. Doppler: There is trivial, less than 1+ regurgitation. The peak systolic gradient is 10 mm Hg. The peak systolic velocity is 1.6 m/sec. TRICUSPID VALVE: Structurally normal valve. Doppler: There is trivial, less than 1+ regurgitation. PULMONIC VALVE: Structurally normal valve. Doppler: There is no significant regurgitation. AORTA: Aortic root: The aortic root is normal in size. Ascending aorta: The ascending aorta is normal in size. PERICARDIUM: There is no pericardial effusion. SYSTEMIC VEINS: Poorly visualized. Measurements Value Reference Ascending aorta ID, A-P, S 3.1 cm Ascending aorta ID/bsa, A-P, S 1.1 cm/m^2 Left ventricle Value Reference LV ID, ED 4.7 cm 4.2 - 5.8 LV ID, ES 3.1 cm 2.5 - 4.0 LV ID/bsa, ED (L) 1.7 cm/m^2 2.2 - 3.0 LV ID/bsa, ES (L) 1.1 cm/m^2 1.3 - 2.1 LV PW thickness, ED (H) 1.3 cm 0.6 - 1.0 LV PW/LV ID ratio, ED 0.27 LV wall mass (H) 241 g 96 - 200 LV wall mass/bsa 88 g/m^2 50 - 102 Stroke volume/bsa, 1-p A2C 29.6 ml/m^2 LV end-diastolic volume, 1-p A4C 142 ml 69 - 185 LV end-systolic volume, 1-p A4C 53 ml 22 - 78 LV end-diastolic volume, 2-p 150 ml 62 - 150 LV end-systolic volume, 2-p 60 ml 21 - 61 LV ejection fraction, 2-p 60 % 52 - 72 Ventricular septum Value Reference IVS thickness, ED (H) 1.3 cm 0.6 - 1.0 LVOT Value Reference LVOT ID, A-P 2.4 cm LVOT mean velocity, S 0.7 m/sec LVOT peak gradient, S 4 mm Hg Stroke volume (SV), LVOT DP 73 ml Stroke index (SV/bsa), LVOT DP 27 ml/m^2 Aortic valve Value Reference Aortic valve peak velocity, S 1.6 m/sec Aortic peak gradient, S 10 mm Hg Left atrium Value Reference LA volume/bsa, ES, 2-p 22 ml/m^2 16 - 34 Right atrium Value Reference RA area, ES, A4C (H) 22 cm^2 10 - 18 Systemic veins Value Reference Estimated RAP 8 mm Hg Right ventricle Value Reference RV ID, minor axis, ED, A4C base (H) 4.4 cm 2.5 - 4.1 RV ID, minor axis, ED, A4C mid 3.0 cm 1.9 - 3.5 TAPSE, 2D 2.6 cm 1.7 - 3.1 RV s', lateral 9.9 cm/sec 6.0 - 13.4 Legend: (L) and (H) eduard values outside specified reference range. Electronically signed by Asad Goodson MD 08/22/2020 11:42 Prior Signatures: [place] Echo Complete w/wo Contrasto n 08-22-2020 Echo Complete w/wo Contrast Patient Name: DEVORAH SANTOS Ultrasound ACCESSION EXAM DATE/TIME PROCEDURE ORDERING PROVIDER [id number] 08/22/2020 10:59 EST Echo Complete w/wo PRAKASH CALDWELL Reason For Exam (Echo Complete w/wo Contrast) pre chemo Report TRANSTHORACIC ECHOCARDIOGRAM PATIENT: Devorah Santos STUDY DATE: 08/22/2020 : 1985 AGE: 35 HT/WT: 188 cm (74 139.3 kg in) (306.4 lb) GENDER: M BP: 133 / 87 LOCATION: [place] [address] [address] STATUS: *ORDERING PHYSICIAN: * Prakash Caldwell *READING PHYSICIAN: * Asad Goodson, *EMERGENCY OPERATOR: * Sophia DAMON MD INDICATIONS: Pre chemo. HISTORY: Risk factors: Hypertension. CONCLUSIONS SUMMARY: 1. Left ventricle: There is mild concentric hypertrophy. Systolic function is normal by the biplane method of disks. The estimated ejection fraction is 60%. There are no regional wall motion abnormalities. Left ventricular diastolic function parameters are normal. 2. Right ventricle: The cavity size is mildly dilated. 3. Right atrium: The atrium is mildly dilated. 4. Systemic veins: Poorly visualized. 5. Unable to estimate RVSP. STUDY DATA: Complete transthoracic echocardiogram. Procedure: Image quality was suboptimal. The study was technically limited due to body habitus. Intravenous imaging enhancement (Definity) was administered. Definity lot #: [id number]. M-mode, complete 2D, complete spectral Doppler, and color flow Doppler images were acquired and archived for permanent storage and are available for subsequent review. Study status: Routine. Patient status: Outpatient. FINDINGS Ultrasound Report LEFT VENTRICLE: The cavity size is normal. Wall thickness is mildly increased. There is mild concentric hypertrophy. Systolic function is normal by the biplane method of disks. The estimated ejection fraction is 60%. There are no regional wall motion abnormalities. Left ventricular diastolic function parameters are normal. RIGHT VENTRICLE: The cavity size is mildly dilated. Systolic function is normal. LEFT ATRIUM: The atrium is normal in size. RIGHT ATRIUM: The atrium is mildly dilated. ATRIAL SEPTUM: Doppler shows no shunt. MITRAL VALVE: Structurally normal valve. Doppler: There is no significant regurgitation. AORTIC VALVE: Probably trileaflet; normal thickness leaflets. Doppler: There is trivial, less than 1+ regurgitation. The peak systolic gradient is 10 mm Hg. The peak systolic velocity is 1.6 m/sec. TRICUSPID VALVE: Structurally normal valve. Doppler: There is trivial, less than 1+ regurgitation. PULMONIC VALVE: Structurally normal valve. Doppler: There is no significant regurgitation. AORTA: Aortic root: The aortic root is normal in size. Ascending aorta: The ascending aorta is normal in size. PERICARDIUM: There is no pericardial effusion. SYSTEMIC VEINS: Poorly visualized. Measurements Value Reference Ascending aorta ID, A-P, S 3.1 cm Ascending aorta ID/bsa, A-P, S 1.1 cm/m^2 Left ventricle Value Reference LV ID, ED 4.7 cm 4.2 - 5.8 LV ID, ES 3.1 cm 2.5 - 4.0 LV ID/bsa, ED (L) 1.7 cm/m^2 2.2 - 3.0 LV ID/bsa, ES (L) 1.1 cm/m^2 1.3 - 2.1 LV PW thickness, ED (H) 1.3 cm 0.6 - 1.0 LV PW/LV ID ratio, ED 0.27 LV wall mass (H) 241 g 96 - 200 LV wall mass/bsa 88 g/m^2 50 - 102 Stroke volume/bsa, 1-p A2C 29.6 ml/m^2 LV end-diastolic volume, 1-p A4C 142 ml 69 - 185 LV end-systolic volume, 1-p A4C 53 ml 22 - 78 LV end-diastolic volume, 2-p 150 ml 62 - 150 LV end-systolic volume, 2-p 60 ml 21 - 61 LV ejection fraction, 2-p 60 % 52 - 72 Ventricular septum Value Reference IVS thickness, ED (H) 1.3 cm 0.6 - 1.0 LVOT Value Reference LVOT ID, A-P 2.4 cm LVOT mean velocity, S 0.7 m/sec LVOT peak gradient, S 4 mm Hg Stroke volume (SV), LVOT DP 73 ml Stroke index (SV/bsa), LVOT DP 27 ml/m^2 Aortic valve Value Reference Aortic valve peak velocity, S 1.6 m/sec Aortic peak gradient, S 10 mm Hg Ultrasound Report Left atrium Value Reference LA volume/bsa, ES, 2-p 22 ml/m^2 16 - 34 Right atrium Value Reference RA area, ES, A4C (H) 22 cm^2 10 - 18 Systemic veins Value Reference Estimated RAP 8 mm Hg Right ventricle Value Reference RV ID, minor axis, ED, A4C base (H) 4.4 cm 2.5 - 4.1 RV ID, minor (more content not included)... Normal [facility] CBCon 08-19-2020 Erythrocyte distribution width (RBC) [Ratio] 13.5 % 11.5 - 14.5 % [place] Hematocrit (Bld) [Volume fraction] 42.1 % 40 - 52 % [place] Hemoglobin (Bld) [Mass/Vol] 14.3 g/dL 13 - 18 g/dL [place] MCH (RBC) [Entitic mass] 28.0 pg 26 - 34 pg [place] MCHC (RBC) [Mass/Vol] 34.1 % 32 - 36 % [place] MCV (RBC) [Entitic vol] 82.1 fL 80 - 98 fL [facility], [place] Platelet mean volume (Bld) [Entitic vol] 7.5 fL 7.4 - 10.4 fL [facility], [place] Platelets (Bld) [#/Vol] 302 10*3/uL 140 - 440 10*3/uL [place] RBC (Bld) [#/Vol] 5.12 10*6/uL 4.4 - 5.9 10*6/uL [facility], [place] WBC (Bld) [#/Vol] 9.3 10*3/uL 3.6 - 10.7 10*3/uL [place] Test Performed by [facility], [address] [place], [place], [place] [id number] [place] [address] XA SPECIAL ANGIOGRAPHY PROCE [facility] 08-19-2020 [place], [facility] Incoming Radiology Results From [facility] - 08/19/2020 2:09 PM EST Patient Name: DEVORAH SANTOS ---Special Procedures--- Exam Date/Time 08/19/2020 13:44:59 EST Exam XA Special Angiography Procedure Ordering Physician PRAKASH CALDWELL Accession Number [id number] Reason For Exam port placement Report CLINICAL HISTORY: Lymphoma PROCEDURE: Right-sided Mediport placement. Physicians: Dr. Hughes MEDICATIONS: Local lidocaine, 2 mg Versed IV, 100 mcg fentanyl IV, 1 g Ancef IV EBL: Minimal Specimen sent: None. COMPLICATIONS: None. Fluoroscopy time: 0.2 minutes Angiographic runs: 0 Fluoroscopic spot images: 0 Fluoroscopic saved images were obtained. These images do NOT add additional exposure to ionizing radiation and were captured electronically from the imaging chain. Procedural note: All of the risk and benefits of the procedure were explained to the patient and informed consent was obtained and documented. The patient was brought into the angiography suite and placed in a supine position. A timeout was performed. Conscious sedation was performed by a trained sedation nurse under my direct supervision. Intraservice time was 25 minutes. The patient's right internal jugular vein was interrogated with ultrasound and found to be widely patent. A permanent ultrasound image was stored to the patient's record. The patient's right neck and chest were prepped and draped in the usual sterile fashion. Maximal sterile barrier technique was utilized. All elements of maximal sterile barrier technique were utilized including a hat, mask, sterile gown, sterile gloves, and a large sterile sheet. Chlorhexidine was utilized for cutaneous antisepsis. Sterile ultrasound gel and a sterile ultrasound cover were also used. The overlying subcutaneous tissues of the right neck were anesthetized using 2 percent lidocaine. Under direct ultrasound visualization, a 21-gauge micropuncture needle was advanced into the right internal jugular vein. Following this, a 0.018 micropuncture wire was advanced through the needle into the IVC. A spot image was performed. This was then up sized to a 0.035 J- wire. Attention was then directed to the patient's right chest. A 1 inch incision was made overlying the right second rib. A pocket was made using blunt dissection. Following this, the Mediport and catheter were tunneled from the pocket to the venotomy site. The catheter was then cut to the appropriate length. A peel-away sheath was advanced down the initial J-wire and the catheter was placed through the peel-away sheath. Postprocedural fluoroscopy demonstrated the catheter tip to be at the cavoatrial junction. The pocket was then closed using 3-0 Vicryl in a buried interrupted fashion. Overlying Dermabond was then applied to the chest incision as well as the venotomy at the neck. The patient tolerated the procedure well. FINDINGS: Tip of the Mediport catheter in appropriate position. IMPRESSION: Successful uncomplicated fluoroscopic and ultrasound-guided placement of a right-sided Mediport catheter. The port is ready for use. The Dermabond dressing should falloff by itself in approximately 7 to 10 days. The patient was counseled to avoid any immersion in water for two weeks. They were also advised to keep the area as dry as possible. Report Dictated on --- Final --- Dictating Physician: MD HUGHES KEVIN Signed Date and Time: 08/19/2020 2:08 pm Signed by: MD HUGHES KEVIN Transcribed Date and Time: 08/19/2020 2:09 [place], [place] Patient Name: DEVORAH ALLAN ---Special Procedures--- Exam Date/Time 08/19/2020 13:44:59 EST Exam XA Special Angiography Procedure Ordering Physician PRAKASH CALDWELL Accession Number [id number] Reason For Exam port placement Report CLINICAL HISTORY: Lymphoma PROCEDURE: Right-sided Mediport placement. Physicians: Dr. Hughes MEDICATIONS: Local lidocaine, 2 mg Versed IV, 100 mcg fentanyl IV, 1 g Ancef IV EBL: Minimal Specimen sent: None. COMPLICATIONS: None. Fluoroscopy time: 0.2 minutes Angiographic runs: 0 Fluoroscopic spot images: 0 Fluoroscopic saved images were obtained. These images do NOT add additional exposure to ionizing radiation and were captured electronically from the imaging chain. Procedural note: All of the risk and benefits of the procedure were explained to the patient and informed consent was obtained and documented. The patient was brought into the angiography suite and placed in a supine position. A timeout was performed. Conscious sedation was performed by a trained sedation nurse under my direct supervision. Intraservice time was 25 minutes. The patient's right internal jugular vein was interrogated with ultrasound and found to be widely patent. A permanent ultrasound image was stored to the patient's record. The patient's right neck and chest were prepped and draped in the usual sterile fashion. Maximal sterile barrier technique was utilized. All elements of maximal sterile barrier technique were utilized including a hat, mask, sterile gown, sterile gloves, and a large sterile sheet. Chlorhexidine was utilized for cutaneous antisepsis. Sterile ultrasound gel and a sterile ultrasound cover were also used. The overlying subcutaneous tissues of the right neck were anesthetized using 2 percent lidocaine. Under direct ultrasound visualization, a 21-gauge micropuncture needle was advanced into the right internal jugular vein. Following this, a 0.018 micropuncture wire was advanced through the needle into the IVC. A spot image was performed. This was then up sized to a 0.035 J- wire. Attention was then directed to the patient's right chest. A 1 inch incision was made overlying the right second rib. A pocket was made using blunt dissection. Following this, the Mediport and catheter were tunneled from the pocket to the venotomy site. The catheter was then cut to the appropriate length. A peel-away sheath was advanced down the initial J-wire and the catheter was placed through the peel-away sheath. Postprocedural fluoroscopy demonstrated the catheter tip to be at the cavoatrial junction. The pocket was then closed using 3-0 Vicryl in a buried interrupted fashion. Overlying Dermabond was then applied to the chest incision as well as the venotomy at the neck. The patient tolerated the procedure well. FINDINGS: Tip of the Mediport catheter in appropriate position. IMPRESSION: Successful uncomplicated fluoroscopic and ultrasound-guided placement of a right-sided Mediport catheter. The port is ready for use. The Dermabond dressing should falloff by itself in approximately 7 to 10 days. The patient was counseled to avoid any immersion in water for two weeks. They were also advised to keep the area as dry as possible. Report Dictated on --- Final --- Dictating Physician: MD HUGHES KEVIN Signed Date and Time: 08/19/2020 2:08 pm Signed by: MD HUGHES KEVIN Transcribed Date and Time: 08/19/2020 2:09 [place], [place] Op Noteon 08-07-2020 Op Note PATIENT: DEVORAH SANTOS ADMISSION DATE: 07/27/2020 SURGERY DATE: 07/27/2020 DATE OF : 1985 AGE: 35 ADMITTING PHYSICIAN: Andreina Workman MD ATTENDING PHYSICIAN: Andreina Workman MD DICTATING PHYSICIAN: Andreina Workman MD OPERATIVE RECORD Procedure: Right thoracoscopy, biopsy of mediastinal mass; therapeutic wedge resection of middle lobe mass with frozen section. Preoperative Diagnosis: Mediastinal adenopathy, mediastinal mass, mass right middle lobe. Postoperative Diagnosis:Same Anesthesia:Clay Puddler: Flora Cruz M.D. Clinical History: The patient is a 35-year-old gentleman who had been treated for lymphoma in the past, who was found to have a mediastinal mass as well as a well-circumscribed lesion on the middle lobe. Recommendation was made to proceed with surgical biopsy. The risks, benefits, and alternatives were discussed in detail with the patient and he agreed to proceed. Description of Procedure: The patient was taken to the operative suite and placed under general endotracheal anesthesia with a double-lumen endotracheal tube in place. The right lung was isolated and the patient was positioned in lateral decubitus position. After he was positioned, prepped, and draped, a trocar was inserted into the right hemithorax and accessory trocars were placed as well in a triangulated fashion. Evaluation of the mediastinal mass revealed a large lesion that was accessible to biopsy. We incised the pleura on the surface and then proceeded with multiple biopsies of the mediastinal mass. These were sent for pathologic evaluation and the pathologist did a frozen section and confirmed, sufficient material present to establish a diagnosis. There was some suspicion of recurrent lymphoma. We then evaluated the middle lobe lung mass, which appeared to be amenable to excisional biopsy. Therefore, a linear stapler was used to perform a wedge resection that incorporated the linear with a well-circumscribed mass within the middle lobe and placed it into a specimen bag and brought it out through one of the trocar sites and sent this for pathologic evaluation as well. Preliminary evaluation on frozen section revealed what appeared to be a high-grade malignancy. However, further details needed to be deferred until permanent section was processed. We placed a chest tube through one of the trocar sites. We re-expanded the lung. After ensuring hemostasis, then proceeded with closure. Remaining incisions were closed in subcuticular fashion. The patient was awakened, extubated, and taken to recovery room in stable condition. Diskriter Job ID: [id number] Andreina Workman MD DOD:08/07/2020 12:58 P EE/dsk DOT:08/07/2020 01:50 P Job Number: [id number] Document Number: [id number] cc: Andreina Workman MD [facility] [address] [address] Normal [facility] Basic Metabolic Panelon 07-17 Calcium [Mass/Vol] 8.9 mg/dL Normal 8.4-10.4 [facility] Comment on above: Performed By: #### C MP3 #### [address] Glucose [Mass/Vol] 142 mg/dL High 70-100 [facility] Comment on above: Performed By: #### C MP3 #### [facility] [address] [place], [place] Anion Gap 7 Normal [facility] Comment on above: Performed By: #### C MP3 #### [address] CO2 [Moles/Vol] 26 mmol/L Normal 22-30 [facility] Comment on above: Performed By: #### C MP3 #### [facility] [address] [place], [place] Creatinine [Mass/Vol] 0.72 mg/dL Normal 0.52-1.25 [facility] Comment on above: Performed By: #### C MP3 #### [facility] [address] [place], [place] eGFR OTHER > 90.0 Normal >60 [facility] Comment on above: Result Comment: KDIG O guidelines provide the following GFR categories: Stage GFR(ml/min/1.73 m2) Terms G1 >=90 Normal or high G2 60-89 Mildly decreased* G3a 45-59 Mildly to moderately decreased G3b 30-44 Moderately to severely decreased G4 15-29 Severely decreased G5 <15 Kidney failure *Relative to young adult level. In the absence of evidence of kidney damage, neither GFR category G1 nor G2 fulfill the criteria for CKD. The CKD-EPI equation is validated in individuals 18 years of age and older. Currently the best equation for estimating glomerular filtration rate (GFR) from serum creatinine in children is the Bedside Sanches equation. It is less accurate in patients with extremes of muscle mass, restriction of dietary protein, ingestion of creatine, extra-renal metabolism of creatinine, or treatment with medications that affect renal tubular creatinine secretion. Performed By: #### C MP3 #### [facility] [address] [place], [place] GFR/1.73 sq M.predicted among blacks MDRD (S/P/Bld) [Vol rate/Area] mL/min/{1.73_m2} Normal >60 [facility] Comment on above: Performed By: #### C MP3 #### [facility] [address] [place], [place] Urea nitrogen [Mass/Vol] 12 mg/dL Normal 7-20 [facility] Comment on above: Performed By: #### C MP3 #### [facility] [address] [place], [place] Chloride [Moles/Vol] 103 mmol/L Normal 98-107 [facility] Comment on above: Performed By: #### C MP3 #### [facility] [address] [place] [address] Potassium [Moles/Vol] 4.5 mmol/L Normal 3.5-5.1 [facility] Comment on above: Result Comment: Lionel htly hemolysed, interpret with caution. Performed By: #### C MP3 #### [facility] [address] [place] [address] Sodium [Moles/Vol] 135 mmol/L Normal 135-145 [facility] Comment on above: Performed By: #### C MP3 #### [facility] [address] [place] [address] Anion gap [Moles/Vol] 7 mmol/L [place], [place] Calcium [Mass/Vol] 8.9 mg/dL 8.4 - 10. 4 mg/dL [place], [place] Chloride [Moles/Vol] 103 mmol/L 98 - 10 7 mmol/L [place] CO2 [Moles/Vol] 26 mmol/L 22 - 30 mmol/L [place] Creatinine [Mass/Vol] 0.72 mg/dL 0.52 - 1.25 mg/dL [place] EGFR IF NonAfrican Turkmen >90.0 >60 mL/min [place] Comment on above: KDIGO guidelines pro vide the following GFR categories: Stage GFR(ml/min/1.73 m2) Terms G1 >=90 Normal or high G2 60-89 Mildly decreased* G3a 45-59 Mildly to moderately decreased G3b 30-44 Moderately to severely decreased G4 15-29 Severely decreased G5 <15 Kidney failure *Relative to young adult level. In the absence of evidence of kidney damage, neither GFR category G1 nor G2 fulfill the criteria for CKD. The CKD-EPI equation is validated in individuals 18 years of age and older. Currently the best equation for estimating glomerular filtration rate (GFR) from serum creatinine in children is the Bedside Sanches equation. It is less accurate in patients with extremes of muscle mass, restriction of dietary protein, ingestion of creatine, extra-renal metabolism of creatinine, or treatment with medications that affect renal tubular creatinine secretion. GFR/1.73 sq M predicted among blacks MDRD (S/P/Bld) [Vol rate/Area] mL/min/{1.73_m2} >60 mL/min [place], [place] Glucose [Mass/Vol] 142 mg/dL High 70 - 100 mg/dL [place] Interpretation and review of laboratory results Abnormal [place] Potassium [Moles/Vol] 4.5 mmol/L 3.5 - 5.1 mmol/L [place] Comment on above: Slightly hemolysed, interpret with caution. Sodium [Moles/Vol] 135 mmol/L 135 - 145 mmol/L [place] Urea nitrogen [Mass/Vol] 12 mg/dL 7 - 20 mg/dL [place] Test Performed by [address] [address] [place] CBC auto differentialon - Absolute Baso # 0.0 10*3/uL 0 - 0.2 10*3/uL [place] Absolute Neut # 11.0 10*3/uL High 1.8 - 7 10*3/uL [place] Basophils/100 WBC (Bld) 0.1 % 0 - 2 % [place] Eosinophils (Bld) [#/Vol] 0.0 10*3/uL 0 - 0.5 10*3/uL [place] Eosinophils/100 WBC (Bld) 0.2 % Low 1 - 6 % [place] Erythrocyte distribution width (RBC) [Ratio] 13.4 % 11.5 - 14.5 % [place] Granulocytes/100 WBC (Bld) 83.5 % High 40 - 80 % [place] Hematocrit (Bld) [Volume fraction] 38.3 % Low 40 - 52 % [place] Hemoglobin (Bld) [Mass/Vol] 13.1 g/dL 13 - 18 g/dL [place] Interpretation and review of laboratory results Abnormal [place] Lymphocytes (Bld) [#/Vol] 0.8 10*3/uL Low 1 - 4.3 10*3/uL [place] Lymphocytes/100 WBC (Bld) 6.4 % Low 20 - 40 % [place] MCH (RBC) [Entitic mass] 27.9 pg 26 - 34 pg [place] MCHC (RBC) [Mass/Vol] 34.0 % 32 - 36 % [place] MCV (RBC) [Entitic vol] 82.1 fL 80 - 98 fL [place] Monocytes (Bld) [#/Vol] 1.3 10*3/uL High 0 - 0.8 10*3/uL [place] Monocytes/100 WBC (Bld) 9.8 % 2 - 10 % [place] Platelet mean volume (Bld) [Entitic vol] 7.8 fL 7.4 - 10.4 fL [place] Platelets (Bld) [#/Vol] 189 10*3/uL 140 - 440 10*3/uL [place] RBC (Bld) [#/Vol] 4.67 10*6/uL 4.4 - 5.9 10*6/uL [place] WBC (Bld) [#/Vol] 13.2 10*3/uL High 3.6 - 10.7 10*3/uL [place] Test Performed by [id number] [place] [address] CR Chest Portableon 07-28-20 20 CR Chest Portable Patient Name: DEVORAH ALLAN Diagnostic Radiology Exam Date/Time 07/28/2020 14:27:02 EST Exam CR Chest Portable Ordering Physician PAXTON YO, MARIA R Schultz Accession Number [id number] CPT4 Codes 45148 () Reason For Exam s/p CT pull Report CLINICAL INFORMATION: Status post removal of right-sided chest tube. CHEST X-RAY, PORTABLE, 1412: An AP portable view is compared to the prior examination of earlier the same day at 0935 hours. The patient exhibits a limited inspiratory volume. The right-sided chest tube has been removed. There is no evidence of pneumothorax. There is stable oblique atelectasis in the left midlung. There is no evidence of other acute process or interval change. Report Dictated on Final Dictated: 07/28/2020 2:24 pm Dictating Physician: MD SPANGLER HARLAN Signed Date and Time: 07/28/2020 2:25 pm Signed by: MD SPANGLER HARLAN Transcribed Date and Time: 07/28/2020 2:24 Normal [facility] CR Chest Portable Patient Name: DEVORAH ALLAN Diagnostic Radiology Exam Date/Time 07/28/2020 09:47:56 EST Exam CR Chest Portable Ordering Physician MD CRUZ MAZEN E Accession Number [id number] CPT4 Codes 16769 () Reason For Exam shortness of breath Report CLINICAL INFORMATION: Shortness of breath. Right-sided chest tube. Status post right thoracoscopy. CHEST X-RAY, PORTABLE, 0935 hours: An AP portable view is compared to the prior examination of the previous day. The patient exhibits a limited inspiratory volume. There is no change in the appearance of the lateral right-sided chest tube. There is no visible pneumothorax. The patchy left retrocardiac density observed previously has resolved. No other acute process or interval change. Report Dictated on Final Dictated: 07/28/2020 9:46 am Dictating Physician: MD SPANGLER HARLAN Signed Date and Time: 07/28/2020 9:48 am Signed by: MD SPANGLER HARLAN Transcribed Date and Time: 07/28/2020 9:46 Normal [facility] Hemogram w/ Autodiffon 07-28 Hemoglobin (Bld) [Mass/Vol] 13.1 g/dL Normal 13.0-18.0 [facility] Comment on above: Performed By: #### C MP3 #### [facility] [address] [place] [address] Abs Baso Cnt 0.0 10*3/uL Normal 0.0-0.2 [facility] Comment on above: Performed By: #### C MP3 #### [facility] [address] [place], [place] Abs Neutrophile Cnt 11.0 10*3/uL High 1.8-7.0 [facility] Comment on above: Performed By: #### C MP3 #### [facility] [address] [place], [place] Basophils/100 WBC (Bld) 0.1 % Normal 0.0-2.0 [facility] Comment on above: Performed By: #### C MP3 #### [place] [address] [address] [place], [place] Eosinophils (Bld) [#/Vol] 0.0 10*3/uL Normal 0.0-0.5 [facility] Comment on above: Performed By: #### C MP3 #### [place] [address] [address] [place], [place] Eosinophils/100 WBC (Bld) 0.2 % Low 1.0-6.0 [facility] Comment on above: Performed By: #### C MP3 #### [place] [address] [address] [place], [place] Erythrocyte distribution width (RBC) [Ratio] 13.4 % Normal 11.5-14.5 [facility] Comment on above: Performed By: #### C MP3 #### [place] [address] [address] [place], [place] Granulocytes/100 WBC (Bld) 83.5 % High 40.0-80.0 [facility] Comment on above: Performed By: #### C MP3 #### [place] [address] [address] [place], [place] Hematocrit (Bld) [Volume fraction] 38.3 % Low 40.0-52.0 [facility] Comment on above: Performed By: #### C MP3 #### [address] Lymphocytes (Bld) [#/Vol] 0.8 10*3/uL Low 1.0-4.3 [facility] Comment on above: Performed By: #### C MP3 #### [address] [place], [place] Lymphocytes/100 WBC (Bld) 6.4 % Low 20.0-40.0 [facility] Comment on above: Performed By: #### C MP3 #### [facility] [address] [place], [place] MCH (RBC) [Entitic mass] 27.9 pg Normal 26.0-34.0 [facility] Comment on above: Performed By: #### C MP3 #### [facility] [address] [place], [place] MCHC 34.0 % Normal 32.0-36.0 [facility] Comment on above: Performed By: #### C MP3 #### [facility] [address] [place], [place] MCV (RBC) [Entitic vol] 82.1 fL Normal 80.0-98.0 [facility] Comment on above: Performed By: #### C MP3 #### [place] [address] [address] [place], [place] Monocytes (Bld) [#/Vol] 1.3 10*3/uL High 0.0-0.8 [facility] Comment on above: Performed By: #### C MP3 #### [place] [address] [address] [place], [place] Monocytes/100 WBC (Bld) 9.8 % Normal 2.0-10.0 [facility] Comment on above: Performed By: #### C MP3 #### [facility] [address] [place], [place] Platelet mean volume (Bld) [Entitic vol] 7.8 fL Normal 7.4-10.4 [facility] Comment on above: Performed By: #### C MP3 #### [facility] [address] [place], [place] Platelets (Bld) [#/Vol] 189 10*3/uL Normal 140-440 [facility] Comment on above: Performed By: #### C MP3 #### [place] [address] [address] [place], [place] RBC (Bld) [#/Vol] 4.67 10*6/uL Normal 4.40-5.90 [facility] Comment on above: Performed By: #### C MP3 #### [facility] [address] [place] [address] WBC (Bld) [#/Vol] 13.2 10*3/uL High 3.6-10.7 [facility] Comment on above: Performed By: #### C MP3 #### [facility] [address] [place] [address] XR CHEST PORTABLEon 07-28-20 Anil, [facility] Incoming Radiology Results From [facility] - 07/28/2020 2:27 PM EST Patient Name: DEVORAH SANTOS ---Diagnostic Radiology--- Exam Date/Time 07/28/2020 14:27:02 EST Exam CR Chest Portable Ordering Physician PAXTON YO ANDREW G Accession Number [id number] CPT4 Codes 98782 () Reason For Exam s/p CT pull Report CLINICAL INFORMATION: Status post removal of right-sided chest tube. CHEST X-RAY, PORTABLE, 1412: An AP portable view is compared to the prior examination of earlier the same day at 0935 hours. The patient exhibits a limited inspiratory volume. The right-sided chest tube has been removed. There is no evidence of pneumothorax. There is stable oblique atelectasis in the left midlung. There is no evidence of other acute process or interval change. Report Dictated on --- Final --- Dictated: 07/28/2020 2:24 pm Dictating Physician: MD SPANGLER HARLAN Signed Date and Time: 07/28/2020 2:25 pm Signed by: MD SPANGLER HARLAN Transcribed Date and Time: 07/28/2020 2:24 [facility] [place] Patient Name: DEVORAH ALLAN ---Diagnostic Radiology--- Exam Date/Time 07/28/2020 14:27:02 EST Exam CR Chest Portable Ordering Physician PAXTON YO ANDREW G Accession Number [id number] CPT4 Codes 44199 () Reason For Exam s/p CT pull Report CLINICAL INFORMATION: Status post removal of right-sided chest tube. CHEST X-RAY, PORTABLE, 1412: An AP portable view is compared to the prior examination of earlier the same day at 0935 hours. The patient exhibits a limited inspiratory volume. The right-sided chest tube has been removed. There is no evidence of pneumothorax. There is stable oblique atelectasis in the left midlung. There is no evidence of other acute process or interval change. Report Dictated on --- Final --- Dictated: 07/28/2020 2:24 pm Dictating Physician: MD SPANGLER HARLAN Signed Date and Time: 07/28/2020 2:25 pm Signed by: MD SPANGLER HARLAN Transcribed Date and Time: 07/28/2020 2:24 [place], [place] [facility], [facility] Incoming Radiology Results From [facility] - 07/28/2020 9:50 AM EST Patient Name: DEVORAH SANTOS ---Diagnostic Radiology--- Exam Date/Time 07/28/2020 09:47:56 EST Exam CR Chest Portable Ordering Physician MD ANTHONY, FLORA Duarte Accession Number [id number] CPT4 Codes 72830 () Reason For Exam shortness of breath Report CLINICAL INFORMATION: Shortness of breath. Right-sided chest tube. Status post right thoracoscopy. CHEST X-RAY, PORTABLE, 0935 hours: An AP portable view is compared to the prior examination of the previous day. The patient exhibits a limited inspiratory volume. There is no change in the appearance of the lateral right-sided chest tube. There is no visible pneumothorax. The patchy left retrocardiac density observed previously has resolved. No other acute process or interval change. Report Dictated on --- Final --- Dictated: 07/28/2020 9:46 am Dictating Physician: MD SPANGLER HARLAN Signed Date and Time: 07/28/2020 9:48 am Signed by: MD SPANGLER HARLAN Transcribed Date and Time: 07/28/2020 9:46 [place] Patient Name: DEVORAH ALLAN ---Diagnostic Radiology--- Exam Date/Time 07/28/2020 09:47:56 EST Exam CR Chest Portable Ordering Physician MD CRUZ MAZEN E Accession Number [id number] CPT4 Codes 39461 () Reason For Exam shortness of breath Report CLINICAL INFORMATION: Shortness of breath. Right-sided chest tube. Status post right thoracoscopy. CHEST X-RAY, PORTABLE, 0935 hours: An AP portable view is compared to the prior examination of the previous day. The patient exhibits a limited inspiratory volume. There is no change in the appearance of the lateral right-sided chest tube. There is no visible pneumothorax. The patchy left retrocardiac density observed previously has resolved. No other acute process or interval change. Report Dictated on --- Final --- Dictated: 07/28/2020 9:46 am Dictating Physician: MD SPANGLER HARLAN Signed Date and Time: 07/28/2020 9:48 am Signed by: MD SPANGLER HARLAN Transcribed Date and Time: 07/28/2020 9:46 [place], [place] CR Chest Portableon 07-27-20 CR Chest Portable Patient Name: DEVORAH ALLAN Diagnostic Radiology Exam Date/Time 07/27/2020 16:05:20 EST Exam CR Chest Portable Ordering Physician MD CRUZ MAZEN E Accession Number [id number] CPT4 Codes 25678 () Reason For Exam s/p R VATs, chest tube placement Report CLINICAL INFORMATION: Status post diagnostic thoracoscopy. Status post VATS. Chest tube placement. CHEST X-RAY, PORTABLE, 1602: An AP portable view is compared to the prior examination of the previous day. The patient exhibits limited lung volumes. The ovoid soft tissue nodular density in previously seen in the right lower lung is not redemonstrated. There is a new vertically oriented chest tube in the lateral aspect of the right hemithorax. There is no abnormality of the mediastinum or cardiac silhouette. There is subtle patchy parenchymal density in the left lower lung most likely atelectasis although a small or evolving pneumonia or aspiration is not excluded. No pleural effusion, vascular congestion, other focal consolidation or pneumothorax is seen. IMPRESSION: 1. Limited lung volumes. 2. Right-sided chest tube placement without evidence of pneumothorax. 3. The ovoid nodular density previously seen in the right lower lung is not redemonstrated. 4. Subtle patchy increased parenchymal density in the left lower lung which could be atelectasis although small or early small or evolving pneumonia or aspiration is not excluded. A repeat examination with greater inspiratory volume may be of value. Report Dictated on Final Dictated: 07/27/2020 4:28 pm Dictating Physician: MD SPANGLER HARLAN Signed Date and Time: 07/27/2020 4:32 pm Signed by: MD SPANGLER HARLAN Transcribed Date and Time: 07/27/2020 4:28 [facility] Surgical Pathologyon 020 Surgical Pathology [id number] [facility] PATHOLOGY AND LABORATORY MEDICINE [address] [place], [place] [id number] FINAL SURGICAL PATHOLOGY REPORT NAME: DEVORAH SANTOS : 1985 35 Y M [facility] NO.: [id number] LOCATION: [facility] C132 01 PROCEDURE 07/27/2020 DATE: SURGEON: ANDREINA WORKMAN M.D. RECEIVED 07/28/2020 DATE: ATTENDING: ANDREINA WORKMAN M.D. REPORT DATE: 08/05/2020 COPIES TO: DIAGNOSIS: A. MEDIASTINAL MASS, BIOPSY - CLASSICAL HODGKIN LYMPHOMA Comment: Immunohistochemical staining was performed with adequate controls. CD3 highlights background T cells. CD20 highlights background B cells. CD30, CD15, mom one, and PACS five highlight the Hodgkin cells. ALK1 and EBV CORETTA are negative. The findings are consistent classical Hodgkin lymphoma.dense interlacing fibrous bands suggests nodular sclerosing subtype. B. RIGHT MIDDLE LOBE, WEDGE RESECTION - SPINDLE CELL NEOPLASM, ADDITIONAL WORKUP IS PENDING. RESULTS FOR THIS SPECIMEN WILL BE SUBMITTED A SUPPLEMENTAL REPORT C. MEDIASTINAL MASS #2 BIOPSY - CLASSICAL HODGKIN LYMPHOMA Comment: Immunohistochemical staining was also performed on the specimen. It demonstrates the same CD15, CD30, PACS five, [facility] positive Hodgkin cells. CD3, CD20, alcohol are negative in these large cells. Findings are consistent with a Hodgkin lymphoma. The dense interlocking fibrous bands appearance suggests nodular sclerosing type. AHD/AHD Intradepartmental Consultation: RAVIN VALERIO M.D.; Signature> ARMIDA BROWNE M.D. CLINICAL INFORMATION: J98.59 SPECIMEN: (A) MASS (BIOPSY/EXCISION) (B) LUNG, WEDGE BIOPSY/EXCISION (C) MASS (BIOPSY/EXCISION) INTRAOPERATIVE CONSULTATION/FROZEN SECTION DIAGNOSIS: FROZEN SECTION DIAGNOSIS: FSA1: Suspicious for Hodgkin lymphoma FSB1: Spindle cell neoplasm, favor malignant. Manuel Browne M.D./Manju Mcgowan M.D. GROSS DESCRIPTION: A. Received fresh for intraoperative consultation labeled mediastinal mass are multiple fragments of red-pink tissue measuring 2.4 x 2.0 x 0.8 cm in aggregate. A frozen section is performed and the tissue is allowed to further fix in formalin. Following fixation, the specimen is entirely submitted for processing. Cassette Summary: A1 remainder of the frozen section tissue; A2-3 rest of the specimen entirely submitted. B. Received fresh for intraoperative consultation labeled right mediastinal mass wedge resection is a right middle lobe wedge measuring 10.5 x 4.8 x 2.2 cm. Running the entire length of the specimen is a surgical staple line. There is a large defect present for surgery ruptured tumor site. Additionally received in the same container are multiple fragments of papillary-appearing red friable tissue. The friable papillary tissue fragments measure 7.5 x 5.8 x 2.0 cm in aggregate. The frozen section is performed and the sample is allowed to further fix in formalin. Following fixation, the staple line is entirely removed and the resection margin is inked in red ink. The lung wedge is further sectioned to reveal a partially-cavitary friable mass lesion which measures at least 3.5 x 3.0 x 1.8 cm. The mass lesion appears to be abutting the red-inked resection margin. The remainder of the lung tissue is leone-pink and unremarkable with no other grossly-identifiable lesions. Approximately 50-60% of the separately-received papillary tissue is submitted for processing along with several sections of the lung tumor and normal lung parenchyma. Multiple pictures of the specimen are obtained and are available on the new image repository, surgical specimen number [id number]. Cassette Summary: B1-2 remainder of the tissue from the frozen section; B3-11 multiple primary care sales representative sections of the papillary friable tumor fragments received separately in the container; B12-15 are two complete cross-sections of the tumor and surrounding lung with cassettes 12 and 13 combined, 14 and 15 combined and cassette 16 primary care sales representative section of grossly-unremarkable lung parenchyma adjacent to the tumor. C. Received in formalin labeled mediastinal mass #2 are multiple pieces of pink-leone rubbery tissue measuring 3.2 x 3.5 x 0.8 cm in aggregate. The entire sample is submitted for processing. Cassette Summary: C1-3 sample entirely submitted. EB2/BALBIR Disclaimer: The following statement applies to all immunohistochemistry, in situ hybridization, molecular studies, and immunofluorescence testing. The use of one or more reagents in the above tests is regulated as an analyte specific reagent (ASR). These cici (more content not included)... Normal [facility] XR CHEST PORTABLEon 07-27-20 20 Anil, [facility] Incoming Radiology Results From [facility] - 07/27/2020 4:34 PM EST Patient Name: DEVORAH SANTOS ---Diagnostic Radiology--- Exam Date/Time 07/27/2020 16:05:20 EST Exam CR Chest Portable Ordering Physician MD CRUZ MAZEN E Accession Number [id number] CPT4 Codes 61266 () Reason For Exam s/p R VATs, chest tube placement Report CLINICAL INFORMATION: Status post diagnostic thoracoscopy. Status post VATS. Chest tube placement. CHEST X-RAY, PORTABLE, 1602: An AP portable view is compared to the prior examination of the previous day. The patient exhibits limited lung volumes. The ovoid soft tissue nodular density in previously seen in the right lower lung is not redemonstrated. There is a new vertically oriented chest tube in the lateral aspect of the right hemithorax. There is no abnormality of the mediastinum or cardiac silhouette. There is subtle patchy parenchymal density in the left lower lung most likely atelectasis although a small or evolving pneumonia or aspiration is not excluded. No pleural effusion, vascular congestion, other focal consolidation or pneumothorax is seen. IMPRESSION: 1. Limited lung volumes. 2. Right-sided chest tube placement without evidence of pneumothorax. 3. The ovoid nodular density previously seen in the right lower lung is not redemonstrated. 4. Subtle patchy increased parenchymal density in the left lower lung which could be atelectasis although small or early small or evolving pneumonia or aspiration is not excluded. A repeat examination with greater inspiratory volume may be of value. Report Dictated on --- Final --- Dictated: 07/27/2020 4:28 pm Dictating Physician: MD SPANGLER HARLAN Signed Date and Time: 07/27/2020 4:32 pm Signed by: MD SPANGLER HARLAN Transcribed Date and Time: 07/27/2020 4:28 [place], [place] Patient Name: DEVORAH ALLAN ---Diagnostic Radiology--- Exam Date/Time 07/27/2020 16:05:20 EST Exam CR Chest Portable Ordering Physician MD CRUZ MAZEN E Accession Number [id number] CPT4 Codes 85085 () Reason For Exam s/p R VATs, chest tube placement Report CLINICAL INFORMATION: Status post diagnostic thoracoscopy. Status post VATS. Chest tube placement. CHEST X-RAY, PORTABLE, 1602: An AP portable view is compared to the prior examination of the previous day. The patient exhibits limited lung volumes. The ovoid soft tissue nodular density in previously seen in the right lower lung is not redemonstrated. There is a new vertically oriented chest tube in the lateral aspect of the right hemithorax. There is no abnormality of the mediastinum or cardiac silhouette. There is subtle patchy parenchymal density in the left lower lung most likely atelectasis although a small or evolving pneumonia or aspiration is not excluded. No pleural effusion, vascular congestion, other focal consolidation or pneumothorax is seen. IMPRESSION: 1. Limited lung volumes. 2. Right-sided chest tube placement without evidence of pneumothorax. 3. The ovoid nodular density previously seen in the right lower lung is not redemonstrated. 4. Subtle patchy increased parenchymal density in the left lower lung which could be atelectasis although small or early small or evolving pneumonia or aspiration is not excluded. A repeat examination with greater inspiratory volume may be of value. Report Dictated on --- Final --- Dictated: 07/27/2020 4:28 pm Dictating Physician: MD SPANGLER HARLAN Signed Date and Time: 07/27/2020 4:32 pm Signed by: MD SPANGLER HARLAN Transcribed Date and Time: 07/27/2020 4:28 [place], [place] CBC auto differentialon 11- Absolute Baso # 0.0 10*3/uL 0 - 0.2 10*3/uL [place] Absolute Neut # 5.5 10*3/uL 1.8 - 7 10*3/uL [place] Basophils/100 WBC (Bld) 0.4 % 0 - 2 % [place] Eosinophils (Bld) [#/Vol] 1.0 10*3/uL High 0 - 0.5 10*3/uL [place] Eosinophils/100 WBC (Bld) 11.6 % High 1 - 6 % [place] Erythrocyte distribution width (RBC) [Ratio] 13.5 % 11.5 - 14.5 % [place] Granulocytes/100 WBC (Bld) 65.5 % 40 - 80 % [place] Hematocrit (Bld) [Volume fraction] 43.3 % 40 - 52 % [place] Hemoglobin (Bld) [Mass/Vol] 15.0 g/dL 13 - 18 g/dL [place] Interpretation and review of laboratory results Abnormal [place] Lymphocytes (Bld) [#/Vol] 1.1 10*3/uL 1 - 4.3 10*3/uL [place] Lymphocytes/100 WBC (Bld) 13.0 % Low 20 - 40 % [place] MCH (RBC) [Entitic mass] 28.4 pg 26 - 34 pg [place] MCHC (RBC) [Mass/Vol] 34.6 % 32 - 36 % [place] MCV (RBC) [Entitic vol] 82.1 fL 80 - 98 fL [place] Monocytes (Bld) [#/Vol] 0.8 10*3/uL 0 - 0.8 10*3/uL [place] Monocytes/100 WBC (Bld) 9.5 % 2 - 10 % [place] Platelet mean volume (Bld) [Entitic vol] 8.1 fL 7.4 - 10.4 fL [place] Platelets (Bld) [#/Vol] 229 10*3/uL 140 - 440 10*3/uL [place] RBC (Bld) [#/Vol] 5.27 10*6/uL 4.4 - 5.9 10*6/uL [place] WBC (Bld) [#/Vol] 8.4 10*3/uL 3.6 - 10.7 10*3/uL [place] Test Performed by [facility], [address] [place] [id number] [place], [place] COVID-19on 07-26-2020 SARS-CoV-2 Not Detected Expected Result: Not Detected _ Real-time, RT-PCR performed on the [employer] System by the [facility]. Negative results do not preclude SARS-CoV-2 infection and should not be used as the sole basis for treatment or other patient management decisions. This assay was developed by [employer] and [employer] and distributed under an Emergency Use Authorization (EUA) granted by the FDA for the qualitative detection of SARS-CoV-2 nucleic acid. Results were determined from a pool consisting of specimens from additional patients. This test was modified, and its performance characteristics, showing minimal loss of sensitivity, have been validated by the [facility]. Approval is pending review by the U. S. Food and Drug Administration. If symptoms are severe and persist, testing a new specimen may be warranted. Additionally, IgG testing may be considered for patients more than 7-10 days post onset of symptoms. [facility] Per[facility] by [facility], [address] [place] [id number] Specimen Source Comment:Nasopharyngeal Swab [facility] PR CR Chest PA/LATon 07-26-2020 CR Chest PA/LAT Patient Name: DEVORAH ALLAN Diagnostic Radiology Exam Date/Time 07/26/2020 14:21:52 EST Exam CR Chest PA/LAT Ordering Physician DARCI TAY JAN C Accession Number [id number] CPT4 Codes 20539 () Reason For Exam pre op testing Report Indication: Preoperative clearance. FDG avid lung mass. Frontal and lateral views of the chest are correlated with the PET/CT scan dated 07/19/2020. The heart is not enlarged. The mediastinum and pulmonary vascularity are within normal limits. There is no evidence of pneumonia or pleural effusion. A 4.5 cm mass is identified within the right middle lobe. IMPRESSION: 1. 4.5 cm right middle lobe mass. Report Dictated on Final Dictated: 07/26/2020 2:27 pm Dictating Physician: DO BROWN ANTHONY Signed Date and Time: 07/26/2020 2:29 pm Signed by: DO BROWN ANTHONY Transcribed Date and Time: 07/26/2020 2:27 Normal [facility] Comp Metabolic Panelon 07-26 Calcium [Mass/Vol] 9.4 mg/dL Normal 8.4-10.4 [facility] Comment on above: Performed By: #### C MP3 #### [facility] [address] [place], [place] ALP [Catalytic activity/Vol] 101 U/L Normal 38-126 [facility] Comment on above: Result Comment: Slig htly hemolysed, interpret with caution. Performed By: #### C MP3 #### [facility] [address] [place], [place] ALT [Catalytic activity/Vol] 29 U/L Normal 0-49 [facility] Comment on above: Result Comment: The ALT test is performed by an updated assay method. Please note that the reference intervals have been changed and are now sex specific. Performed By: #### C MP3 #### [facility] [address] [place], [place] Anion Gap 12 Normal [facility] Comment on above: Performed By: #### C MP3 #### [facility] [address] [place], [place] AST [Catalytic activity/Vol] 41 U/L Normal 15-46 [facility] Comment on above: Result Comment: Slig htly hemolysed, interpret with caution. Performed By: #### C MP3 #### [facility] [address] [place], [place] CO2 [Moles/Vol] 25 mmol/L Normal 22-30 [facility] Comment on above: Performed By: #### C MP3 #### [facility] [address] [place], [place] Glucose [Mass/Vol] 119 mg/dL High 70-100 [facility] Comment on above: Performed By: #### C MP3 #### [facility] [address] [place], [place] Protein [Mass/Vol] 8.0 g/dL Normal 6.3-8.2 [facility] Comment on above: Performed By: #### C MP3 #### [place] [address] [address] [place], [place] Urea nitrogen [Mass/Vol] 17 mg/dL Normal 7-20 [facility] Comment on above: Performed By: #### C MP3 #### [facility] [address] [place], [place] Bilirubin [Mass/Vol] 0.5 mg/dL Normal 0.2-1.3 [facility] Comment on above: Performed By: #### C MP3 #### [facility] [address] [place], [place] Creatinine [Mass/Vol] 0.76 mg/dL Normal 0.52-1.25 [facility] Comment on above: Performed By: #### C MP3 #### [facility] [address], [place] eGFR OTHER > 90.0 Normal >60 [facility] Comment on above: Result Comment: KDIG O guidelines provide the following GFR categories: Stage GFR(ml/min/1.73 m2) Terms G1 >=90 Normal or high G2 60-89 Mildly decreased* G3a 45-59 Mildly to moderately decreased G3b 30-44 Moderately to severely decreased G4 15-29 Severely decreased G5 <15 Kidney failure *Relative to young adult level. In the absence of evidence of kidney damage, neither GFR category G1 nor G2 fulfill the criteria for CKD. The CKD-EPI equation is validated in individuals 18 years of age and older. Currently the best equation for estimating glomerular filtration rate (GFR) from serum creatinine in children is the Bedside Sanches equation. It is less accurate in patients with extremes of muscle mass, restriction of dietary protein, ingestion of creatine, extra-renal metabolism of creatinine, or treatment with medications that affect renal tubular creatinine secretion. Performed By: #### C MP3 #### [facility] [address], [place] GFR/1.73 sq M.predicted among blacks MDRD (S/P/Bld) [Vol rate/Area] mL/min/{1.73_m2} Normal >60 [facility] Comment on above: Performed By: #### C MP3 #### [facility] [address] [place], [place] Albumin [Mass/Vol] 4.4 g/dL Normal 3.5-5.0 [facility] Comment on above: Performed By: #### C MP3 #### [facility] [address] [place], [place] Chloride [Moles/Vol] 102 mmol/L Normal 98-107 [facility] Comment on above: Performed By: #### C MP3 #### [facility] [address] [place], [place] Potassium [Moles/Vol] 4.0 mmol/L Normal 3.5-5.1 [facility] Comment on above: Result Comment: Slig htly hemolysed, interpret with caution. Performed By: #### C MP3 #### [place] [address] [address] [place], [place] Sodium [Moles/Vol] 139 mmol/L Normal 135-145 [facility] Comment on above: Performed By: #### C MP3 #### [place] [address] [address] [place], [place] Complete Urinalysison 2019 Appearance (U) Clear Normal Clear [facility] Comment on above: Result Comment: . Performed By: #### C UA2 #### [place] [address] [address] [place], [place] Bilirubin,Urine Negative Normal Negative [facility] Comment on above: Result Comment: . Performed By: #### C UA2 #### [place] [address] [address] [place], [place] Color (U) Light-Yellow Normal Lt. Yellow [facility] Comment on above: Result Comment: . Performed By: #### C UA2 #### [facility] [address] [place], [place] Glucose Ql (U) Normal Normal Normal (<70) [facility] Comment on above: Result Comment: . Performed By: #### C UA2 #### [place] [address] [address] [place], [place] Ketone,Urine Negative Normal Negative [facility] Comment on above: Result Comment: . Performed By: #### C UA2 #### [place] [address] [address] [place], [place] Leukocytes,Urine Negative Normal Negative [facility] Comment on above: Result Comment: . Performed By: #### C UA2 #### [facility] [address] [place], [place] Nitrites,Urine Negative Normal Negative [facility] Comment on above: Result Comment: . Performed By: #### C UA2 #### [facility] [address] [place], [place] Occult Blood,Urine Negative Normal Negative [facility] Comment on above: Result Comment: . Performed By: #### C UA2 #### [facility] [address] [place], [place] pH,Urine 5.5 Normal 5.0-8.0 [facility] Comment on above: Result Comment: . Performed By: #### C UA2 #### [place] [address] [address] [place], [place] Specific L[place],Urine 1.018 Normal 1.005 - 1.030 [facility] Comment on above: Result Comment: . Performed By: #### C UA2 #### [place] [address] [address] [place], [place] Total Protein,Urine Negative Normal Negative [facility] Comment on above: Result Comment: . Performed By: #### C UA2 #### [place] [address] [address] [place], [place] Urobilinogen,Urine Normal Normal Normal (0-1) [facility] Comment on above: Result Comment: . Performed By: #### C UA2 #### [place] [address] [address] [place], [place] Comprehensive Metabolic Pane esequiel 07-26-2020 Albumin [Mass/Vol] 4.4 g/dL 3.5 - 5 g/dL [place] ALP [Catalytic activity/Vol] 101 U/L 38 - 126 U/L [place] Comment on above: Slightly hemolysed, interpret with caution. ALT [Catalytic activity/Vol] 29 U/L 0 - 49 U/L [place] Comment on above: The ALT test is perf ormed by an updated assay method. Please note that the reference intervals have been changed and are now sex specific. Anion gap [Moles/Vol] 12 mmol/L [place], [place] AST [Catalytic activity/Vol] 41 U/L 15 - 46 U/L [place] Comment on above: Slightly hemolysed, interpret with caution. Bilirubin Ql (U) 0.5 mg/dL 0.2 - 1.3 mg/dL [place] Calcium [Mass/Vol] 9.4 mg/dL 8.4 - 10. 4 mg/dL [place] Chloride [Moles/Vol] 102 mmol/L 98 - 10 7 mmol/L [place] CO2 [Moles/Vol] 25 mmol/L 22 - 30 mmol/L [place] Creatinine [Mass/Vol] 0.76 mg/dL 0.52 - 1.25 mg/dL [place] EGFR IF NonAfrican Turkmen >90.0 >60 mL/min [place] Comment on above: KDIGO guidelines pro vide the following GFR categories: Stage GFR(ml/min/1.73 m2) Terms G1 >=90 Normal or high G2 60-89 Mildly decreased* G3a 45-59 Mildly to moderately decreased G3b 30-44 Moderately to severely decreased G4 15-29 Severely decreased G5 <15 Kidney failure *Relative to young adult level. In the absence of evidence of kidney damage, neither GFR category G1 nor G2 fulfill the criteria for CKD. The CKD-EPI equation is validated in individuals 18 years of age and older. Currently the best equation for estimating glomerular filtration rate (GFR) from serum creatinine in children is the Bedside Sanches equation. It is less accurate in patients with extremes of muscle mass, restriction of dietary protein, ingestion of creatine, extra-renal metabolism of creatinine, or treatment with medications that affect renal tubular creatinine secretion. GFR/1.73 sq M predicted among blacks MDRD (S/P/Bld) [Vol rate/Area] mL/min/{1.73_m2} >60 mL/min [place] Glucose [Mass/Vol] 119 mg/dL High 70 - 100 mg/dL [place] Interpretation and review of laboratory results Abnormal [place] Potassium [Moles/Vol] 4.0 mmol/L 3.5 - 5.1 mmol/L [place] Comment on above: Slightly hemolysed, interpret with caution. Protein [Mass/Vol] 8.0 g/dL 6.3 - 8.2 g/dL [place] Sodium [Moles/Vol] 139 mmol/L 135 - 145 mmol/L [place] Urea nitrogen [Mass/Vol] 17 mg/dL 7 - 20 mg/dL [place] Test Performed by [facility], [address] [place] [id number] [place] [address] Hemogram w/ Autodiffon 07-26 Abs Baso Cnt 0.0 10*3/uL Normal 0.0-0.2 [facility] Comment on above: Performed By: #### C MP3 #### [address] Abs Neutrophile Cnt 5.5 10*3/uL Normal 1.8-7.0 [facility] Comment on above: Performed By: #### C MP3 #### [address] Basophils/100 WBC (Bld) 0.4 % Normal 0.0-2.0 [facility] Comment on above: Performed By: #### C MP3 #### [address] Eosinophils (Bld) [#/Vol] 1.0 10*3/uL High 0.0-0.5 [facility] Comment on above: Performed By: #### C MP3 #### [address] Eosinophils/100 WBC (Bld) 11.6 % High 1.0-6.0 [facility] Comment on above: Performed By: #### C MP3 #### [address] Erythrocyte distribution width (RBC) [Ratio] 13.5 % Normal 11.5-14.5 [facility] Comment on above: Performed By: #### C MP3 #### [address] Granulocytes/100 WBC (Bld) 65.5 % Normal 40.0-80.0 [facility] Comment on above: Performed By: #### C MP3 #### [place] [address] [address] [place], [place] Hematocrit (Bld) [Volume fraction] 43.3 % Normal 40.0-52.0 [facility] Comment on above: Performed By: #### C MP3 #### [place] [address] [address] [place], [place] Hemoglobin (Bld) [Mass/Vol] 15.0 g/dL Normal 13.0-18.0 [facility] Comment on above: Performed By: #### C MP3 #### [place] [address] [address] [place], [place] Lymphocytes (Bld) [#/Vol] 1.1 10*3/uL Normal 1.0-4.3 [facility] Comment on above: Performed By: #### C MP3 #### [place] [address] [address] [place], [place] Lymphocytes/100 WBC (Bld) 13.0 % Low 20.0-40.0 [facility] Comment on above: Performed By: #### C MP3 #### [place] [address] [address] [place], [place] MCH (RBC) [Entitic mass] 28.4 pg Normal 26.0-34.0 [facility] Comment on above: Performed By: #### C MP3 #### [address] [address] [place], [place] MCHC 34.6 % Normal 32.0-36.0 [facility] Comment on above: Performed By: #### C MP3 #### [address] [address] [address] [place], [place] MCV (RBC) [Entitic vol] 82.1 fL Normal 80.0-98.0 [facility] Comment on above: Performed By: #### C MP3 #### [address] [address] [address] [place], [place] Monocytes (Bld) [#/Vol] 0.8 10*3/uL Normal 0.0-0.8 [facility] Comment on above: Performed By: #### C MP3 #### [address] Monocytes/100 WBC (Bld) 9.5 % Normal 2.0-10.0 [facility] Comment on above: Performed By: #### C MP3 #### [address] [address] [address] [place], [place] Platelet mean volume (Bld) [Entitic vol] 8.1 fL Normal 7.4-10.4 [facility] Comment on above: Performed By: #### C MP3 #### [address] Platelets (Bld) [#/Vol] 229 10*3/uL Normal 140-440 [facility] Comment on above: Performed By: #### C MP3 #### [address] RBC (Bld) [#/Vol] 5.27 10*6/uL Normal 4.40-5.90 [facility] Comment on above: Performed By: #### C MP3 #### [address] WBC (Bld) [#/Vol] 8.4 10*3/uL Normal 3.6-10.7 [facility] Comment on above: Performed By: #### C MP3 #### [facility] [place] [address] [address] [address] [place], [place] Prothrombin Timeon 0 INR 1.0 Normal 0.9-1.1 [facility] Comment on above: Result Comment: Gumaro mmended Anticoagulant Therapy: SEE BELOW ----- INR of 2.0 - 3.0 : - Prophylaxis of Venous Thrombosis (high-risk surgery) - Treatment of Venous Thrombosis - Treatment of Pulmonary Embolism (Includes tissue heart valves, Acute Myocardial Infarction to prevent systemic embolism, Valvular Heart Disease, and Atrial Fibrillation) ----- INR of 2.5 - 3.5 : - Mechanical Prosthetic Valves (high risk) - If oral anticoagulant therapy is used to prevent Myocardial Infarction Performed By: #### C MP3 #### [facility] [address] [place] [address] PT Coag (PPP) [Time] 11.0 s Normal 9.0-12.0 [facility] Comment on above: Result Comment: . Performed By: #### C MP3 #### [facility] [address] [place] [address] Protime-INRon 07-26-2020 INR Coag (PPP) [Relative time] 1.0 {INR} [place], [place] Comment on above: Recommended Anticoag ulant Therapy: SEE BELOW ----- INR of 2.0 - 3.0 : - Prophylaxis of Venous Thrombosis (high-risk surgery) - Treatment of Venous Thrombosis - Treatment of Pulmonary Embolism (Includes tissue heart valves, Acute Myocardial Infarction to prevent systemic embolism, Valvular Heart Disease, and Atrial Fibrillation) ----- INR of 2.5 - 3.5 : - Mechanical Prosthetic Valves (high risk) - If oral anticoagulant therapy is used to prevent Myocardial Infarction PT Coag (PPP) [Time] 11 s 9 - 12 s [place], [place] Comment on above: . Test Performed by [facility], [address] [place] [address] [place], [place] [id number] 07-26-2020 SARS-CoV-2 (COVID-19) RNA LETICIA+probe Ql (Unsp spec) SARS-CoV-2 --> Status: F Not Detected Expected Result: Not Detected _ Real-time, RT-PCR performed on the [employer] System by the [facility]. Negative results do not preclude SARS-CoV-2 infection and should not be used as the sole basis for treatment or other patient management decisions. This assay was developed by [employer] and distributed under an Emergency Use Authorization (EUA) granted by the FDA for the qualitative detection of SARS-CoV-2 nucleic acid. Results were determined from a pool consisting of specimens from additional patients. This test was modified, and its performance characteristics, showing minimal loss of sensitivity, have been validated by the [facility]. Approval is pending review by the U. S. Food and Drug Administration. If symptoms are severe and persist, testing a new specimen may be warranted. Additionally, IgG testing may be considered for patients more than 7-10 days post onset of symptoms. Expected Result: Not Detected _ Real-time, RT-PCR performed on the [employer] System by the [facility]. Negative results do not preclude SARS-CoV-2 infection and should not be used as the sole basis for treatment or other patient management decisions. This assay was developed by [employer] and [employer] and distributed under an Emergency Use Authorization (EUA) granted by the FDA for the qualitative detection of SARS-CoV-2 nucleic acid. Results were determined from a pool consisting of specimens from additional patients. This test was modified, and its performance characteristics, showing minimal loss of sensitivity, have been validated by the [facility]. Approval is pending review by the U. S. Food and Drug Administration. If symptoms are severe and persist, testing a new specimen may be warranted. Additionally, IgG testing may be considered for patients more than 7-10 days post onset of symptoms. Normal [facility] Comment on above: Order Comment: Speci men Source Comment:Nasopharyngeal Swab Performed By: #### C OVID #### [address] [address] TS GELon 07-26-2020 TS GEL ABO Group: AB Rh, Gel: POS Antibody Screen Gel: NEG Normal [facility] Comment on above: Performed By: #### T SGL #### [address] [address] [place], [place] [id number] [place] [address] TYPE AND SCREENon 07-26-2020 Sodium [Moles/Vol] Negative [facility], [place] Sodium [Moles/Vol] AB [facility] Sodium [Moles/Vol] Positive [facility] Test Performed by [facility], [facility] [place], [place] [id number] [place] [address], [place] Urinalysison 07-26-2020 Appearance (U) Clear Clear NA [facility] Comment on above: . Bilirubin Urine Negative Negative mg/dL [place], [place] Comment on above: . Color (U) Light-Yellow Lt. Yellow NA [facility] Comment on above: . Glucose, Ur Normal Normal (<70) mg/dL [place], [place] Comment on above: . Ketones Ql (U) Negative Negative mg/dL [place] Comment on above: . LEUKOCYTES, UA Negative Negative Truman/uL [place], [place] Comment on above: . Nitrite, Urine Negative Negative NA [place] Comment on above: . Occult Blood,Urine Negative Negative mg/dL [place] Comment on above: . pH (U) 5.5 [pH] [place], [place] Comment on above: . Protein (U) [Mass/Vol] Negative Negat bennett mg/dL [place], [place] Comment on above: . Specific Lyerly, Urine 1.018 [place], [place] Comment on above: . Urobilinogen, Urine Normal Normal (0-1) mg/dL [place], [place] Comment on above: . Test Performed by [facility], [address] [place] [address] [place], [place] XR CHEST (2 VW)on 07-26-2020 [facility] Results From [facility] - 07/26/2020 2:30 PM EST Patient Name: DEVORAH SANTOS ---Diagnostic Radiology--- Exam Date/Time 07/26/2020 14:21:52 EST Exam CR Chest PA/LAT Ordering Physician DARCI TAY JAN C Accession Number [id number] CPT4 Codes 38670 () Reason For Exam pre op testing Report Indication: Preoperative clearance. FDG avid lung mass. Frontal and lateral views of the chest are correlated with the PET/CT scan dated 07/19/2020. The heart is not enlarged. The mediastinum and pulmonary vascularity are within normal limits. There is no evidence of pneumonia or pleural effusion. A 4.5 cm mass is identified within the right middle lobe. IMPRESSION: 1. 4.5 cm right middle lobe mass. Report Dictated on --- Final --- Dictated: 07/26/2020 2:27 pm Dictating Physician: DO BROWN ANTHONY Signed Date and Time: 07/26/2020 2:29 pm Signed by: DO BROWN ANTHONY Transcribed Date and Time: 07/26/2020 2:27 [place], [place] Patient Name: DEVORAH ALLAN ---Diagnostic Radiology--- Exam Date/Time 07/26/2020 14:21:52 EST Exam CR Chest PA/LAT Ordering Physician DARCI TAY JAN C Accession Number [id number] CPT4 Codes 22660 () Reason For Exam pre op testing Report Indication: Preoperative clearance. FDG avid lung mass. Frontal and lateral views of the chest are correlated with the PET/CT scan dated 07/19/2020. The heart is not enlarged. The mediastinum and pulmonary vascularity are within normal limits. There is no evidence of pneumonia or pleural effusion. A 4.5 cm mass is identified within the right middle lobe. IMPRESSION: 1. 4.5 cm right middle lobe mass. Report Dictated on --- Final --- Dictated: 07/26/2020 2:27 pm Dictating Physician: DO BROWN ANTHONY Signed Date and Time: 07/26/2020 2:29 pm Signed by: DO BROWN ANTHONY Transcribed Date and Time: 07/26/2020 2:27 [place], [place] PET CT SKULL BASE TO MID [facility] 07-19-2020 Patient Name: DEVORAH ALLAN ---PET--- Exam Date/Time 07/19/2020 09:55:16 EST Exam PT w/ CT Scan Skull Base to [place] [facility] Ordering Physician PRAKASH CALDWELL Accession Number [id number] CPT4 Codes 36490 (), A9552 () Reason For Exam lung nodule, lymphoma Report Indication: Restaging lymphoma. Mediastinal mass and lung mass. The patient was injected with 15 mCi of F-18 FDG and PET/CT images were obtained from the level the skull base to the mid thigh level. Images over the head and neck were also obtained. There are no prior studies available for comparison. Several small foci of abnormal FDG accumulation (SUV max of 5.3) correspond to nonenlarged and borderline enlarged lymph nodes at the base the neck on the right. Intense abnormal FDG accumulation (SUV max of 16.7) correspond to enlarged bilateral supraclavicular lymph nodes, more so on the right. The intensity of uptake in these nodes meets the criteria for malignancy. Intense abnormal FDG accumulation corresponds to a large soft tissue mass/confluent adenopathy involving the anterior aspect of the mediastinum extending along the right aspect of the heart. Intense abnormal FDG accumulation is also identified in several enlarged super superior mediastinal, mediastinal, right hilar and internal mammary lymph nodes. The SUV max of these areas is 15.7. The intensity of uptake in these nodes meets the criteria for malignancy. Moderate to intense abnormal FDG accumulation (SUV max of 7.3) corresponds to an approximate 4 cm mass within the middle lobe of the right lung. The intensity of uptake in this mass also meets the criteria for malignancy. Intense FDG accumulation (SUV max of 17.3) corresponds to a mildly enlarged epiphrenic lymph node along the anterior aspect of the left hepatic lobe. The intensity of uptake in this node also meets the criteria for malignancy. There is physiologic bowel uptake. No suspicious FDG accumulation is identified within the abdominal mesenteric and retroperitoneal lymph nodes. There are no suspicious areas of FDG accumulation are identified within the pelvis. There is no evidence of splenic hypermetabolism. No suspicious areas of FDG accumulation are identified within the visualized osseous structures. IMPRESSION: 1. Abnormal FDG accumulation corresponding to a 4 cm mass within the middle lobe of the right lung. The intensity of uptake meets the criteria for malignancy. 2. Abnormal FDG accumulation corresponding to several enlarged lymph nodes/soft tissue masses within the base the neck on the right, bilateral supraclavicular regions, superior mediastinum, mediastinum, right hilar and epiphrenic regions. The intensity of uptake in these areas meets the criteria for malignancy. Report Dictated on --- Final --- Dictated: 07/19/2020 10:14 am Dictating Physician: DO BROWN ANTHONY Signed Date and Time: 07/19/2020 10:25 am Signed by: DO BROWN ANTHONY Transcribed Date and Time: 07/19/2020 10:14 [facility], [place] An[place], [facility] Incoming Radiology Results From [facility] - 07/19/2020 10:27 AM EST Patient Name: DEVORAH SANTOS ---PET--- Exam Date/Time 07/19/2020 09:55:16 EST Exam PT w/ CT Scan Skull Base to Midthigh Ordering Physician PRAKASH CALDWELL Accession Number [id number] CPT4 Codes 33438 (), A9552 () Reason For Exam lung nodule, lymphoma Report Indication: Restaging lymphoma. Mediastinal mass and lung mass. The patient was injected with 15 mCi of F-18 FDG and PET/CT images were obtained from the level the skull base to the mid thigh level. Images over the head and neck were also obtained. There are no prior studies available for comparison. Several small foci of abnormal FDG accumulation (SUV max of 5.3) correspond to nonenlarged and borderline enlarged lymph nodes at the base the neck on the right. Intense abnormal FDG accumulation (SUV max of 16.7) correspond to enlarged bilateral supraclavicular lymph nodes, more so on the right. The intensity of uptake in these nodes meets the criteria for malignancy. Intense abnormal FDG accumulation corresponds to a large soft tissue mass/confluent adenopathy involving the anterior aspect of the mediastinum extending along the right aspect of the heart. Intense abnormal FDG accumulation is also identified in several enlarged super superior mediastinal, mediastinal, right hilar and internal mammary lymph nodes. The SUV max of these areas is 15.7. The intensity of uptake in these nodes meets the criteria for malignancy. Moderate to intense abnormal FDG accumulation (SUV max of 7.3) corresponds to an approximate 4 cm mass within the middle lobe of the right lung. The intensity of uptake in this mass also meets the criteria for malignancy. Intense FDG accumulation (SUV max of 17.3) corresponds to a mildly enlarged epiphrenic lymph node along the anterior aspect of the left hepatic lobe. The intensity of uptake in this node also meets the criteria for malignancy. There is physiologic bowel uptake. No suspicious FDG accumulation is identified within the abdominal mesenteric and retroperitoneal lymph nodes. There are no suspicious areas of FDG accumulation are identified within the pelvis. There is no evidence of splenic hypermetabolism. No suspicious areas of FDG accumulation are identified within the visualized osseous structures. IMPRESSION: 1. Abnormal FDG accumulation corresponding to a 4 cm mass within the middle lobe of the right lung. The intensity of uptake meets the criteria for malignancy. 2. Abnormal FDG accumulation corresponding to several enlarged lymph nodes/soft tissue masses within the base the neck on the right, bilateral supraclavicular regions, superior mediastinum, mediastinum, right hilar and epiphrenic regions. The intensity of uptake in these areas meets the criteria for malignancy. Report Dictated on --- Final --- Dictated: 07/19/2020 10:14 am Dictating Physician: DO BROWN ANTHONY Signed Date and Time: 07/19/2020 10:25 am Signed by: DO BROWN ANTHONY Transcribed Date and Time: 07/19/2020 10:14 [facility], [place] PT w/ CT Scan Skull Base to Midthighon 07-19-2020 PT w/ CT Scan Skull Base to Midthigh Patient Name: DEVORAH SANTOS PET Exam Date/Time 07/19/2020 09:55:16 EST Exam PT w/ CT Scan Skull Base to Midthigh Ordering Physician PRAKASH CALDWELL Accession Number [id number] CPT4 Codes 87368 (), A9552 () Reason For Exam lung nodule, lymphoma Report Indication: Restaging lymphoma. Mediastinal mass and lung mass. The patient was injected with 15 mCi of F-18 FDG and PET/CT images were obtained from the level the skull base to the mid thigh level. Images over the head and neck were also obtained. There are no prior studies available for comparison. Several small foci of abnormal FDG accumulation (SUV max of 5.3) correspond to nonenlarged and borderline enlarged lymph nodes at the base the neck on the right. Intense abnormal FDG accumulation (SUV max of 16.7) correspond to enlarged bilateral supraclavicular lymph nodes, more so on the right. The intensity of uptake in these nodes meets the criteria for malignancy. Intense abnormal FDG accumulation corresponds to a large soft tissue mass/confluent adenopathy involving the anterior aspect of the mediastinum extending along the right aspect of the heart. Intense abnormal FDG accumulation is also identified in several enlarged super superior mediastinal, mediastinal, right hilar and internal mammary lymph nodes. The SUV max of these areas is 15.7. The intensity of uptake in these nodes meets the criteria for malignancy. Moderate to intense abnormal FDG accumulation (SUV max of 7.3) corresponds to an approximate 4 cm mass within the middle lobe of the right lung. The intensity of uptake in this mass also meets the criteria for malignancy. Intense FDG accumulation (SUV max of 17.3) corresponds to a mildly enlarged epiphrenic lymph node along the anterior aspect of the left hepatic lobe. The intensity of uptake in this node also meets the criteria for malignancy. There is physiologic bowel uptake. No suspicious FDG accumulation is identified within the abdominal mesenteric and retroperitoneal lymph nodes. There are no suspicious areas of FDG accumulation are identified within the pelvis. There is no evidence of splenic hypermetabolism. No suspicious areas of FDG accumulation are identified within the visualized osseous structures. IMPRESSION: 1. Abnormal FDG accumulation corresponding to a 4 cm mass within the middle lobe of the right lung. The intensity of uptake meets the criteria for malignancy. 2. Abnormal FDG accumulation corresponding to several enlarged lymph nodes/soft tissue masses within the base the neck on the right, bilateral supraclavicular regions, superior mediastinum, mediastinum, right hilar and epiphrenic regions. The intensity of uptake in these areas meets the criteria for malignancy. Report Dictated on Final Dictated: 07/19/2020 10:14 am Dictating Physician: DO BROWN ANTHONY Signed Date and Time: 07/19/2020 10:25 am Signed by: DO BROWN ANTHONY Transcribed Date and Time: 07/19/2020 10:14 [facility] Progress Noteon 07-01-2020 [employer] Authentication Interface Message Text I was first contacted by Devorah on 06/09/20 reporting that he noticed an enlarged lymph node in his neck and a chest x-ray showed a 4X4 cm mass in his chest. Other than his neck being tender, he reported no other symptoms. 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 He subsequently had a CT of the chest locally that confirmed the mass. I suggested to him that he should have the lymph node removed for path testing and NOT to have a fine needle biopsy. On around 06/14 he saw a local ENT surgeon who did a fine needle aspirate. On 06/21/20, he informed me that he was told the results of the fine needle aspirate showed no epithelial cells but there were irregular lymphocytes.The ENT surgeon also called me and I again recommended lymph node excision. There was going to be some delay in this surgeon performing the excision so I arranged for the patient to be see by Dr. Pierre Wills who performed an excisional lymph node biopsy through [facility] on 06/24/20. I was then contacted by Devorah last evening for assistance in interpreting a path report that basically stated that flow cytometry could not be performed because the lymph node has been placed in formalin and there were no viable cells. I called [facility] this morning and spoke with Dr. Benito of pathology who shared with me that the anatomical pathology had been reviewed at [facility] and that most of the node was necrotic but there were a few infiltrative large atypical cells CD30+, CD15+ that were worrisome. But, the report concluded that the specimen was non-diagnostic and that more tissue would be helpful. I relayed these findings to Devorah via phone and emailed the path report to him, My recommendation is that he be managed by an adult oncologist familiar with managing lymphoma to continue the diagnostic work-up and initiate treatment as indicated. I am attempting to connect the patient to Dr. Caldwell at [facility]. Bandar Shah MD 10:07 AM Normal [facility] Blood Urea Nitrogen, Serumon 06-11-2020 Urea nitrogen [Mass/Vol] 18 mg/dL 6 - 23 [facility] Work Phone: Creatinine, Serumon 06-11-20 20 Creatinine [Mass/Vol] 1.01 mg/dL See Below [facility] Work Phone: Comment on above: Reference Range: 0.5 0 - 1.30 Creatinine [Mass/Vol] mg/dL >60 [facility] Work Phone: Comment on above: CALCULATIONS OF CHELSEY MATED GFR ARE PERFORMED USING THE MDRD STUDY EQUATION FOR THE IDMS-TRACEABLE CREATININE METHODS. CLIN CHEM 2007;53:766-72 Otheron 06-08-2020 Thyroid gland Interpreted by: HANS HARRELL06/08/20 11:26MRN: [id number] Name: DEVORAH SANTOS STUDY:US THYROID; 06/08/2020 10:13 am INDICATION:hypothyroidism , S/P Chemotherapy and Radition Hypothyroidism,unspecifie d. COMPARISON:04/17/2017 ORDERING CLINICIAN:OLIVER PRADHAN TECHNIQUE:Multiple ultrasonographic images of the thyroid gland were obtained. FINDINGS:RIGHT LOBE:The right lobe measures 5 x 1.6 x 1.7 cm. No thyroid nodule is seen.Normal echogenicity. LEFT LOBE:The left lobe measures 3.5 x 0.8 x 1.3 cm. No nodule is seen. Normalechogenicity. ISTHMUS:The isthmus measures approximately 3 mm and is homogeneous inechotexture and without any identifiable nodules. CERVICAL LYMPH NODES:An enlarged lymph node with low-grade echoes within it with alobulated contour is seen in the right supraclavicular region in areaof 5 be consistent with a pathological lymph node. IMPRESSION:Normal thyroid ultrasound. No change from 04/17/2017.Right cervical lymphadenopathy, zone 5B. Biopsy is recommended.Electronicall y signed by: JAGDISH HARRELL 06/08/20 11:26 Normal [facility] Work Phone: XR Chest 2 views Interpreted by: HANS HARRELL06/08/20 11:32MRN: [id number] Name: DEVORAH SANTOS STUDY: CHEST 2 VIEW PA AND LAT; 06/08/2020 9:54 am INDICATION:enlarged lymph node neck, PMH lymphoma Localized enlarged lymph nodes. COMPARISON:None. ORDERING CLINICIAN:OLIVER PRADHAN FINDINGS:CHEST PA, LATERAL CARDIOMEDIASTINAL SILHOUETTE:Cardiomediasti nal silhouette is normal in size and configuration. Noenlargement of the hilar lymph nodes. LUNGS:A noncalcified solid mass is seen in right middle lobe laterallymeasuring 3.7 x 4.3 cm size. This may be a primary lung neoplasia ormetastasis. CT scanning of the chest with contrast is recommended. Noacute disease. The left lung remains clear. ABDOMEN:No remarkable upper abdominal findings. BONES:No acute osseous changes. IMPRESSION:1. Mass lesion right middle lobe suspicious for neoplasia. CTscanning of the chest with contrast recommended. No obvious hilarenlargement, but this will be better evaluated with CT scanning. Electronically signed by: JAGDISH HARRELL 06/08/20 11:32 Normal [facility] Work Phone: XR Neck Views Interpreted by: HANS HARRELL06/08/20 11:36MRN: [id number] Name: DEVORAH SANTOS STUDY:SOFT TISSUE NECK; ; 06/08/2020 9:54 am INDICATION:enlarged lymph node neck, PMH lymphoma Localized enlarged lymph nodes. COMPARISON:None. ORDERING CLINICIAN:OLIVER PRADHAN FINDINGS:NECK SOFT TISSUES-AP AND LATERAL VIEWSThe trachea is in the midline. The prevertebral soft tissue thicknessis normal. The epiglottis is normal in size and shape. No thickeningof the aryepiglottic folds. No distention of the hypopharynx. No mass lesion is seen in the neck on plain films. No abnormalcalcification in the neck. The cervical vertebrae are unremarkable. IMPRESSION:Normal soft tissues of the neck on plain films. Electronically signed by: JAGDISH HARRELL 06/08/20 11:36 Normal [facility] Work Phone: Complete Blood Count + Diffgerald moffett 06-01-2020 Basophils (Bld) [#/Vol] 0.00 {x10E9/L} See Below [facility] Work Phone: Comment on above: Reference Range: 0.0 0 - 0.10 Basophils/100 WBC (Bld) 0.6 % 0.0 - 2.0 [facility] Work Phone: Eosinophils (Bld) [#/Vol] 0.60 {x10E9/L} See Below [facility] Work Phone: Comment on above: Reference Range: 0.0 0 - 0.70 Eosinophils/100 WBC (Bld) 8.5 % 0.0 - 6.0 [employer] [facility] Work Phone: Erythrocyte distribution width (RBC) [Ratio] 13.5 % See Below [employer] [facility] Work Phone: Comment on above: Reference Range: 11. 5 - 14.5 Hematocrit (Bld) [Volume fraction] 44.8 % See Below [facility]ITALOr[facility] Work Phone: Comment on above: Reference Range: 41. 0 - 52.0 Hemoglobin (Bld) [Mass/Vol] 15.0 g/dL See Below [facility]ITAL[facility] Work Phone: Comment on above: Reference Range: 13. 5 - 17.5 Lymphocytes (Bld) [#/Vol] 1.10 {x10E9/L} below low threshold See Below [facility]ITAL[facility] Work Phone: Comment on above: Reference Range: 1.2 0 - 4.80 Lymphocytes/100 WBC (Bld) 16.6 % See Below [facility]ITAL[facility] Work Phone: Comment on above: Reference Range: 13. 0 - 44.0 MCHC (RBC) [Mass/Vol] 33.4 g/dL See Below [facility] [employer] [facility] Work Phone: Comment on above: Reference Range: 32. 0 - 36.0 MCV (RBC) [Entitic vol] 84 fL 80 - 100 [facility]ITAL[facility] Work Phone: Monocytes (Bld) [#/Vol] 0.60 {x10E9/L} See Below [facility]ITAL[facility] Work Phone: Comment on above: Reference Range: 0.1 0 - 1.00 Monocytes/100 WBC (Bld) 9.5 % 2.0 - 10.0 [facility]ITAL[facility] Work Phone: Neutrophils (Bld) [#/Vol] 4.30 {x10E9/L} See Below [facility]ITAL[facility] Work Phone: Comment on above: Reference Range: 1.2 0 - 7.70 Percent differential counts (%) should be interpreted in the context of the absolute cell counts (cells/L). Neutrophils/100 WBC (Bld) 64.8 % See Below [facility]ITALOr[facility] Work Phone: Comment on above: Reference Range: 40. 0 - 80.0 Platelets (Bld) [#/Vol] 223 {x10E9/L} 150 - 450 [facility] Work Phone: RBC (Bld) [#/Vol] 5.31 {x10E12/L} See Below [facility] Work Phone: Comment on above: Reference Range: 4.5 0 - 5.90 WBC (Bld) [#/Vol] 6.6 {x10E9/L} 4.4 - 11.3 - [facility] Work Phone: Metabolic Panelon 06-01-2020 ALP [Catalytic activity/Vol] 99 U/L 33 - 120 [facility] Work Phone: Anion gap [Moles/Vol] 10 mmol/L 10 - 20 - [facility] Work Phone: Bilirubin [Mass/Vol] 0.4 mg/dL 0.0 - 1.2 [facility] [facility] Work Phone: Calcium [Mass/Vol] 9.6 mg/dL 8.6 - 10.3 [facility] Work Phone: Chloride [Moles/Vol] 102 mmol/L 98 - 107 - [facility] Work Phone: CO2 [Moles/Vol] 31 mmol/L 21 - 32 -[facility] Work Phone: Creatinine [Mass/Vol] 0.91 mg/dL See Below - [facility] Work Phone: Comment on above: Reference Range: 0.5 0 - 1.30 Glucose [Mass/Vol] 100 mg/dL above high threshold 74 - 99 -[facility] Work Phone: Potassium [Moles/Vol] 4.2 mmol/L 3.5 - 5.3 - [facility] Work Phone: Protein [Mass/Vol] 7.3 g/dL 6.4 - 8.2 [facility] Work Phone: Sodium [Moles/Vol] 139 mmol/L 136 - 145 [facility] Work Phone: Urea nitrogen [Mass/Vol] 14 mg/dL 6 - 23 [facility] Work Phone: Otheron 06-01-2020 Albumin BCP dye [Mass/Vol] 4.3 g/dL 3.4 - 5.0 [facility] Work Phone: ALT With P-5'-P [Catalytic activity/Vol] 22 U/L 10 - 52 [facility] Work Phone: Comment on above: Patients treated wit h Sulfasalazine may generate falsely decreased results for ALT. AST With P-5'-P [Catalytic activity/Vol] 21 U/L 9 - 39 [facility] Work Phone: >60 >60 [facility] Work Phone: Comment on above: CALCULATIONS OF CHELSEY MATED GFR ARE PERFORMED USING THE MDRD STUDY EQUATION FOR THE IDMS-TRACEABLE CREATININE METHODS. CLIN CHEM 2007;53:766-72 TSH - Thyroid Stimulating [facility]2020 TSH Qn 3.16 {mIU/L} See Below [facility] Work Phone: Comment on above: Reference Range: 0.4 4 - 3.98 TSH testing is performed using different testing methodology at [facility] than at other [facility]. Direct result comparisons should only be made within the same method. Hematologyon 12-22-2019 Hematocrit (Bld) [Volume fraction] 48.1 % See Below [facility] Work Phone: Comment on above: Reference Range: 41. 0 - 52.0 Hemoglobin (Bld) [Mass/Vol] 16.2 g/dL See Below [facility] Work Phone: Comment on above: Reference Range: 13. 5 - 17.5 MCV (RBC) [Entitic vol] 86 fL 80 - 100 [facility]ITAL[facility] Work Phone: Platelets (Bld) [#/Vol] 238 {x10E9/L} 150 - 450 [facility]OSPITALMedical PaperFl[employer] [facility] Work Phone: RBC (Bld) [#/Vol] 5.63 {x10E12/L} See Below [facility] CENTERMedical PaperFl[facility] Work Phone: Comment on above: Reference Range: 4.5 0 - 5.90 WBC (Bld) [#/Vol] 6.5 {x10E9/L} 4.4 - 11.3 [facility] [employer] [facility] Work Phone: Metabolic Panelon 12-22-2019 ALP [Catalytic activity/Vol] 93 U/L 33 - 120 [facility]ITALMedical PaperFl[employer] [facility] Work Phone: Anion gap [Moles/Vol] 9 mmol/L below low threshold 10 - 20 [facility]ITALMedical PaperFl[employer] [facility] Work Phone: Bilirubin [Mass/Vol] 0.4 mg/dL 0.0 - 1.2 [facility] [employer] [facility] Work Phone: Calcium [Mass/Vol] 9.5 mg/dL 8.6 - 10.3 [facility] [employer] [facility] Work Phone: Chloride [Moles/Vol] 102 mmol/L 98 - 107 [facility] [employer] [facility] Work Phone: CO2 [Moles/Vol] 31 mmol/L 21 - 32 [facility] [employer] [facility] Work Phone: Creatinine [Mass/Vol] 0.89 mg/dL See Below [facility] [employer] [facility] Work Phone: Comment on above: Reference Range: 0.5 0 - 1.30 Glucose [Mass/Vol] 96 mg/dL 74 - 99 [facility] Work Phone: Potassium [Moles/Vol] 4.2 mmol/L 3.5 - 5.3 [facility] Work Phone: Protein [Mass/Vol] 7.6 g/dL 6.4 - 8.2 [facility] Work Phone: Sodium [Moles/Vol] 138 mmol/L 136 - 145 [facility] Work Phone: Urea nitrogen [Mass/Vol] 12 mg/dL 6 - 23 [facility] Work Phone: Otheron 12-22-2019 Albumin BCP dye [Mass/Vol] 4.5 g/dL 3.4 - 5.0 [facility] Work Phone: ALT With P-5'-P [Catalytic activity/Vol] 31 U/L 10 - 52 [facility] Work Phone: Comment on above: Patients treated wit h Sulfasalazine may generate falsely decreased results for ALT. AST With P-5'-P [Catalytic activity/Vol] 28 U/L 9 - 39 [facility] Work Phone: Erythrocyte distribution width (RBC) [Ratio] 13.0 % See Below [facility] Work Phone: Comment on above: Reference Range: 11. 5 - 14.5 MCHC (RBC) [Mass/Vol] 33.7 g/dL See Below [facility] Work Phone: Comment on above: Reference Range: 32. 0 - 36.0 >60 >60 [facility] Work Phone: Comment on above: CALCULATIONS OF CHELSEY MATED GFR ARE PERFORMED USING THE MDRD STUDY EQUATION FOR THE IDMS-TRACEABLE CREATININE METHODS. CLIN CHEM 2007;53:766-72 TSH - Thyroid Stimulating Ho katy, Serumon 12-22-2019 TSH Qn 2.30 {mIU/L} See Below [facility] Work Phone: Comment on above: Reference Range: 0.4 4 - 3.98 Note new pediatric reference range as of 11/19/2019. TSH testing is performed using different testing methodology at [facility] than at other [facility]. Direct result comparisons should only be made within the same method. TSHon 06-17-2019 TSH Qn 2.07 mcIU/mL Normal 0.30-5.60 [facility] Comment on above: Performed By: #### 2 [id number] #### [employer] [address] [place] [address] Auto Diffon 12-17-2018 Basophils (Bld) [#/Vol] 0.0 E3/mcL Normal 0.0-0.2 [facility] Comment on above: Order Comment: Order Added by Discern Expert. Performed By: #### 2 [id number] #### [employer] [address] [place] [address] Basophils/100 WBC (Bld) 0.3 % Normal 0.0-2.0 [facility] Comment on above: Order Comment: Order Added by Discern Expert. Performed By: #### 2 [id number] #### [employer] [address] [place] [address] Eos Absolute 0.2 E3/mcL Normal 0.0-0.7 [facility] Comment on above: Order Comment: Order Added by Discern Expert. Performed By: #### 2 [id number] #### [employer] [address] [place] [address] Eosinophils/100 WBC (Bld) 2.3 % Normal 0.0-11.0 [facility] Comment on above: Order Comment: Order Added by Discern Expert. Performed By: #### 2 [id number] #### [employer] [address] [place] [address] Lymphocytes (Bld) [#/Vol] 1.2 E3/mcL Normal 1.2-3.4 [facility] Comment on above: Order Comment: Order Added by Discern Expert. Performed By: #### 2 [id number] #### [employer] [address] [place] [address] Lymphocytes/100 WBC (Bld) 15.4 % Low 20.0-55.0 [facility] Comment on above: Order Comment: Order Added by Discern Expert. Performed By: #### 2 [id number] #### [employer] [address] [place] [address] Duval Absolute 0.8 E3/mcL High 0.0-0.7 [facility] Comment on above: Order Comment: Order Added by Discern Expert. Performed By: #### 2 [id number] #### [employer] [address] [place] [address] Monocytes/100 WBC (Bld) 9.4 % Normal 0.0-10.0 [facility] Comment on above: Order Comment: Order Added by Discern Expert. Performed By: #### 2 [id number] #### [employer] [address] [place] [address] Neutro Absolute 5.8 E3/mcL Normal 1.4-6.5 [facility] Comment on above: Order Comment: Order Added by Discern Expert. Performed By: #### 2 [id number] #### [employer] [address] [place] [address] Neutro Auto 72.6 % Normal 37.0-75.0 [facility] Comment on above: Order Comment: Order Added by Discern Expert. Performed By: #### 2 [id number] #### [employer] [address] [place] [address] CBC w/ Auto Diffon 9 Erythrocyte distribution width (RBC) [Ratio] 12.9 % Normal 11.5-14.5 [facility] Comment on above: Performed By: #### 2 [id number] #### [employer] [address] [place] [address] Hematocrit (Bld) [Volume fraction] 46.5 % Normal 42.0-52.0 [facility] Comment on above: Performed By: #### 2 [id number] #### [employer] [address] [place] [address] Hemoglobin (Bld) [Mass/Vol] 16.0 g/dL Normal 13.5-18.0 [facility] Comment on above: Performed By: #### 2 [id number] #### [employer] [address] [place] [address] MCH (RBC) [Entitic mass] 29.1 pg Normal 27.0-31.0 [facility] Comment on above: Performed By: #### 2 [id number] #### [employer] [address] [place] [address] MCHC (RBC) [Mass/Vol] 34.3 g/dL Normal 33.0-37.0 [facility] Comment on above: Performed By: #### 2 [id number] #### [employer] [address] [place] [address] MCV (RBC) [Entitic vol] 84.8 fL Normal 78.0-100.0 [facility] Comment on above: Performed By: #### 2 [id number] #### [employer] [address] [place] [address] Platelet mean volume (Bld) [Entitic vol] 8.6 fL Normal 7.4-11.0 [facility] Comment on above: Performed By: #### 2 [id number] #### [employer] [address] [place] [address] Platelets (Bld) [#/Vol] 198 E3/mcL Normal 130-400 [facility] Comment on above: Performed By: #### 2 [id number] #### [employer] [address] [place] [address] RBC (Bld) [#/Vol] 5.49 E6/mcL Normal 3.90-6.10 [facility] Comment on above: Performed By: #### 2 [id number] #### [employer] [address] [place] [address] WBC (Bld) [#/Vol] 8.0 E3/mcL Normal 3.6-11.0 [facility] Comment on above: Performed By: #### 2 [id number] #### [employer] [address] [place] [address] Lyteson 12-17-2018 Anion gap [Moles/Vol] 9 mmol/L Low 10-20 [facility] Comment on above: Performed By: #### 2 [id number] #### [employer] [address] [place] [address] Chloride [Moles/Vol] 101 mmol/L Normal 98-107 [facility] Comment on above: Performed By: #### 2 [id number] #### [employer] [address] [place] [address] CO2 [Moles/Vol] 31.0 mmol/L Normal 21.0-32.0 [facility] Comment on above: Performed By: #### 2 [id number] #### [employer] [address] [place] [address] Potassium [Moles/Vol] 3.6 mmol/L Normal 3.5-5.3 [facility] Comment on above: Performed By: #### 2 [id number] #### [employer] [address] [place] [address] Sodium [Moles/Vol] 138 mmol/L Normal 136-145 [facility] Comment on above: Performed By: #### 2 [id number] #### [employer] [address] [place] [address] TSHon 12-17-2018 TSH Qn 3.30 mcIU/mL Normal 0.30-5.60 [facility] Comment on above: Performed By: #### 2 [id number] #### [employer] [address] [place] [address] Vital Signs Date Time Vital Sign Value Performing Clinician Facility 04-28-2025 09:09040 Body height 188 cm Emily Kan MD Work Phone: [facility] 04-28-2025 09:09-0400 Body mass index (BMI) [Ratio] 43.65 kg/m2 Emily Kan MD Work Phone: [facility] 04-28-2025 09:09-0400 Body weight 154.22 kg Emily Kan MD Work Phone: [facility] 04-07-2025 09:250400 Body height 188 cm Emily Kan MD Work Phone: [facility] 04-07-2025 09:25-0400 Body mass index (BMI) [Ratio] 43.68 kg/m2 Emily Kan MD Work Phone: [employer] [facility] 04-07-2025 09:25-0400 Body weight 154.31 kg Emily Kan MD Work Phone: [employer] [facility] 04-07-2025 09:25-0400 Diastolic blood pressure 88 mm[Hg] Emily Kan MD Work Phone: [employer] [facility] 04-07-2025 09:25-0400 Heart rate 80 /min Emily Kan MD Work Phone: [employer] [facility] 04-07-2025 09:25-0400 SaO2% (BldA) [Mass fraction] 98 % Emily Kan MD Work Phone: [employer] [facility] 04-07-2025 09:25-0400 Systolic blood pressure 126 mm[Hg] Emily Kan MD Work Phone: [employer] [facility] 11-18-2024 10:54-0500 Body height 188 cm Prakash Caldwell MD Work Phone: [employer] [facility] 11-18-2024 10:54-0500 Body mass index (BMI) [Ratio] 43.08 kg/m2 Prakash Caldwell MD Work Phone: [employer] [facility] 11-18-2024 10:54-0500 Body temperature 97.39 [degF] Prakash Caldwell MD Work Phone: [employer] [facility] 11-18-2024 10:54-0500 Body weight 152.18 kg Prakash Caldwell MD Work Phone: [employer] [facility] 11-18-2024 10:54-0500 Diastolic blood pressure 103 mm[Hg] Prakash Caldwell MD Work Phone: [employer] [facility] 11-18-2024 10:54-0500 Heart rate 83 /min Prakash Caldwell MD Work Phone: [employer] [facility] 11-18-2024 10:54-0500 SaO2% (BldA) [Mass fraction] 93 % Prakash Caldwell MD Work Phone: [facility] 11-18-2024 10:54-0500 Systolic blood pressure 146 mm[Hg] Prakash Caldwell MD Work Phone: [facility] 08-05-2024 08:31-0500 Body height 188 cm Germania Moreau MD Work Phone: [facility] 08-05-2024 08:31-0500 Body mass index (BMI) [Ratio] 43.11 kg/m2 Germania Moreau MD Work Phone: [facility] 08-05-2024 08:31-0500 Body weight 152.32 kg Germania Moreau MD Work Phone: [facility] 08-05-2024 08:31-0500 Diastolic blood pressure 80 mm[Hg] Germania Moreau MD Work Phone: [facility] 08-05-2024 08:31-0500 Heart rate 74 /min Germania Moreau MD Work Phone: [facility] 08-05-2024 08:31-0500 SaO2% (BldA) [Mass fraction] 95 % Germania Moreau MD Work Phone: [facility] 08-05-2024 08:31-0500 Systolic blood pressure 120 mm[Hg] Germania Moreau MD Work Phone: [facility] 05-20-2024 11:09-0400 Body height 188 cm Prakash Caldwell MD Work Phone: [facility] 05-20-2024 11:09-0400 Body mass index (BMI) [Ratio] 42.7 kg/m2 Prakash Caldwell MD Work Phone: [employer] [facility] 05-20-2024 11:09-0400 Body temperature 97.59 [degF] Prakash Caldwell MD Work Phone: [employer] [facility] 05-20-2024 11:09-0400 Body weight 150.87 kg Prakash Caldwell MD Work Phone: [facility] 05-20-2024 11:09-0400 Diastolic blood pressure 97 mm[Hg] Prakash Caldwell MD Work Phone: [facility] 05-20-2024 11:09-0400 Heart rate 74 /min Prakash Caldwell MD Work Phone: [facility] 05-20-2024 11:09-0400 SaO2% (BldA) [Mass fraction] 98 % Prakash Caldwell MD Work Phone: [facility] 05-20-2024 11:09-0400 Systolic blood pressure 142 mm[Hg] Prakash Caldwell MD Work Phone: [facility] 01-29-2024 09:45-0400 Body height 188 cm Emily Kan MD Work Phone: [facility] 01-29-2024 09:45-0400 Body mass index (BMI) [Ratio] 41.34 kg/m2 Emily Kan MD Work Phone: [facility] 01-29-2024 09:45-0400 Body weight 146.06 kg Emily Kan MD Work Phone: [facility] 01-29-2024 09:45-0400 Diastolic blood pressure 68 mm[Hg] Emily Kan MD Work Phone: [facility] 01-29-2024 09:45-0400 Heart rate 69 /min Emily Kan MD Work Phone: [facility] 01-29-2024 09:45-0400 SaO2% (BldA) [Mass fraction] 97 % Emily Kan MD Work Phone: [facility] 01-29-2024 09:45-0400 Systolic blood pressure 142 mm[Hg] Emily Kan MD Work Phone: [facility] 11-20-2023 10:47-0500 Body height 188 cm Prakash Caldwell MD Work Phone: [facility] 11-20-2023 10:47-0500 Body mass index (BMI) [Ratio] 42.5 kg/m2 Prakash Caldwell MD Work Phone: [facility] 11-20-2023 10:47-0500 Body temperature 97.39 [degF] Prakash Caldwell MD Work Phone: [facility] 11-20-2023 10:47-0500 Body weight 150.14 kg Prakash Caldwell MD Work Phone: [facility] 11-20-2023 10:47-0500 Diastolic blood pressure 90 mm[Hg] Prakash Caldwell MD Work Phone: [facility] 11-20-2023 10:47-0500 Heart rate 74 /min Prakash Caldwell MD Work Phone: [facility] 11-20-2023 10:47-0500 SaO2% (BldA) [Mass fraction] 97 % Prakash Caldwell MD Work Phone: [facility] 11-20-2023 10:47-0500 Systolic blood pressure 134 mm[Hg] Prakash Caldwell MD Work Phone: [facility] 08-07-2023 09:01-0500 Body height 188 cm Germania Moreau MD Work Phone: [facility] 08-07-2023 09:01-0500 Body mass index (BMI) [Ratio] 41.92 kg/m2 Germania Moreau MD Work Phone: [facility] 08-07-2023 09:01-0500 Body weight 148.1 kg Germania Moreau MD Work Phone: [facility] 08-07-2023 09:01-0500 Diastolic blood pressure 92 mm[Hg] Germania Moreau MD Work Phone: [facility] 08-07-2023 09:01-0500 Heart rate 86 /min Germania Moreau MD Work Phone: [facility] 08-07-2023 09:01-0500 SaO2% (BldA) [Mass fraction] 98 % Germania Moreau MD Work Phone: [facility] 08-07-2023 09:01-0500 Systolic blood pressure 124 mm[Hg] Germania Moreau MD Work Phone: [facility] 05-08-2023 10:29-0400 Body height 188 cm Latrice Velasco MD Work Phone: [facility] 05-08-2023 10:290400 Body weight 147.33 kg Latrice Velasco MD Work Phone: [facility] 05-08-2023 10:29-0400 Respiratory rate 20 /min Latrice Velasco MD Work Phone: [facility] 04-24-2023 10:22-0400 Body height 188 cm Prakash Caldwell MD Work Phone: [facility] 04-24-2023 10:22-0400 Body mass index (BMI) [Ratio] 41.64 kg/m2 Prakash Caldwell MD Work Phone: [facility] 04-24-2023 10:22-0400 Body temperature 97.7 [degF] Prakash Caldwell MD Work Phone: [facility] 04-24-2023 10:22-0400 Body weight 147.1 kg Prakash Caldwell MD Work Phone: [facility] 04-24-2023 10:22-0400 Diastolic blood pressure 91 mm[Hg] Prakash Caldwell MD Work Phone: [facility] 04-24-2023 10:22-0400 Heart rate 89 /min Prakash Caldwell MD Work Phone: [facility] 04-24-2023 10:22-0400 SaO2% (BldA) [Mass fraction] 98 % Prakash Caldwell MD Work Phone: [facility] 04-24-2023 10:22-0400 Systolic blood pressure 147 mm[Hg] Prakash Caldwell MD Work Phone: [facility] 03-20-2023 14:38-0400 Body height 188 cm Latrice Velasco MD Work Phone: [facility] 03-20-2023 14:38-0400 Body weight 148.33 kg Latrice Velasco MD Work Phone: [facility] 03-20-2023 14:38-0400 Respiratory rate 16 /min Latrice Velasco MD Work Phone: [facility] 03-06-2023 15:22-0400 Body height 188 cm Latrice Velasco MD Work Phone: [facility] 03-06-2023 15:22-0400 Body weight 144.7 kg Latrice Velasco MD Work Phone: [facility] 03-06-2023 15:22-0400 Respiratory rate 18 /min Latrice Velasco MD Work Phone: [facility] 02-20-2023 10:32-0400 Body height 188 cm Latrice Velasco MD Work Phone: [facility] 02-20-2023 10:32-0400 Body weight 144.79 kg Latrice Velasco MD Work Phone: [facility] 02-20-2023 10:32-0400 Respiratory rate 20 /min Latriec Velasco MD Work Phone: [facility] 02-14-2023 16:03-0400 Body height 188 cm Latrice Velasco MD Work Phone: [facility] 02-14-2023 16:03-0400 Body weight 142.88 kg Latrice Velasco MD Work Phone: [facility] 02-14-2023 16:03-0400 Respiratory rate 18 /min Latrice Velasco MD Work Phone: [facility] 12-05-2022 09:00-0400 Body height 188 cm Silvina Matos MD Work Phone: [facility] 12-05-2022 09:00-0400 Body mass index (BMI) [Ratio] 40.24 kg/m2 Silvina Matos MD Work Phone: [facility] 12-05-2022 09:00-0400 Body weight 142.16 kg Silvina Matos MD Work Phone: [facility] 12-05-2022 09:00-0400 Diastolic blood pressure 89 mm[Hg] Silvina Matos MD Work Phone: [facility] 12-05-2022 09:00-0400 Heart rate 74 /min Silvina Matos MD Work Phone: [facility] 12-05-2022 09:00-0400 Systolic blood pressure 131 mm[Hg] Silvina Matos MD Work Phone: [facility] 11-13-2022 13:33-0500 Body height 187.9 cm Oliver Furness Other Phone: [facility] 11-13-2022 13:33-0500 Body temperature 97.7 [degF] Oliver Furness Other Phone: [facility] 11-13-2022 13:33-0500 Diastolic blood pressure 91 mm[Hg] Oliver Furness Other Phone: [facility] 11-13-2022 13:33-0500 Heart rate 103 /min Oliver Furness Other Phone: [facility] 11-13-2022 13:33-0500 Respiratory rate 16 /min Oliver Furness Other Phone: [facility] 11-13-2022 13:33-0500 SaO2% (BldA) [Mass fraction] 95 % Oliver Furness Other Phone: [facility] 11-13-2022 13:33-0500 Systolic blood pressure 137 mm[Hg] Oliver Furness Other Phone: [facility] 10-26-2022 20:19-0500 Body height 188 cm Oliver Furness Other Phone: [facility] 10-26-2022 20:19-0500 Body temperature 97.34 [degF] Oliver Furness Other Phone: [facility] 10-26-2022 20:19-0500 Diastolic blood pressure 59 mm[Hg] Oliver Pradhan Other Phone: [facility] 10-26-2022 20:19-0500 Heart rate 59 /min Oliver Pradhan Other Phone: [facility] 10-26-2022 20:19-0500 SaO2% (BldA) [Mass fraction] 98 % Oliver Pradhan Other Phone: [facility] 10-26-2022 20:19-0500 Systolic blood pressure 81 mm[Hg] Oliver Pradhan Other Phone: [facility] 10-24-2022 10:26-0500 Body height 188 cm Prakash Caldwell MD Work Phone: [facility] [place] 10-24-2022 10:26-0500 Body mass index (BMI) [Ratio] 40.73 kg/m2 Prakash Caldwell MD Work Phone: [employer] [place] 10-24-2022 10:26-0500 Body temperature 97.9 [degF] Prakash Caldwell MD Work Phone: [employer] [place] 10-24-2022 10:26-0500 Body weight 143.88 kg Prakash Caldwell MD Work Phone: [facility] 10-24-2022 10:26-0500 Diastolic blood pressure 91 mm[Hg] Prakash Caldwell MD Work Phone: [facility] 10-24-2022 10:26-0500 Heart rate 82 /min Prakash Caldwell MD Work Phone: [facility] 10-24-2022 10:26-0500 SaO2% (BldA) [Mass fraction] 97 % Prakash Caldwell MD Work Phone: [facility] 10-24-2022 10:26-0500 Systolic blood pressure 134 mm[Hg] Prakash Caldwell MD Work Phone: [facility] [place] 10-03-2022 11:27-0500 Body height 188 cm Emily Kan MD Work Phone: [facility] [place] 10-03-2022 11:27-0500 Body mass index (BMI) [Ratio] 40.32 kg/m2 Emily Kan MD Work Phone: [facility] [place] 10-03-2022 11:27-0500 Body weight 142.43 kg Emily Kan MD Work Phone: [facility] [place] 10-03-2022 11:27-0500 Diastolic blood pressure 70 mm[Hg] Emily Kan MD Work Phone: [facility] [place] 10-03-2022 11:27-0500 Heart rate 73 /min Emily Kan MD Work Phone: [facility] [place] 10-03-2022 11:27-0500 SaO2% (BldA) [Mass fraction] 96 % Emily Kan MD Work Phone: [facility] [place] 10-03-2022 11:27-0500 Systolic blood pressure 126 mm[Hg] Emily Kan MD Work Phone: [facility] [place] 10-03-2022 09:35-0500 Body height 188 cm Silvina Matos MD Work Phone: [facility] [place] 10-03-2022 09:35-0500 Body mass index (BMI) [Ratio] 40.11 kg/m2 Silvina Matos MD Work Phone: [facility] [place] 10-03-2022 09:35-0500 Body weight 141.7 kg Silvina Matos MD Work Phone: [facility] [place] 10-03-2022 09:35-0500 Diastolic blood pressure 84 mm[Hg] Silvina Matos MD Work Phone: [facility] [place] 10-03-2022 09:35-0500 Heart rate 78 /min Silvina Matos MD Work Phone: [facility] [place] 10-03-2022 09:35-0500 Respiratory rate 16 /min Silvina Matos MD Work Phone: [facility] [place] 10-03-2022 09:35-0500 Systolic blood pressure 126 mm[Hg] Silvina Matos MD Work Phone: [facility] [place] 01-24-2022 09:45-0400 Body height 187.96 cm Oliver Pradhan Work Phone: [facility] Work Phone: 01-24-2022 09:45-0400 Body mass index (BMI) [Ratio] 40.9 kg/m2 Oliver Pradhan Work Phone: [facility] Work Phone: 01-24-2022 09:45-0400 Body surface area Derived from formula 2.65 m2 Oliver Pradhan Work Phone: [facility] Work Phone: 01-24-2022 09:45-0400 Body weight 144.5 kg Oliver Pradhan Work Phone: [facility] Work Phone: 01-24-2022 09:45-0400 Diastolic blood pressure 70 mm[Hg] Oliver Pradhan Work Phone: [facility] Work Phone: 01-24-2022 09:45-0400 Heart rate 81 /min Oliver Pradhan Work Phone: [facility] Work Phone: 01-24-2022 09:45-0400 SaO2% (BldA) [Mass fraction] 97 % Oliver Pradhan Work Phone: [facility] Work Phone: 01-24-2022 09:45-0400 Systolic blood pressure 100 mm[Hg] Oliver Pradhan Work Phone: [facility] Work Phone: 11-29-2021 09:28-0400 Diastolic blood pressure 80 mm[Hg] Oliver Pradhan Work Phone: [facility] Work Phone: 11-29-2021 09:28-0400 Systolic blood pressure 138 mm[Hg] Oliver Pradhan Work Phone: [facility] Work Phone: 11-29-2021 09:10-0400 Body height 187.96 cm Oliver Pradhan Work Phone: [facility] Work Phone: 11-29-2021 09:10-0400 Body mass index (BMI) [Ratio] 40.97 kg/m2 Oliver Pradhan Work Phone: [facility] Work Phone: 11-29-2021 09:10-0400 Body surface area Derived from formula 2.65 m2 Oliver Pradhan Work Phone: [facility] Work Phone: 11-29-2021 09:10-0400 Body weight 144.76 kg Oliver Pradhan Work Phone: [facility] Work Phone: 11-29-2021 09:10-0400 Diastolic blood pressure 90 mm[Hg] Oliver Pradhan Work Phone: [facility] Work Phone: 11-29-2021 09:10-0400 Heart rate 86 /min Oliver Pradhan Work Phone: [facility] Work Phone: 11-29-2021 09:10-0400 SaO2% (BldA) [Mass fraction] 97 % Oliver Pradhan Work Phone: [facility] Work Phone: 11-29-2021 09:10-0400 Systolic blood pressure 150 mm[Hg] Oliver Pradhan Work Phone: [facility] Work Phone: 07-19-2021 09:31-0400 Body height 187.96 cm Oliver Pradhan Work Phone: [facility] Work Phone: 07-19-2021 09:31-0400 Body mass index (BMI) [Ratio] 40.72 kg/m2 Oliver Pradhan Work Phone: [facility] Work Phone: 07-19-2021 09:31-0400 Body surface area Derived from formula 2.64 m2 Oliver Pradhan Work Phone: -[facility] Work Phone: 07-19-2021 09:31-0400 Body temperature 96.2 [degF] Oliver Pradhan Work Phone: -[facility] Work Phone: 07-19-2021 09:31-0400 Body weight 143.85 kg Oliver Pradhan Work Phone: -[facility] Work Phone: 07-19-2021 09:31-0400 Diastolic blood pressure 88 mm[Hg] Oliver Pradhan Work Phone: -[facility] Work Phone: 07-19-2021 09:31-0400 Heart rate 80 /min Oliver Pradhan Work Phone: -[facility] Work Phone: 07-19-2021 09:31-0400 SaO2% (BldA) [Mass fraction] 98 % Oliver Pradhan Work Phone: [facility] Work Phone: 07-19-2021 09:31-0400 Systolic blood pressure 120 mm[Hg] Oliver T Furness Work Phone: -[facility] Work Phone: 06-15-2021 08:25-0400 Body height 187.96 cm Oliver T Furness Work Phone: -[facility] Work Phone: 06-15-2021 08:25-0400 Body mass index (BMI) [Ratio] 40.7 kg/m2 Oliver T Furness Work Phone: -[facility] Work Phone: 06-15-2021 08:25-0400 Body surface area Derived from formula 2.64 m2 Oliver T Furness Work Phone: [facility] Work Phone: 06-15-2021 08:25-0400 Body weight 143.79 kg Oliver T Furness Work Phone: -[facility] Work Phone: 06-15-2021 08:25-0400 Diastolic blood pressure 78 mm[Hg] Oliver T Furness Work Phone: -[facility] Work Phone: 06-15-2021 08:25-0400 Heart rate 74 /min Oliver T Furness Work Phone: -[facility] Work Phone: 06-15-2021 08:25-0400 Systolic blood pressure 130 mm[Hg] Oliver T Furness Work Phone: -[facility] Work Phone: 06-14-2021 10:42-0400 Body height 187.96 cm Oliver T Furness Work Phone: -[facility] Work Phone: 06-14-2021 10:42-0400 Body mass index (BMI) [Ratio] 40.63 kg/m2 Oliver Pradhan Work Phone: [facility] Work Phone: 06-14-2021 10:42-0400 Body surface area Derived from formula 2.64 m2 Oliver Pradhan Work Phone: [facility] Work Phone: 06-14-2021 10:42-0400 Body temperature 97.3 [degF] Oliver Pradhan Work Phone: [facility] Work Phone: 06-14-2021 10:42-0400 Body weight 143.54 kg Oliver Pradhan Work Phone: [facility] Work Phone: 06-14-2021 10:42-0400 Diastolic blood pressure 102 mm[Hg] Oliver Pradhan Work Phone: [facility] Work Phone: 06-14-2021 10:42-0400 Heart rate 83 /min Oliver Pradhan Work Phone: [facility] Work Phone: 06-14-2021 10:42-0400 SaO2% (BldA) [Mass fraction] 98 % Oliver Pradhan Work Phone: [facility] Work Phone: 06-14-2021 10:42-0400 Systolic blood pressure 138 mm[Hg] Oliver Pradhan Work Phone: [facility] Work Phone: 05-03-2021 09:36-0400 Body temperature 96.91 [degF] Prakash Caldwell MD [facility] Phone: [facility] Work Phone: 05-03-2021 09:36-0400 Diastolic blood pressure 92 mm[Hg] Prakash Paulette THOMAS Work Phone: [facility] Work Phone: 05-03-2021 09:36-0400 Heart rate 80 /min Prakash Paulette THOMAS Work Phone: [facility] Work Phone: 05-03-2021 09:36-0400 Respiratory rate 16 /min Prakash Paulette THOMAS Work Phone: [facility] Work Phone: 05-03-2021 09:36-0400 Systolic blood pressure 131 mm[Hg] Prakash Paulette THOMAS Work Phone: [place] Work Phone: 01-31-2021 12:30-0400 Diastolic blood pressure 83 mm[Hg] Prakash Paulette THOMAS Work Phone: [facility] Work Phone: 01-31-2021 12:30-0400 Heart rate 98 /min Prakash Paulette THOMAS Work Phone: [place] Work Phone: 01-31-2021 12:30-0400 Systolic blood pressure 131 mm[Hg] Prakash Paulette THOMAS Work Phone: [place] Work Phone: 01-31-2021 09:09-0400 Body height 188 cm Prakash Caldwell MD Work Phone: [place] Work Phone: 01-31-2021 09:09-0400 Body mass index (BMI) [Ratio] 40.46 kg/m2 Prakash Caldwell MD Work Phone: [place] Work Phone: 01-31-2021 09:09-0400 Body weight 142.93 kg Prakash Caldwell MD Work Phone: [place] Work Phone: 01-31-2021 09:09-0400 Respiratory rate 18 /min Prakash Paulette MD Work Phone: [place] Work Phone: 01-31-2021 09:09-0400 SaO2% (BldA) [Mass fraction] 98 % Prakash Caldwell MD Work Phone: [place] Work Phone: 01-17-2021 13:52-0400 Diastolic blood pressure 79 mm[Hg] Prakashtracie Caldwell MD Work Phone: [place] Work Phone: 01-17-2021 13:52-0400 Heart rate 95 /min Prakashtracie Caldwell MD Work Phone: [place] Work Phone: 01-17-2021 13:52-0400 Respiratory rate 16 /min Prakashtracie Caldwell MD Work Phone: [place] Work Phone: 01-17-2021 13:52-0400 Systolic blood pressure 132 mm[Hg] Prakash Caldwell MD Work Phone: [place] Work Phone: 01-17-2021 09:30-0400 Body height 188 cm Prakash Caldwell MD Work Phone: [place] Work Phone: 01-17-2021 09:30-0400 Body mass index (BMI) [Ratio] 40.37 kg/m2 Prakash Caldwell MD Work Phone: [place] Work Phone: 01-17-2021 09:30-0400 Body temperature 97.7 [degF] Prakash Caldwell MD Work Phone: [place] Work Phone: 01-17-2021 09:30-0400 Body weight 142.61 kg Prakash Caldwell MD Work Phone: [place] Work Phone: 01-03-2021 13:06-0400 Diastolic blood pressure 73 mm[Hg] Prakash Caldwell MD Work Phone: [place] Work Phone: 01-03-2021 13:06-0400 Heart rate 97 /min Prakash Paulette THOMAS Work Phone: [place] Work Phone: 01-03-2021 13:06-0400 Respiratory rate 18 /min Prakash Paulette THOMAS Work Phone: [place] Work Phone: 01-03-2021 13:06-0400 Systolic blood pressure 134 mm[Hg] Prakash Paulette THOMAS Work Phone: [place] Work Phone: 01-03-2021 09:33-0400 Body height 188 cm Prakash Paulette THOMAS Work Phone: [place] Work Phone: 01-03-2021 09:33-0400 Body mass index (BMI) [Ratio] 40.06 kg/m2 Prakash Paulette THOMAS Work Phone: [place] Work Phone: 01-03-2021 09:33-0400 Body temperature 96.91 [degF] Prakash Paulette THOMAS Work Phone: [place] Work Phone: 01-03-2021 09:33-0400 Body weight 141.52 kg Prakash Paulette THOMAS Work Phone: [place] Work Phone: 12-20-2020 14:04-0400 BP Diastolic 99 mm[Hg] Prakash Paulette [place] Work Phone: 12-20-2020 14:04-0400 BP Systolic 172 mm[Hg] Prakash Paulette [place] Work Phone: 12-20-2020 14:04-0400 Pulse (Heart Rate) 92 /min Prakash Paulette [place] Work Phone: 12-20-2020 14:04-0400 Respiratory Rate 18 /min Prakash Paulette [place] Work Phone: 12-20-2020 09:34-0400 BMI (Body Mass Index) 40.56 kg/m2 Prakash Paulette [employer] Work Phone: 12-20-2020 09:34-0400 Body Temperature 97.7 [degF] Prakash Paulette [employer] Work Phone: 12-20-2020 09:34-0400 Body weight 143.29 kg Prakash Paulette [employer] Work Phone: 12-20-2020 09:34-0400 Height 188 cm Prakash Paulette [employer] Work Phone: 12-07-2020 14:33-0400 BP Diastolic 86 mm[Hg] Prakash Paulette [employer] Work Phone: 12-07-2020 14:33-0400 BP Systolic 138 mm[Hg] Prakash Paulette [employer] Work Phone: 12-07-2020 14:33-0400 Pulse (Heart Rate) 100 /min Prakash Paulette [employer] Work Phone: 12-07-2020 14:33-0400 Respiratory Rate 16 /min Prakash Paulette [employer] Work Phone: 12-07-2020 10:21-0400 BMI (Body Mass Index) 40.46 kg/m2 Prakash Paulette [employer] Work Phone: 12-07-2020 10:21-0400 Body Temperature 97.9 [degF] Prakash Paulette [employer] Work Phone: 12-07-2020 10:21-0400 Body weight 142.93 kg Prakash Paulette [employer] Work Phone: 12-07-2020 10:21-0400 Height 188 cm Prakash Paulette [employer] Work Phone: 12-06-2020 17:00-0400 BP Diastolic 70 mm[Hg] Prakash Paulette [employer] Work Phone: 12-06-2020 17:00-0400 BP Systolic 114 mm[Hg] Prakash Paulette [employer] Work Phone: 12-06-2020 17:00-0400 Pulse (Heart Rate) 84 /min Prakash Paulette [employer] Work Phone: 12-06-2020 17:00-0400 Pulse Oximetry 98 % Prakash Paulette [employer] Work Phone: 12-06-2020 17:00-0400 Respiratory Rate 16 /min Prakash Paulette [employer] Work Phone: 12-06-2020 13:26-0400 BMI (Body Mass Index) 40.57 kg/m2 Prakash Paulette [employer] Work Phone: 12-06-2020 13:26-0400 Body Temperature 97.9 [degF] Prakash Paulette [employer] Work Phone: 12-06-2020 13:26-0400 Body weight 143.34 kg Prakash Paulette [employer] Work Phone: 12-06-2020 13:26-0400 Height 188 cm Prakash Paulette [employer] Work Phone: 12-06-2020 09:09-0400 BMI (Body Mass Index) 40.69 kg/m2 Prakash Paulette [employer] Work Phone: 12-06-2020 09:09-0400 Body Temperature 97.7 [degF] Prakash Paulette [employer] Work Phone: 12-06-2020 09:09-0400 Body weight 143.75 kg Prakash Paulette [employer] Work Phone: 12-06-2020 09:09-0400 BP Diastolic 94 mm[Hg] Prakash Paulette [employer] Work Phone: 12-06-2020 09:09-0400 BP Systolic 164 mm[Hg] Prakash Paulette [employer] Work Phone: 12-06-2020 09:09-0400 Height 188 cm Prakash Paulette [employer] Work Phone: 12-06-2020 09:09-0400 Pulse (Heart Rate) 104 /min Prakash [employer] Work Phone: 12-06-2020 09:09-0400 Respiratory Rate 18 /min Prakash [employer] Work Phone: 11-22-2020 15:08-0500 BP Diastolic 99 mm[Hg] Prakash [employer] Work Phone: 11-22-2020 15:08-0500 BP Systolic 162 mm[Hg] Prakash [employer] Work Phone: 11-22-2020 15:08-0500 Pulse (Heart Rate) 111 /min Prakash [employer] Work Phone: 11-22-2020 09:05-0500 BMI (Body Mass Index) 40.32 kg/m2 Prakash [employer] Work Phone: 11-22-2020 09:05-0500 Body Temperature 97.39 [degF] Prakash [employer] Work Phone: 11-22-2020 09:05-0500 Body weight 142.43 kg Prakash [employer] Work Phone: 11-22-2020 09:05-0500 Height 188 cm Prakash [employer] Work Phone: 11-22-2020 09:05-0500 Respiratory Rate 18 /min Prakash Paulette [employer] Work Phone: 11-08-2020 13:01-0500 BP Diastolic 95 mm[Hg] Prakash [employer] Work Phone: 11-08-2020 13:01-0500 BP Systolic 148 mm[Hg] Prakash [employer] Work Phone: 11-08-2020 13:01-0500 Pulse (Heart Rate) 100 /min Prakash [employer] Work Phone: 11-08-2020 09:10-0500 BMI (Body Mass Index) 40.74 kg/m2 Prakash [employer] Work Phone: 11-08-2020 09:10-0500 Body weight 143.93 kg Prakash Paulette MELÉNDEZ Work Phone: 11-08-2020 09:10-0500 Height 188 cm Prakash Paulette MELÉNDEZ Work Phone: 11-08-2020 09:10-0500 Pulse Oximetry 96 % Prakash Paulette MELÉNDEZ Work Phone: 11-08-2020 09:10-0500 Respiratory Rate 18 /min Prakash Paulette [employer] Work Phone: 10-25-2020 13:14-0500 BP Diastolic 84 mm[Hg] [facility]Dream[facility] [place] 10-25-2020 13:14-0500 BP Systolic 148 mm[Hg] [facility] [place] 10-25-2020 13:14-0500 Pulse (Heart Rate) 90 /min [facility] [place] 10-25-2020 13:14-0500 Respiratory Rate 20 /min [facility] [employer] [place] [employer] [place] 10-25-2020 09:14-0500 BMI (Body Mass Index) 41.24 kg/m2 [facility] [place] 10-25-2020 09:14-0500 Body Temperature 97.39 [degF] [facility] [place] [facility] [place] 10-25-2020 09:14-0500 Body weight 145.69 kg [facility] [place] 10-11-2020 13:20-0500 BP Diastolic 84 mm[Hg] [facility] [place] 10-11-2020 13:20-0500 BP Systolic 138 mm[Hg] [facility] [place] 10-11-2020 13:20-0500 Pulse (Heart Rate) 97 /min [facility] 10-11-2020 09:00-0500 BMI (Body Mass Index) 40.93 kg/m2 [facility] [employer] [facility] 10-11-2020 09:00-0500 Body Temperature 97 [degF] [facility] [employer] [place] 10-11-2020 09:00-0500 Body [facility].61 [facility] [place] [facility] [place] 10-11-2020 09:00-0500 Height 188 cm [facility] [place] , [place] 10-11-2020 09:00-0500 Pulse Oximetry 96 % [facility] [place] [facility] [place] 10-11-2020 09:00-0500 Respiratory Rate 18 /min [facility] [place] 09-27-2020 13:24-0500 BP Diastolic 74 mm[Hg] [facility] [place] [facility] [place] 09-27-2020 13:24-0500 BP Systolic 132 mm[Hg] Prakash [facility] [place] , [place] 09-27-2020 13:24-0500 Pulse (Heart Rate) 94 /min [facility] 09-27-2020 09:21-0500 BMI (Body Mass Index) 40.98 kg/m2 [facility] 09-27-2020 09:21-0500 Body Temperature 97.3 [degF] [facility] [place] 09-27-2020 09:21-0500 Body weight 144.79 kg [facility] [place] 09-27-2020 09:21-0500 Height 188 cm [facility] [place] 09-27-2020 09:21-0500 Respiratory Rate 18 /[facility] [place] 09-13-2020 14:16-0500 BP Diastolic 70 mm[Hg] [facility] [place] [facility] [place] 09-13-2020 14:16-0500 BP Systolic 130 mm[Hg] [facility] [place] 09-13-2020 14:16-0500 Pulse (Heart Rate) 85 /min [facility] [place] 09-13-2020 14:16-0500 Respiratory Rate 18 /min [facility] [place] 09-13-2020 10:10-0500 BMI (Body Mass Index) 40.48 kg/m2 [facility] 09-13-2020 10:10-0500 Body Temperature 97.3 [degF] Prakash [facility] [place] 09-13-2020 10:10-0500 Body weight 143.02 kg [facility] [place] 09-13-2020 10:10-0500 Height 188 cm [facility] [place] 08-30-2020 13:31-0500 BP Diastolic 75 mm[Hg] Prakash [facility] [place] 08-30-2020 13:31-0500 BP Systolic 124 mm[Hg] Prakash [facility] [place] 08-30-2020 13:31-0500 Pulse (Heart Rate) 84 /[facility] [place] 08-30-2020 13:31-0500 Respiratory Rate 16 /min [facility] [place] 08-30-2020 08:50-0500 BMI (Body Mass Index) 39.78 kg/m2 [facility] 08-30-2020 08:50-0500 Body Temperature 97.9 [degF] [facility] [place] 08-30-2020 08:50-0500 Body weight 140.52 kg [facility] [place] 08-30-2020 08:50-0500 Height 188 cm [facility] [place] 08-19-2020 13:55-0500 Body Temperature 97.7 [degF] Prakash [facility] [place] 08-19-2020 13:55-0500 BP Diastolic 92 mm[Hg] Prakash [facility] [place] , [place] 08-19-2020 13:55-0500 BP Systolic 115 mm[Hg] Prakash [facility] [place] , [place] 08-19-2020 13:55-0500 Pulse (Heart Rate) 97 /min [facility] 08-19-2020 13:55-0500 Pulse Oximetry 97 % [facility] [place] 08-19-2020 13:55-0500 Respiratory Rate 18 /min [facility] [place] 08-19-2020 11:41-0500 BMI (Body Mass Index) 39.42 kg/m2 Prakash [facility] [place] [place] 08-19-2020 11:41-0500 Body weight 139.25 kg [facility] [place] [facility] [place] 07-28-2020 16:08-0500 Pulse Oximetry 95 % [facility] [place] [facility] [place] 07-28-2020 14:45-0500 Body Temperature 98.1 [degF] [facility] [place] [facility] [place] 07-28-2020 14:45-0500 BP Diastolic 66 mm[Hg] [facility]ina [facility] [place] 07-28-2020 14:45-0500 BP Systolic 123 mm[Hg] Andreina [facility] [place] 07-28-2020 14:45-0500 Pulse (Heart Rate) 89 /min [facility] [place] 07-28-2020 14:45-0500 Respiratory Rate 22 /min [facility] [place] 07-27-2020 09:45-0500 BMI (Body Mass Index) 39.8 kg/m2 Andreina [facility] [place] 07-27-2020 09:45-0500 Body weight 140.62 kg Andreina [facility] [place] 07-27-2020 09:45-0500 Height 188 cm Andreina [facility] [place] 07-26-2020 12:53-0500 BMI (Body Mass Index) 39.83 kg/m2 Andreina [facility] [place] 07-26-2020 12:53-0500 Body weight 140.71 kg Andreina [facility] [place] 07-26-2020 12:53-0500 Height 188 cm Andreina [facility] [place] 07-26-2020 12:52-0500 Body Temperature 97.7 [degF] Andreina [facility] [place] 07-26-2020 12:52-0500 BP Diastolic 89 mm[Hg] Andreina Workman [facility] [place] [facility] [place] 07-26-2020 12:52-0500 BP Systolic 146 mm[Hg] Andreina Workman [facility] [place] 07-26-2020 12:52-0500 Pulse (Heart Rate) 99 /min Andreina Simons [facility] [place] 07-26-2020 12:52-0500 Pulse Oximetry 95 % [facility]ina [facility] [place] [facility] [place] 07-26-2020 12:52-0500 Respiratory Rate 20 /min Andreina Rivera- O H, [place] 06-01-2020 12:02-0400 BMI (Body Mass Index) 39.55 kg/m2 Tam Olguinelia -[facility] Work Phone: 06-01-2020 12:02-0400 Body Temperature 97.7 [degF] Tam Virk -[facility] Work Phone: 06-01-2020 12:02-0400 Body weight 139.72 kg Tam Olguinelia -[facility] Work Phone: 06-01-2020 12:02-0400 BP Diastolic 80 mm[Hg] Tam Virk -[facility] Work Phone: Comment on above: Location: [facility]; 06-01-2020 12:02-0400 BP Systolic 134 mm[Hg] Tam Virk [facility] Work Phone: Comment on above: Location: [facility]; 06-01-2020 12:02-0400 BSA (Body Surface Area) 2.61 m2 Tam Olguinelia -[facility] Work Phone: 06-01-2020 12:02-0400 Height 187.96 cm Tam Virk -[facility] Work Phone: 06-01-2020 12:02-0400 Pulse (Heart Rate) 76 /min Tam Olguinelia -[facility] Work Phone: 06-01-2020 12:02-0400 Pulse Oximetry 98 % Tam Olguinelia -[facility] Work Phone: 06-24-2019 12:52-0400 BMI (Body Mass Index) 41.68 kg/m2 Tam Clauelia [facility] Work Phone: 06-24-2019 12:52-0400 Body weight 143.3 kg Tam Virk [facility] Work Phone: 06-24-2019 12:52-0400 BP Diastolic 88 mm[Hg] [facility] Work Phone: 06-24-2019 12:52-0400 BP Systolic 126 mm[Hg] Tam Virk [facility] Work Phone: 06-24-2019 12:52-0400 BSA (Body Surface Area) 2.61 m2 Tam Virk [facility] Work Phone: 06-24-2019 12:52-0400 Height 185.42 cm Tam Virk [facility] Work Phone: 06-24-2019 12:52-0400 Pulse (Heart Rate) 75 /min Tam Virk [facility] Work Phone: 06-24-2019 12:52-0400 Pulse Oximetry 97 % Tam Virk [facility] Work Phone: Encounters Encounter Date Encounter Type Care Provider Facility Start: 08-27-2025 [facility] Facility: [facility] Start: 04-28-2025 End: 06-28-2025 Follow-up encounter Ed Foy PA-C Work Phone: [facility] [place] Comment on above: Transthoracic echoca rdiogram (TTE) complete with contrast, bubble, strain, and 3D PRN Start: 04-28-2025 End: 04-28-2025 Subsequent hospital visit by physician mEily Kan MD Work Phone: [facility] Non-Invasive Cardiology Comment on above: Bicuspid aortic valv e; Essential hypertension Start: 04-28-2025 End: 04-28-2025 ambulatory [facility] Start: 04-07-2025 End: 04-07-2025 ambulatory [facility] Start: 04-07-2025 End: 04-07-2025 Office outpatient visit 25 minutes Emily Kan MD Work Phone: [facility] Comment on above: Bicuspid aortic valv e (Primary Dx); Essential hypertension; Mixed hyperlipidemia; Hypothyroidism, unspecified type; Obesity, morbid, BMI 40.0-49.9 (HCC) Start: 02-15-2025 End: 02-15-2025 Refill Emily Kan MD Work Phone: [facility] Start: 11-18-2024 End: 11-18-2024 Office outpatient visit 15 minutes Prakash Caldwell MD Work Phone: [facility] Comment on above: Hodgkin's disease, n odular sclerosis, of intrathoracic lymph nodes (HCC) (Primary Dx) Start: 11-18-2024 End: 11-18-2024 ambulatory PRAKASH Duncan PAULETTE [facility] Start: 09-30-2024 End: 09-30-2024 ambulatory [facility] Start: 08-05-2024 End: 08-05-2024 ambulatory [facility] Amb[facility] Start: 08-05-2024 End: 08-05-2024 Office outpatient visit 25 minutes Germania Moreau MD Work Phone: [facility] Comment on above: Primary hypertension (Primary Dx); Gastroesophageal reflux disease without esophagitis; Anxiety; Acquired hypothyroidism; Hodgkin lymphoma, unspecified Hodgkin lymphoma type, unspecified body region (Multi); Hypothyroidism due to acquired atrophy of thyroid; Obesity, Class III, BMI 40-49.9 (morbid obesity) (Multi) Start: 07-22-2024 End: 07-22-2024 ambulatory [facility] Start: 05-20-2024 End: 05-20-2024 Office outpatient visit 15 minutes Prakash Caldwell MD Work Phone: [facility] [place] Comment on above: Hodgkin's disease, n odular sclerosis, of intrathoracic lymph nodes (HCC) (Primary Dx) Start: 02-07-2024 Orders Only Emily britton MD Work Phone: [facility] Comment on above: Mixed hyperlipidemia (Primary Dx) Start: 01-29-2024 End: 01-29-2024 Office outpatient visit 25 minutes Emily Kan MD Work Phone: [facility] Comment on above: Hypertension, unspec ified type (Primary Dx); Essential hypertension; Hypothyroidism, unspecified type; Mixed hyperlipidemia; Obesity, morbid, BMI 40.0-49.9 (HCC); Bicuspid aortic valve Start: 11-20-2023 End: 11-20-2023 Office outpatient visit 15 minutes Prakash Caldwell MD Work Phone: [facility] [place] Comment on above: Hodgkin's disease, n odular sclerosis, of intrathoracic lymph nodes (HCC) (Primary Dx) Start: 08-28-2023 ambulatory GERMANIA MOREAU [facility] Start: 08-07-2023 End: 08-07-2023 Office outpatient visit 25 minutes Germania Moreau MD Work Phone: [facility] Comment on above: Primary hypertension (Primary Dx); Acquired hypothyroidism; Gastroesophageal reflux disease without esophagitis; Hodgkin lymphoma, unspecified Hodgkin lymphoma type, unspecified body region (CMS/HCC); Hodgkin's disease, nodular sclerosis, of intrathoracic lymph nodes (CMS/HCC); Anxiety; Hypersomnolence; Obesity, Class III, BMI 40-49.9 (morbid obesity) (CMS/HCC) Start: 07-10-2023 End: 07-10-2023 ambulatory LATRICE VELASCO Facility:[facility] Start: 05-08-2023 End: 05-08-2023 ambulatory LATRICE VELASCO Facility:[facility] Start: 05-08-2023 End: 05-08-2023 Patient encounter procedure Latrice Velasco MD Work Phone: [facility] Orthopedics Comment on above: Traumatic amputation of left great toe, subsequent encounter (HCC) (Primary Dx) Start: 04-24-2023 End: 04-24-2023 Office outpatient visit 15 minutes Prakash Caldwell MD Work Phone: [facility] [place] Comment on above: Hodgkin's disease, n odular sclerosis, of intrathoracic lymph nodes (HCC) (Primary Dx) Start: 04-23-2023 Telephone encounter Latrice gotti MD Work Phone: [facility] Comment on above: Appointment Start: 04-11-2023 Telephone encounter Latrice gotti MD Work Phone: [facility] Orthopedic Comment on above: Appointment Start: 03-20-2023 End: 03-20-2023 ambulatory LATRICE VELASCO Facility:[facility] Start: 03-20-2023 End: 03-20-2023 Patient encounter procedure Latrice Velasco MD Work Phone: [facility] Comment on above: Traumatic amputation of left great toe, subsequent encounter (HCC) (Primary Dx) Start: 03-06-2023 End: 03-06-2023 ambulatory LATRICE VELASCO Facility:[facility] Start: 03-06-2023 End: 03-06-2023 Patient encounter procedure Latrice Velasco MD Work Phone: [facility] Comment on above: Traumatic amputation of left great toe, subsequent encounter (HCC) (Primary Dx) Start: 02-20-2023 End: 02-20-2023 ambulatory LATRICE VELASCO Facility:[facility] Start: 02-20-2023 End: 02-20-2023 Patient encounter procedure Latrice Velasco MD Work Phone: [facility] Comment on above: Traumatic amputation of left great toe, subsequent encounter (HCC) (Primary Dx) Start: 02-14-2023 End: 02-14-2023 ambulatory LATRICE VELASCO Facility:[facility] Start: 02-14-2023 End: 02-14-2023 Patient encounter procedure Latrice Velasco MD Work Phone: [facility] Comment on above: Traumatic amputation of left great toe, subsequent encounter (HCC) (Primary Dx) Start: 02-12-2023 Telephone encounter Narendra WALL Comment on above: Follow Up Phone Call (Post Discharge F/U - attempt made. No answer.) Start: 02-02-2023 End: 02-04-2023 Evaluation and management of inpatient LATRICE VELASCO Facility:[facility] Start: 02-02-2023 End: 02-02-2023 Emergency department patient visit Dr. Eduard Raza Facility:[id number] Start: 12-05-2022 End: 12-05-2022 Office outpatient visit 15 minutes Silvina Matos MD Work Phone: [facility] [place] Comment on above: Primary hypertension (Primary Dx); BMI 40.0-44.9, adult (HCC); Class 3 severe obesity with serious comorbidity and body mass index (BMI) of 40.0 to 44.9 in adult, unspecified obesity type (HCC) Start: 11-13-2022 End: 11-13-2022 Emergency department patient visit Ga Cunha [facility] Start: 10-26-2022 End: 10-26-2022 Emergency department patient visit Cheyenne Broussard [facility] Start: 10-24-2022 End: 10-24-2022 Office outpatient visit 15 minutes Prakash Caldwell MD Work Phone: [facility] [place] Comment on above: Hodgkin's disease, n odular sclerosis, of intrathoracic lymph nodes (HCC) (Primary Dx) Start: 10-03-2022 End: 10-03-2022 Office outpatient visit 25 minutes Emily Kan MD Work Phone: [facility] Comment on above: Essential hypertensi on (Primary Dx); Hypertension, unspecified type; Hypothyroidism, unspecified type; Mixed hyperlipidemia; Obesity, morbid, BMI 40.0-49.9 (HCC); Bicuspid aortic valve Start: 10-03-2022 End: 10-03-2022 Office outpatient visit 15 minutes Silvina Matos MD Work Phone: [facility] [place] Comment on above: Primary hypertension (Primary Dx); BMI 40.0-44.9, adult (HCC); Class 3 severe obesity with serious comorbidity and body mass index (BMI) of 40.0 to 44.9 in adult, unspecified obesity type (HCC) Start: 08-01-2022 ambulatory Germania Gomes Facility:[id number] Start: 07-04-2022 [facility] Start: 07-04-2022 End: 07-04-2022 Subsequent hospital visit by physician Silvina Matos MD Work Phone: [facility] Start: 05-16-2022 ambulatory Germania Moreau [facility] Start: 05-16-2022 End: 05-16-2022 Subsequent hospital visit by physician Emily Kan MD Work Phone: [facility] Comment on above: Adverse effect of ch emotherapy, initial encounter Start: 01-24-2022 Office outpatient vi sit 15 minutes Oliver T Furness Work Phone: [facility] Work Phone: Start: 01-24-2022 ambulatory Germania Gomes Facility:[id number] Start: 01-17-2022 Chart Update Oliver T Furn ess Work Phone: [facility] Work Phone: Start: 12-26-2021 AUDIT Oliver Alyssia Furn ess Work Phone: [facility] Work Phone: Start: 11-29-2021 Office outpatient vi sit 15 minutes Oliver T Furness Work Phone: [facility] Work Phone: Start: 11-29-2021 ambulatory Germania Gomes Facility:[id number] Start: 10-27-2021 AUDIT Oliver T Furn ess Work Phone: [facility] Work Phone: Start: 08-29-2021 End: 08-29-2021 ambulatory [facility] Start: 07-19-2021 Office outpatient vi sit 15 minutes Oliver T Furness Work Phone: [facility] Work Phone: Start: 07-13-2021 Chart Update Oliver T Furn ess Work Phone: [facility] Work Phone: Start: 06-30-2021 Telephone encounter Oliver Pradhan Work Phone: [facility] Work Phone: Start: 06-15-2021 FUV, Provider: Cheyenne Vazquez, Status: Pen, Time: 8:30 AM Olivernicko Vallejoess Work Phone: [facility] Work Phone: Start: 06-15-2021 Office outpatient vi sit 15 minutes Oliver T Furness Work Phone: [facility] Work Phone: Start: 06-14-2021 Office outpatient vi sit 25 minutes Olivernicko Pradhan Work Phone: [facility] Work Phone: Start: 05-17-2021 Chart Update Oliver Vallejo ess Work Phone: [facility] Work Phone: Start: 05-16-2021 AUDIT Oliver Vallejo ess Work Phone: [facility] Work Phone: Start: 05-03-2021 End: 05-03-2021 Subsequent hospital visit by physician Prakash Caldwell MD Work Phone: [facility] Comment on above: Poor venous access ( Primary Dx); Hodgkin's disease, nodular sclerosis, of intrathoracic lymph nodes (HCC) Start: 04-07-2021 End: 04-07-2021 Subsequent hospital visit by physician Prakash Caldwell MD Work Phone: [facility] Comment on above: Hodgkin lymphoma of intrathoracic lymph nodes, unspecified Hodgkin lymphoma type (HCC) Start: 01-31-2021 End: 01-31-2021 Subsequent hospital visit by physician Prakash Caldwell MD Work Phone: [facility] Comment on above: Hodgkin lymphoma, un specified Hodgkin lymphoma type, unspecified body region (HCC) (Primary Dx) Start: 01-17-2021 End: 01-17-2021 Subsequent hospital visit by physician Prakash Caldwell MD Work Phone: [facility] Comment on above: Hodgkin lymphoma, un specified Hodgkin lymphoma type, unspecified body region (HCC) (Primary Dx) Start: 01-03-2021 End: 01-03-2021 Subsequent hospital visit by physician Prakash Caldwell MD Work Phone: [facility] Comment on above: Hodgkin lymphoma, un specified Hodgkin lymphoma type, unspecified body region (HCC) (Primary Dx) Start: 12-20-2020 End: 12-20-2020 Subsequent hospital visit by physician Prakash Caldwell Work Phone: [facility] Comment on above: Hodgkin lymphoma, un specified Hodgkin lymphoma type, unspecified body region (HCC) (Primary Dx) Start: 12-07-2020 End: 12-07-2020 Subsequent hospital visit by physician Prakash Caldwell Work Phone: [facility] Comment on above: Hodgkin lymphoma, un specified Hodgkin lymphoma type, unspecified body region (HCC) (Primary Dx) Start: 12-06-2020 End: 12-06-2020 Subsequent hospital visit by physician Prakash Caldwell Work Phone: [facility] General Surgery Comment on above: Arrived Start: 12-06-2020 End: 12-06-2020 Subsequent hospital visit by physician Prakash Gomezesh Work Phone: [facility] Special Procedures Comment on above: Poor venous access; Hodgkin lymphoma of intrathoracic lymph nodes, unspecified Hodgkin lymphoma type (HCC) Hodgkin lymphoma, un specified Hodgkin lymphoma type, unspecified body region (HCC) (Primary Dx) Start: 11-22-2020 End: 11-22-2020 Subsequent hospital visit by physician Prakash Duncan Paulette Work Phone: [facility] Comment on above: Hodgkin lymphoma, un specified Hodgkin lymphoma type, unspecified body region (HCC) (Primary Dx) Start: 11-08-2020 End: 11-08-2020 Subsequent hospital visit by physician Prakash Duncan Qifang Work Phone: [facility] Comment on above: Hodgkin lymphoma, un specified Hodgkin lymphoma type, unspecified body region (HCC) (Primary Dx); Hodgkin lymphoma of intrathoracic lymph nodes, unspecified Hodgkin lymphoma type (HCC) Start: 10-25-2020 End: 10-25-2020 Subsequent hospital visit by physician Prakash A COPsync Phone: [facility] Comment on above: Hodgkin lymphoma, un specified Hodgkin lymphoma type, unspecified body region (HCC) (Primary Dx) Start: 10-11-2020 End: 10-11-2020 Subsequent hospital visit by physician Prakash Duncan [employer] Phone: [facility] Comment on above: Hodgkin lymphoma, un specified Hodgkin lymphoma type, unspecified body region (HCC) (Primary Dx) Start: 09-27-2020 End: 09-27-2020 Subsequent hospital visit by physician Prakash A COP[employer] Phone: [facility] Comment on above: Hodgkin lymphoma, un specified Hodgkin lymphoma type, unspecified body region (HCC) (Primary Dx) Start: 09-13-2020 End: 09-13-2020 Subsequent hospital visit by physician Prakash A COP[employer] Phone: [facility] Comment on above: Hodgkin lymphoma, un specified Hodgkin lymphoma type, unspecified body region (HCC) (Primary Dx) Start: 09-03-2020 End: 09-03-2020 Subsequent hospital visit by physician Andreina Workman Work Phone: [facility] Laboratory Start: 08-30-2020 End: 08-30-2020 Subsequent hospital visit by physician Prakash A COP[employer] Phone: [facility] Comment on above: Hodgkin lymphoma, un specified Hodgkin lymphoma type, unspecified body region (HCC) (Primary Dx) Start: 08-22-2020 End: 08-22-2020 Subsequent hospital visit by physician Prakash A COPsync Phone: [address] Comment on above: Hodgkin lymphoma, un specified, intrathoracic lymph nodes (HCC); Hodgkin lymphoma of intrathoracic lymph nodes, unspecified Hodgkin lymphoma type (HCC) Start: 08-19-2020 End: 08-19-2020 Subsequent hospital visit by physician Prakash Caldwell Work Phone: [facility] General Surgery Comment on above: Poor venous access Start: 07-27-2020 End: 07-28-2020 Evaluation and management of inpatient Andreina Perla MejiaWorkman Work Phone: [facility] 1C Capacity Management Comment on above: Mediastinal mass (Pr imary Dx); S/P thoracotomy Start: 07-26-2020 End: 07-26-2020 Subsequent hospital visit by physician Andreina Mejiainal Work Phone: [facility] Pre-Admit Testing Comment on above: Nodular lymphocyte p redominant Hodgkin lymphoma, unspecified body region (HCC); Pre-op testing Start: 07-19-2020 End: 07-19-2020 Subsequent hospital visit by physician Prakash Caldwell Work Phone: [facility] PET Comment on above: Lung nodule; Mediastinal mass; History of Hodgkin's lymphoma Start: 06-01-2020 Patient encounter procedure Tam Virk [facility] Work Phone: Start: 02-10-2020 Patient encounter procedure Tam Virk [facility] Work Phone: Start: 01-27-2020 Patient encounter procedure [facility]ose [facility] Work Phone: Start: 12-25-2019 Patient encounter procedure Tam Virk [facility] Work Phone: Start: 06-24-2019 [facility] encounter [facility] Work Phone: Procedures Date Procedure Procedure Detail Performing Clinician Start: 04-28-2025 TTE w or Chadwick la MD Work Phone: Start: 09-30-2024 Thyrotropin [Units/v olume] in Serum or Plasma Prakash Caldwell MD Work Phone: Start: 07-22-2024 Thyrotropin [Units/v olume] in Serum or Plasma Germania Moreau MD Work Phone: Start: 05-20-2024 Blood count complete auto&auto difrntl wbc Prakash Caldwell MD Work Phone: Start: 05-20-2024 Lipid 1996 panel - S brigette or Plasma Prakash Caldwell MD Work Phone: Start: 01-29-2024 Ecg routine ecg w/le ast 12 lds trcg only w/o i&r Emily Kan MD Work Phone: Start: 01-29-2024 Lipid 1996 panel - S brigette or Plasma Emily Kan MD Work Phone: Start: 08-28-2023 HOME SLEEP APNEA CICI T (HSAT) GERMANIA MOREAU Start: 07-31-2023 Thyrotropin [Units/v olume] in Serum or Plasma Germania Moreau MD Work Phone: Start: 04-24-2023 Blood count complete auto&auto difrntl wbc Prakash Caldwell MD Work Phone: Start: 02-03-2023 Antibody screen LATRICE VELASCO Comment on above: Order Comment: Speci men Type: BLOOD SPECIMEN Ordering Facility: [facility] Address: [address] [place], [place] [id number] Performed By: #### T SCR #### [facility] CLIA [id number] [address] [place] [address] [place] Start: 10-10-2022 Lipid 1996 panel - S brigette or Plasma Prakash Caldwell MD Work Phone: Start: 10-03-2022 Ecg routine ecg w/le ast 12 lds w/i&r Emily Kan MD Work Phone: Start: 05-16-2022 ECHOCARDIOGRAM CARDIO-ONCOLOGY Emily Kan MD Work Phone: Start: 04-04-2022 Lipid 1996 panel - S brigette or Plasma Silvina Matos MD Work Phone: Start: 06-21-2021 Colonoscopy Oliver T Furnsergio Work Phone: Start: 06-21-2021 Colonoscopy Oliver T Furnsergio Work Phone: Comment on above: Small tubular adenom a at site of previous piecemeal resection of tubular adenoma with high grade dysplasia on 02/16/20 scope. Recommend 3 year surveillance colonoscopy (due Jun 2024).; Start: 04-07-[address] atten uation skull base mid-thigh Prakash A Paulette THOMAS Work Phone: Start: 01-31-2021 Blood count complete auto&auto difrntl wbc Prakash A Paulette THOMAS Work Phone: Start: 01-17-2021 End: 01-17-2021 Comprehensive metabolic panel Prakash A Paulette THOMAS Work Phone: Start: 01-03-2021 Blood count complete auto&auto difrntl wbc Prakash A Paulette THOMAS Work Phone: Start: 12-20-2020 Blood count complete auto&auto difrntl wbc Prakash A Qifang Work Phone: Start: 12-20-2020 Comprehensive metabo lic panel Prakash A COPsync Phone: Start: 12-07-2020 Blood count complete auto&auto difrntl wbc Prakash A Qifang Work Phone: Start: 12-06-2020 Prothrombin time Lalo Hughes Work Phone: Start: 11-22-2020 Blood count complete auto&auto difrntl wbc Prakash A COPsync Phone: Start: 11-22-2020 Comprehensive metabo lic panel Prakash A COPsync Phone: Start: 11-08-2020 Blood count complete auto&auto difrntl wbc Prakash A Qifang Work Phone: Start: 11-08-2020 Comprehensive metabo lic panel Prakash A COP[employer] Phone: Start: 10-25-2020 Blood count complete auto&auto difrntl wbc Prakash A COPsync Phone: Start: 10-25-2020 Comprehensive metabo lic panel Prakash A Qifang Work Phone: Start: 10-11-2020 Blood count complete auto&auto difrntl wbc Prakash A Qifang Work Phone: Start: 09-27-2020 Blood count complete auto&auto difrntl wbc Prakash A Qifang Work Phone: Start: 09-27-2020 Comprehensive metabo lic panel Prakash A Qifang Work Phone: Start: 09-13-2020 Blood count complete auto&auto difrntl wbc Prakash A Qifang Work Phone: Start: 08-30-2020 Blood count complete auto&auto difrntl wbc Prakash A Qifang Work Phone: Start: 08-30-2020 Comprehensive metabo lic panel Prakash A Qifang Work Phone: Start: 08-22-2020 Echo tthrc r-t 2d w/wom-mode compl spec&colr d Prakash A Qifang Work Phone: Start: 08-19-2020 OPERATIVE REPORT 3m Sca nning Start: 08-19-2020 Special treatments a nd procedures Prakash A Qifang Work Phone: Start: 08-19-2020 Blood count complete automated Lalo Hughes Work Phone: Start: 07-28-2020 Radiologic exam ches t single view Maria Rmarcos Yo Work Phone: Start: 07-28-2020 Radiologic exam ches t single view Flora Cruz Work Phone: Start: 07-28-2020 Basic metabolic pane l calcium total Flora Cruz Work Phone: Start: 07-28-2020 Blood count complete auto&auto difrntl wbc Flora Cruz Work Phone: Start: 07-27-2020 OPERATIVE REPORT 3m Sca nning Start: 07-27-2020 Radiologic exam ches t single view Flora Cruz Work Phone: Start: 07-27-2020 EBONIE STUDIO 3 Andreina A Workman Work Phone: Start: 07-26-2020 Radiologic exam ches t 2 views David Tay Work Phone: Start: 07-26-2020 COVID-19 David Tay Work Phone: Start: 07-26-2020 Urnls dip stick/tabl et rgnt auto w/o microscopy David Tay Work Phone: Start: 07-26-2020 Blood count complete auto&auto difrntl wbc David Tay Work Phone: Start: 07-26-2020 Blood typing serologic abo David Tay Work Phone: Start: 07-26-2020 Comprehensive metabo lic panel David Tay Work Phone: Start: 07-26-2020 Prothrombin time David colorado Work Phone: Start: 07-19-[address] atten uation skull base mid-thigh Prakash Caldwell Work Phone: Start: 06-10-2020 Assay of urea nitrog en quantitative Tam Virk Start: 06-10-2020 Creatinine blood Michae l Claucel Start: 06-10-2020 Ct thorax w/contrast material Tam Virk Start: 06-01-2020 Assay of thyroid stimulating hormone tsh Tam Virk Start: 06-01-2020 Blood count complete auto&auto difrntl wbc Tam Virk Start: 06-01-2020 Thyrotropin [Units/v olume] in Serum or Plasma Prakash Caldwell MD Work Phone: Start: 02-17-2020 Colonoscopy Oliver Pradhan Work Phone: Comment on above: 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.; Start: 06-24-2019 Assay of thyroid stimulating hormone tsh Tam Virk Start: 06-24-2019 CBC W Auto Different ial panel - Blood Tam Virk Start: 06-24-2019 Comprehensive metabo lic 2000 panel Tam Virk Biopsy of lymph node Tam Virk End: 02-17-2020 Colonoscopy Tam Virk Plan of Treatment Date Care Activity Detail Author Start: 2060 RSV Immunization for Adults (1 - 1-dose 75+ series) RSV Immunization for Adults (1 - 1-dose 75+ series) [facility] Start: 2045 RSV Immunization age d 60 or older (1 - 1-dose 60+ series) RSV Immunization aged 60 or older (1 - 1-dose 60+ series) [facility] Start: 02-02-2033 DTaP/Tdap/Td Vaccine s (6 - Td or Tdap) DTaP/Tdap/Td Vaccines (6 - Td or Tdap) [facility] Start: 02-02-2033 DTaP/Tdap/Td Vaccine s (7 - Td or Tdap) DTaP/Tdap/Td Vaccines (7 - Td or Tdap) [facility] Start: 02-02-2033 Urine microalbumin profile DTAP,TDAP,TD (2 - Td or Tdap) [facility] Start: 05-20-2029 Lipid panel Lipid Panel [facility] Start: 01-28-2029 Lipid panel Lipid Panel [facility] Start: 10-10-2027 Lipid panel Lipid Panel [facility] Start: 10-10-2027 LIPID SCREEN LIPID SCREEN [facility] Start: 04-04-2027 Lipid panel Lipid Panel [facility] Start: 04-13-2026 End: 04-13-2026 Patient encounter procedure 04/13/2026 9:00 AM EDT Office Visit [address] [place] [phone] Emily Kan MD [address] [place] [address] [facility] Start: 11-17-2025 End: 11-17-2025 Patient encounter procedure 11/17/2025 11:15 AM EST Office Visit [facility] [address] [place] [address] Prakash Caldwell MD [address] [facility], [address] [place] [address] [facility] Start: 09-30-2025 Thyroid stimulating hormone measurement TSH Level [facility]: 08-11-2025 End: 08-11-2025 Patient encounter procedure 08/11/2025 8:40 AM EST Office Visit [facility] [address] [address] Germania Moreau MD [address] [address] [facility] Start: 08-05-2025 End: 08-05-2025 CBC W Auto Differential panel - Blood CBC and Auto Differential Lab Routine Hodgkin lymphoma, unspecified Hodgkin lymphoma type, unspecified body region (Multi) Expected: 08/05/2025 (Approximate), Expires: 08/05/2025 [facility] Work Phone: Comment on above: Expected: 08/05/2025 (Approximate), Expires: 08/05/2025 Start: 08-05-2025 End: 08-05-2025 Comprehensive metabolic 2000 panel - Serum or Plasma Comprehensive Metabolic Panel Lab Routine Primary hypertension Hodgkin lymphoma, unspecified Hodgkin lymphoma type, unspecified body region (Multi) Expected: 08/05/2025 (Approximate), Expires: 08/05/2025 [facility] Work Phone: Comment on above: Expected: 08/05/2025 (Approximate), Expires: 08/05/2025 Start: 08-05-2025 End: 08-05-2025 TSH with reflex to Free T4 if abnormal TSH with reflex to Free T4 if abnormal Lab Routine Acquired hypothyroidism Hypothyroidism due to acquired atrophy of thyroid Expected: 08/05/2025 (Approximate), Expires: 08/05/2025 [facility] Work Phone: Comment on above: Expected: 08/05/2025 (Approximate), Expires: 08/05/2025 Start: 07-22-2025 Thyroid stimulating hormone measurement TSH Level [facility] Start: 05-17-2025 COVID-19 Vaccine ( season) COVID-19 Vaccine () [facility] Start: 05-17-2025 Influenza vaccination [facility] Start: 04-28-2025 End: 04-28-2025 Patient encounter procedure 04/28/2025 8:00 AM EDT Appointment [facility] Non-Invasive Cardiology [address] [place] [address] Emily Kan MD [address] [place], [place] [phone] [facility] Non-Invasive Cardiology Start: 04-07-2025 End: 04-07-2027 Heart Transthoracic Transthoracic echocardiogram (TTE) complete with contrast, bubble, strain, and 3D PRN CV Echocardiography Routine Bicuspid aortic valve Essential hypertension Expected: 04/07/2025 (Approximate), Expires: 04/07/2027 [facility] Work Phone: Comment on above: Expected: 04/07/2025 (Approximate), Expires: 04/07/2027 Start: 04-07-2025 End: 04-07-2025 Patient encounter procedure 04/07/2025 9:15 AM EDT Office Visit [address] [place] [phone] Emily Kan MD [address] [place], [place] [phone] [facility] Start: 11-18-2024 End: 11-18-2024 Patient encounter procedure 11/18/2024 11:00 AM EST Office Visit [facility] [place] [address] [place] [phone] Prakash Caldwell MD [address], [address] [place] [address] [facility] [place] Start: 09-04-2024 End: 08-05-2025 TSH with reflex to Free T4 if abnormal TSH with reflex to Free T4 if abnormal Lab Routine Acquired hypothyroidism Hypothyroidism due to acquired atrophy of thyroid Expected: 09/04/2024 (Approximate), Expires: 08/05/2025 [facility] Work Phone: Comment on above: Expected: 09/04/2024 (Approximate), Expires: 08/05/2025 Start: 08-07-2024 End: 08-07-2024 CBC W Auto Differential panel - Blood CBC and Auto Differential Lab Routine Hodgkin lymphoma, unspecified Hodgkin lymphoma type, unspecified body region (CMS/HCC) Expected: 08/07/2024 (Approximate), Expires: 08/07/2024 [facility] Service [facility] Work Phone: Comment on above: Expected: 08/07/2024 (Approximate), Expires: 08/07/2024 Start: 08-07-2024 End: 08-07-2024 Comprehensive metabolic 2000 panel - Serum or Plasma Comprehensive Metabolic Panel Lab Routine Primary hypertension Hodgkin lymphoma, unspecified Hodgkin lymphoma type, unspecified body region (CMS/HCC) Expected: 08/07/2024 (Approximate), Expires: 08/07/2024 [facility] Work Phone: Comment on above: Expected: 08/07/2024 (Approximate), Expires: 08/07/2024 Start: 08-07-2024 End: 08-07-2024 TSH with reflex to Free T4 if abnormal TSH with reflex to Free T4 if abnormal Lab Routine Acquired hypothyroidism Expected: 08/07/2024 (Approximate), Expires: 08/07/2024 [facility] Work Phone: Comment on above: Expected: 08/07/2024 (Approximate), Expires: 08/07/2024 Start: 07-31-2024 Thyroid stimulating hormone measurement TSH Level [facility] Start: 05-20-2024 End: 05-20-2024 Patient encounter procedure 05/20/2024 11:00 AM EDT Office Visit [facility] [place] [address] [place] [phone] Prakash Caldwell MD [address] [facility] [address] [place], [place] [phone] [facility] [place] Start: 05-17-2024 COVID-19 Vaccine ( season) COVID-19 Vaccine () [facility] Start: 05-17-2024 COVID-19 Vaccine ( season) COVID-19 Vaccine () [facility] Start: 05-17-2024 COVID-19 Vaccine () COVID-19 Vaccine () [facility] Start: 05-17-2024 Influenza vaccination [facility] Start: 05-09-2024 End: 02-06-2025 Lipid 1996 panel - Serum or Plasma Lipid panel Lab Routine Mixed hyperlipidemia Expected: 05/09/2024 (Approximate), Expires: 02/06/2025 [facility] Work Phone: Comment on above: Expected: 05/09/2024 (Approximate), Expires: 02/06/2025 Start: 02-05-2024 End: 02-05-2024 Patient encounter procedure 02/05/2024 8:20 AM EDT Office Visit [facility] [address] [place] [address] Germania Moreau MD [address] [place] [address] [facility] Start: 01-29-2024 End: 01-28-2025 Comprehensive metabolic 1998 panel - Serum or Plasma Comprehensive metabolic panel Lab Routine Essential hypertension Expected: 01/29/2024 (Approximate), Expires: 01/28/2025 [facility] Comment on above: Expected: 01/29/2024 (Approximate), Expires: 01/28/2025 Start: 01-29-2024 End: 01-28-2025 Lipid 1996 panel - Serum or Plasma Lipid panel Lab Routine Essential hypertension Expected: 01/29/2024 (Approximate), Expires: 01/28/2025 [facility] Work Phone: Comment on above: Expected: 01/29/2024 (Approximate), Expires: 01/28/2025 Start: 10-23-2023 End: 10-23-2023 Patient encounter procedure 10/23/2023 11:00 AM EST Office Visit [facility] [address] [place] [phone] Prakash Caldwell MD [address] [place] [phone] [facility] Start: 08-07-2023 End: 08-07-2024 Home sleep apnea test (HSAT) Home sleep apnea test (HSAT) Sleep Center Routine Hypersomnolence Expected: 08/07/2023 (Approximate), Expires: 08/07/2024 [facility] Work Phone: Comment on above: Expected: 08/07/2023 (Approximate), Expires: 08/07/2024 Start: 08-07-2023 Patient encounter procedure Outpatient [facility] Start: 07-Aug-2023 9:00 Germania Moreau Intent [facility] Start: 05-17-2023 COVID-19 Vaccine ( season) COVID-19 Vaccine ( season) [facility] Start: 05-17-2023 Influenza vaccination [facility] Start: 04-24-2023 End: 04-24-2023 Patient encounter procedure 04/24/2023 Office Visit Hematology and Oncology Prakash Caldwell MD [address] [place] [address] [facility] Start: 01-23-2023 End: 01-23-2023 Patient encounter procedure 01/23/2023 Office Visit Weight Management Silvina Matos MD [address] [facility] [address] [place] [address] [facility] [place] Start: 11-07-2022 End: 11-07-2022 Patient encounter procedure [facility] [place] Start: 10-24-2022 End: 10-24-2023 CBC W Auto Differential panel - Blood CBC auto differential Lab Routine Hodgkin's disease, nodular sclerosis, of intrathoracic lymph nodes (HCC) Expected: 10/24/2022 (Approximate), Expires: 10/24/2023 [facility] Work Phone: Comment on above: Expected: 10/24/2022 (Approximate), Expires: 10/24/2023 Start: 10-24-2022 End: 10-24-2022 Patient encounter procedure 10/24/2022 Office Visit Hematology and Oncology Prakash Caldwell MD [address] [facility], [address] [place] [address] [facility] [place] Start: 10-03-2022 End: 10-03-2023 Lipid 1996 panel - Serum or Plasma Lipid panel Lab Routine Hypertension, unspecified type Expected: 10/03/2022 (Approximate), Expires: 10/03/2023 [facility] Work Phone: Comment on above: Expected: 10/03/2022 (Approximate), Expires: 10/03/2023 Start: 10-03-2022 End: 10-03-2023 Natriuretic peptide B [Mass/volume] in Blood B-type natriuretic peptide Lab Routine Hypertension, unspecified type Expected: 10/03/2022 (Approximate), Expires: 10/03/2023 [facility] Comment on above: Expected: 10/03/2022 (Approximate), Expires: 10/03/2023 Start: 09-16-2022 DEPRESSION ASSESSMENT DEPRESSION [facility] Start: 08-01-2022 EPV, Provider: Germania Moreau, Status: Pen, Time: 9:20 AM EPV, Provider: Germania Moreau, Status: Pen, Time: 9:20 AM [facility] Work Phone: Start: 07-04-2022 End: 07-04-2022 Patient encounter procedure 07/04/2022 Office Visit Weight Management Silvina Matos MD [address] [place] [address] [facility] Start: 05-17-2022 Influenza vaccination [facility] Start: 04-16-2022 Influenza vaccination Flu vaccine (# 1) [facility] Start: 01-24-2022 EPV, Provider: Germania Moreau, Status: Pen, Time: 9:40 AM EPV, Provider: Germania Moreau, Status: Pen, Time: 9:40 AM [facility] Work Phone: Start: 01-17-2022 [facility]inine [facility] Start: 01-17-2022 Potassium monitoring [facility] monit [facility] Work Phone: Start: 12-20-2021 Creatinine measurement Creatinine mo nitoring [facility] Work Phone: Start: 12-20-2021 Potassium monitoring Potassium monit oring [facility] Work Phone: Start: 11-29-2021 EPV, Provider: Germania Moreau, Status: Pen, Time: 9:00 AM EPV, Provider: Germania Moreau, Status: Pen, Time: 9:00 AM [facility] Work Phone: Start: 11-22-2021 [facility] Start: 11-22-2021 Potassium monitoring Potassium monit [facility]ing [facility] Work Phone: Start: 11-19-2021 COVID-19 Vaccine (5 - Booster) COVID-19 Vaccine (5 - Booster) [facility] Start: 11-08-2021 Creatinine [facility] Work Phone: Start: 11-08-2021 Potassium monitoring Potassium monit [facility]ing [facility] Work Phone: Start: 10-25-2021 Creatinine measurement Creatinine mo [place], [place] Start: 10-25-2021 Potassium monitoring Potassium monit [place], [place] Start: 09-27-2021 Creatinine measurement Creatinine mo [place] Start: 09-27-2021 Potassium monitoring Potassium monit [place], [place] Start: 09-16-2021 COVID-19 VACCINE (4 - Booster for Moderna series) COVID-19 VACCINE (4 - Booster for Moderna series) [facility] Start: 09-16-2021 COVID-19 Vaccine (4 - Moderna risk series) COVID-19 Vaccine (4 - Moderna risk series) [facility] Start: 09-16-2021 COVID-19 VACCINE (4 - Moderna series) COVID-19 VACCINE (4 - Moderna series) [facility] Start: 09-16-2021 COVID-19 VACCINE (5 - Booster for Moderna series) COVID-19 VACCINE (5 - Booster for Moderna series) [facility] Start: 09-16-2021 COVID-19 Vaccine (5 - Booster) COVID-19 Vaccine (5 - Booster) [facility] Start: 08-30-2021 Creatinine measurement Creatinine mo [facility] [place] Start: 08-30-2021 Potassium monitoring Potassium monit [facility] Start: 08-23-2021 End: 08-23-2021 Patient encounter procedure 08/23/2021 Office Visit Hematology and Oncology Prakash Caldwell MD [address] [place] [address], [address] [place] [address] [phone] [facility] [place] Start: 07-28-2021 Creatinine measurement Creatinine mo [facility] [place] Start: 07-28-2021 Potassium monitoring Potassium monit [facility] Start: 07-26-2021 Creatinine measurement Creatinine mo [facility] [place] Start: 07-26-2021 Potassium monitoring Potassium monit [facility] [place] Start: 07-19-2021 EPV, Provider: Germania Moreau, Status: Pen, Time: 9:40 AM EPV, Provider: Germania Moreau, Status: Pen, Time: 9:40 AM [facility] Work Phone: Start: 06-28-2021 End: 06-28-2021 Patient encounter procedure 06/28/2021 Appointment Infusion Therapy [facility] Start: 06-21-2021 [facility], Provider: Cheyenne Vazquez, Status: Pen, Time: 8:30 AM [facility], Provider: Cheyenne Vazquez, Status: Pen, Time: 8:30 AM [facility] Work Phone: Start: 06-14-2021 EPV, Provider: Germania Moreau, Status: Pen, Time: 10:40 AM EPV, Provider: Germania Moreau, Status: Pen, Time: 10:40 AM [facility] Work Phone: Start: 06-01-2021 Thyroid stimulating hormone measurement TSH Level [facility] Start: 05-30-2021 End: 05-30-2021 ambulatory 05/30/2021 Virtual Visit Behavioral Health Halima Ordoñez, PhD [facility], [address] [place] [address] [facility] Start: 05-17-2021 Influenza vaccination Flu vaccine (# 1) [facility] Work Phone: Start: 04-11-2021 End: 04-11-2021 Patient encounter procedure 04/11/2021 Office Visit Hematology and Oncology Prakash Caldwell MD [address] [facility] [place], [address] [place], [place] [phone] [facility] [place] Start: 02-08-2021 End: 02-08-2021 Office Visit 02/08/2021 Office Visit Hematology and Oncology Prakash Caldwell MD [address] [facility] [place], [address] [place], [place] [phone] [facility] [place] Start: 01-31-2021 End: 01-31-2021 Appointment 01/31/2021 Appointment Infusion Therapy [facility] Start: 01-19-2021 End: 01-19-2021 Patient encounter procedure 01/19/2021 Office Visit Behavioral Halima Arellano, PhD [address] [facility], [address] [place] [address] [facility] Start: 01-17-2021 End: 01-17-2021 Appointment 01/17/2021 Appointment Infusion Therapy [facility] Start: 01-13-2021 End: 01-13-2021 Office Visit [facility] [place] Start: 01-03-2021 End: 01-03-2021 Appointment 01/03/2021 Appointment Infusion Therapy [facility] Start: 12-22-2020 End: 12-22-2020 Virtual Visit 12/22/2020 Virtual Visit Behavioral Health Halima Ordoñez, PhD [facility], [address] [phone] [facility] Start: 12-20-2020 End: 12-20-2020 Appointment 12/20/2020 Appointment Infusion Therapy [facility] Start: 12-16-2020 End: 12-16-2020 Virtual Visit 12/16/2020 Virtual Visit Hematology and Oncology Prakash Caldwell MD [address] [facility] [place] [address] [phone] [facility] [place] Start: 12-07-2020 End: 12-07-2020 Appointment 12/07/2020 Appointment Infusion Therapy [facility] Start: 12-06-2020 End: 12-06-2020 Appointment [facility] Start: 11-24-2020 End: 11-24-2020 Virtual Visit 11/24/2020 Virtual Visit Behavioral Health Halima Ordoñez, PhD [address] [place] [address], [address] [phone] [facility] Start: 11-22-2020 End: 11-22-2020 Appointment 11/22/2020 Appointment Infusion Therapy [facility] Start: 11-18-2020 End: 11-18-2020 Virtual Visit 11/18/2020 Virtual Visit Hematology and Oncology Prakash Caldwell MD [address] [facility] [place], [address] [place] [address] [phone] [facility] [place] Start: 11-16-2020 End: 11-16-2020 Appointment 11/16/2020 Appointment Radiology Prakash Caldwell MD [address] [place], [place] [id number] [address] Start: 11-08-2020 End: 11-08-2020 Appointment 11/08/2020 Appointment Infusion Therapy [facility] Start: 11-07-2020 End: 11-07-2020 Telemedicine 11/07/2020 Telemedicine Behavioral Health Halima Ordoñez, PhD [address] [facility], [address] [place] [phone] [facility] Start: 10-25-2020 End: 10-25-2020 Appointment 10/25/2020 Appointment Infusion Therapy [facility] Start: 10-19-2020 End: 10-19-2020 Virtual Visit 10/19/2020 Virtual Visit Hematology and Oncology Prakash Caldwell MD [address], [address] [place] [address] [phone] [facility] [place] Start: 10-14-2020 End: 10-14-2020 Telemedicine 10/14/2020 Telemedicine Behavioral Health Halima Ordoñez, PhD [facility], [address] [place] [phone] [facility] Start: 10-11-2020 End: 10-11-2020 Appointment 10/11/2020 Appointment Infusion Therapy [facility] Start: 09-27-2020 End: 09-27-2020 Appointment 09/27/2020 Appointment Infusion Therapy [facility] Start: 09-26-2020 End: 09-26-2020 Telemedicine [facility] [place] Start: 09-13-2020 End: 09-13-2020 Appointment 09/13/2020 Appointment Infusion Therapy [facility] Start: 09-07-2020 End: 09-07-2020 Office Visit 09/07/2020 Office Visit Hematology and Oncology Prakash Caldwell MD [address], [address] [place] [address] [phone] [facility] [place] Start: 08-22-2020 End: 08-22-2020 Appointment 08/22/2020 Appointment Echocardiography Prakash Caldwell MD [address], [address] [place] [address] [phone] [facility] [address] Start: 08-09-2020 End: 08-09-2020 Office Visit 08/09/2020 Office Visit Cardiothoracic Surgery Andreina Workman MD [address], [address] [place] [address] [phone] [facility] Start: 07-27-2020 Hospital Encounter 07/27/2020 Hospital Encounter IP Unit Andreina Workman MD [address], [address] [place] [address] [phone] [facility] Start: 07-21-2020 End: 07-21-2020 Office Visit 07/21/2020 Office Visit Hematology and Oncology Prakash Caldwell MD [address], [address] [place] [address] [phone] [facility] [place] Start: 2020 Diabetes screen Diabetes screen [facility] Start: 2020 LIPID SCREEN LIPID SCREEN [facility] Start: 08-11-2009 Varicella vaccination S [facility] Start: 08-11-2009 Varicella vaccine (1 of 2 - 2-dose childhood series) Varicella vaccine (1 of 2 - 2-dose childhood series) [facility] Start: 2004 DTaP/Tdap/Td vaccine (1 - Tdap) DTaP/Tdap/Td vaccine (1 - Tdap) [facility] [place] Start: 2004 Pneumococcal Vaccine : Pediatrics (0 to 5 Years) and At-Risk Patients (6 to 49 Years) (1 of 2 - PCV) Pneumococcal Vaccine: Pediatrics (0 to 5 Years) and At-Risk Patients (6 to 49 Years) (1 of 2 - PCV) [facility] Start: 2004 Zoster Vaccines (1 o f 2) Zoster Vaccines (1 of 2) [facility] Start: 2003 Diabetes mellitus screening Diabetes Screening [facility] Start: 2003 Hepatitis C screening S [facility] Start: 2003 HEPATITIS C SCREENING HEPATITIS C SC JOCELINELISA [facility] Start: 2003 HIV SCREENING HIV SCREENING [facility] Start: 2001 COVID-19 Vaccine (1) COVID-19 Vaccin e (1) [facility] Work Phone: Start: 2000 HIV screening HIV screen [facility] Start: 1997 COVID-19 Vaccine (1) COVID-19 Vaccin e (1) [facility] Work Phone: Start: 1997 Depression Screen Depression Screen [facility] Start: 1997 Depression Screening Depression Scre ening [facility] Start: 1996 DTaP/Tdap/Td vaccine (5 - Tdap) DTaP/Tdap/Td vaccine (5 - Tdap) [facility] Start: 1996 DTaP/Tdap/Td Vaccine s (5 - Tdap) DTaP/Tdap/Td Vaccines (5 - Tdap) [facility] Start: 1991 Pneumococcal 0-64 ye ars Vaccine (1 - PCV) Pneumococcal 0-64 years Vaccine (1 - PCV) [facility] Start: 1991 Pneumococcal 0-64 ye ars Vaccine (1 of 3 - PCV13) Pneumococcal 0-64 years Vaccine (1 of 3 - PCV13) [place], [place] Start: 1991 Pneumococcal 0-64 ye ars Vaccine (1 of 4 - PCV13) Pneumococcal 0-64 years Vaccine (1 of 4 - PCV13) [facility] [facility] Work Phone: Start: 1991 Pneumococcal Vaccine : Pediatrics (0 to 5 Years) and At-Risk Patients (6 to 64 Years) (1 - PCV) Pneumococcal Vaccine: Pediatrics (0 to 5 Years) and At-Risk Patients (6 to 64 Years) (1 - PCV) [facility] Start: 1991 Pneumococcal Vaccine : Pediatrics (0 to 5 Years) and At-Risk Patients (6 to 64 Years) (1 of 2 - PCV) Pneumococcal Vaccine: Pediatrics (0 to 5 Years) and At-Risk Patients (6 to 64 Years) (1 of 2 - PCV) [facility] Start: 1986 Varicella vaccine (1 of 2 - 2-dose childhood series) Varicella vaccine (1 of 2 - 2-dose childhood series) [place], [place] Start: 1985 Creatinine measurement Creatinine mo nitoring [place], [place] Start: 1985 HEPATITIS B (1 of 3 - 3-dose series) HEPATITIS B (1 of 3 - 3-dose series) [facility] Start: 1985 Hepatitis C screening Hepatitis C sc reen [place], [place] Start: 1985 HIV screening HIV Screening [facility] Start: 1985 Potassium monitoring Potassium monit oring [place], [place] Start: 1985 Thyroid stimulating hormone measurement [facility] Start: 1985 TSH Qn TSH testing [place], [place] Start: 1985 Yearly Adult Physical Yearly Adult P [facility] Basic metabolic 2000 panel Basic Metabolic Panel Lab Routine Daily until discontinued starting 07/28/2020, 1 completed [place] Comment on above: Daily until disconti nued starting 07/28/2020, 1 completed CBC auto differential [place] Comment on above: Daily until disconti nued starting 07/28/2020, 1 completed Ordered: 12/06/2020 ECG 12 lead - CLINIC PERFORMED ECG 12 lead - CLINIC PERFORMED CV ECG Routine Essential hypertension 01/29/2024 9:49 AM EDT [facility] EKG 12 lead EKG 12 lead ECG Routine Nodular lymphocyte predominant Hodgkin lymphoma, unspecified body region (HCC) Pre-op testing 07/26/2020 1:24 PM EST [place] History of colonoscopy History of colonos copy [facility] History of colonoscopy H/O colonoscopy [facility] End: 02-15-2020 History of Hodgkin's lymphoma History of Hodgkin's lymphoma [facility] Intermittent pulse oximetry Pulse Oximetry Spot Check Respiratory Care Routine As Needed until discontinued starting 12/06/2020 [facility] Work Phone: Comment on above: As Needed until disc ontinued starting 12/06/2020 Nebulizer therapy HHN Treatment Respiratory Care Routine Every 4hr As Needed until discontinued starting 07/27[facility]2020 [facility] Comment on above: Every 4hr As Needed until discontinued starting 07/27/2020 Oxygen therapy [[facility] Data Set] [facility] Comment on above: Daily until disconti nued starting 07/27/2020 Daily until disconti nued starting 12/06/2020 Past history of procedure History of biopsy Comments: lymphnode [facility] Comment on above: lymphnode Port-A-Cath in place Port-A-Cath in place [facility] End: 12-06-2020 Special treatments and procedures XA SPECIAL ANGIOGRAPHY PROCEDURE Imaging Routine Poor venous access Hodgkin lymphoma of intrathoracic lymph nodes, unspecified Hodgkin lymphoma type (HCC) Once for 1 Occurrences starting 12/06/2020 until 12/06/2020 [facility] Work Phone: Comment on above: Once for 1 Occurrenc es starting 12/06/2020 until 12/06/2020 Special treatments a nd procedures XA SPECIAL ANGIOGRAPHY PROCEDURE Imaging Routine Poor venous access Hodgkin lymphoma of intrathoracic lymph nodes, unspecified Hodgkin lymphoma type (HCC) 12/06/2020 10:45 AM EDT [facility] Work Phone: Spirometry panel Incentive tanya metry Respiratory Care Routine Every 2hr while awake until discontinued starting 07/27/2020 [facility] Comment on above: Every 2hr while awak e until discontinued starting 07/27/2020 End: 07-27-2020 Surgical Pathology Surgical Pathology Lab Routine Once for 1 Occurrences starting 07/27/2020 until 07/27/2020 [facility] Comment on above: Once for 1 Occurrenc es starting 07/27/2020 until 07/27/2020 Surgical Pathology Surgical Path ology Lab Routine 07/27/2020 2:41 PM EST [facility] End: 08-03-2020 XR CHEST PORTABLE XR CHEST PORTABLE Imaging Routine Daily for 7 Occurrences starting 07/28/2020 until 08/03/2020, 1 completed [facility] Comment on above: Daily for 7 Occurren luis alfredo starting 07/28/2020 until 08/03/2020, 1 completed [facility] Immunizations Immunization Date Immunization Notes Care Provider [facility] 02-02-2023 tetanus toxoid, redu kervni diphtheria toxoid, and acellular pertussis vaccine, adsorbed Narendra Cramer RN [facility] 08-01-2022 influenza, injectabl e, quadrivalent, preservative free Germania Moreau MD Work Phone: [facility] Work Phone: 08-01-2022 influenza virus vaccine, unspecified formulation Prakash Caldwell MD Work Phone: [facility] 07-26-2021 influenza, injectabl e, quadrivalent, preservative free Oliver T Furness Work Phone: -[facility] Work Phone: 07-26-2021 influenza virus vaccine, unspecified formulation Silvina Matos MD Work Phone: [facility] 07-22-2021 Moderna COVID-19 Vaccine 100 MCG/0.5ML Intramuscular Suspension Oliver T Furness Work Phone: -[facility] Work Phone: 10-28-2020 COVID-19, Moderna, P F, 100mcg/0.5mL Prakash Caldwell MD Work Phone: [facility] Work Phone: Comment on above: Series: 10-06-2020 COVID-19, Moderna, P F, 100mcg/0.5mL Prakash Caldwell MD Work Phone: [facility] Work Phone: Comment on above: Series: 09-27-2020 COVID-19, Moderna, P F, 100mcg/0.5mL Prakash Caldwell MD Work Phone: [facility] Work Phone: 06-29-2020 influenza virus vaccine, unspecified formulation Emily Kan MD Work Phone: [facility] Work Phone: 06-29-2020 influenza, injectabl e, quadrivalent, preservative free Prakash [facility] [place] 06-29-2020 influenza, seasonal, injectable Oliver T Furness Work Phone: [facility] Work Phone: Comment on above: Series: 07-15-2019 influenza virus vaccine, unspecified formulation Emily Kan MD Work Phone: [facility] Work Phone: 07-15-2019 influenza, injectabl e, quadrivalent, preservative free Prakash Caldwell MD Work Phone: [facility] Work Phone: 08-31-2015 influenza virus vaccine, unspecified formulation Emily Kan MD Work Phone: [facility] Work Phone: 08-31-2015 influenza, seasonal, injectable, preservative free Oliver T Furness [facility] Phone[facility] Work Phone: 07-05-2010 influenza virus vaccine, unspecified formulation [facility], [place] 07-14-2009 novel [id number], live virus for nasal administration; Translations: [Influenza A (H1N1) Monoval Vac LIQD] Prakash Caldwell MD Work Phone: [facility] Work Phone: 04-01-2007 meningococcal polysaccharide (groups A, C, Y and W-135) diphtheria toxoid conjugate vaccine (MCV4P) Prakash Caldwell MD Work Phone: [facility] Work Phone: 07-12-1997 hepatitis B vaccine, adult dosage Emily Kan MD Work Phone: [facility] Work Phone: 07-12-1997 hepatitis B vaccine, pediatric or pediatric/adolescent dosage Prakash Caldwell MD Work Phone: [facility] Work Phone: 02-01-1997 hepatitis B vaccine, adult dosage Emily Kan MD Work Phone: [facility] Work Phone: 02-01-1997 hepatitis B vaccine, pediatric or pediatric/adolescent dosage Prakash Caldwell MD Work Phone: [facility] Work Phone: 12-31-1996 hepatitis B vaccine, adult dosage Emily Kan MD Work Phone: [facility] Work Phone: 12-31-1996 hepatitis B vaccine, pediatric or pediatric/adolescent dosage Prakash Caldwell MD Work Phone: [facility] Work Phone: 12-31-1996 measles, mumps and rubella virus vaccine Prakash Caldwell MD Work Phone: [facility] Work Phone: 04-09-1990 diphtheria, tetanus toxoids and acellular pertussis vaccine, unspecified formulation Prakash Caldwell MD Work Phone: [facility] Work Phone: 04-09-1990 trivalent poliovirus vaccine, live, oral Prakash Caldwell MD Work Phone: [facility] Work Phone: 03-20-1989 diphtheria, tetanus toxoids and acellular pertussis vaccine, unspecified formulation Prakash Caldwell MD Work Phone: [facility] Work Phone: 03-20-1989 trivalent poliovirus vaccine, live, oral Prakash Caldwell MD Work Phone: [facility] Work Phone: 01-15-1987 measles, mumps and rubella virus vaccine Prakash Caldwell MD Work Phone: [facility] Work Phone: 1985 diphtheria, tetanus toxoids and pertussis vaccine Prakash Caldwell MD Work Phone: [facility] Work Phone: 1985 diphtheria, tetanus toxoids and pertussis vaccine Prakash Caldwell MD Work Phone: [facility] Work Phone: 1985 trivalent poliovirus vaccine, live, oral Prakashtracie Caldwell MD Work Phone: [facility] Work Phone: 1985 diphtheria, tetanus toxoids and pertussis vaccine Prakash Caldwell MD Work Phone: [facility] Work Phone: 1985 trivalent poliovirus vaccine, live, oral Prakashtracie Caldwell MD Work Phone: [facility] Work Phone: Payers Date Payer Category Payer Self-pay 2021 [facility] [employer] [id number] 2021 [facility] ([facility] [employer] [id number] 2020 Unknown [employer] E [id number] 2020-Present [phone] [address] [place] [address] [id number] 2020 Unknown [employer] Duarte [id number] 2020-Present [phone] [facility] [address] [place] [address] [id number] 2019 Unknown 2019 Unknown [id number] 1985 Unknown [id number] [id number]. 2.668 1985 Unknown [id number] [id number]. 2.668 1985 Unknown [id number] [id number]. 2.668 1985 Unknown [id number] [id number]. 2.668 1985 Unknown [id number] [id number]. 2.356 1985 Unknown [id number] [id number]. 2.356 1985 Unknown [id number] [id number]. 2.356 1985 Unknown [id number] [id number]. 2.1069 1985 Unknown [id number] [id number]. 2.1069 1985 Unknown [id number] [id number]. 2.1069 1985 Unknown [id number] [id number]. 2.1243 1985 Unknown [id number] [id number]. 2.1245 1985 Unknown [id number] [id number]. 2.1245 1985 Unknown [id number]. 2.1244 Social History Date Type Detail Facility Start: 07-07-2020 End: 01-29-2024 Tobacco smoking status KYIS Never smoker [facility] Start: 07-07-2020 End: 01-29-2024 Tobacco use and exposure Never used [facility] Start: 07-07-2020 End: 05-20-2024 Alcohol intake Lifetime non-drinker (finding) [facility] [employer] Start: 06-24-2020 End: 07-07-2020 History SDOH Alcohol Frequency 1 [place], [place] Start: 1985 Sex Assigned At Not on file [place] Start: 04-15-2022 End: 08-05-2024 Exposure to SARS-CoV-2 (event) Not sure [place], [place] Start: 1985 Sex Assigned At Male M [facility] Start: 06-24-2020 End: 05-20-2024 Patient has living will Patient has living will [facility] Work Phone: Tobacco smoking consumption unknown [facility] Start: 06-24-2020 End: 05-20-2024 Alcohol Use Disorder Identification Test - Consumption [AUDIT-C] [facility] Work Phone: How often to you hav e a drink containing alcohol? Never [facility] Work Phone: Average Number of Drinks Not on file [facility] Start: 07-05-2022 Gender identity Identifies as male gender (finding) [facility] Start: 07-05-2022 Sexual orientation Heterosexua l (finding) [facility] Start: 04-17-2022 Sex Male (finding) [facility] alth NEGATED: Highlighted row - - [facility] Work Phone: NEGATED: Highlighted rowStart: NINF History of tobacco use Passive smoker [facility] Work Phone: Functional Status Date Assessment Result Facility NEGATED: Highlighted row Functional performance Functional status health issues are not documented [facility] Work Phone: Mental Status Date Assessment Result Facility NEGATED: Highlighted row Cognitive function [Interpretation] Cognitive status health issues are not documented Disease -[facility] Work Phone: Clinical Notes 01-15-2020 to 04-07-2025 Emily Kan MD - 04/07/2025 9:15 AM EDTPatient InstructionsTelephone Encounter - Leonardo Queen RN - 02/15/2025 2:26 PM EDTTelephone Encounter - Leonardo Queen RN - 02/15/2025 2:26 PM EDT Note Date & Type Note Facility 04-07-2025 History of Present illness Narrative CARDIOLOGY HF PROGRESS NOTE Today's Date: 04/07/2025 Chart and interval events reviewed. Chief Complaint Chief Complaint Patient presents with Annual Exam Subjective: Devorah Santos is a 40 y.o. male has history of Hodgkin's lymphoma status postradiation and chemotherapy in 2000 presented to [facility]. Patient has also history of hypertension, morbid obesity and likely sleep apnea. Patient is doing well denies any cardiac symptoms including chest pain, shortness of breath, palpitations, syncopal episodes. His blood pressure is now 2 show controlled. ECG shows normal sinus rhythm, no ischemic changes. ECHO 05/16/2022 1. Left ventricle: Systolic function is normal by visual assessment. The estimated ejection fraction is 55%. There are no regional wall motion abnormalities. 2. Right ventricle: The cavity size is normal. Systolic function is normal. 3. Aortic valve: Bicuspid (fusion of non and left coronary cusp.); mildly thickened, mildly calcified leaflets. There is no stenosis. There is trivial, less than 1+ regurgitation. ECHO 08/22/2020 1. Left ventricle: There is mild concentric hypertrophy. Systolic function is normal by the biplane method of disks. The estimated ejection fraction is 60%. There are no regional wall motion abnormalities. Left ventricular diastolic function parameters are normal. 2. Right ventricle: The cavity size is mildly dilated. 3. Right atrium: The atrium is mildly dilated. 4. Systemic veins: Poorly visualized. 5. Unable to estimate RVSP. Past Medical History: Past Medical History: Diagnosis Date Anxiety Depression GERD (gastroesophageal reflux disease) HTN (hypertension) Hypothyroid Lymphoma (HCC) Stage II Hodgkin's lymphoma 2001 Snoring Past Surgical History Past Surgical History: Procedure Laterality Date COLONOSCOPY 02/2020 LYMPH NODE BIOPSY Right 2020 right side of the neck THORASCOPY 07/27/2020 Right video-assisted thoracoscopy, biopsy of anterior mediastinal mass, right middle lobe wedge biopsy Family History Family History Problem Relation Name Age of Onset Heart disease Maternal Grandfather maternal grandmother High Blood Pressure Maternal Grandfather maternal grandmother Hypertension Maternal Grandfather maternal grandmother Anxiety disorder Father father High Blood Pressure Father father Hyperlipidemia Father father Hypertension Father father Heart disease Paternal Grandfather paternal grandfather High Blood Pressure Paternal Grandfather paternal grandfather Hyperlipidemia Paternal Grandfather paternal grandfather Hypertension Paternal Grandfather paternal grandfather High Blood Pressure Maternal Grandmother Maternal grandmother Diabetes Maternal Grandmother Maternal grandmother Cancer Maternal Grandmother Maternal grandmother Diabetes type II Maternal Grandmother Maternal grandmother Hyperlipidemia Maternal Grandmother Maternal grandmother Hypertension Maternal Grandmother Maternal grandmother High Blood Pressure Mother mother Hyperlipidemia Mother mother Hypertension Mother mother Cancer Paternal Grandmother Paternal grandmother Diabetes Paternal Grandmother Paternal grandmother High Blood Pressure Paternal Grandmother Paternal grandmother Hypertension Paternal Grandmother Paternal grandmother Social History Social History Tobacco Use Smoking status: Never Passive exposure: Never Smokeless tobacco: Never Substance Use Topics Alcohol use: Never Drug use: Never Comment: caffeine- occ Allergies: No Known Allergies Current Medications: Current Outpatient Medications Medication Sig Dispense Refill levothyroxine (Synthroid, Levoxyl) 150 MCG tablet Take 150 mcg by mouth every morning (before breakfast). lisinopril 20 MG tablet Take 1 tablet (20 mg) by mouth every evening. 90 tablet 3 lisinopril-hydroCHLOROthiazide 20-12.5 MG tablet Take 1 tablet by mouth every morning. 90 tablet 3 pantoprazole (ProtoNix) 40 MG EC tablet Take 40 mg by mouth in the morning. rosuvastatin (Crestor) 10 MG tablet Take 1 tablet (10 mg) by mouth daily. 90 tablet 3 sertraline (Zoloft) 100 MG tablet No current facility-administered medications for this visit. Review of Systems: Review of Systems Constitutional: Negative for fatigue and unexpected weight change. Reviewed meds from memory. Pt states that he took his meds today. HENT: Negative. Eyes: Negative. Respiratory: Negative. Negative for chest tightness and shortness of breath. Denies orthopnea and PND Cardiovascular: Negative for chest pain, palpitations and leg swelling. Gastrointestinal: Negative. Endocrine: Negative. Genitourinary: Negative. Musculoskeletal: Negative. Skin: Negative. Allergic/Immunologic: Negative. Neurological: Negative. Negative for dizziness, syncope and light-headedness. Hematological: Negative. Psychiatric/Behavioral: Negative. Vital Signs: Vitals: 04/07/25 0925 BP: 126/88 BP Location: Left arm Patient Position: Sitting BP Cuff Size: Large adult Pulse: 80 SpO2: 98% Weight: (!) 340 lb 3.2 oz (154 kg) Height: 6' 2 (1.88 m) Body mass index is 43.68 kg/m . Wt Readings from Last 3 Encounters: 04/07/25 (!) 340 lb 3.2 oz (154 kg) 11/18/24 (!) 335 lb 8 oz (152 kg) 05/20/24 (!) 332 lb 9.6 oz (151 kg) Physical Exam Vitals reviewed. Constitutional: Appearance: Normal appearance. He is obese. HENT: Head: Normocephalic and atraumatic. Nose: Nose normal. Mouth/Throat: Mouth: Mucous membranes are moist. Eyes: General: No scleral icterus. Conjunctiva/sclera: Conjunctivae normal. Cardiovascular: Rate and Rhythm: Normal rate and regular rhythm. Pulses: Normal pulses. Heart sounds: Normal heart sounds. Pulmonary: Effort: Pulmonary effort is normal. Breath sounds: Normal breath sounds. Abdominal: General: Abdomen is flat. Palpations: Abdomen is soft. Musculoskeletal: General: Normal range of motion. Cervical back: Normal range of motion and neck supple. Skin: General: Skin is warm. Neurological: General: No focal deficit present. Mental Status: He is alert and oriented to person, place, and time. Mental status is at baseline. Psychiatric: Mood and Affect: Mood normal. Behavior: Behavior normal. CBC: No results for input(s): WBC, HGB, HCT, PLT in the last 72 hours. BMP:No results for input(s): NA, K, CL, CO2, BUN, CREATININE, GLU, LABGLOM in the last 72 hours. No lab exists for component: CA CMP: Lab Results Component Value Date NA 139 01/17/2021 K 3.8 01/17/2021 CL 103 01/17/2021 CO2 29 01/29/2024 BUN 15 01/29/2024 CREATININE 0.94 01/29/2024 GLUCOSE 99 01/29/2024 CALCIUM 9.6 01/29/2024 PROT 7.3 01/29/2024 BILITOT 0.4 01/29/2024 ALKPHOS 79 01/29/2024 AST 27 01/29/2024 ALT 28 01/29/2024 AGRATIO 1.7 01/29/2024 GLOB 2.7 01/29/2024 Magnesium: No results found for: MG LFT: Lab Results Component Value Date ALT 28 01/29/2024 AST 27 01/29/2024 ALKPHOS 79 01/29/2024 BILITOT 0.4 01/29/2024 INR: Lab Results Component Value Date INR 1 02/02/2023 INR 1.0 08/29/2021 INR 1.0 08/29/2021 PROTIME 10.9 08/29/2021 PROTIME 11.0 12/06/2020 PROTIME 11.0 07/26/2020 PRO-BNP: No components found for: NTPROBNP TROPONIN: Lab Results Component Value Date TROPONINI <0.012 04/04/2022 TSH: Lab Results Component Value Date TSH 2.621 12/20/2021 Lipid Profile: Lab Results Component Value Date TRIG 242 (H) 05/20/2024 HDL 40 05/20/2024 LDLCALC 95 05/20/2024 CHOL 183 05/20/2024 Hemoglobin A1C: No results found for: HGBA1C VIKTORIA: No results found for: VIKTORIA Ferritin: No results found for: FERRITIN HIV: No results found for: [id number] EKG: See Report Echo: See Report EF: No components found for: LVEF, LVEFMODE Diagnosis Plan 1. Bicuspid aortic valve Transthoracic echocardiogram (TTE) complete with contrast, bubble, strain, and 3D PRN 2. Essential hypertension Transthoracic echocardiogram (TTE) complete with contrast, bubble, strain, and 3D PRN 3. Mixed hyperlipidemia 4. Hypothyroidism, unspecified type 5. Obesity, morbid, BMI 40.0-49.9 (HCC) Status post remote chemotherapy and radiation therapy. Patient denies any symptoms of congestive heart failure or chest pain. Patient is euvolemic on exam. - baseline cardio oncology echo: GLS=- 14%. The Systolic function is normal by visual assessment. The estimated ejection fraction is 55%. - baseline BNP and troponin are normal - Repeat echo 3 years ago Bicuspid aortic valve -routine Echo 2-3 years Mixed hyperlipidemia LDL at goal - low cholesterol diet -repeat fasting lipids every 1-2 years Hypertension controlled - Continue lisinopril 20 mg daily in p.m. -Continue lisinopril - hydrochlorothiazide daily in a.m. -Check blood pressure at home at rest after 2 to 3 hours of taking the morning meds Hypothyroidism -Follow-up with PCP; last TSH was normal Morbid obesity -Strongly encouraged to lose weight -Strongly encouraged to exercise regularly -Patient has a referral to dietitian documented in this encounter [facility] 04-07-2025 Instructions Emily Kan MD - 04/07/2025 9:15 AM EDT Echocardiogram documented in this encounter [facility] 04-07-2025 Note CARDIOLOGY HF PROGRE SS NOTE Today's Date: 04/07/2025 Chart and interval events reviewed. Chief Complaint Chief Complaint Patient presents with Annual Exam Subjective: Deovrah Santos is a 40 y.o. male has history of Hodgkin's lymphoma status postradiation and chemotherapy in 2000 presented to [facility] oncology [facility]. Patient has also history of hypertension, morbid obesity and likely sleep apnea. Patient is doing well denies any cardiac symptoms including chest pain, shortness of breath, palpitations, syncopal episodes. His blood pressure is now 2 show controlled. ECG shows normal sinus rhythm, no ischemic changes. ECHO 05/16/2022 1. Left ventricle: Systolic function is normal by visual assessment. The estimated ejection fraction is 55%. There are no regional wall motion abnormalities. 2. Right ventricle: The cavity size is normal. Systolic function is normal. 3. Aortic valve: Bicuspid (fusion of non and left coronary cusp.); mildly thickened, mildly calcified leaflets. There is no stenosis. There is trivial, less than 1+ regurgitation. ECHO 08/22/2020 1. Left ventricle: There is mild concentric hypertrophy. Systolic function is normal by the biplane method of disks. The estimated ejection fraction is 60%. There are no regional wall motion abnormalities. Left ventricular diastolic function parameters are normal. 2. Right ventricle: The cavity size is mildly dilated. 3. Right atrium: The atrium is mildly dilated. 4. Systemic veins: Poorly visualized. 5. Unable to estimate RVSP. Past Medical History: Past Medical History: Diagnosis Date Anxiety Depression GERD (gastroesophageal reflux disease) HTN (hypertension) Hypothyroid Lymphoma (HCC) Stage II Hodgkin's lymphoma 2000 Snoring Past Surgical History Past Surgical History: Procedure Laterality Date COLONOSCOPY 02/2020 LYMPH NODE BIOPSY Right 2020 right side of the neck THORASCOPY 07/27/2020 Right video-assisted thoracoscopy, biopsy of anterior mediastinal mass, right middle lobe wedge biopsy Family History Family History Problem Relation Name Age of Onset Heart disease Maternal Grandfather maternal grandmother High Blood Pressure Maternal Grandfather maternal grandmother Hypertension Maternal Grandfather maternal grandmother Anxiety disorder Father father High Blood Pressure Father father Hyperlipidemia Father father Hypertension Father father Heart disease Paternal Grandfather paternal grandfather High Blood Pressure Paternal Grandfather paternal grandfather Hyperlipidemia Paternal Grandfather paternal grandfather Hypertension Paternal Grandfather paternal grandfather High Blood Pressure Maternal Grandmother Maternal grandmother Diabetes Maternal Grandmother Maternal grandmother Cancer Maternal Grandmother Maternal grandmother Diabetes type II Maternal Grandmother Maternal grandmother Hyperlipidemia Maternal Grandmother Maternal grandmother Hypertension Maternal Grandmother Maternal grandmother High Blood Pressure Mother mother Hyperlipidemia Mother mother Hypertension Mother mother Cancer Paternal Grandmother Paternal grandmother Diabetes Paternal Grandmother Paternal grandmother High Blood Pressure Paternal Grandmother Paternal grandmother Hypertension Paternal Grandmother Paternal grandmother Social History Social History Tobacco Use Smoking status: Never Passive exposure: Never Smokeless tobacco: Never Substance Use Topics Alcohol use: Never Drug use: Never Comment: caffeine- occ Allergies: No Known Allergies Current Medications: Current Outpatient Medications Medication Sig Dispense Refill levothyroxine (Synthroid, Levoxyl) 150 MCG tablet Take 150 mcg by mouth every morning (before breakfast). lisinopril 20 MG tablet Take 1 tablet (20 mg) by mouth every evening. 90 tablet 3 lisinopril-hydroCHLOROthiazide 20-12.5 MG tablet Take 1 tablet by mouth every morning. 90 tablet 3 pantoprazole (ProtoNix) 40 MG EC tablet Take 40 mg by mouth in the morning. rosuvastatin (Crestor) 10 MG tablet Take 1 tablet (10 mg) by mouth daily. 90 tablet 3 sertraline (Zoloft) 100 MG tablet No current facility-administered medications for this visit. Review of Systems: Review of Systems Constitutional: Negative for fatigue and unexpected weight change. Reviewed meds from memory. Pt states that he took his meds today. HENT: Negative. Eyes: Negative. Respiratory: Negative. Negative for chest tightness and shortness of breath. Denies orthopnea and PND Cardiovascular: Negative for chest pain, palpitations and leg swelling. Gastrointestinal: Negative. Endocrine: Negative. Genitourinary: Negative. Musculoskeletal: Negative. Skin: Negative. Allergic/Immunologic: Negative. Neurological: Negative. Negative for dizziness, syncope and light-headedness. Hematological: Negative. Psychiatric/Behavioral: Negative. Vital Signs: V (more content not included)... [facility] 02-15-2025 Telephone encounter Note [facility] 01/28. Labs 07/22. JUL 23. Rx pended for review. [facility] 02-15-2025 Miscellaneous Notes [facility]EDU 01/28. Labs 07/22. JUL 23. Rx pended for review. PT in need of refill on Lisinopril 20 mg before his NOV with GO on 04/07/25. Please route to [facility] [phone] documented in this encounter [facility] 02-15-2025 Telephone encounter Note PT in need of refill on Lisinopril 20 mg before his NOV with GO on 04/07/25. Please route to [facility] [phone] [facility] 11-18-2024 History of Present illness Narrative Patient ID: Devorah Santos is a 39 y.o. male. HPI Doing well. No fevers, night sweats or weight loss. he has the following oncology history 1. Stage II Hodgkin's lymphoma diagnosed and treated at [facility] in 2000. He received 6 cycles of VIOLA/ABVD followed by XRT. Disease sites were neck and chest. 2. Survivorship course complicated by hypothyroidism and anxiety. 3. 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 4. Started Adriamycin, Brentuximab, vinblastine and dacarbazine with Neulasta support day 1 and day 15 every 28 days. Completed 6 cycles February 2021 Review of Systems - Oncology No nausea, vomiting, diarrhea, fever, night sweats, chills, cough, shortness of breath, chest pain BSA: 2.82 meters squared BP (!) 146/103 Pulse 83 Temp 36.3 C (97.4 F) (Temporal) Ht 1.88 m (6' 2) Wt (!) 152 kg (335 lb 8 oz) SpO2 93% BMI 43.08 kg/m Physical Exam No lymphadenopathy or hepatosplenomegaly. No lower extremity edema. Lab Results Component Value Date WBC 6.6 05/20/2024 HGB 15.2 05/20/2024 HCT 44.4 05/20/2024 MCV 83.1 05/20/2024 PLT 214 05/20/2024 Assessment/Plan There are no diagnoses linked to this encounter. he appears to be in complete remission. Will do only symptom guided imaging. 2. Follow-up in 6 months. 3. Continue follow-up with medical weight management and Dr. Kan (cardio oncology) as well. 4. I have counseled him on diet and exercise. Patient verbalizes understanding and agrees with the plan. Plan as of 11/18/24 documented in this encounter [facility] 08-05-2024 Evaluation + Plan note Associated Problem(s): Anxiety Much improved, continue with current dosing of sertraline. [facility] Work Phone: 08-05-2024 Evaluation + Plan note Associated Problem(s): Hodgkin's disease, nodular sclerosis, of intrathoracic lymph nodes (Multi) Still follows with oncology about every 6 months. [facility] Work Phone: 08-05-2024 Evaluation + Plan note Associated Problem(s): Hodgkin lymphoma Follows with oncology at [facility] at least every 6 months. [facility] Work Phone: 08-05-2024 Evaluation + Plan note Associated Problem(s): Gastroesophageal reflux disease Continue with PPI. [facility] Work Phone: 08-05-2024 Evaluation + Plan note Associated Problem(s): Obesity, Class III, BMI 40-49.9 (morbid obesity) (Multi) Encouraged about diet and exercise. [facility] Work Phone: 08-05-2024 Evaluation + Plan note Associated Problem(s): Hypothyroidism Increase levothyroxine to 175 mcg a day, check TSH in 4 weeks from now. [facility] Work Phone: 08-05-2024 Evaluation + Plan note Associated Problem(s): Hypertension Blood pressures under good control, renal function stable, no change. [facility] Work Phone: 08-05-2024 Miscellaneous Notes Associated Problem(s): Anxiety Much improved, continue with current dosing of sertraline. Associated Problem(s): Hodgkin's disease, nodular sclerosis, of intrathoracic lymph nodes (Multi) Still follows with oncology about every 6 months. Associated Problem(s): Hodgkin lymphoma Follows with oncology at [facility] at least every 6 months. Associated Problem(s): Gastroesophageal reflux disease Continue with PPI. Associated Problem(s): Obesity, Class III, BMI 40-49.9 (morbid obesity) (Multi) Encouraged about diet and exercise. Associated Problem(s): Hypothyroidism Increase levothyroxine to 175 mcg a day, check TSH in 4 weeks from now. Associated Problem(s): Hypertension Blood pressures under good control, renal function stable, no change. documented in this encounter [facility] Work Phone: 08-05-2024 History of Present illness Narrative Subjective Patient ID: Devorah Santos is a 39 y.o. male who presents for Annual Exam (Labs). HPI No headache, chest pain, shortness of breath, dizziness, lightheadedness, or edema The patient is taking thyroid medications as directed without problems, labs done in the last year, no symptoms of excessive fatigue, edema or weight gain. 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 HENT: Negative for ear pain, nosebleeds, rhinorrhea, sneezing and trouble swallowing. Respiratory: Negative for cough, shortness of breath and wheezing. Cardiovascular: Negative for chest pain, palpitations and leg swelling. Gastrointestinal: Negative for abdominal distention, abdominal pain, constipation, diarrhea, nausea and vomiting. Genitourinary: Negative for difficulty urinating. Musculoskeletal: Negative for arthralgias. Skin: Negative for rash. Neurological: Negative for dizziness, light-headedness, numbness and headaches. Hematological: Negative for adenopathy. Psychiatric/Behavioral: Negative for behavioral problems, dysphoric mood and sleep disturbance. The patient is not nervous/anxious. All other systems reviewed and are negative. Objective BP 120/80 Pulse 74 Ht 1.88 m (6' 2) Wt (!) 152 kg (335 lb 12.8 oz) SpO2 95% BMI 43.11 kg/m Physical Exam Vitals and nursing note reviewed. Constitutional: General: He is not in acute distress. Appearance: Normal appearance. He is not toxic-appearing. HENT: Head: Normocephalic and atraumatic. Right Ear: Tympanic membrane, ear canal and external ear normal. Left Ear: Tympanic membrane, ear canal and external ear normal. Nose: Nose normal. Mouth/Throat: Mouth: Mucous membranes are moist. Pharynx: Oropharynx is clear. Eyes: Extraocular Movements: Extraocular movements intact. Conjunctiva/sclera: Conjunctivae normal. Pupils: Pupils are equal, round, and reactive to light. Cardiovascular: Rate and Rhythm: Normal rate and regular rhythm. Pulses: Normal pulses. Heart sounds: Normal heart sounds. Pulmonary: Effort: Pulmonary effort is normal. Breath sounds: Normal breath sounds. Abdominal: General: Abdomen is flat. Bowel sounds are normal. Palpations: Abdomen is soft. Musculoskeletal: Cervical back: Normal range of motion and neck supple. Skin: General: Skin is warm and dry. Capillary Refill: Capillary refill takes less than 2 seconds. Neurological: General: No focal deficit present. Mental Status: He is alert and oriented to person, place, and time. Mental status is at baseline. Psychiatric: Mood and Affect: Mood normal. Behavior: Behavior normal. Assessment/Plan Problem List Items Addressed This Visit ICD-10-CM Anxiety F41.9 Much improved, continue with current dosing of sertraline. Relevant Medications sertraline (Zoloft) 100 mg tablet Other Relevant Orders Follow Up In Primary Care - Established Gastroesophageal reflux disease K21.9 Continue with PPI. Relevant Medications pantoprazole (ProtoNix) 40 mg EC tablet Other Relevant Orders Follow Up In Primary Care - Established Hodgkin lymphoma C81.90 Follows with oncology at [facility] at least every 6 months. Relevant Orders Follow Up In Primary Care - Established CBC and Auto Differential Comprehensive Metabolic Panel Hypertension - Primary I10 Blood pressures under good control, renal function stable, no change. Relevant Orders Follow Up In Primary Care - Established Comprehensive Metabolic Panel Hypothyroidism E03.9 Increase levothyroxine to 175 mcg a day, check TSH in 4 weeks from now. Relevant Medications levothyroxine (Synthroid, Levoxyl) 175 mcg tablet Other Relevant Orders Follow Up In Primary Care - Established TSH with reflex to Free T4 if abnormal TSH with reflex to Free T4 if abnormal Follow Up In Primary Care - Established TSH with reflex to Free T4 if abnormal TSH with reflex to Free T4 if abnormal Obesity, Class III, BMI 40-49.9 (morbid obesity) (Multi) E66.01 Encouraged about diet and exercise. documented in this encounter [facility] Work Phone: 05-20-2024 History of Present illness Narrative Patient ID: Devorah Santos is a 39 y.o. male. HPI Doing well. No fevers, night sweats or weight loss. he has the following oncology history 1. Stage II Hodgkin's lymphoma diagnosed and treated at [facility] in 2000. He received 6 cycles of VIOLA/ABVD followed by XRT. Disease sites were neck and chest. 2. Survivorship course complicated by hypothyroidism and anxiety. 3. 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 4. Started Adriamycin, Brentuximab, vinblastine and dacarbazine with Neulasta support day 1 and day 15 every 28 days. Completed 6 cycles February 2021 Review of Systems - Oncology No nausea, vomiting, diarrhea, fever, night sweats, chills, cough, shortness of breath, chest pain BSA: 2.81 meters squared BP (!) 142/97 Pulse 74 Temp 36.4 C (97.6 F) (Temporal) Ht 1.88 m (6' 2) Wt (!) 151 kg (332 lb 9.6 oz) SpO2 98% BMI 42.70 kg/m Physical Exam No lymphadenopathy or hepatosplenomegaly. No lower extremity edema. Lab Results Component Value Date WBC 6.3 04/24/2023 HGB 15.1 04/24/2023 HCT 44.1 04/24/2023 MCV 83.1 04/24/2023 PLT 183 04/24/2023 Assessment/Plan There are no diagnoses linked to this encounter. . he appears to be in complete remission. Will do only symptom guided imaging. Follow-up labs from today 2. Follow-up in 6 months. 3. Continue follow-up with medical weight management and Dr. Kan (cardio oncology) as well. 4. I have counseled him on diet and exercise. Patient verbalizes understanding and agrees with the plan. Plan as of 05/20/[address] Caldwell Labs drawn 1 stick 1 lav 1 sst All labs sent to [facility] documented in this encounter [facility] 01-29-2024 History of Present illness Narrative CARDIOLOGY HF PROGRESS NOTE Today's Date: 01/29/2024 Chart and interval events reviewed. Chief Complaint Chief Complaint Patient presents with Follow-up Hypertension Subjective: Devorah Santos is a 38 y.o. male has history of Hodgkin's lymphoma status postradiation and chemotherapy in 2000 presented to [facility] and cardio oncology clinic. Patient has also history of hypertension, morbid obesity and likely sleep apnea. Patient is doing well denies any cardiac symptoms including chest pain, shortness of breath, palpitations, syncopal episodes. His blood pressure is uncontrolled. ECG shows normal sinus rhythm, no ischemic changes. ECHO 05/16/2022 1. Left ventricle: Systolic function is normal by visual assessment. The estimated ejection fraction is 55%. There are no regional wall motion abnormalities. 2. Right ventricle: The cavity size is normal. Systolic function is normal. 3. Aortic valve: Bicuspid (fusion of non and left coronary cusp.); mildly thickened, mildly calcified leaflets. There is no stenosis. There is trivial, less than 1+ regurgitation. ECHO 08/22/2020 1. Left ventricle: There is mild concentric hypertrophy. Systolic function is normal by the biplane method of disks. The estimated ejection fraction is 60%. There are no regional wall motion abnormalities. Left ventricular diastolic function parameters are normal. 2. Right ventricle: The cavity size is mildly dilated. 3. Right atrium: The atrium is mildly dilated. 4. Systemic veins: Poorly visualized. 5. Unable to estimate RVSP. Past Medical History: Past Medical History: Diagnosis Date Anxiety Depression GERD (gastroesophageal reflux disease) HTN (hypertension) Hypothyroid Lymphoma (HCC) Stage II Hodgkin's lymphoma 2000 Snoring Past Surgical History Past Surgical History: Procedure Laterality Date COLONOSCOPY 02/2020 LYMPH NODE BIOPSY Right 2020 right side of the neck THORASCOPY 07/27/2020 Right video-assisted thoracoscopy, biopsy of anterior mediastinal mass, right middle lobe wedge biopsy Family History Family History Problem Relation Name Age of Onset Heart disease Maternal Grandfather maternal grandmother High Blood Pressure Maternal Grandfather maternal grandmother Hypertension Maternal Grandfather maternal grandmother Anxiety disorder Father father High Blood Pressure Father father Hyperlipidemia Father father Hypertension Father father Heart disease Paternal Grandfather paternal grandfather High Blood Pressure Paternal Grandfather paternal grandfather Hyperlipidemia Paternal Grandfather paternal grandfather Hypertension Paternal Grandfather paternal grandfather High Blood Pressure Maternal Grandmother Maternal grandmother Diabetes Maternal Grandmother Maternal grandmother Cancer Maternal Grandmother Maternal grandmother Diabetes type II Maternal Grandmother Maternal grandmother Hyperlipidemia Maternal Grandmother Maternal grandmother Hypertension Maternal Grandmother Maternal grandmother High Blood Pressure Mother mother Hyperlipidemia Mother mother Hypertension Mother mother Cancer Paternal Grandmother Paternal grandmother Diabetes Paternal Grandmother Paternal grandmother High Blood Pressure Paternal Grandmother Paternal grandmother Hypertension Paternal Grandmother Paternal grandmother Social History Social History Tobacco Use Smoking status: Never Passive exposure: Never Smokeless tobacco: Never Substance Use Topics Alcohol use: Never Drug use: Never Comment: caffeine- occ Allergies: No Known Allergies Current Medications: Current Outpatient Medications Medication Sig Dispense Refill levothyroxine (Synthroid, Levoxyl) 150 MCG tablet Take 150 mcg by mouth every morning (before breakfast). pantoprazole (ProtoNix) 40 MG EC tablet Take 40 mg by mouth in the morning. sertraline (Zoloft) 100 MG tablet lisinopril 20 MG tablet Take 1 tablet (20 mg) by mouth every evening. 90 tablet 3 lisinopril-hydroCHLOROthiazide 20-12.5 MG tablet Take 1 tablet by mouth every morning. 90 tablet 3 No current facility-administered medications for this visit. Review of Systems: Review of Systems Constitutional: Negative for fatigue and unexpected weight change. Reviewed meds from memory. Pt states that he took his meds today. HENT: Negative. Eyes: Negative. Respiratory: Negative. Negative for chest tightness and shortness of breath. Denies orthopnea and PND Cardiovascular: Negative for chest pain, palpitations and leg swelling. Gastrointestinal: Negative. Endocrine: Negative. Genitourinary: Negative. Musculoskeletal: Negative. Skin: Negative. Allergic/Immunologic: Negative. Neurological: Negative. Negative for dizziness, syncope and light-headedness. Hematological: Negative. Psychiatric/Behavioral: Negative. Vital Signs: Vitals: 01/29/24 0945 BP: (!) 142/68 BP Location: Right arm Patient Position: Sitting Pulse: 69 SpO2: 97% Weight: (!) 322 lb (146 kg) Height: 6' 2 (1.88 m) Body mass index is 41.34 kg/m . Wt Readings from Last 3 Encounters: 01/29/24 (!) 322 lb (146 kg) 11/20/23 (!) 331 lb (150 kg) 04/24/23 (!) 324 lb 4.8 oz (147 kg) Physical Exam Vitals reviewed. Constitutional: Appearance: Normal appearance. He is obese. HENT: Head: Normocephalic and atraumatic. Nose: Nose normal. Mouth/Throat: Mouth: Mucous membranes are moist. Eyes: General: No scleral icterus. Conjunctiva/sclera: Conjunctivae normal. Cardiovascular: Rate and Rhythm: Normal rate and regular rhythm. Pulses: Normal pulses. Heart sounds: Normal heart sounds. Pulmonary: Effort: Pulmonary effort is normal. Breath sounds: Normal breath sounds. Abdominal: General: Abdomen is flat. Palpations: Abdomen is soft. Musculoskeletal: General: Normal range of motion. Cervical back: Normal range of motion and neck supple. Skin: General: Skin is warm. Neurological: General: No focal deficit present. Mental Status: He is alert and oriented to person, place, and time. Mental status is at baseline. Psychiatric: Mood and Affect: Mood normal. Behavior: Behavior normal. CBC: No results for input(s): WBC, HGB, HCT, PLT in the last 72 hours. BMP:No results for input(s): NA, K, CL, CO2, BUN, CREATININE, GLU, LABGLOM in the last 72 hours. No lab exists for component: CA CMP: Lab Results Component Value Date NA 139 01/17/2021 K 3.8 01/17/2021 CL 103 01/17/2021 CO2 27 01/17/2021 BUN 16 01/17/2021 CREATININE 0.81 01/17/2021 GLUCOSE 125 (H) 01/17/2021 CALCIUM 9.4 01/17/2021 PROT 7.4 01/17/2021 BILITOT 0.3 01/17/2021 ALKPHOS 123 01/17/2021 AST 56 (H) 01/17/2021 Magnesium: No results found for: MG LFT: Lab Results Component Value Date AST 56 (H) 01/17/2021 ALKPHOS 123 01/17/2021 BILITOT 0.3 01/17/2021 INR: Lab Results Component Value Date INR 1.0 08/29/2021 INR 1.0 12/06/2020 INR 1.0 07/26/2020 PROTIME 10.9 08/29/2021 PROTIME 11.0 12/06/2020 PROTIME 11.0 07/26/2020 PRO-BNP: No components found for: NTPROBNP TROPONIN: Lab Results Component Value Date TROPONINI <0.012 04/04/2022 TSH: Lab Results Component Value Date TSH 2.621 12/20/2021 Lipid Profile: Lab Results Component Value Date TRIG 226 (A) 10/10/2022 HDL 35 (A) 10/10/2022 CHOL 208 (A) 10/10/2022 Hemoglobin A1C: No results found for: HGBA1C VIKTORIA: No results found for: VIKTORIA Ferritin: No results found for: FERRITIN HIV: No results found for: [id number] EKG: See Report Echo: See Report EF: No components found for: LVEF, LVEFMODE Diagnosis Plan 1. Hypertension, unspecified type 2. Essential hypertension ECG 12 lead - CLINIC PERFORMED Lipid panel Comprehensive metabolic panel Lipid panel Comprehensive metabolic panel 3. Hypothyroidism, unspecified type 4. Mixed hyperlipidemia 5. Obesity, morbid, BMI 40.0-49.9 (HCC) 6. Bicuspid aortic valve Status post remote chemotherapy and radiation therapy. Patient denies any symptoms of congestive heart failure or chest pain. Patient is euvolemic on exam. - baseline cardio oncology echo: GLS=- 14%. The Systolic function is normal by visual assessment. The estimated ejection fraction is 55%. - baseline BNP and troponin are normal Bicuspid aortic valve -routine Echo 2-3 years Mixed hyperlipidemia -patient requested to be on low cholesterol diet -repeat fasting lipids Hypertension uncontrolled -Add lisinopril 20 mg daily in p.m. -Continue lisinopril - hydrochlorothiazide daily in a.m. -Check blood pressure at home at rest after 2 to 3 hours of taking the morning meds Hypothyroidism -Follow-up with PCP; last TSH was normal Morbid obesity -Strongly encouraged to lose weight -Strongly encouraged to exercise regularly -Patient has a referral to dietitian documented in this encounter [facility] [place] 11-20-2023 History of Present illness Narrative Patient ID: Devorah Santos is a 38 y.o. male. HPI Doing well. No fevers, night sweats or weight loss. he has the following oncology history 1. Stage II Hodgkin's lymphoma diagnosed and treated at [facility] in 2000. He received 6 cycles of VIOLA/ABVD followed by XRT. Disease sites were neck and chest. 2. Survivorship course complicated by hypothyroidism and anxiety. 3. 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 4. Started Adriamycin, Brentuximab, vinblastine and dacarbazine with Neulasta support day 1 and day 15 every 28 days. Completed 6 cycles February 2021 Review of Systems - Oncology No nausea, vomiting, diarrhea, fever, night sweats, chills, cough, shortness of breath, chest pain BSA: 2.8 meters squared BP (!) 134/90 Pulse 74 Temp 36.3 C (97.4 F) (Temporal) Ht 1.88 m (6' 2) Wt (!) 150 kg (331 lb) SpO2 97% BMI 42.50 kg/m Physical Exam No lymphadenopathy or hepatosplenomegaly. No lower extremity edema. Lab Results Component Value Date WBC 6.3 04/24/2023 HGB 15.1 04/24/2023 HCT 44.1 04/24/2023 MCV 83.1 04/24/2023 PLT 183 04/24/2023 Assessment/Plan There are no diagnoses linked to this encounter. . he appears to be in complete remission. Will do only symptom guided imaging. Follow-up labs from today 2. Follow-up in 6 months. Check CBC rat that visit. 3. Continue follow-up with medical weight management and Dr. Kan (cardio oncology) as well. 4. I have counseled him on diet and exercise. Patient verbalizes understanding and agrees with the plan. Plan as of 11/20/23 documented in this encounter [facility] 08-07-2023 Evaluation + Plan note Associated Problem(s): Anxiety Continue with current dose of sertraline, patient does have some preoccupation and obsessive-compulsive tendencies towards his history of prior Hodgkin's disease. Seems to be doing well with current medication, doing well at work, no change. [facility] Work Phone: 08-07-2023 Evaluation + Plan note Associated Problem(s): Hodgkin's disease, nodular sclerosis, of intrathoracic lymph nodes (CMS/HCC) Still follows with oncology about every 6 months. [facility] Work Phone: 08-07-2023 Evaluation + Plan note Associated Problem(s): Hodgkin lymphoma (CMS/HCC) Follows with oncology at [facility] at least every 6 months. [facility] Work Phone: 08-07-2023 Miscellaneous Notes Associated Problem(s): Anxiety Continue with current dose of sertraline, patient does have some preoccupation and obsessive-compulsive tendencies towards his history of prior Hodgkin's disease. Seems to be doing well with current medication, doing well at work, no change. Associated Problem(s): Hodgkin's disease, nodular sclerosis, of intrathoracic lymph nodes (CMS/HCC) Still follows with oncology about every 6 months. Associated Problem(s): Hodgkin lymphoma (CMS/HCC) Follows with oncology at [facility] at least every 6 months. Associated Problem(s): Gastroesophageal reflux disease Continue with PPI. Associated Problem(s): Obesity, Class III, BMI 40-49.9 (morbid obesity) (CMS/HCC) Encouraged about diet and exercise. Associated Problem(s): Hypothyroidism TSH within normal range, no adjustment needed, continue with current replacement. Associated Problem(s): Hypertension Blood pressure under good control renal function stable, no change. documented in this encounter [facility] Work Phone: 08-07-2023 Evaluation + Plan note Associated Problem(s): Gastroesophageal reflux disease Continue with PPI. [facility] Work Phone: 08-07-2023 Evaluation + Plan note Associated Problem(s): Obesity, Class III, BMI 40-49.9 (morbid obesity) (CMS/HCC) Encouraged about diet and exercise. [facility] Work Phone: 08-07-2023 Evaluation + Plan note Associated Problem(s): Hypothyroidism TSH within normal range, no adjustment needed, continue with current replacement. [facility] Work Phone: 08-07-2023 Evaluation + Plan note Associated Problem(s): Hypertension Blood pressure under good control renal function stable, no change. [facility] Work Phone: 08-07-2023 History of Present illness Narrative Subjective Patient ID: Devorah Santos is a 38 y.o. male who presents for Annual Exam (LABS). HPI No headache, chest pain, shortness of breath, dizziness, lightheadedness, or edema The patient is taking thyroid medications as directed without problems, labs done in the last year, no symptoms of excessive fatigue, edema or weight gain. Taking PPI daily without breakthrough symptoms. Reviewed dietary, caffeine, tobacco, alcohol, and NSAID use. No dyspepsia, dysphagia, reflux, melena, or abdominal pain. 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 Negative for activity change, appetite change and unexpected weight change. HENT: Negative for ear pain, nosebleeds, rhinorrhea, sneezing and trouble swallowing. Respiratory: Negative for cough, shortness of breath and wheezing. Cardiovascular: Negative for chest pain, palpitations and leg swelling. Gastrointestinal: Negative for abdominal distention, abdominal pain, constipation, diarrhea, nausea and vomiting. Genitourinary: Negative for difficulty urinating. Musculoskeletal: Negative for arthralgias. Skin: Negative for rash. Neurological: Negative for dizziness, light-headedness, numbness and headaches. Hematological: Negative for adenopathy. Psychiatric/Behavioral: Positive for sleep disturbance. Negative for behavioral problems, decreased concentration and dysphoric mood. The patient is not nervous/anxious. All other systems reviewed and are negative. Current Outpatient Medications: levothyroxine (Synthroid, Levoxyl) 150 mcg tablet, Take 1 tablet (150 mcg) by mouth once daily., Disp: 90 tablet, Rfl: 3 lisinopriL-hydrochlorothiazide 20-12.5 mg tablet, Take 1 tablet by mouth once daily., Disp: 90 tablet, Rfl: 3 pantoprazole (ProtoNix) 40 mg EC tablet, Take 1 tablet (40 mg) by mouth once daily., Disp: 90 tablet, Rfl: 3 sertraline (Zoloft) 100 mg tablet, Take 1 tablet (100 mg) by mouth once daily., Disp: 90 tablet, Rfl: 3 Objective BP (!) 124/92 Pulse 86 Ht 1.88 m (6' 2) Wt 148 kg (326 lb 8 oz) SpO2 98% BMI 41.92 kg/m Physical Exam Vitals and nursing note reviewed. Constitutional: General: He is not in acute distress. Appearance: Normal appearance. He is not toxic-appearing. HENT: Head: Normocephalic and atraumatic. Right Ear: Tympanic membrane, ear canal and external ear normal. Left Ear: Tympanic membrane, ear canal and external ear normal. Nose: Nose normal. Mouth/Throat: Mouth: Mucous membranes are moist. Pharynx: Oropharynx is clear. Eyes: Extraocular Movements: Extraocular movements intact. Conjunctiva/sclera: Conjunctivae normal. Pupils: Pupils are equal, round, and reactive to light. Cardiovascular: Rate and Rhythm: Normal rate and regular rhythm. Pulses: Normal pulses. Heart sounds: Normal heart sounds. Pulmonary: Effort: Pulmonary effort is normal. Breath sounds: Normal breath sounds. Abdominal: General: Abdomen is flat. Bowel sounds are normal. Palpations: Abdomen is soft. Musculoskeletal: Cervical back: Normal range of motion and neck supple. Skin: General: Skin is warm and dry. Capillary Refill: Capillary refill takes less than 2 seconds. Neurological: General: No focal deficit present. Mental Status: He is alert and oriented to person, place, and time. Mental status is at baseline. Psychiatric: Mood and Affect: Mood normal. Behavior: Behavior normal. Assessment/Plan Problem List Items Addressed This Visit ICD-10-CM Anxiety F41.9 Continue with current dose of sertraline, patient does have some preoccupation and obsessive-compulsive tendencies towards his history of prior Hodgkin's disease. Seems to be doing well with current medication, doing well at work, no change. Relevant Orders Follow Up In Primary Care - Established Gastroesophageal reflux disease K21.9 Continue with PPI. Relevant Orders Follow Up In Primary Care - Established Hodgkin lymphoma ([facility]) C81.90 Follows with oncology at [facility] at least every 6 months. Relevant Orders Follow Up In Primary Care - Established CBC and Auto Differential Comprehensive Metabolic Panel Hodgkin's disease, nodular sclerosis, of intrathoracic lymph nodes ([facility]) C81.12 Still follows with oncology about every 6 months. Relevant Orders Follow Up In Primary Care - Established Hypertension - Primary I10 Blood pressure under good control renal function stable, no change. Relevant Orders Follow Up In Primary Care - Established Comprehensive Metabolic Panel Hypothyroidism E03.9 TSH within normal range, no adjustment needed, continue with current replacement. Relevant Orders Follow Up In Primary Care - Established TSH with reflex to Free T4 if abnormal Obesity, Class III, BMI 40-49.9 (morbid obesity) ([facility]) E66.01 Encouraged about diet and exercise. Other Visit Diagnoses Codes Hypersomnolence G47.10 Check home sleep testing. Relevant Orders Follow Up In Primary Care - Established Home sleep apnea test (HSAT) documented in this encounter [facility] Work Phone: 07-10-2023 Note HNO ID: [id number] Author: Latrice Velasco MD Service: ? Author Type: Physician Type: Progress Notes Filed: 07/10/2023 2:57 PM Note Text: ORTHOPAEDIC OFFICE NOTE CHIEF COMPLAINT: Follow-up traumatic amputation left great toe and laceration left second toe HISTORY OF PRESENT ILLNESS: Devorah Santos is a 38 year old male who presents for Follow-up evaluation after traumatic amputation of left great toe and laceration of left second toe treated on 02/03/2023. Overall he is doing pretty well. For the most part he is pain-free and ambulates issue. He is using shoe orthotics which she thinks are helpful. He does have issues with going up and down stairs where he has pain in the second toe. He is also developed some callus along the bottom aspect of the toe. He denies current fevers chills nausea vomiting weight loss fatigue or malaise. Reviewed nursing note and current pain scale. 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- 6 months chemo and radiation PAST SURGICAL HISTORY Procedure Laterality Date COLONOSCOPY 02/2020 large benign polyp PAST SURGICAL HISTORY OF Right lymph node biopsy PAST SURGICAL HISTORY OF port placement PAST SURGICAL HISTORY OF removal port FAMILY HISTORY Problem Relation Age of Onset Hypertension Mother Hypertension Father Social History Tobacco Use Smoking status: Never Smokeless tobacco: Never Substance Use Topics Alcohol use: Never Drug use: Not Currently MEDICATIONS: Current Outpatient Medications Medication Sig hydroCHLOROthiazide (HYDRODIURIL, ESIDRIX) 25 mg tablet Take 12.5 mg by mouth once daily. sertraline (ZOLOFT) 100 mg tablet Take 100 mg by mouth once daily. MULTI-VITAMIN ORAL Take 1 capsule by mouth once daily. pantoprazole DR (PROTONIX) 40 mg tablet Take 40 mg by mouth once daily. levothyroxine (SYNTHROID) 150 mcg tablet Take 150 mcg by mouth once daily. lisinopril (ZESTRIL, PRINIVIL) 10 mg tablet Take 20 mg by mouth once daily. LORazepam (ATIVAN) 0.5 mg Take 0.5 mg by mouth as needed. No current facility-administered medications for this visit. ALLERGIES: ALLERGIES No Known Allergies PHYSICAL EXAMINATION: Resp 20 Ht 6' 2 (1.88m) Wt 330 lb 3.2 oz (149.8kg) BMI 42.38 kg/(m2). General Appearance: Well appearing, alert, in no acute distress, well-hydrated, well nourished. Skin: Skin color, texture, turgor normal, no suspicious rashes or lesions. Psych: Patient is alert and oriented to person, time and place. Mood and affect are normal. Respiratory: Breathing is symmetric and unlabored Extremities: Left lower extremities examined. Overall appearance is much improved. The great toe is now almost completely healed. There are small areas of scabbing along the lateral aspect of the wound. The second toe also is almost completely healed a small areas of scabbing on the plantar surface of the toe. There is still moderate swelling present at the toe. There is minimal tenderness palpation there is no sign of active infection Lymphatic: There is no palpable lymphadenopathy Neurologic: Bilateral lower extremities were examined. There is 5/5 strength with hip flexion, knee extension, dorsiflexion, EHL, plantar flexion. Sensation intact in all nerve dermatomes IMAGES: No results found for this or any previous visit (from the past 36 hour(s)). Plan ASSESSMENT AND PLAN: 1. Traumatic amputation of left great toe, subsequent encounter (HCC) - ICD9: V54.89, 895.0, ICD10: S98.112D Functional Plan: Patient is a 38-year-old male presenting for follow-up evaluation after traumatic amputation of left great toe and laceration of left second toe with multiple open fractures. Overall he is doing okay. For most part he is pain-free although he has developed a callus along the plantar aspect of the second toe. He did his think that the orthotics are helpful. I discussed this with him at length. I did recommend that he follow-up with the orthotics personally see if he can offload the second toe any better. We discussed if it becomes significantly symptomatic could discuss some sort of fusion procedure to correct the alignment at the toe. At this point time he would like to see how he does in the future. He would prefer to follow-up with me as needed for this or any other issue. All his questions were answered satisfactorily. He expressed understanding of and agreement with the treatment plan. Medical Decision Making: Problems: Moderate: Acute complicated injury Risk: Low: Low risk from testing/treatment Medical Decision Making Level: 3 - Low Return if symptoms worsen or fail to improve. Latrice Velasco MD [facility] 05-08-2023 Note HNO ID: [id number] Author: Latrice Velasco MD Service: ? Author Type: Physician Type: Progress Notes Filed: 05/08/2023 11:03 AM Note Text: ORTHOPAEDIC OFFICE NOTE CHIEF COMPLAINT: Follow-up traumatic amputation left great toe HISTORY OF PRESENT ILLNESS: Devorah Santos is a 38 year old male who presents for Follow-up evaluation of traumatic partial amputation of left great toe near potation of left second toe on 02/03/2023. Overall he is doing well. For the most part he is pain-free. He states that he has some issues with prolonged walking especially with golfing. Feels like he is placing pressure on different areas of his toes than before. He denies current fevers chills nausea vomiting weight loss fatigue or malaise. Reviewed nursing note and current pain scale. 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- 6 months chemo and radiation PAST SURGICAL HISTORY Procedure Laterality Date COLONOSCOPY 02/2020 large benign polyp PAST SURGICAL HISTORY OF Right lymph node biopsy PAST SURGICAL HISTORY OF port placement PAST SURGICAL HISTORY OF removal port FAMILY HISTORY Problem Relation Age of Onset Hypertension Mother Hypertension Father Social History Tobacco Use Smoking status: Never Smokeless tobacco: Never Substance Use Topics Alcohol use: Never Drug use: Not Currently MEDICATIONS: Current Outpatient Medications Medication Sig hydroCHLOROthiazide (HYDRODIURIL, ESIDRIX) 25 mg tablet Take 12.5 mg by mouth once daily. sertraline (ZOLOFT) 100 mg tablet Take 100 mg by mouth once daily. MULTI-VITAMIN ORAL Take 1 capsule by mouth once daily. pantoprazole DR (PROTONIX) 40 mg tablet Take 40 mg by mouth once daily. levothyroxine (SYNTHROID) 150 mcg tablet Take 150 mcg by mouth once daily. lisinopril (ZESTRIL, PRINIVIL) 10 mg tablet Take 20 mg by mouth once daily. LORazepam (ATIVAN) 0.5 mg Take 0.5 mg by mouth as needed. No current facility-administered medications for this visit. ALLERGIES: ALLERGIES No Known Allergies PHYSICAL EXAMINATION: Resp 20 Ht 6' 2 (1.88m) Wt 324 lb 12.8 oz (147.3kg) BMI 41.68 kg/(m2). General Appearance: Well appearing, alert, in no acute distress, well-hydrated, well nourished. Skin: Skin color, texture, turgor normal, no suspicious rashes or lesions. Psych: Patient is alert and oriented to person, time and place. Mood and affect are normal. Respiratory: Breathing is symmetric and unlabored Extremities: Left lower extremities examined. Overall appearance is much improved. The great toe is now almost completely healed. There are small areas of scabbing along the lateral aspect of the wound. The second toe also is almost completely healed a small areas of scabbing on the plantar surface of the toe. There is still moderate swelling present at the toe. There is minimal tenderness palpation there is no sign of active infection Lymphatic: There is no palpable lymphadenopathy Neurologic: Bilateral lower extremities were examined. There is 5/5 strength with hip flexion, knee extension, dorsiflexion, EHL, plantar flexion. Sensation intact in all nerve dermatomes IMAGES: No results found for this or any previous visit (from the past 36 hour(s)). Plan ASSESSMENT AND PLAN: 1. Traumatic amputation of left great toe, subsequent encounter ([facility]) - ICD9: V54.89, 895.0, ICD10: S98.112D Functional Plan: Patient is a 38-year-old male presenting for follow-up evaluation of traumatic partial rotation of left great toe and near amputation of the left second toe on 02/03/2023. Overall he is doing much better. For most part he is pain-free. The appearance of the toes is much improved. He ambulates independently without issue. He does have some discomfort with prolonged walking leg during golfing. I will place a referral to [employer] to discuss proper orthotic wear for him to provide support to specific areas of pressure. I will see him back in 2 months for repeat evaluation unless issue should arise sooner. All of his questions were answered satisfactorily. He expressed understanding of and agreement with the treatment plan. Medical Decision Making: Problems: Moderate: Acute complicated injury Risk: Low: Low risk from testing/treatment Medical Decision Making Level: 3 - Low Return in about 2 months (around 07/08/2023). Latrice Velasco MD [facility] 05-08-2023 History of Present illness Narrative ORTHOPAEDIC OFFICE NOTE CHIEF COMPLAINT: Follow-up traumatic amputation left great toe HISTORY OF PRESENT ILLNESS: Devorah Santos is a 38 year old male who presents for Follow-up evaluation of traumatic partial amputation of left great toe near potation of left second toe on 02/03/2023. Overall he is doing well. For the most part he is pain-free. He states that he has some issues with prolonged walking especially with golfing. Feels like he is placing pressure on different areas of his toes than before. He denies current fevers chills nausea vomiting weight loss fatigue or malaise. Reviewed nursing note and current pain scale. PAST MEDICAL HISTORY Diagnosis Date Anxiety GERD (gastroesophageal reflux disease) Hypertension Hypothyroid Lymphoma (HCC) 2001 hodgkins- 6 months chemo and radiation PAST SURGICAL HISTORY Procedure Laterality Date COLONOSCOPY 02/2020 large benign polyp PAST SURGICAL HISTORY OF Right lymph node biopsy PAST SURGICAL HISTORY OF port placement PAST SURGICAL HISTORY OF removal port FAMILY HISTORY Problem Relation Age of Onset Hypertension Mother Hypertension Father Social History Tobacco Use Smoking status: Never Smokeless tobacco: Never Substance Use Topics Alcohol use: Never Drug use: Not Currently MEDICATIONS: Current Outpatient Medications Medication Sig hydroCHLOROthiazide (HYDRODIURIL, ESIDRIX) 25 mg tablet Take 12.5 mg by mouth once daily. sertraline (ZOLOFT) 100 mg tablet Take 100 mg by mouth once daily. MULTI-VITAMIN ORAL Take 1 capsule by mouth once daily. pantoprazole DR (PROTONIX) 40 mg tablet Take 40 mg by mouth once daily. levothyroxine (SYNTHROID) 150 mcg tablet Take 150 mcg by mouth once daily. lisinopril (ZESTRIL, PRINIVIL) 10 mg tablet Take 20 mg by mouth once daily. LORazepam (ATIVAN) 0.5 mg Take 0.5 mg by mouth as needed. No current facility-administered medications for this visit. ALLERGIES: ALLERGIES No Known Allergies PHYSICAL EXAMINATION: Resp 20 Ht 6' 2 (1.88m) Wt 324 lb 12.8 oz (147.3kg) BMI 41.68 kg/(m^2). General Appearance: Well appearing, alert, in no acute distress, well-hydrated, well nourished. Skin: Skin color, texture, turgor normal, no suspicious rashes or lesions. Psych: Patient is alert and oriented to person, time and place. Mood and affect are normal. Respiratory: Breathing is symmetric and unlabored Extremities: Left lower extremities examined. Overall appearance is much improved. The great toe is now almost completely healed. There are small areas of scabbing along the lateral aspect of the wound. The second toe also is almost completely healed a small areas of scabbing on the plantar surface of the toe. There is still moderate swelling present at the toe. There is minimal tenderness palpation there is no sign of active infection Lymphatic: There is no palpable lymphadenopathy Neurologic: Bilateral lower extremities were examined. There is 5/5 strength with hip flexion, knee extension, dorsiflexion, EHL, plantar flexion. Sensation intact in all nerve dermatomes IMAGES: No results found for this or any previous visit (from the past 36 hour(s)). Plan ASSESSMENT AND PLAN: 1. Traumatic amputation of left great toe, subsequent encounter ([facility]) - ICD9: V54.89, 895.0, ICD10: S98.112D Functional Plan: Patient is a 38-year-old male presenting for follow-up evaluation of traumatic partial rotation of left great toe and near amputation of the left second toe on 02/03/2023. Overall he is doing much better. For most part he is pain-free. The appearance of the toes is much improved. He ambulates independently without issue. He does have some discomfort with prolonged walking leg during golfing. I will place a referral to [employer] to discuss proper orthotic wear for him to provide support to specific areas of pressure. I will see him back in 2 months for repeat evaluation unless issue should arise sooner. All of his questions were answered satisfactorily. He expressed understanding of and agreement with the treatment plan. Medical Decision Making: Problems: Moderate: Acute complicated injury Risk: Low: Low risk from testing/treatment Medical Decision Making Level: 3 - Low Return in about 2 months (around 07/08/2023). Latrice Velasco MD documented in this encounter [facility] 04-24-2023 History of Present illness Narrative Patient ID: Devorah Santos is a 38 y.o. male. HPI Doing well. No fevers, night sweats or weight loss. he has the following oncology history 1. Stage II Hodgkin's lymphoma diagnosed and treated at [facility] in 2000. He received 6 cycles of VIOLA/ABVD followed by XRT. Disease sites were neck and chest. 2. Survivorship course complicated by hypothyroidism and anxiety. 3. 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 4. Started Adriamycin, Brentuximab, vinblastine and dacarbazine with Neulasta support day 1 and day 15 every 28 days. Completed 6 cycles February 2021 Review of Systems - Oncology No nausea, vomiting, diarrhea, fever, night sweats, chills, cough, shortness of breath, chest pain BSA: 2.77 meters squared BP (!) 147/91 (BP Location: Right arm, Patient Position: Sitting, BP Cuff Size: Adult) Pulse 89 Temp 97.7 F (36.5 C) (Temporal) Ht 6' 2 (1.88 m) Wt (!) 324 lb 4.8 oz (147 kg) SpO2 98% BMI 41.64 kg/m Physical Exam No lymphadenopathy or hepatosplenomegaly. No lower extremity edema. Lab Results Component Value Date WBC 6.1 04/25/2022 HGB 15.1 04/25/2022 MCV 85.2 04/25/2022 Assessment/Plan There are no diagnoses linked to this encounter. . he appears to be in complete remission. Will do only symptom guided imaging. Follow-up labs from today 2. Follow-up in 6 months. Check CBC results from today. 3. Continue follow-up with medical weight management and Dr. Kan (cardio oncology) as well. 4. I have counseled him on diet and exercise. Patient verbalizes understanding and agrees with the plan. Plan as of 04/24/[address] Caldwell Labs drawn right arm 1 stick 1 lav Cbc sent to [facility] documented in this encounter [facility] 04-23-2023 Miscellaneous Notes Sent to [place] ----- Message from Germania Mccarty sent at 04/22/2023 11:18 AM EDT ----- Regarding: Orthopedics / Open Foot: Pain / Post Op Within 90 Day Period Subject Line Format: Orthopedics / [Provider Name or Open & Body Part] / [Issue] Patient has been identified by name and Date of (Y/N): yes Patient: Devorah Santos Date of : 1985 Previous Provider Seen: velasco Body Part(s) Identified: left toe Diagnosis/Reason For Visit: post op Reason for the call/escalation: 90 days If reason for call/escalation is discharge from ED/ER or Hospital, which facility was the patient seen at: no Was an appointment scheduled (Y/N): n Person calling if other than patient: no Return call to if other than patient: no Best contact number: [phone] Thank you, Germania Mccarty April 22, 2023 11:18 AM documented in this encounter [facility] 04-11-2023 Miscellaneous Notes ----- Message from Anabella Perez sent at 04/09/2023 12:47 PM EDT ----- Regarding: Orthopedics / Open Foot: Pain / Post Op Within 90 Day Period Subject Line Format: Orthopedics / Open Foot: Pain / Post Op Within 90 Day Period Patient has been identified by name and Date of (Y/N): y Patient: Devorah Santos Date of : 1985 Previous Provider Seen: Dr. Velasco Body Part(s) Identified: left foot-great toe---requesting to reschedule on 04-24-23 in the afternoon he has another appointment on that day in the morning. Diagnosis/Reason For Visit: post op Reason for the call/escalation: post op within 90 day period If reason for call/escalation is discharge from ED/ER or Hospital, which facility was the patient seen at: n/a Was an appointment scheduled (Y/N): n Person calling if other than patient: no Return call to if other than patient: no Best contact number: [phone] Thank you, Anabella Perez April 09, 2023 12:47 PM documented in this encounter [facility] 03-20-2023 Note HNO ID: [id number] Author: Latrice Velasco MD Service: ? Author Type: Physician Type: Progress Notes Filed: 03/20/2023 3:50 PM Note Text: ORTHOPAEDIC OFFICE NOTE CHIEF COMPLAINT: Follow-up multiple left foot injuries HISTORY OF PRESENT ILLNESS: Devorah Santos is a 38 year old male who presents for Follow-up evaluation of traumatic amputation of great toe and multiple lacerations. Overall he is doing okay. He continues to be relatively pain-free. He gets around well with his postoperative shoe. He continues with daily dressing changes. He recently returned from [place] and tolerated this trip well. He denies current fevers chills nausea vomiting weight loss fatigue or malaise Reviewed nursing note and current pain scale. 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- 6 months chemo and radiation PAST SURGICAL HISTORY Procedure Laterality Date COLONOSCOPY 02/2020 large benign polyp PAST SURGICAL HISTORY OF Right lymph node biopsy PAST SURGICAL HISTORY OF port placement PAST SURGICAL HISTORY OF removal port FAMILY HISTORY Problem Relation Age of Onset Hypertension Mother Hypertension Father Social History Tobacco Use Smoking status: Never Smokeless tobacco: Never Substance Use Topics Alcohol use: Never Drug use: Not Currently MEDICATIONS: Current Outpatient Medications Medication Sig doxycycline (VIBRA-TABS) 100 mg tablet Take 1 tablet by mouth twice daily with meals for 14 days. hydroCHLOROthiazide (HYDRODIURIL, ESIDRIX) 25 mg tablet Take 12.5 mg by mouth once daily. sertraline (ZOLOFT) 100 mg tablet Take 100 mg by mouth once daily. MULTI-VITAMIN ORAL Take 1 capsule by mouth once daily. pantoprazole DR (PROTONIX) 40 mg tablet Take 40 mg by mouth once daily. levothyroxine (SYNTHROID) 150 mcg tablet Take 150 mcg by mouth once daily. lisinopril (ZESTRIL, PRINIVIL) 10 mg tablet Take 20 mg by mouth once daily. LORazepam (ATIVAN) 0.5 mg Take 0.5 mg by mouth as needed. No current facility-administered medications for this visit. ALLERGIES: ALLERGIES No Known Allergies PHYSICAL EXAMINATION: Resp 16 Ht 6' 2 (1.88m) Wt 327 lb (148.3kg) BMI 41.97 kg/(m2). General Appearance: Well appearing, alert, in no acute distress, well-hydrated, well nourished. Skin: Skin color, texture, turgor normal, no suspicious rashes or lesions. Psych: Patient is alert and oriented to person, time and place. Mood and affect are normal. Respiratory: Breathing is symmetric and unlabored Extremities: Left lower extremities examined. Partially amputated left great toe seems to be healing well. There is a small amount of eschar along the plantar lateral aspect of the wound. There is no drainage or sign of infection. Second toe appears okay. Overall appearance has improved. There is less swelling. There continues to be purplish discoloration along the end of the toe. There is multiple eschar formations. There is no longer significant drainage. 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 There is minimal tenderness palpation. Lymphatic: There is no palpable lymphadenopathy Neurologic: Bilateral lower extremities were examined. There is 5/5 strength with hip flexion, knee extension, dorsiflexion, EHL, plantar flexion. Sensation intact in all nerve dermatomes IMAGES: No results found for this or any previous visit (from the past 36 hour(s)). Plan ASSESSMENT AND PLAN: 1. Traumatic amputation of left great toe, subsequent encounter (HCC) - ICD9: V54.89, 895.0, ICD10: S98.112D Functional Plan: Patient is a 38-year-old male presenting for follow-up evaluation after multiple traumatic left toe injuries. Overall he is doing okay. For the most part he is pain-free and is ambulating with the assistance of his postoperative shoe. Overall appearance is somewhat improved compared to last visit. He is no longer having significant drainage. He should continue with daily dressing changes and wound care. We will continue to watch this clinically. I will see him back in 3 weeks for repeat evaluation less issue should arise sooner. All his questions were answered satisfactorily. He expressed understanding of and agreement with the treatment plan. Return in about 3 weeks (around 04/10/2023). Latrice Velasco MD [facility] 03-20-2023 History of Present illness Narrative ORTHOPAEDIC OFFICE NOTE CHIEF COMPLAINT: Follow-up multiple left foot injuries HISTORY OF PRESENT ILLNESS: Devorah Santos is a 38 year old male who presents for Follow-up evaluation of traumatic amputation of great toe and multiple lacerations. Overall he is doing okay. He continues to be relatively pain-free. He gets around well with his postoperative shoe. He continues with daily dressing changes. He recently returned from [place] and tolerated this trip well. He denies current fevers chills nausea vomiting weight loss fatigue or malaise Reviewed nursing note and current pain scale. 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- 6 months chemo and radiation PAST SURGICAL HISTORY Procedure Laterality Date COLONOSCOPY 02/2020 large benign polyp PAST SURGICAL HISTORY OF Right lymph node biopsy PAST SURGICAL HISTORY OF port placement PAST SURGICAL HISTORY OF removal port FAMILY HISTORY Problem Relation Age of Onset Hypertension Mother Hypertension Father Social History Tobacco Use Smoking status: Never Smokeless tobacco: Never Substance Use Topics Alcohol use: Never Drug use: Not Currently MEDICATIONS: Current Outpatient Medications Medication Sig doxycycline (VIBRA-TABS) 100 mg tablet Take 1 tablet by mouth twice daily with meals for 14 days. hydroCHLOROthiazide (HYDRODIURIL, ESIDRIX) 25 mg tablet Take 12.5 mg by mouth once daily. sertraline (ZOLOFT) 100 mg tablet Take 100 mg by mouth once daily. MULTI-VITAMIN ORAL Take 1 capsule by mouth once daily. pantoprazole DR (PROTONIX) 40 mg tablet Take 40 mg by mouth once daily. levothyroxine (SYNTHROID) 150 mcg tablet Take 150 mcg by mouth once daily. lisinopril (ZESTRIL, PRINIVIL) 10 mg tablet Take 20 mg by mouth once daily. LORazepam (ATIVAN) 0.5 mg Take 0.5 mg by mouth as needed. No current facility-administered medications for this visit. ALLERGIES: ALLERGIES No Known Allergies PHYSICAL EXAMINATION: Resp 16 Ht 6' 2 (1.88m) Wt 327 lb (148.3kg) BMI 41.97 kg/(m^2). General Appearance: Well appearing, alert, in no acute distress, well-hydrated, well nourished. Skin: Skin color, texture, turgor normal, no suspicious rashes or lesions. Psych: Patient is alert and oriented to person, time and place. Mood and affect are normal. Respiratory: Breathing is symmetric and unlabored Extremities: Left lower extremities examined. Partially amputated left great toe seems to be healing well. There is a small amount of eschar along the plantar lateral aspect of the wound. There is no drainage or sign of infection. Second toe appears okay. Overall appearance has improved. There is less swelling. There continues to be purplish discoloration along the end of the toe. There is multiple eschar formations. There is no longer significant drainage. 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 There is minimal tenderness palpation. Lymphatic: There is no palpable lymphadenopathy Neurologic: Bilateral lower extremities were examined. There is 5/5 strength with hip flexion, knee extension, dorsiflexion, EHL, plantar flexion. Sensation intact in all nerve dermatomes IMAGES: No results found for this or any previous visit (from the past 36 hour(s)). Plan ASSESSMENT AND PLAN: 1. Traumatic amputation of left great toe, subsequent encounter ([facility]) - ICD9: V54.89, 895.0, ICD10: S98.112D Functional Plan: Patient is a 38-year-old male presenting for follow-up evaluation after multiple traumatic left toe injuries. Overall he is doing okay. For the most part he is pain-free and is ambulating with the assistance of his postoperative shoe. Overall appearance is somewhat improved compared to last visit. He is no longer having significant drainage. He should continue with daily dressing changes and wound care. We will continue to watch this clinically. I will see him back in 3 weeks for repeat evaluation less issue should arise sooner. All his questions were answered satisfactorily. He expressed understanding of and agreement with the treatment plan. Return in about 3 weeks (around 04/10/2023). Latrice Velasco MD documented in this encounter [facility] 03-07-2023 Note HNO ID: [id number] Author: Latrice Velasco MD Service: ? Author Type: Physician Type: Progress Notes Filed: 03/07/2023 11:07 AM Note Text: ORTHOPAEDIC OFFICE NOTE CHIEF COMPLAINT: Follow-up traumatic amputation right great toe HISTORY OF PRESENT ILLNESS: Devorah Santos is a 38 year old male who presents for Follow-up evaluation after traumatic right great toe amputation and open fractures with lacerations of the left second toe. Overall he seems to be doing okay. For the most part his pain is well controlled. He has been doing regular dressing changes on the second toe. He has been using a knee walker to ambulate at work. He has been wearing a cast shoe otherwise. He is getting set to go on a trip to [place] next week. He denies current fevers chills nausea vomiting weight loss fatigue or malaise. Reviewed nursing note and current pain scale. PAST MEDICAL HISTORY Diagnosis Date Anxiety GERD (gastroesophageal reflux disease) Hypertension Hypothyroid Lymphoma (HCC) 2001 [facility]- 6 months chemo and radiation PAST SURGICAL HISTORY Procedure Laterality Date COLONOSCOPY 02/2020 large benign polyp PAST SURGICAL HISTORY OF Right lymph node biopsy PAST SURGICAL HISTORY OF port placement PAST SURGICAL HISTORY OF removal port FAMILY HISTORY Problem Relation Age of Onset Hypertension Mother Hypertension Father Social History Tobacco Use Smoking status: Never Smokeless tobacco: Never Substance Use Topics Alcohol use: Never Drug use: Not Currently MEDICATIONS: Current Outpatient Medications Medication Sig hydroCHLOROthiazide (HYDRODIURIL, ESIDRIX) 25 mg tablet Take 12.5 mg by mouth once daily. sertraline (ZOLOFT) 100 mg tablet Take 100 mg by mouth once daily. MULTI-VITAMIN ORAL Take 1 capsule by mouth once daily. pantoprazole DR (PROTONIX) 40 mg tablet Take 40 mg by mouth once daily. levothyroxine (SYNTHROID) 150 mcg tablet Take 150 mcg by mouth once daily. lisinopril (ZESTRIL, PRINIVIL) 10 mg tablet Take 20 mg by mouth once daily. LORazepam (ATIVAN) 0.5 mg Take 0.5 mg by mouth as needed. doxycycline (VIBRA-TABS) 100 mg tablet Take 1 tablet by mouth twice daily with meals for 14 days. No current facility-administered medications for this visit. ALLERGIES: ALLERGIES No Known Allergies PHYSICAL EXAMINATION: Resp 18 Ht 6' 2 (1.88m) Wt 319 lb (144.7kg) BMI 40.94 kg/(m2). General Appearance: Well appearing, alert, in no acute distress, well-hydrated, well nourished. Skin: Skin color, texture, turgor normal, no suspicious rashes or lesions. Psych: Patient is alert and oriented to person, time and place. Mood and affect are normal. Respiratory: Breathing is symmetric and unlabored Extremities: Left lower extremities examined. Partially amputated left great toe seems to be healing well. There is a small amount of eschar along the plantar lateral aspect of the wound. There is no drainage or sign of infection. Second toe appears okay. Some of the eschar has sloughed off and there is fresh appearing skin underneath. There is mild associated drainage. There is still significant swelling and ecchymosis at the distal aspect of the toe. Overall the discoloration seems little bit improved.. There is minimal tenderness palpation. Lymphatic: There is no palpable lymphadenopathy Neurologic: Bilateral lower extremities were examined. There is 5/5 strength with hip flexion, knee extension, dorsiflexion, EHL, plantar flexion. Sensation intact in all nerve dermatomes IMAGES: No results found for this or any previous visit (from the past 36 hour(s)). Plan ASSESSMENT AND PLAN: 1. Traumatic amputation of left great toe, subsequent encounter ([facility]) - ICD9: V54.89, 895.0, ICD10: S98.112D Functional Plan: Patient is a 38-year-old male presenting for follow-up evaluation after traumatic partial amputation of his left great toe and laceration with open fractures left second toe. Overall he is doing okay. Clinically seems to be doing well. There is no significant pain or sign of infection. Soft tissue on his second toe continues to look questionable. Some of his blisters have sloughed off and there is underlying wounds. Overall his swelling and discoloration seems a bit improved. He is getting set to go on a trip with his family this been planned for quite a while. We will give him plenty of dressings for his local wound care. I will also prescribe him some antibiotics as a precautionary measure. I would like him to get into wound care once he returns from his trip. I will see him back in approximately 3 weeks for repeat evaluation less issue should arise sooner. All of his questions were answered satisfactorily. He expressed understanding of and agreement with the treatment plan. Return in about 3 weeks (around 03/27/2023). Latrice Velasco MD [facility] 03-07-2023 History of Present illness Narrative ORTHOPAEDIC OFFICE NOTE CHIEF COMPLAINT: Follow-up traumatic amputation right great toe HISTORY OF PRESENT ILLNESS: Devorah Santos is a 38 year old male who presents for Follow-up evaluation after traumatic right great toe amputation and open fractures with lacerations of the left second toe. Overall he seems to be doing okay. For the most part his pain is well controlled. He has been doing regular dressing changes on the second toe. He has been using a knee walker to ambulate at work. He has been wearing a cast shoe otherwise. He is getting set to go on a trip to [place] next week. He denies current fevers chills nausea vomiting weight loss fatigue or malaise. Reviewed nursing note and current pain scale. PAST MEDICAL HISTORY Diagnosis Date Anxiety GERD (gastroesophageal reflux disease) Hypertension Hypothyroid Lymphoma (HCC) 2001 [facility]- 6 months chemo and radiation PAST SURGICAL HISTORY Procedure Laterality Date COLONOSCOPY 02/2020 large benign polyp PAST SURGICAL HISTORY OF Right lymph node biopsy PAST SURGICAL HISTORY OF port placement PAST SURGICAL HISTORY OF removal port FAMILY HISTORY Problem Relation Age of Onset Hypertension Mother Hypertension Father Social History Tobacco Use Smoking status: Never Smokeless tobacco: Never Substance Use Topics Alcohol use: Never Drug use: Not Currently MEDICATIONS: Current Outpatient Medications Medication Sig hydroCHLOROthiazide (HYDRODIURIL, ESIDRIX) 25 mg tablet Take 12.5 mg by mouth once daily. sertraline (ZOLOFT) 100 mg tablet Take 100 mg by mouth once daily. MULTI-VITAMIN ORAL Take 1 capsule by mouth once daily. pantoprazole DR (PROTONIX) 40 mg tablet Take 40 mg by mouth once daily. levothyroxine (SYNTHROID) 150 mcg tablet Take 150 mcg by mouth once daily. lisinopril (ZESTRIL, PRINIVIL) 10 mg tablet Take 20 mg by mouth once daily. LORazepam (ATIVAN) 0.5 mg Take 0.5 mg by mouth as needed. doxycycline (VIBRA-TABS) 100 mg tablet Take 1 tablet by mouth twice daily with meals for 14 days. No current facility-administered medications for this visit. ALLERGIES: ALLERGIES No Known Allergies PHYSICAL EXAMINATION: Resp 18 Ht 6' 2 (1.88m) Wt 319 lb (144.7kg) BMI 40.94 kg/(m^2). General Appearance: Well appearing, alert, in no acute distress, well-hydrated, well nourished. Skin: Skin color, texture, turgor normal, no suspicious rashes or lesions. Psych: Patient is alert and oriented to person, time and place. Mood and affect are normal. Respiratory: Breathing is symmetric and unlabored Extremities: Left lower extremities examined. Partially amputated left great toe seems to be healing well. There is a small amount of eschar along the plantar lateral aspect of the wound. There is no drainage or sign of infection. Second toe appears okay. Some of the eschar has sloughed off and there is fresh appearing skin underneath. There is mild associated drainage. There is still significant swelling and ecchymosis at the distal aspect of the toe. Overall the discoloration seems little bit improved.. There is minimal tenderness palpation. Lymphatic: There is no palpable lymphadenopathy Neurologic: Bilateral lower extremities were examined. There is 5/5 strength with hip flexion, knee extension, dorsiflexion, EHL, plantar flexion. Sensation intact in all nerve dermatomes IMAGES: No results found for this or any previous visit (from the past 36 hour(s)). Plan ASSESSMENT AND PLAN: 1. Traumatic amputation of left great toe, subsequent encounter ([facility]) - ICD9: V54.89, 895.0, ICD10: S98.112D Functional Plan: Patient is a 38-year-old male presenting for follow-up evaluation after traumatic partial amputation of his left great toe and laceration with open fractures left second toe. Overall he is doing okay. Clinically seems to be doing well. There is no significant pain or sign of infection. Soft tissue on his second toe continues to look questionable. Some of his blisters have sloughed off and there is underlying wounds. Overall his swelling and discoloration seems a bit improved. He is getting set to go on a trip with his family this been planned for quite a while. We will give him plenty of dressings for his local wound care. I will also prescribe him some antibiotics as a precautionary measure. I would like him to get into wound care once he returns from his trip. I will see him back in approximately 3 weeks for repeat evaluation less issue should arise sooner. All of his questions were answered satisfactorily. He expressed understanding of and agreement with the treatment plan. Return in about 3 weeks (around 03/27/2023). Latrice Velasco MD documented in this encounter [facility] 02-20-2023 Note HNO ID: [id number] Author: Latrice Velasco MD Service: ? Author Type: Physician Type: Progress Notes Filed: 02/20/2023 1:23 PM Note Text: ORTHOPAEDIC OFFICE NOTE CHIEF COMPLAINT: Follow-up traumatic left great toe amputation and open second toe fractures. HISTORY OF PRESENT ILLNESS: Devorah Santos is a 37 year old male who presents for Follow-up evaluation of traumatic left great toe amputation and open left second toe fractures on on 02/03/2023. Overall the patient is doing well. For most part he is pain-free. He is getting around with a postoperative shoe and using a knee walker at work. He is doing dressing changes daily. He denies current fevers chills nausea vomiting weight loss fatigue or malaise. Reviewed nursing note and current pain scale. 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- 6 months chemo and radiation PAST SURGICAL HISTORY Procedure Laterality Date COLONOSCOPY 02/2020 large benign polyp PAST SURGICAL HISTORY OF Right lymph node biopsy PAST SURGICAL HISTORY OF port placement PAST SURGICAL HISTORY OF removal port FAMILY HISTORY Problem Relation Age of Onset Hypertension Mother Hypertension Father Social History Tobacco Use Smoking status: Never Smokeless tobacco: Never Substance Use Topics Alcohol use: Never Drug use: Not Currently MEDICATIONS: Current Outpatient Medications Medication Sig hydroCHLOROthiazide (HYDRODIURIL, ESIDRIX) 25 mg tablet Take 12.5 mg by mouth once daily. sertraline (ZOLOFT) 100 mg tablet Take 100 mg by mouth once daily. MULTI-VITAMIN ORAL Take 1 capsule by mouth once daily. pantoprazole DR (PROTONIX) 40 mg tablet Take 40 mg by mouth once daily. levothyroxine (SYNTHROID) 150 mcg tablet Take 150 mcg by mouth once daily. lisinopril (ZESTRIL, PRINIVIL) 10 mg tablet Take 20 mg by mouth once daily. LORazepam (ATIVAN) 0.5 mg Take 0.5 mg by mouth as needed. No current facility-administered medications for this visit. ALLERGIES: ALLERGIES No Known Allergies PHYSICAL EXAMINATION: Resp 20 Ht 6' 2 (1.88m) Wt 319 lb 3.2 oz (144.8kg) BMI 40.97 kg/(m2). General Appearance: Well appearing, alert, in no acute distress, well-hydrated, well nourished. Skin: Skin color, texture, turgor normal, no suspicious rashes or lesions. Psych: Patient is alert and oriented to person, time and place. Mood and affect are normal. Respiratory: Breathing is symmetric and unlabored Extremities: Left lower extremities examined. Partially amputated left great toe seems to be healing well. There is a small amount of eschar along the plantar lateral aspect of the wound. There is no drainage or sign of infection. The second toe laceration appears to be healing well again with some scarring and eschar along the laceration site. There is still persistent swelling at the second toe and purplish discoloration. There is fracture blistering along the dorsal aspect of the toe. There is minimal tenderness palpation. Lymphatic: There is no palpable lymphadenopathy Neurologic: Bilateral lower extremities were examined. There is 5/5 strength with hip flexion, knee extension, dorsiflexion, EHL, plantar flexion. Sensation intact in all nerve dermatomes IMAGES: No results found for this or any previous visit (from the past 36 hour(s)). Plan ASSESSMENT AND PLAN: 1. Traumatic amputation of left great toe, subsequent encounter (HCC) - ICD9: V54.89, 895.0, ICD10: S98.112D Functional Plan: Patient is a 37-year-old male presenting follow-up evaluation after partial amputation left great toe and left open second toe fractures treated on 02/03/2023. Overall he is doing well. For the most part he is pain-free. He has been compliant with wearing his postoperative shoe and is using a knee walker to ambulate at work. Today his great toe appears to be healing well. There is persistent swelling discoloration and blistering at the second toe. Overall this looks a little worse compared to his previous visit. There is no signs of active infection. We will continue to watch this closely clinically. I will see him back in approximately 10 days for repeat evaluation less issue should arise sooner. All of his questions were answered satisfactorily. He expressed understanding of and agreement with the treatment plan Return in about 10 days (around 2023). Latrice Velasco MD [facility] 02-20-2023 History of Present illness Narrative Images from the original note were not included. ORTHOPAEDIC OFFICE NOTE CHIEF COMPLAINT: Follow-up traumatic left great toe amputation and open second toe fractures. HISTORY OF PRESENT ILLNESS: Devorah Santos is a 37 year old male who presents for Follow-up evaluation of traumatic left great toe amputation and open left second toe fractures on on 02/03/2023. Overall the patient is doing well. For most part he is pain-free. He is getting around with a postoperative shoe and using a knee walker at work. He is doing dressing changes daily. He denies current fevers chills nausea vomiting weight loss fatigue or malaise. Reviewed nursing note and current pain scale. PAST MEDICAL HISTORY Diagnosis Date Anxiety GERD (gastroesophageal reflux disease) Hypertension Hypothyroid Lymphoma (HCC) 2001 [facility]- 6 months chemo and radiation PAST SURGICAL HISTORY Procedure Laterality Date COLONOSCOPY 02/2020 large benign polyp PAST SURGICAL HISTORY OF Right lymph node biopsy PAST SURGICAL HISTORY OF port placement PAST SURGICAL HISTORY OF removal port FAMILY HISTORY Problem Relation Age of Onset Hypertension Mother Hypertension Father Social History Tobacco Use Smoking status: Never Smokeless tobacco: Never Substance Use Topics Alcohol use: Never Drug use: Not Currently MEDICATIONS: Current Outpatient Medications Medication Sig hydroCHLOROthiazide (HYDRODIURIL, ESIDRIX) 25 mg tablet Take 12.5 mg by mouth once daily. sertraline (ZOLOFT) 100 mg tablet Take 100 mg by mouth once daily. MULTI-VITAMIN ORAL Take 1 capsule by mouth once daily. pantoprazole DR (PROTONIX) 40 mg tablet Take 40 mg by mouth once daily. levothyroxine (SYNTHROID) 150 mcg tablet Take 150 mcg by mouth once daily. lisinopril (ZESTRIL, PRINIVIL) 10 mg tablet Take 20 mg by mouth once daily. LORazepam (ATIVAN) 0.5 mg Take 0.5 mg by mouth as needed. No current facility-administered medications for this visit. ALLERGIES: ALLERGIES No Known Allergies PHYSICAL EXAMINATION: Resp 20 Ht 6' 2 (1.88m) Wt 319 lb 3.2 oz (144.8kg) BMI 40.97 kg/(m^2). General Appearance: Well appearing, alert, in no acute distress, well-hydrated, well nourished. Skin: Skin color, texture, turgor normal, no suspicious rashes or lesions. Psych: Patient is alert and oriented to person, time and place. Mood and affect are normal. Respiratory: Breathing is symmetric and unlabored Extremities: Left lower extremities examined. Partially amputated left great toe seems to be healing well. There is a small amount of eschar along the plantar lateral aspect of the wound. There is no drainage or sign of infection. The second toe laceration appears to be healing well again with some scarring and eschar along the laceration site. There is still persistent swelling at the second toe and purplish discoloration. There is fracture blistering along the dorsal aspect of the toe. There is minimal tenderness palpation. Lymphatic: There is no palpable lymphadenopathy Neurologic: Bilateral lower extremities were examined. There is 5/5 strength with hip flexion, knee extension, dorsiflexion, EHL, plantar flexion. Sensation intact in all nerve dermatomes IMAGES: No results found for this or any previous visit (from the past 36 hour(s)). Plan ASSESSMENT AND PLAN: 1. Traumatic amputation of left great toe, subsequent encounter ([facility]) - ICD9: V54.89, 895.0, ICD10: S98.112D Functional Plan: Patient is a 37-year-old male presenting follow-up evaluation after partial amputation left great toe and left open second toe fractures treated on 02/03/2023. Overall he is doing well. For the most part he is pain-free. He has been compliant with wearing his postoperative shoe and is using a knee walker to ambulate at work. Today his great toe appears to be healing well. There is persistent swelling discoloration and blistering at the second toe. Overall this looks a little worse compared to his previous visit. There is no signs of active infection. We will continue to watch this closely clinically. I will see him back in approximately 10 days for repeat evaluation less issue should arise sooner. All of his questions were answered satisfactorily. He expressed understanding of and agreement with the treatment plan Return in about 10 days (around 2023). Latrice Velasco MD documented in this encounter [facility] 02-14-2023 Note HNO ID: [id number] Author: Latrice Velasco MD Service: ? Author Type: Physician Type: Progress Notes Filed: 02/14/2023 5:12 PM Note Text: ORTHOPAEDIC OFFICE NOTE CHIEF COMPLAINT: Left great toe amputation HISTORY OF PRESENT ILLNESS: Devorah Santos is a 37 year old male who presents for Postoperative evaluation following revision amputation left great toe as well as laceration of left second toe and open fractures of the left second toe. Overall he seems to be doing well. His pain is progressing regularly. He has been compliant with his postoperative shoe wear. He has been ambulating with the assistance of a knee walker at work. He denies current fevers chills nausea vomiting weight loss fatigue or malaise. Reviewed nursing note and current pain scale. PAST MEDICAL HISTORY Diagnosis Date Anxiety GERD (gastroesophageal reflux disease) Hypertension Hypothyroid Lymphoma ([facility]) 2000 hodgkins- 6 months chemo and radiation PAST SURGICAL HISTORY Procedure Laterality Date COLONOSCOPY 02/2020 large benign polyp PAST SURGICAL HISTORY OF Right lymph node biopsy PAST SURGICAL HISTORY OF port placement PAST SURGICAL HISTORY OF removal port FAMILY HISTORY Problem Relation Age of Onset Hypertension Mother Hypertension Father Social History Tobacco Use Smoking status: Never Smokeless tobacco: Never Substance Use Topics Alcohol use: Never Drug use: Not Currently MEDICATIONS: Current Outpatient Medications Medication Sig hydroCHLOROthiazide (HYDRODIURIL, ESIDRIX) 25 mg tablet Take 12.5 mg by mouth once daily. sertraline (ZOLOFT) 100 mg tablet Take 100 mg by mouth once daily. MULTI-VITAMIN ORAL Take 1 capsule by mouth once daily. pantoprazole DR (PROTONIX) 40 mg tablet Take 40 mg by mouth once daily. levothyroxine (SYNTHROID) 150 mcg tablet Take 150 mcg by mouth once daily. lisinopril (ZESTRIL, PRINIVIL) 10 mg tablet Take 20 mg by mouth once daily. LORazepam (ATIVAN) 0.5 mg Take 0.5 mg by mouth as needed. No current facility-administered medications for this visit. ALLERGIES: ALLERGIES No Known Allergies PHYSICAL EXAMINATION: Resp 18 Ht 6' 2 (1.88m) Wt 315 lb (142.9kg) BMI 40.43 kg/(m2). General Appearance: Well appearing, alert, in no acute distress, well-hydrated, well nourished. Skin: Skin color, texture, turgor normal, no suspicious rashes or lesions. Psych: Patient is alert and oriented to person, time and place. Mood and affect are normal. Respiratory: Breathing is symmetric and unlabored Extremities: Left lower extremities examined. Partially amputated left great toe seems to be healing well. There is a small amount of eschar along the plantar lateral aspect of the wound. Sutures are in place. There is no drainage or sign of infection. The second toe laceration appears to be healing well again with some scarring and eschar along the laceration site. There is still persistent swelling at the second toe and purplish discoloration. There is fracture blistering along the dorsal aspect of the toe. There is minimal tenderness palpation. Lymphatic: There is no palpable lymphadenopathy Neurologic: Bilateral lower extremities were examined. There is 5/5 strength with hip flexion, knee extension, dorsiflexion, EHL, plantar flexion. Sensation intact in all nerve dermatomes IMAGES: No results found for this or any previous visit (from the past 36 hour(s)). Plan ASSESSMENT AND PLAN: 1. Traumatic amputation of left great toe, subsequent encounter ([facility]) - ICD9: V54.89, 895.0, ICD10: S98.112D Functional Plan: Patient is a 37-year-old male present for follow-up evaluation partial amputation of left great toe and open fractures of the left second toe. Overall he is doing well. His pain is progressing regularly. He has been compliant with his postoperative shoe wear. I like him to continue to wear this. Sutures were removed in clinic today. Overall his second toe is a somewhat dusky appearance. I would like to continue to monitor his wounds as well as blood flow to the second toe closely. I will see him back next week for repeat evaluation and wound check unless issues arise sooner. All of his questions were answered satisfactorily. He expressed understanding of and agreement with treatment plan. Return in about 1 week (around 02/21/2023). Latrice Velasco MD [facility] 02-14-2023 History of Present illness Narrative Images from the original note were not included. ORTHOPAEDIC OFFICE NOTE CHIEF COMPLAINT: Left great toe amputation HISTORY OF PRESENT ILLNESS: Devorah Santos is a 37 year old male who presents for Postoperative evaluation following revision amputation left great toe as well as laceration of left second toe and open fractures of the left second toe. Overall he seems to be doing well. His pain is progressing regularly. He has been compliant with his postoperative shoe wear. He has been ambulating with the assistance of a knee walker at work. He denies current fevers chills nausea vomiting weight loss fatigue or malaise. Reviewed nursing note and current pain scale. PAST MEDICAL HISTORY Diagnosis Date Anxiety GERD (gastroesophageal reflux disease) Hypertension Hypothyroid Lymphoma ([facility]) 2001 hodgkins- 6 months chemo and radiation PAST SURGICAL HISTORY Procedure Laterality Date COLONOSCOPY 02/2020 large benign polyp PAST SURGICAL HISTORY OF Right lymph node biopsy PAST SURGICAL HISTORY OF port placement PAST SURGICAL HISTORY OF removal port FAMILY HISTORY Problem Relation Age of Onset Hypertension Mother Hypertension Father Social History Tobacco Use Smoking status: Never Smokeless tobacco: Never Substance Use Topics Alcohol use: Never Drug use: Not Currently MEDICATIONS: Current Outpatient Medications Medication Sig hydroCHLOROthiazide (HYDRODIURIL, ESIDRIX) 25 mg tablet Take 12.5 mg by mouth once daily. sertraline (ZOLOFT) 100 mg tablet Take 100 mg by mouth once daily. MULTI-VITAMIN ORAL Take 1 capsule by mouth once daily. pantoprazole DR (PROTONIX) 40 mg tablet Take 40 mg by mouth once daily. levothyroxine (SYNTHROID) 150 mcg tablet Take 150 mcg by mouth once daily. lisinopril (ZESTRIL, PRINIVIL) 10 mg tablet Take 20 mg by mouth once daily. LORazepam (ATIVAN) 0.5 mg Take 0.5 mg by mouth as needed. No current facility-administered medications for this visit. ALLERGIES: ALLERGIES No Known Allergies PHYSICAL EXAMINATION: Resp 18 Ht 6' 2 (1.88m) Wt 315 lb (142.9kg) BMI 40.43 kg/(m^2). General Appearance: Well appearing, alert, in no acute distress, well-hydrated, well nourished. Skin: Skin color, texture, turgor normal, no suspicious rashes or lesions. Psych: Patient is alert and oriented to person, time and place. Mood and affect are normal. Respiratory: Breathing is symmetric and unlabored Extremities: Left lower extremities examined. Partially amputated left great toe seems to be healing well. There is a small amount of eschar along the plantar lateral aspect of the wound. Sutures are in place. There is no drainage or sign of infection. The second toe laceration appears to be healing well again with some scarring and eschar along the laceration site. There is still persistent swelling at the second toe and purplish discoloration. There is fracture blistering along the dorsal aspect of the toe. There is minimal tenderness palpation. Lymphatic: There is no palpable lymphadenopathy Neurologic: Bilateral lower extremities were examined. There is 5/5 strength with hip flexion, knee extension, dorsiflexion, EHL, plantar flexion. Sensation intact in all nerve dermatomes IMAGES: No results found for this or any previous visit (from the past 36 hour(s)). Plan ASSESSMENT AND PLAN: 1. Traumatic amputation of left great toe, subsequent encounter ([facility]) - ICD9: V54.89, 895.0, ICD10: S98.112D Functional Plan: Patient is a 37-year-old male present for follow-up evaluation partial amputation of left great toe and open fractures of the left second toe. Overall he is doing well. His pain is progressing regularly. He has been compliant with his postoperative shoe wear. I like him to continue to wear this. Sutures were removed in clinic today. Overall his second toe is a somewhat dusky appearance. I would like to continue to monitor his wounds as well as blood flow to the second toe closely. I will see him back next week for repeat evaluation and wound check unless issues arise sooner. All of his questions were answered satisfactorily. He expressed understanding of and agreement with treatment plan. Return in about 1 week (around 02/21/2023). Latrice Velasco MD documented in this encounter [facility] 02-04-2023 Note HNO ID: [id number] Author: Rossana Rouse APRN.STYLIST APPRENTICE Service: Orthopaedic Surgery Author Type: Nurse Practitioner Type: Plan of Care Filed: 02/04/2023 10:51 AM Note Text: Patient sitting in bedside recliner. Patient on RA. 02 sat 98%. No distress. No complaints of CP or SOB. Patient has been up to bathroom and is ready for discharge. Discharge education provided. Since patient is on RA without complaints. Medical consult has be discontinued. [facility] 02-04-2023 Note HNO ID: [id number] Author: Keyur Castillo MD Service: Orthopaedic Surgery Author Type: Resident Type: Progress Notes Filed: 02/04/2023 6:14 AM Note Text: Orthopaedic Surgery Inpatient Progress Note Assessment Devorah Santos is a 37 year old male who is POD #1 status-post revision amputation of left great toe and primary closure of left 2nd toe laceration. Plan -Management per ortho -dressing/splints status: Soft dressings LLE with colin taping 2nd/3rd toes; post-op shoe LLE -WBAT LLE in post-op shoe -pain control -DVT ppx: SCDs, early ambuation -post-operative antibiotics: Duricef x 7 days -diet: clears liquid diet advance diet as tolerated to regular diet -disposition: DC home today Subjective No acute events overnight. Pain controlled. Patient stayed due to oxygen requirements overnight. No fevers, chills, chest pain, or shortness of breath. No new complaints. Out of bed okay. Plan for DC today if continues to do well. Physical Examination Vitals BP 100/52 Pulse 85 Temp 36.7 ?C (98.1 ?F) (Oral) Resp 18 Ht 188 cm (6' 2) Wt (!) 142.9 kg (315 lb) SpO2 95% BMI 40.44 kg/m? General Alert and oriented. No acute distress. Cooperative with interview. Left Lower Extremity Soft dressing in place - no saturation Compartments of the thigh and leg are soft and compressible Tolerates passive stretch of the digits No erythema SILT: Sa/Sandra/DP/SP/T Motor intact: DF/PF Labs Recent Labs 02/04/23 0324 02/03/23 0015 02/02/23 2350 NA 139 139 -- K 3.7 3.7 -- CHLOR 100 101 -- CO2 28 28 -- BUN 12 11 -- CREAT 1.23* 0.92 -- GLUC 112* 116* -- ANION 11 10 -- CA 8.7 9.3 -- WBC 12.99* 10.08 -- HB 12.6* 14.4 -- HCT 37.5* 43.6 -- PLT 174 212 -- INR -- -- 1.0 Keyur Castillo MD Orthopaedic Surgery 02/04/2023 5:47 AM [facility] 02-03-2023 Note HNO ID: [id number] Author: Merle Forman RN Service: Nursing Author Type: Registered Nurse Type: Nursing Progress Note Filed: 02/03/2023 1:43 PM Note Text: Doctor Karen at the bedside to see patient. [facility] 02-03-2023 Note HNO ID: [id number] Author: Merle Forman RN Service: Nursing Author Type: Registered Nurse Type: Nursing Progress Note Filed: 02/03/2023 11:53 AM Note Text: CXR done. [facility] 02-03-2023 Note HNO ID: [id number] Author: Merle Forman RN Service: Nursing Author Type: Registered Nurse Type: Nursing Progress Note Filed: 02/03/2023 11:32 AM Note Text: Lung sounds after treatment with scattered rhonci. Patient states he feelsbetter. [place] [id number] Note HNO ID: [id number] Author: Merle Forman RN Service: Nursing Author Type: Registered Nurse Type: Nursing Progress Note Filed: 02/03/2023 11:29 AM Note Text: Duoneb aerosol treatment done at the bedside. [facility] 02-03-2023 Note HNO ID: [id number] Author: Emy Juarez APRN.AUT[employer] ACCESSORIES INSTALLER Service: Anesthesiology Author Type: Nurse [employer] Service Team Member Type: Anesthesia Procedure Notes Filed: 02/03/2023 9:44 AM Note Text: ANESTHESIOLOGY PROCEDURE NOTE Airway General Information Procedure Start Time/Medication Administration: 02/03/2023 9:35 AM Patient location during procedure: OR Timeout Performed Pre-procedure: timeout performed Consent Obtained: Yes Patient identity confirmed: arm band and patient Staffing Anesthesiologist: Kaiser Jones MD [employer] ACCESS[employer]IES INSTALLER: Emy Juarez APRN.AUTO ACCESS[employer]IES INSTALLER Performed by: AUTO ACCESSORIES INSTALLER Indications and Patient Condition Indications for airway management: anesthesia Preoxygenated: yes anesthesia circuit Patient position: sniffing Final Airway Details Final airway type: supraglottic airway Number of attempts at approach: 1 Final Supraglottic Airway: i-gel Size 5 Seal Adequate: yes SIGNATURE: Emy Juarez APRN.AUTO ACCESSORIES INSTALLER PATIENT NAME: Devorah Santos DATE: February 03, 2023 TIME: 9:44 AM CSN: [id number] [facility] 02-03-2023 Note HNO ID: [id number] Author: Keyur Castillo MD Service: Orthopaedic Surgery Author Type: Resident Type: Progress Notes Filed: 02/03/2023 6:37 AM Note Text: Orthopaedic Surgery Inpatient Progress Note Assessment Devorah Santos is a 37 year old male with partial amputation of the left great toe with laceration to the left second toe. Plan - management per orthopaedics - Pain control. - DVT PPx: SCDs. Hold chemoprophylaxis for OR today - Antibiotic PPx: Ancef 2 g every 8 hours x24 hours. - Weight-bearing Status: Weightbearing through the heel of the left foot. - Maintain soft dressing to the left foot. - Medicine consult, appreciate recommendations. - Diet: NPO/IVF - OR 02/03 for revision amputation of the left great toe and possible revision amputation of the second toe versus secondary closure of the second toe wound. - Dispo: DC after OR today Subjective No acute events overnight. Pain controlled. No fevers, chills, chest pain, or shortness of breath. No new complaints. Physical Examination Vitals BP 139/78 Pulse 76 Temp 36.8 ?C (98.2 ?F) (Oral) Resp 18 Ht 188 cm (6' 2) Wt (!) 142.9 kg (315 lb) SpO2 96% BMI 40.44 kg/m? General Alert and oriented. No acute distress. Cooperative with interview. Left Lower Extremity Soft dressing in place Compartments of the leg and thigh are soft and compressible SILT sa/Sandra/DP/SP/tibia Motor intact: DF/PF Labs Recent Labs 02/03/23 0015 02/02/23 2350 NA 139 -- K 3.7 -- CHLOR 101 -- CO2 28 -- BUN 11 -- CREAT 0.92 -- GLUC 116* -- ANION 10 -- CA 9.3 -- WBC 10.08 -- HB 14.4 -- HCT 43.6 -- PLT 212 -- INR -- 1.0 Keyur Castillo MD Orthopaedic Surgery 02/03/2023 5:59 AM [facility] 02-02-2023 History of Past i llness Narrative Problem Noted Date Resolved Date Traumatic amputation toe, left, initial encounte r 02/02/2023 02/04/2023 documented as of this encounter (statuses as of 02/12/2023) [facility] History of Past illness Narrative* Problem Noted Date Resolved Date Traumatic amputation toe, left, initial encounte r 02/02/2023 02/04/2023 documented as of this encounter (statuses as of 02/15/2023) [facility] History of Past illness Narrative* Problem Noted Date Resolved Date Traumatic amputation toe, left, initial encounte r 02/02/2023 02/04/2023 documented as of this encounter (statuses as of 02/20/2023) [facility] History of Past illness Narrative* Problem Noted Date Resolved Date Traumatic amputation toe, left, initial encounte r 02/02/2023 02/04/2023 documented as of this encounter (statuses as of 03/07/2023) [facility] History of Past illness Narrative* Problem Noted Date Resolved Date Traumatic amputation toe, left, initial encounte r 02/02/2023 02/04/2023 documented as of this encounter (statuses as of 03/21/2023) [facility] History of Past illness Narrative* Problem Noted Date Diagnosed Date Resolved Date Traumatic amputation toe, le ft, initial encounter 02/02/2023 02/04/2023 documented as of this encounter (statuses as of 04/11/2023) [facility] History of Past illness Narrative* Problem Noted Date Diagnosed Date Resolved Date Traumatic amputation toe, le ft, initial encounter 02/02/2023 02/04/2023 documented as of this encounter (statuses as of 04/23/2023) [facility] History of Past illness Narrative* Problem Noted Date Diagnosed Date Resolved Date Traumatic amputation toe, le ft, initial encounter 02/02/2023 02/04/2023 documented as of this encounter (statuses as of 05/08/2023) [facility] History of Present illness Narrative* Basilia Rojas MA - 12/05/2022 9:00 AM EDT [facility] NON-SURGICAL WEIGHT LOSS MANAGEMENT PROGRAM ROOMING NOTE: FOLLOW UP VISIT Patient: Devorah Santos Date of : 1985 Service Date: 12/05/2022 Patient History/Assessment Summary: The patient is a pleasant 37 y.o. year old male, who stands Height: 6' 2 (188 cm) tall with a weight of Weight: (!) 313 lb 6.4 oz (142 kg) pounds, resulting in a BMI of Body mass index is 40.24 kg/m. kg/m2. He is here for follow-up for non-surgical treatment of Obesity Patient has the following question(s): none Pre Program Weight Metrics ([facility]) Date of Initial Consultation:@FLOWLAST([id number])@ Initial Weight: @FLOWLAST([id number])@ Initial BMI: @FLOWLAST([id number])@ [place] Body Weight: @FLOWLAST([id number])@ Excess Body Weight: @FLOWLAST([id number])@ Body Fat Percentage: No flowsheet data found. Subsequent Body Fat Percentage: No flowsheet data found. Pre Program Weight Metrics (Epic) (Surgical Wt Loss Management- baseline) This Visit Non-Surgical Subsequent Eval Date: 12/05/22 Height: 6' 2 (188 cm) Weight: 313 lb 6.4 oz (142 kg) BMI: 40.23 Weight Change: 1 lbs Total Weight Change: <No Previous Non-Surg Weight on File> lbs % EBWL: <UNK>% Subsequent Body Fat %: 48.28 Body Fat % Change: 0.15 Follow Up Weight Metrics Last Three Weights Including Today's Weight: Wt Readings from Last 3 Encounters: 12/05/22 (!) 313 lb 6.4 oz (142 kg) 10/24/22 (!) 317 lb 3.2 oz (144 kg) 10/03/22 (!) 314 lb (142 kg) Diabetes Do you currently have diabetes? No Are you currently prescribed insulin? No Are you currently prescribed an oral medication for diabetes? No GERD (Gastroesophageal Reflux Disease) Do you currently have GERD? No Do you get heartburn type symptoms more than twice per week? No Are you currently on a medication for GERD? (not TUMS) (examples: Prilosec/omeprazole, Zantac/ranitidine, etc.) Yes Hyperlipidemia (high cholesterol) Do you currently have a diagnosis of high cholesterol? No Are you currently prescribed a medicationfor high cholesterol? (examples Lipitor/Atorvastatin, Pravastatin, Zetia, Tricor, etc.) No Have you been diagnosed with high cholesterol but chosen not to take medication? No Hypertension (high blood pressure) Do you currently have a diagnosis of Hypertension? Yes Are you currently on a medication for Hypertension? Yes Have you been diagnosed with Hypertension but have chosen not to take the medication? No Sleep Apnea Do you currently have Sleep Apnea? No Are you on a device (CPAP, BiPAP, etc) for Sleep Apnea? No Have you been diagnosed with Sleep Apnea but cannot tolerate or have chosen not to treat? No Comorbids summary (flow sheet comorbids) Falls Risk Assessment Patient does take medications which affect BP or mental status Patient does not have newly prescribed or changed dosage of medications within past 30 days which affect BP or mental status Patient has not fallen in the past 2 months Patient does not demonstrate unsteady gait Patient uses the following ambulatory assistive devices: none Patient states the presence of the following traits which increases risk of fall: none Patient is not on home O2 Completed by: Basilia Rojas MA * Silvina Matos MD - 12/05/2022 9:00 AM EDT HPI, PHYSICAL EXAMINATION & PLAN HPI: Patient here today for follow up for non-surgical weight loss management Weight trend since last visit: stable/unchanged This patient's excess weight is causing the following co-morbid conditions at this time:HTN Physical Examination: BP 131/89 Pulse 74 Ht 6' 2 (1.88 m) Wt (!) 313 lb 6.4 oz (142 kg) BMI 40.24 kg/m General: This patient is calm and pleasant General: This patient is awake, alert, and oriented, and is in no apparent distress. Extremities: No cyanosis, clubbing or edema/ No calf tenderness/No restrictions of movement, is ambulatory without assistance. Neurological: Intact x 4 extremities, no focal deficits notes. Skin: No rashes or lesions noted. Social History: This patient is alone for the evaluation today. He does notsmoke, and does notdrink alcohol. Current Diet This patient s current diet is: 80% meal plan His diet contains adequate amounts of protein, adequate amounts of healthy fats, adequate amounts of green, leafy vegetables, and adequate amounts of fruits. His comfort foods include: none Current Activity This patient currently does exercise for 30 Minutes per session, 5 times per week, including the following: cardio . Current Eating Behaviors This patients demonstrates the following behaviors as they relate to his eating: structured He eats approximately 3-4 times per day. His last meal/snack was at 6 am/pm. Progress Made Towards Goals: 3 month weight goal: 20 6 month weight goal: 30 12 month weight goal: 40 Plan: Obesity stable Continue current management, continue weight loss program Increase fiber in the meal plan Discuss fiber decrease absorption of sugar and carbs Increase hydration How to drink water at work Doing great exercising daily helps with stress Will focus on early dinner HTN Continue current management, continue weight loss program stable [x] Protein goal of 1g protein per 1 kg of ideal body weight: 75 grams [x] Patient advised to maintain a food/exercise/behavior diary until next physician visit and to bring the completed diary to next visit [] Referred patient to surgical weight loss management program (FD to place referral) Other: Physician Diet Recommendations given to patient See Follow up Section of today's encounter for next visit and additional scheduling orders Obtain follow up lab work: BARIATRIC; Non Surg Lab orders: no Patient is not taking anti-obesity medication. I spend a total of 20 minutes on the same day of the visit in discussing/counseling the patient regarding the diet and exercise in order to lose weight.Education on the meal plan and 7 rules of eating is provided. Meal prep is encouraged as a foundation of the meal plan. Food journal is encouraged as a feedback system. Exercise and its role in weight loss is explained. Weight loss medications role in weight loss journey is discussed HTN Is associated with obesity and weight loss is discussed as a treatment option for HTN Full chart review was performed.Clinical documentation is updated and completed. documented in this [facility]02-08-2023 History of Present illness Narrative* Prakash Caldwell MD - 10/24/2022 10:30 AM EST Patient ID: Devorah Santos is a 37 y.o. male. HPI Doing well. No fevers, night sweats or weight loss. he has the following oncology history 1. Stage II Hodgkin's lymphoma diagnosed and treated at [facility] in 2000. He received 6 cycles of VIOLA/ABVD followed by XRT. Disease sites were neck and chest. 2. Survivorship course complicated by hypothyroidism and anxiety. 3. 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 4. Started Adriamycin, Brentuximab, vinblastine and dacarbazine with Neulasta support day 1 and day15 every 28 days. Completed 6 cycles February 2021 Review of Systems - Oncology No nausea, vomiting, diarrhea, fever, night sweats, chills, cough, shortness of breath, chest pain BSA: There is no height or weight on file to calculate BSA. There were no vitals taken for this visit. Physical Exam No lymphadenopathy or hepatosplenomegaly. No lower extremity edema. Lab Results Component Value Date WBC 6.1 04/25/2022 HGB 15.1 04/25/2022 MCV 85.2 04/25/2022 Assessment/Plan There are no diagnoses linked to this encounter. . he appears to be in complete remission. Will do only symptom guided imaging. Follow-up labs from today 2. Follow-up in 6 months. Check CBC at that visit. 3. Continue follow-up with medical weight management and Dr. Kan (cardio oncology) as well. 4. I have counseled him on diet and exercise. Patient verbalizes understanding and agrees with the plan. documented in this [facility]01-18-2023 History of Present illness Narrative* Emily Kan MD - 10/03/2022 11:15 AM EST CARDIOLOGY HF PROGRESS NOTE Today's Date: 10/03/2022 Chart and interval events reviewed. Chief Complaint Chief Complaint Patient presents with Follow-up Subjective: Devorah Santos is a 37 y.o. male has history of Hodgkin's lymphoma status postradiation and chemotherapy in 2000 presented to [facility] and cardio oncology clinic. Patient has also history of hypertension, morbid obesity and likely sleep apnea. Patient is doing well denies any cardiac symptoms including chest pain, shortness of breath, palpitations, syncopal episodes. ECG shows normal sinus rhythm, no ischemic changes. ECHO 05/16/2022 1. Left ventricle: Systolic function is normal by visual assessment. The estimated ejection fraction is 55%. There are no regional wall motion abnormalities. 2. Right ventricle: The cavity size is normal. Systolic function is normal. 3. Aortic valve: Bicuspid (fusion of non and left coronary cusp.); mildly thickened, mildly calcified leaflets. There is no stenosis. There is trivial, less than 1+ regurgitation. ECHO 08/22/2020 1. Left ventricle: There is mild concentric hypertrophy. Systolic function is normal by the biplane method of disks. The estimated ejection fraction is 60%. There are no regional wall motion abnormalities. Left ventricular diastolic function parameters are normal. 2. Right ventricle: The cavity size is mildly dilated. 3. Right atrium: The atrium is mildly dilated. 4. Systemic veins: Poorly visualized. 5. Unable to estimate RVSP. Past Medical History: Past Medical History: Diagnosis Date Anxiety Depression GERD (gastroesophageal reflux disease) HTN (hypertension) Hypothyroid Lymphoma (HCC) Stage II Hodgkin's lymphoma 2001 Snoring Past Surgical History Past Surgical History: Procedure Laterality Date COLONOSCOPY 02/2020 LYMPH NODE BIOPSY Right 2020 right side of the neck THORASCOPY 07/27/2020 Right video-assisted thoracoscopy, biopsy of anterior mediastinal mass, right middle lobe wedge biopsy Family History Family History Problem Relation Name Age of Onset Heart disease Maternal Grandfather Anxiety disorder Father Heart disease Paternal Grandfather High Blood Pressure Maternal Grandmother Diabetes Maternal Grandmother High Blood Pressure Mother Cancer Paternal Grandmother Cancer Maternal Grandmother Diabetes Paternal Grandmother High Blood Pressure Father High Blood Pressure Paternal Grandfather High Blood Pressure Maternal Grandfather High Blood Pressure Paternal Grandmother Social History Social History Tobacco Use Smoking status: Never Smokeless tobacco: Never Substance Use Topics Alcohol use: Never Drug use: Never Allergies: No Known Allergies Current Medications: Current Outpatient Medications Medication Sig Dispense Refill finasteride (Propecia) 1 MG tablet levothyroxine (Synthroid, Levoxyl) 112 MCG tablet Take 112 mcg by mouth. lisinopril-hydroCHLOROthiazide 10-12.5 MG tablet Take 1 tablet by mouth daily. pantoprazole (ProtoNix) 40 MG EC tablet Take 40 mg by mouth in the morning. sertraline (Zoloft) 100 MG tablet No current facility-administered medications for this visit. Review of Systems: Review of Systems Constitutional: Negative for fatigue and unexpected weight change. Reviewed meds from memory. Pt states that he took his meds today. HENT: Negative. Eyes: Negative. Respiratory: Negative. Negative for shortness of breath. Denies orthopnea and PND Cardiovascular: Negative for chest pain, palpitations and leg swelling. Gastrointestinal: Negative. Endocrine: Negative. Genitourinary: Negative. Musculoskeletal: Negative. Skin: Negative. Allergic/Immunologic: Negative. Neurological: Negative. Negative for dizziness and light-headedness. Hematological: Negative. Psychiatric/Behavioral: Negative. Vital Signs: Vitals: 10/03/22 1127 BP: 126/70 BP Location: Right arm Patient Position: Sitting BP Cuff Size: Large adult Pulse: 73 SpO2: 96% Weight: (!) 314 lb (142 kg) Height: 6' 2 (1.88 m) Body mass index is 40.32 kg/m . Wt Readings from Last 3 Encounters: 10/03/22 (!) 314 lb (142 kg) 10/03/22 (!) 312 lb 6.4 oz (142 kg) 08/01/22 (!) 313 lb 12.8 oz (142 kg) Physical Exam Vitals reviewed. Constitutional: Appearance: Normal appearance. He is obese. HENT: Head: Normocephalic and atraumatic. Nose: Nose normal. Mouth/Throat: Mouth: Mucous membranes are moist. Eyes: General: No scleral icterus. Conjunctiva/sclera: Conjunctivae normal. Cardiovascular: Rate and Rhythm: Normal rate and regular rhythm. Pulses: Normal pulses. Heart sounds: Normal heart sounds. Pulmonary: Effort: Pulmonary effort is normal. Breath sounds: Normal breath sounds. Abdominal: General: Abdomen is flat. Palpations: Abdomen is soft. Musculoskeletal: General: Normal range of motion. Cervical back: Normal range of motion and neck supple. Skin: General: Skin is warm. Neurological: General: No focal deficit present. Mental Status: He is alert and oriented to person, place, and time. Mental status is at baseline. Psychiatric: Mood and Affect: Mood normal. Behavior: Behavior normal. CBC: No results for input(s): WBC, HGB, HCT, PLT in the last 72 hours. BMP:No results for input(s): NA, K, CL, CO2, BUN, CREATININE, GLU, LABGLOM in the last 72 hours. No lab exists for component: CA CMP: Lab Results Component Value Date NA 139 01/17/2021 K 3.8 01/17/2021 CL 103 01/17/2021 CO2 27 01/17/2021 BUN 16 01/17/2021 CREATININE 0.81 01/17/2021 GLUCOSE 125 (H) 01/17/2021 CALCIUM 9.4 01/17/2021 PROT 7.4 01/17/2021 BILITOT 0.3 01/17/2021 ALKPHOS 123 01/17/2021 AST 56 (H) 01/17/2021 Magnesium: No results found for: MG LFT: Lab Results Component Value Date AST 56 (H) 01/17/2021 ALKPHOS 123 01/17/2021 BILITOT 0.3 01/17/2021 INR: Lab Results Component Value Date INR 1.0 08/29/2021 INR 1.0 12/06/2020 INR 1.0 07/26/2020 PROTIME 10.9 08/29/2021 PROTIME 11.0 12/06/2020 PROTIME 11.0 07/26/2020 PRO-BNP: No components found for: NTPROBNP TROPONIN: Lab Results Component Value Date TROPONINI <0.012 04/04/2022 TSH: Lab Results Component Value Date TSH 2.621 12/20/2021 Lipid Profile: Lab Results Component Value Date TRIG 211 (A) 04/04/2022 HDL 35 (L) 04/04/2022 CHOL 212 (A) 04/04/2022 Hemoglobin A1C: No results found for: HGBA1C VIKTORIA: No results found for: VIKTORIA Ferritin: No results found for: FERRITIN HIV: No results found for: [id number] EKG: See Report Echo: See Report EF: No components found for: LVEF, LVEFMODE Diagnosis Plan 1. Essential hypertension 2. Hypertension, unspecified type ECG 12 lead - CLINIC PERFORMED Lipid panel B-type natriuretic peptide Lipid panel B-type natriuretic peptide 3. Hypothyroidism, unspecified type 4. Mixed hyperlipidemia 5. Obesity, morbid, BMI 40.0-49.9 (HCC) 6. Bicuspid aortic valve Status post remote chemotherapy and radiation therapy. Patient denies any symptoms of congestive heart failure or chest pain. Patient is euvolemic on exam. - baseline cardio oncology echo: GLS=- 14%. The Systolic function is normal by visual assessment. The estimated ejection fraction is 55%. - baseline BNP and troponin are normal Bicuspid aortic valve -routine Echo 2-3 years Mixed hyperlipidemia -patient requested to be on low cholesterol diet -repeat fasting lipids Hypertension controlled -Continue lisinopril - hydrochlorothiazide Hypothyroidism -Follow-up with PCP; last TSH was normal Morbid obesity -Strongly encouraged to lose weight -Strongly encouraged to exercise regularly -Patient has a referral to dietitian documented in this [facility]01-18-2023 History of Present illness Narrative* Ed Leon MA - 10/03/2022 9:40 AM EST [facility] NON-SURGICAL WEIGHT LOSS MANAGEMENT PROGRAM ROOMING NOTE: FOLLOW UP VISIT Patient: Devorah Santos Date of : 1985 Service Date: 10/03/2022 Patient History/Assessment Summary: The patient is a pleasant 37 y.o. year old male, who stands Height: 6' 2 (188 cm) tall with a weight of Weight: (!) 312 lb 6.4 oz (142 kg) pounds, resulting in a BMI of Body mass index is 40.11 kg/m. kg/m2. He is here for follow-up for non-surgical treatment of Morbid Obesity Patient has the following question(s): none Pre Program Weight Metrics (CARE [facility]) Date of Initial Consultation:@FLOWLAST([id number])@ Initial Weight: @FLOWLAST([id number])@ Initial BMI: @FLOWLAST([id number])@ [place] Body Weight: @FLOWLAST([id number])@ Excess Body Weight: @FLOWLAST([id number])@ Body Fat Percentage: No flowsheet data found. Subsequent Body Fat Percentage: No flowsheet data found. Pre Program Weight Metrics (Epic) (Surgical Wt Loss Management- baseline) This Visit Non-Surgical Subsequent Eval Date: 10/03/22 Height: 6' 2 (188 cm) Weight: 312 lb 6.4 oz (142 kg) BMI: 40.11 Weight Change: -1.4 lbs Total Weight Change: <No Previous Non-Surg Weight on File> lbs % EBWL: <UNK>% Subsequent Body Fat %: 48.13 Body Fat % Change: -0.22 Follow Up Weight Metrics Last Three Weights Including Today's Weight: Wt Readings from Last 3 Encounters: 10/03/22 (!) 312 lb 6.4 oz (142 kg) 08/01/22 (!) 313 lb 12.8 oz (142 kg) 04/25/22 (!) 315 lb 3.2 oz (143 kg) Diabetes Do you currently have diabetes? No Are you currently prescribed insulin? No Are you currently prescribed an oral medication for diabetes? No GERD (Gastroesophageal Reflux Disease) Do you currently have GERD? Yes Do you get heartburn type symptoms more than twice per week? Yes Are you currently on a medication for GERD? (not TUMS) (examples: Prilosec/omeprazole, Zantac/ranitidine, etc.) Yes Hyperlipidemia (high cholesterol) Do you currently have a diagnosis of high cholesterol? No Are you currently prescribed a medicationfor high cholesterol? (examples Lipitor/Atorvastatin, Pravastatin, Zetia, Tricor, etc.) No Have you been diagnosed with high cholesterol but chosen not to take medication? No Hypertension (high blood pressure) Do you currently have a diagnosis of Hypertension? Yes Are you currently on a medication for Hypertension? Yes Have you been diagnosed with Hypertension but have chosen not to take the medication? No Sleep Apnea Do you currently have Sleep Apnea? No Are you on a device (CPAP, BiPAP, etc) for Sleep Apnea? No Have you been diagnosed with Sleep Apnea but cannot tolerate or have chosen not to treat? No Comorbids summary (flow sheet comorbids) Falls Risk Assessment Patient does take medications which affect BP or mental status Patient does not have newly prescribed or changed dosage of medications within past 30 days which affect BP or mental status Patient has not fallen in the past 2 months Patient does not demonstrate unsteady gait Patient uses the following ambulatory assistive devices: none Patient states the presence of the following traits which increases risk of fall: none Patient is not on home O2 Completed by: Ed Leon MA * Silvina Matos MD - 10/03/2022 9:40 AM EST HPI, PHYSICAL EXAMINATION & PLAN HPI: Patient here today for follow up for non-surgical weight loss management Weight trend since last visit: lost 1 lbs over 1 m This patient's excess weight is causing the following co-morbid conditions at this time:HTN Physical Examination: BP 126/84 Pulse 78 Resp 16 Ht 6' 2 (1.88 m) Wt (!) 312 lb 6.4 oz (142 kg) BMI 40.11 kg/m General: This patient is calm and pleasant General: This patient is awake, alert, and oriented, and is in no apparent distress. Extremities: No cyanosis, clubbing or edema/ No calf tenderness/No restrictions of movement, is ambulatory without assistance. Neurological: Intact x 4 extremities, no focal deficits notes. Skin: No rashes or lesions noted. Social History: This patient is alone for the evaluation today. He does notsmoke, and does notdrink alcohol. Current Diet This patient s current diet is: 80% meal plan, stress eating His diet contains adequate amounts of protein, adequate amounts of healthy fats, adequate amounts of green, leafy vegetables, and adequate amounts of fruits. His comfort foods include: none Current Activity This patient currently does exercise for 1 Hour per session, 4 times per week, including the following: cardio . Current Eating Behaviors This patients demonstrates the following behaviors as they relate to his eating: structured He eats approximately 3-4 times per day. His last meal/snack was at 6 am/pm. Progress Made Towards Goals: 3 month weight goal: 20 6 month weight goal: 60 12 month weight goal: 80 Plan: Obesity stable Continue current management, continue weight loss program Discuss how to deal with stress Exercise instead of food Difficulties to sleep muscle relaxation in bed Reading, podcast, music Regain weight through the stress and lost 6-8 lb in 1 wk Need consistency in efforts Discuss new recipes HTN Continue current management, continue weight loss program stable [x] Protein goal of 1g protein per 1 kg of ideal body weight: 75 grams [x] Patient advised to maintain a food/exercise/behavior diary until next physician visit and to bring the completed diary to next visit [] Referred patient to surgical weight loss management program (FD to place referral) Other: Physician Diet Recommendations given to patient See Follow up Section of today's encounter for next visit and additional scheduling orders Obtain follow up lab work: BARIATRIC; Non Surg Lab orders: no Patient is not taking anti-obesity medication. I spend a total of 20 minutes on the same day of the visit in discussing/counseling the patient regarding the diet and exercise in order to lose weight.Education on the meal plan and 7 rules of eating is provided. Meal prep is encouraged as a foundation of the meal plan. Food journal is encouraged as a feedback system. Exercise and its role in weight loss is explained. Weight loss medications role in weight loss journey is discussed HTN Is associated with obesity and weight loss is discussed as a treatment option for HTN Full chart review was performed.Clinical documentation is updated and completed. documented in this [facility]02-16-2022 History of Present illness Narrative* Anxiety seems to be better taking 150 mg sertraline * having more anxiety, worry about cancer and recurrence of lymphoma, seems obsessed about checking * had increased medicine in the past month with some help * seeing counseling * sleeping OK * HBP less than 140/90 * No headache, chest pain, shortness of breath, dizziness, lightheadedness, or edema -[facility] Work Phone: 1(163) 698-135210-03-2021 History of Present illness Narrative* No headache, chest pain, shortness of breath, dizziness, lightheadedness, or edema * HBP less than 140/90 * had colonoscopy done in the past month -[facility] Work Phone: 1(310) 212-793108-18-2021 History of Present illness Narrative* Shelbi Orosco, RN - 05/03/2021 9:30 AM EDT Patient arrived ambulatory for port flush. Patient has no complaints and verbalizes understanding of POC. Med port accessed and + blood return. Gauze dressing applied. Calender updated. documented in this [facility] Work Phone: 1(562) 785-766905-18-2021 History of Present illness Narrative* Bam Roca RN - 01/31/2021 9:00 AM EDT 0920 Pt arrived for Doxorubicin/Dacarbazine/Adcetris treatment. Pt states that he is feeling well today.Reports continued fatigue, mild nausea well managed on home antiemetics, and a slight improvement to N/T after holding Vinblastine w/ last treatment. Pt denies other new complaints at this time. CBC drawn via mediport and taken to [facility] lab. 1235 Pt tolerated Doxorubicin/Dacarbazine/Adcetris treatment well. Pt aware of POC as well as next follow up appointments. Pt safely left infusion via ambulation in a stable condition with his . Pt left with OBI intact to L arm. Flashing green at time of D/C. documented in this [facility] Work Phone: [phone]) 960-888205-11-2021 History of Present illness Narrative* No headache, chest pain, shortness of breath, dizziness, lightheadedness, or edema * The patient is taking thyroid medications as directed without problems, labs done in the last year,no symptoms of excessive fatigue, edema or weight gain. * Taking PPI daily without breakthrough symptoms. Reviewed dietary, caffeine, tobacco, alcohol, and NSAID use. No dyspepsia, dysphagia, reflux, melena, or abdominal pain. * moods better, less anxious, not needing to use Ativan, overall some better * seen oncologist in December, good evaluation * HBP not checking, had been doing well [facility] Work Phone: [phone]) 548-233205-04-2021 History of Present illness Narrative* Asha Hawkins RN - 01/17/2021 9:16 AM EDT Pt arrived ambulatory for C6 D1 of treatment. Pt denies pain. Labs drawn via port. CBC and CMP sentto [facility] and [facility] at [facility]. Pt has some fatigue, nausea a few days after treatment, cough due to Lisinopril, and bone pain due to neulasta. Pt states that over the last 2 cycles, neuropathy is no longer going away between treatments. Pt states that it is not painful nor inhibiting function however it is consistent in his feet, and comes and goes in his hand. He states Dr. Caldwell was aware of this andwanted to see how he was this week. Dr. Caldwell is out of office, Dr. Paul covering. 0940: Spoke with Dr. Paul regarding the above about pt's neuropathy. Per Dr. Paul, we are to hold Vinblastine today, proceed with rest of treatment. Order placed. Explained to pt and about decision to hold Vinblastine and why that is safest for him. They verbalized understanding. 1350: Pt tolerated treatment well today and without incident. Neulasta OBI placed on L arm, instructed pt when to remove tomorrow evening. Pt discharged home with without complication. Aware of next appt date/time. documented in this [facility] Work Phone: 1(809) 953-350804-20-2021 History of Present illness Narrative* Flaquita Castro RN - 01/03/2021 9:00 AM EDT Arrived ambulatory with spouse for cycle 5d15 chemo. Reports a little bit more neuropathy in feet and intermittent in fingertips but he has not noticed any interference with function. Patient has also been recording BPs at home with majority of readings 130s-150s/70s-90s. He is compliant with lisinopril dosing. Patient encouraged to contact PCP with readings and further advisement. CBC with diff drawn via port and sent to [facility]. POC reviewed. 1314-Tolerated infusions well. Neulasta OBI placed on L arm per preference. Device activated and green light flashing. Patient aware of next appt; has calendar with remaining appts at home. Patient discharged ambulatory to home. documented in this [facility] Work Phone: 1(900) 710-303311-12-2020 NoteDischarge Summary Note Patient ID: Devorah Santos [id number] 35 y.o. 1985 Admit date: 07/27/2020 Discharge date: 07/28/2020 Admitting Physician: Andreina Workman MD Discharge Physician: Flora Cruz MD Admission Diagnoses: Anterior mediastinal mass Right middle lobe lung mass Discharge Diagnoses: 1. Same Admission Condition: good Discharged Condition: good Hospital Course: Devorah Santos is a 35 year old male who was admitted for planned elective thoracic surgery. He has a history of Stage II Hodgkin lymphoma during childhood and on recent imaging there was concerning findings of an anterior mediastinal mass as well as right middle lobe lung mass. Operative biopsy was recommended. He was taken to the operating room 07/27/20 and underwent a right VATs, biopsy of the anterior mediastinal mass and wedge biopsy of the right middle lobe. He tolerated the procedure well. He was admitted to the telemetry floor post-operatively. His chest tube was removed on POD#1. Post-pull CXR was stable. He otherwise had a normal post-operative course during the hospitalization. He was discharged home tolerating diet, ambulating, voiding, and with pain controlled with PO medications. His final surgical pathology is pending. Consults: none Disposition: home Discharge Medications: Devorah Santos Home Medication Instructions BUSTER:[id number] Printed on:07/28/20 [id number] Medication Information levothyroxine (SYNTHROID) 150 MCG tablet TAKE 1 TABLET BY MOUTH ONCE DAILY lisinopril (PRINIVIL;ZESTRIL) 10 MG tablet Take 10 mg by mouth daily LORazepam (ATIVAN) 0.5 MG tablet take 1 tablet by mouth twice a day if needed oxyCODONE-acetaminophen (PERCOCET) 5-325 MG per tablet Take 1 tablet by mouth every 6 hours as needed for Pain (ACUTE POST SURGICAL PAIN) for up to 7 days. pantoprazole (PROTONIX) 40 MG tablet Take 40 mg by mouth daily sertraline (ZOLOFT) 100 MG tablet Take 100 mg by mouth daily Activity: activity as tolerated and no driving while on analgesics Diet: regular diet Wound Care: keep wound clean and dry and reinforce dressing PRN Follow-up: Dr. Workman in 10-14 days [facility]09-29-2020 History of Present illness Narrative* No headache, chest pain, shortness of breath, dizziness, lightheadedness, or edema * The patient is taking thyroid medications as directed without problems, labs done in the last year,no symptoms of excessive fatigue, edema or weight gain. * Had recurrence of lymphoma, finished treatment in January, had CT in March, following with oncology at [facility] * had chemotherapy (Adrimycin, brituximab) * had some peripheral numbness in hands and feet after treatment * HBP over 140/90 at times * trying to exercise and watch diet [facility] Work Phone: [phone] History of Present illness NarrativeMr. Santos is a 36-year-old male seen for surveillance of rectal polyp. I initially evaluated him in January 2020 for rectal bleeding. Colonoscopy was performed. He had a 1.8 cm distal rectal polyp that was removed in piecemeal fashion. I used a hot snare for the majority of the polyp, but then usedcold forceps to take a few more bites at the base. 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 Recommendation was for surveillance flexible sigmoidoscopy in 6 months. However, Right around the time he was due for that surveillance scope, he was unfortunately diagnosed with recurrent Hodgkin's lymphoma and required chemotherapy. Therefore, the surveillance scope was delayed. He presents today for reevaluation. He completed his chemotherapy this Spring. He isnow in remission. He denies any blood in the stool. He has regular bowel movements and takes Metamucil. No changes in bowel movements, aside from increased frequency with greasy foods. He denies any pain with defecation.-[facility] Work Phone: evaluation note* Diagnosis Hodgkin lymphoma, unspecified Hodgkin lymphoma type, unspecified body region (HCC)- Primary documented in this encounter [facility] Work Phone: Evaluation note* Diagnosis Hodgkin lymphoma, unspecified Hodgkin lymphoma type, unspecified body region (HCC)- Primary documented in this encounter [facility] Work Phone: Evaluation note* Diagnosis Hodgkin lymphoma, unspecified Hodgkin lymphoma type, unspecified body region (HCC)- Primary documented in this encounter [facility] Work Phone: Evaluation note* Diagnosis Hodgkin lymphoma of intrathoracic lymph nodes, unspecified Hodgkin lymphoma type (HCC) documented in this encounter [facility] Work Phone: Evaluation note* Diagnosis Poor venous access- Primary Other specified circulatory system disorders Hodgkin's disease, nodular sclerosis, of intrathoracic lymph nodes (HCC) Hodgkin's disease, nodular sclerosis, of intrathoracic lymph nodes documented in this encounter [facility] Work Phone: Evaluation note* Diagnosis Adverse effect of chemotherapy, initial encounter [facility] Work Phone: Evaluation [facility]* Diagnosis Primary hypertension- Primary Unspecified essential hypertension BMI 40.0-44.9, adult ([facility]) Class 3 severe obesity with serious comorbidity and body mass index (BMI) of 40.0 to 44.9 in adult, unspecified obesity type ([facility]) [facility] Diagnosis Traumatic amputation of left great toe, subsequent encounter ([facility])- Primary documented in this encounter [facility] note* Diagnosis Traumatic amputation of left great toe, subsequent encounter ([facility])- Primary documented in this encounter [facility] note* Diagnosis Traumatic amputation of left great toe, subsequent encounter (HCC)- Primary documented in this encounter [facility] note* Diagnosis Traumatic amputation of left great toe, subsequent encounter (HCC)- Primary documented in this encounter [facility] note* Diagnosis Hodgkin's disease, nodular sclerosis, 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, nodular sclerosis, of intrathoracic lymph nodes documented in this encounter [facility] note* Diagnosis Traumatic amputation of left great toe, subsequent encounter (HCC)- Primary documented in this encounter [facility] note* Diagnosis Primary hypertension- Primary Unspecified essential hypertension Acquired hypothyroidism Unspecified hypothyroidism Gastroesophageal reflux disease without esophagitis Esophageal reflux Hodgkin lymphoma, unspecified Hodgkin lymphoma type, unspecified body region (CMS/HCC) Hodgkin's disease, nodular sclerosis, of intrathoracic lymph nodes (CMS/HCC) Hodgkin's disease, nodular sclerosis, of intrathoracic lymph nodes Anxiety Anxiety state, unspecified Hypersomnolence Hypersomnia, unspecified Obesity, Class III, BMI 40-49.9 (morbid obesity) ([facility]) documented in this encounter [facility] Work Phone: Evaluation note* Diagnosis Hodgkin's disease, nodular sclerosis, 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, nodular sclerosis, of intrathoracic lymph nodes documented in this encounter [facility] note* Diagnosis Hypertension, unspecified type- Primary Essential hypertension Unspecified essential hypertension Hypothyroidism, unspecified type Mixed hyperlipidemia Obesity, morbid, BMI 40.0-49.9 (HCC) Bicuspid aortic valve Congenital insufficiency of aortic valve documented in this encounter [facility] note* Diagnosis Mixed hyperlipidemia- Primary documented in this encounter [facility] note* Diagnosis Hodgkin's disease, nodular sclerosis, 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, nodular sclerosis, of intrathoracic lymph nodes documented in this encounter [facility] note* Diagnosis Essential hypertension- Primary Unspecified essential hypertension Hypertension, unspecified type Hypothyroidism, unspecified type Mixed hyperlipidemia Obesity, morbid, BMI 40.0-49.9 (HCC) Bicuspid aortic valve Congenital insufficiency of aortic valve documented in this encounter [facility] note* Diagnosis Hodgkin's disease, nodular sclerosis, 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, nodular sclerosis, of intrathoracic lymph nodes documented in this encounter [facility]* Diagnosis Primary hypertension- Primary Unspecified essential hypertension Acquired hypothyroidism Unspecified hypothyroidism Gastroesophageal reflux disease without esophagitis Esophageal reflux Hodgkin lymphoma, unspecified Hodgkin lymphoma type, unspecified body region (Multi) Hodgkin's disease, nodular sclerosis, of intrathoracic lymph nodes (Multi) Hodgkin's disease, nodular sclerosis, of intrathoracic lymph nodes Anxiety Anxiety state, unspecified Hypersomnolence Hypersomnia, unspecified Obesity, Class III, BMI 40-49.9 (morbid obesity) (Multi) Primary hypertension- Primary Unspecified essential hypertension Gastroesophageal reflux disease without esophagitis Esophageal reflux Anxiety Anxiety state, unspecified Acquired hypothyroidism Unspecified hypothyroidism Hodgkin lymphoma, unspecified Hodgkin lymphoma type, unspecified body region (Multi) Hypothyroidism due to acquired atrophy of thyroid Obesity, Class III, BMI 40-49.9 (morbid obesity) (Multi) documented in this encounter [facility] Work Phone: Evaluation note* Diagnosis Hodgkin's disease, nodular sclerosis, 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, nodular sclerosis, of intrathoracic lymph nodes [facility]* Diagnosis Bicuspid aortic valve- Primary Congenital insufficiency of aortic valve Essential hypertension Unspecified essential hypertension Mixed hyperlipidemia Hypothyroidism, unspecified type Obesity, morbid, BMI 40.0-49.9 (HCC) documented in this encounter [facility]* Diagnosis Bicuspid aortic valve Congenital insufficiency of aortic valve Essential hypertension Unspecified essential hypertension [facility]* Treatment Plan (Routine) Status Reason Specialty Diagnoses / Procedures Referred By Contact Referred To Contact Authorized Diagnoses Hodgkin lymphoma, unspecified Hodgkin lymphoma type, unspecified body region (HCC) Prakash Caldwell MD [facility] [address] [place] [address] [facility] [address] [phone] [facility] Work Phone: [facility] for visit Narrative* Treatment Plan (Routine) Status Reason Specialty Diagnoses / Procedures Re ferred By Contact Referred To Contact Authorized Diagnoses Hodgkin's disease, nodular sclerosis, of intrathoracic lymph nodes (HCC) Poor venous access Prakash Caldwell MD [address] [address] [place] [address] [facility] [address] [facility] [place] [address] [employer] Phone: reason for visit Narrative* Imaging (Routine) - Closed Specialty Diagnoses / Procedures Referred By Contac t Referred To Contact Cardiology Diagnoses Bicuspid aortic valve Essential hypertension Procedures Transthoracic echocardiogram (TTE) complete with contrast, bubble, strain, and 3D PRN ME ECHO TTHRC R-T 2D W/WOM-MODE COMPL SPEC&COLR D ME TTE W OR WO FOL WCON,DOPPLER Emily Kan MD [address] [place] [address] Phone: tel: fax: Referral ID Status Reason Start Date Expiration Date Visits Re quested Visits Authorized [id number] Closed 04/07/2025 04/07/2026 1 1 [facility] Summary Purpose Family History No Family History Records Found Grandmother Name Dates Details Family history of malignant neoplasm of colon(V16.0, Z80.0) Status:Active Family history of coronary a rtery disease(V17.3, Z82.49) Status:Active Family history of diabetes m ellitus(V18.0, Z83.3) Status:Active Family history of mitral cande ve disorder(V17.49, Z82.49) Status:Active Grandfather Name Dates Details Family history of mitral cande ve disorder(V17.49, Z82.49) Status:Active Grandmother Name Dates Details Family history of mitral cande ve disorder(V17.49, Z82.49) Status:Active aunt Name Dates Details Family history of malignant neoplasm of breast(V16.3, Z80.3) Status:Active Mother Name Dates Details No pertinent family history( V49.89, Z78.9) Status:Active Grandfather Name Dates Details Family history of coronary a rtery disease(V17.3, Z82.49) Status:Active Family history of mitral cande ve disorder(V17.49, Z82.49) Status:Active Grandmother Name Dates Details Family history of coronary a rtery disease(V17.3, Z82.49) Status:Active Family history of mitral cande ve disorder(V17.49, Z82.49) Status:Active Family history of malignant neoplasm of colon(V16.0, Z80.0) Status:Active Family history of diabetes m ellitus(V18.0, Z83.3) Status:Active Grandfather Name Dates Details Family history of mitral cande ve disorder(V17.49, Z82.49) Status:Active Grandmother Name Dates Details Family history of mitral cande ve disorder(V17.49, Z82.49) Status:Active aunt Name Dates Details Family history of malignant neoplasm of breast(V16.3, Z80.3) Status:Active Mother Name Dates Details No pertinent family history( V49.89, Z78.9) Status:Active Grandfather Name Dates Details Family history of coronary a rtery disease(V17.3, Z82.49) Status:Active Family history of mitral cande ve disorder(V17.49, Z82.49) Status:Active Grandmother Name Dates Details Family history of malignant neoplasm of colon(V16.0, Z80.0) Status:Active Family history of coronary a rtery disease(V17.3, Z82.49) Status:Active Family history of diabetes m ellitus(V18.0, Z83.3) Status:Active Family history of mitral cande ve disorder(V17.49, Z82.49) Status:Active Grandfather Name Dates Details Family history of mitral cande ve disorder(V17.49, Z82.49) Status:Active Grandmother Name Dates Details Family history of mitral cande ve disorder(V17.49, Z82.49) Status:Active aunt Name Dates Details Family history of malignant neoplasm of breast(V16.3, Z80.3) Status:Active Mother Name Dates Details No pertinent family history( V49.89, Z78.9) Status:Active Grandfather Name Dates Details Family history of coronary a rtery disease(V17.3, Z82.49) Status:Active Family history of mitral cande ve disorder(V17.49, Z82.49) Status:Active Grandmother Name Dates Details Family history of malignant neoplasm of colon(V16.0, Z80.0) Status:Active Family history of coronary a rtery disease(V17.3, Z82.49) Status:Active Family history of diabetes m ellitus(V18.0, Z83.3) Status:Active Family history of mitral cande ve disorder(V17.49, Z82.49) Status:Active Grandfather Name Dates Details Family history of mitral cande ve disorder(V17.49, Z82.49) Status:Active Grandmother Name Dates Details Family history of mitral cande ve disorder(V17.49, Z82.49) Status:Active aunt Name Dates Details Family history of malignant neoplasm of breast(V16.3, Z80.3) Status:Active Mother Name Dates Details No pertinent family history( V49.89, Z78.9) Status:Active Grandfather Name Dates Details Family history of coronary a rtery disease(V17.3, Z82.49) Status:Active Family history of mitral cande ve disorder(V17.49, Z82.49) Status:Active Grandmother Name Dates Details Family history of malignant neoplasm of colon(V16.0, Z80.0) Status:Active Family history of coronary a rtery disease(V17.3, Z82.49) Status:Active Family history of diabetes m ellitus(V18.0, Z83.3) Status:Active Family history of mitral cande ve disorder(V17.49, Z82.49) Status:Active Grandfather Name Dates Details Family history of mitral cande ve disorder(V17.49, Z82.49) Status:Active Grandmother Name Dates Details Family history of mitral cande ve disorder(V17.49, Z82.49) Status:Active aunt Name Dates Details Family history of malignant neoplasm of breast(V16.3, Z80.3) Status:Active Mother Name Dates Details No pertinent family history( V49.89, Z78.9) Status:Active Father Name Dates Details No pertinent family history( V49.89, Z78.9) Status:Active Grandfather Name Dates Details Family history of coronary a rtery disease(V17.3, Z82.49) Status:Active Family history of mitral cande ve disorder(V17.49, Z82.49) Status:Active Unknown Family Member Name Dates Details Family history of malignant neoplasm of breast: Aunt(V16.3, Z80.3) Status:Active Family history of malignant neoplasm of colon: Maternal Grandmother(V16.0, Z80.0) Status:Active Family history of coronary a rtery disease: Maternal Grandmother, Maternal Grandfather(V17.3, Z82.49) Status:Active Family history of diabetes m ellitus: Maternal Grandmother(V18.0, Z83.3) Status:Active Family history of mitral cande ve disorder: Maternal Grandmother, Paternal Grandmother, Maternal Grandfather, Paternal Grandfather(V17.49, Z82.49) Status:Active No pertinent family history: Mother, Father(V49.89, Z78.9) Status:Active Unknown Family Member Name Dates Details Family history of malignant neoplasm of breast: Aunt(V16.3, Z80.3) Status:Active Family history of malignant neoplasm of colon: Maternal Grandmother(V16.0, Z80.0) Status:Active Family history of coronary a rtery disease: Maternal Grandmother, Maternal Grandfather(V17.3, Z82.49) Status:Active Family history of diabetes m ellitus: Maternal Grandmother(V18.0, Z83.3) Status:Active Family history of mitral cande ve disorder: Maternal Grandmother, Paternal Grandmother, Maternal Grandfather, Paternal Grandfather(V17.49, Z82.49) Status:Active No pertinent family history: Mother, Father(V49.89, Z78.9) Status:Active Unknown Family Member Name Dates Details Family history of malignant neoplasm of breast: Aunt(V16.3, Z80.3) Status:Active Family history of malignant neoplasm of colon: Maternal Grandmother(V16.0, Z80.0) Status:Active Family history of coronary a rtery disease: Maternal Grandmother, Maternal Grandfather(V17.3, Z82.49) Status:Active Family history of diabetes m ellitus: Maternal Grandmother(V18.0, Z83.3) Status:Active Family history of mitral caned ve disorder: Maternal Grandmother, Paternal Grandmother, Maternal Grandfather, Paternal Grandfather(V17.49, Z82.49) Status:Active No pertinent family history: Mother, Father(V49.89, Z78.9) Status:Active Unknown Family Member Name Dates Details Family history of malignant neoplasm of breast: Aunt(V16.3, Z80.3) Status:Active Family history of malignant neoplasm of colon: Maternal Grandmother(V16.0, Z80.0) Status:Active Family history of coronary a rtery disease: Maternal Grandmother, Maternal Grandfather(V17.3, Z82.49) Status:Active Family history of diabetes m ellitus: Maternal Grandmother(V18.0, Z83.3) Status:Active Family history of mitral cande ve disorder: Maternal Grandmother, Paternal Grandmother, Maternal Grandfather, Paternal Grandfather(V17.49, Z82.49) Status:Active No pertinent family history: Mother, Father(V49.89, Z78.9) Status:Active Unknown Family Member Name Dates Details Family history of malignant neoplasm of breast: Aunt(V16.3, Z80.3) Status:Active Family history of malignant neoplasm of colon: Maternal Grandmother(V16.0, Z80.0) Status:Active Family history of coronary a rtery disease: Maternal Grandmother, Maternal Grandfather(V17.3, Z82.49) Status:Active Family history of diabetes m ellitus: Maternal Grandmother(V18.0, Z83.3) Status:Active Family history of mitral cande ve disorder: Maternal Grandmother, Paternal Grandmother, Maternal Grandfather, Paternal Grandfather(V17.49, Z82.49) Status:Active No pertinent family history: Mother, Father(V49.89, Z78.9) Status:Active Unknown Family Member Name Dates Details Family history of malignant neoplasm of breast: Aunt(V16.3, Z80.3) Status:Active Family history of malignant neoplasm of colon: Maternal Grandmother(V16.0, Z80.0) Status:Active Family history of coronary a rtery disease: Maternal Grandmother, Maternal Grandfather(V17.3, Z82.49) Status:Active Family history of diabetes m ellitus: Maternal Grandmother(V18.0, Z83.3) Status:Active Family history of mitral cande ve disorder: Maternal Grandmother, Paternal Grandmother, Maternal Grandfather, Paternal Grandfather(V17.49, Z82.49) Status:Active No pertinent family history: Mother, Father(V49.89, Z78.9) Status:Active Unknown Family Member Name Dates Details Family history of malignant neoplasm of breast: Aunt(V16.3, Z80.3) Status:Active Family history of malignant neoplasm of colon: Maternal Grandmother(V16.0, Z80.0) Status:Active Family history of coronary a rtery disease: Maternal Grandmother, Maternal Grandfather(V17.3, Z82.49) Status:Active Family history of diabetes m ellitus: Maternal Grandmother(V18.0, Z83.3) Status:Active Family history of mitral cande ve disorder: Maternal Grandmother, Paternal Grandmother, Maternal Grandfather, Paternal Grandfather(V17.49, Z82.49) Status:Active No pertinent family history: Mother, Father(V49.89, Z78.9) Status:Active Unknown Family Member Name Dates Details Family history of malignant neoplasm of breast: Aunt(V16.3, Z80.3) Status:Active Family history of malignant neoplasm of colon: Maternal Grandmother(V16.0, Z80.0) Status:Active Family history of coronary a rtery disease: Maternal Grandmother, Maternal Grandfather(V17.3, Z82.49) Status:Active Family history of diabetes m ellitus: Maternal Grandmother(V18.0, Z83.3) Status:Active Family history of mitral cande ve disorder: Maternal Grandmother, Paternal Grandmother, Maternal Grandfather, Paternal Grandfather(V17.49, Z82.49) Status:Active No pertinent family history: Mother, Father(V49.89, Z78.9) Status:Active Unknown Family Member Name Dates Details Family history of malignant neoplasm of breast: Aunt(V16.3, Z80.3) Status:Active Family history of malignant neoplasm of colon: Maternal Grandmother(V16.0, Z80.0) Status:Active Family history of coronary a rtery disease: Maternal Grandmother, Maternal Grandfather(V17.3, Z82.49) Status:Active Family history of diabetes m ellitus: Maternal Grandmother(V18.0, Z83.3) Status:Active Family history of mitral cande ve disorder: Maternal Grandmother, Paternal Grandmother, Maternal Grandfather, Paternal Grandfather(V17.49, Z82.49) Status:Active No pertinent family history: Mother, Father(V49.89, Z78.9) Status:Active Unknown Family Member Name Dates Details Family history of malignant neoplasm of breast: Aunt(V16.3, Z80.3) Status:Active Family history of malignant neoplasm of colon: Maternal Grandmother(V16.0, Z80.0) Status:Active Family history of coronary a rtery disease: Maternal Grandmother, Maternal Grandfather(V17.3, Z82.49) Status:Active Family history of diabetes m ellitus: Maternal Grandmother(V18.0, Z83.3) Status:Active Family history of mitral cande ve disorder: Maternal Grandmother, Paternal Grandmother, Maternal Grandfather, Paternal Grandfather(V17.49, Z82.49) Status:Active No pertinent family history: Mother, Father(V49.89, Z78.9) Status:Active Unknown Family Member Name Dates Details Family history of malignant neoplasm of breast: Aunt(V16.3, Z80.3) Status:Active Family history of malignant neoplasm of colon: Maternal Grandmother(V16.0, Z80.0) Status:Active Family history of coronary a rtery disease: Maternal Grandmother, Maternal Grandfather(V17.3, Z82.49) Status:Active Family history of diabetes m ellitus: Maternal Grandmother(V18.0, Z83.3) Status:Active Family history of mitral cande ve disorder: Maternal Grandmother, Paternal Grandmother, Maternal Grandfather, Paternal Grandfather(V17.49, Z82.49) Status:Active No pertinent family history: Mother, Father(V49.89, Z78.9) Status:Active Unknown Family Member Name Dates Details Family history of malignant neoplasm of breast: Aunt(V16.3, Z80.3) Status:Active Family history of malignant neoplasm of colon: Maternal Grandmother(V16.0, Z80.0) Status:Active Family history of coronary a rtery disease: Maternal Grandmother, Maternal Grandfather(V17.3, Z82.49) Status:Active Family history of diabetes m ellitus: Maternal Grandmother(V18.0, Z83.3) Status:Active Family history of mitral cande ve disorder: Maternal Grandmother, Paternal Grandmother, Maternal Grandfather, Paternal Grandfather(V17.49, Z82.49) Status:Active No pertinent family history: Mother, Father(V49.89, Z78.9) Status:Active Unknown Family Member Name Dates Details No pertinent family history: Mother, Father(V49.89, Z78.9) Status:Active Family history of mitral cande ve disorder: Maternal Grandmother, Paternal Grandmother, Maternal Grandfather, Paternal Grandfather(V17.49, Z82.49) Status:Active Family history of diabetes m ellitus: Maternal Grandmother(V18.0, Z83.3) Status:Active Family history of coronary a rtery disease: Maternal Grandmother, Maternal Grandfather(V17.3, Z82.49) Status:Active Family history of malignant neoplasm of colon: Maternal Grandmother(V16.0, Z80.0) Status:Active Family history of malignant neoplasm of breast: Aunt(V16.3, Z80.3) Status:Active Unknown Family Member Name Dates Details Family history of malignant neoplasm of breast: Aunt(V16.3, Z80.3) Status:Active Family history of malignant neoplasm of colon: Maternal Grandmother(V16.0, Z80.0) Status:Active Family history of coronary a rtery disease: Maternal Grandmother, Maternal Grandfather(V17.3, Z82.49) Status:Active Family history of diabetes m ellitus: Maternal Grandmother(V18.0, Z83.3) Status:Active Family history of mitral cande ve disorder: Maternal Grandmother, Paternal Grandmother, Maternal Grandfather, Paternal Grandfather(V17.49, Z82.49) Status:Active No pertinent family history: Mother, Father(V49.89, Z78.9) Status:Active Advance Directives No Advanced Directives Records FoundLatest Code Status on File Code Status Date Activated Date Inactivated Comments Full Code 07/27/2020 5:09 PM Full Code 07/27/2020 9:44 AM 07/27/2020 5:07 PM Latest Code Status on File Code Status Date Activated Date Inactivated Comments Full Code 07/27/2020 5:09 PM 07/28/2020 6:38 PM Full Code 07/27/2020 9:44 AM 07/27/2020 5:07 PM Latest Code Status on File Code Status Date Activated Date Inactivated Comments Full Code 07/27/2020 5:09 PM 07/28/2020 6:38 PM Assessments Diagnosis Lung nodule Solitary pulmonary nodule Mediastinal mass Swelling, mass, or lump in chest History of Hodgkin's lymphoma Personal history of Hodgkin's disease Diagnosis Mediastinal mass Swelling, mass, or lump in chest S/P thoracotomy Other postprocedural status Diagnosis Hodgkin lymphoma, unspecified, intrathoracic lymph nodes (HCC) Diagnosis Poor venous access Other specified circulatory system disorders Diagnosis Hodgkin lymphoma of intrathoracic lymph nodes, unspecified Hodgkin lymphoma type (HCC) Diagnosis Hodgkin lymphoma, unspecified Hodgkin lymphoma type, unspecified body region (HCC)- Primary Diagnosis Hodgkin lymphoma, unspecified Hodgkin lymphoma type, unspecified body region (HCC)- Primary Hodgkin lymphoma of intrathoracic lymph nodes, unspecified Hodgkin lymphoma type (HCC) Diagnosis Nodular lymphocyte predominant Hodgkin lymphoma, unspecified body region (HCC) Pre-op testing Preoperative examination, unspecified Diagnosis Poor venous access Other specified circulatory system disorders Hodgkin lymphoma of intrathoracic lymph nodes, unspecified Hodgkin lymphoma type (HCC) Discharge Instructions * Instructions* Maria R Yo APRN - STYLIST APPRENTICE - 07/28/2020 [facility]: Cardiothoracic Surgery [address] [facility] [facility] (T): #[phone] (F): #[phone] After lung surgery, it is common to feel tired up to 6 to 8 weeks. Your chest may hurt and or be swollen for up to 6 weeks. It can also ache or feel stiff for up to 3 months. It is not uncommon to have tightness, itching, numbness, or tingling around the incision for up to 3 months. You may feel short of breath at first after the surgery. It is important to continue the deep-breathing and coughing exercises that you were taught in the hospital at home during your recovery. This helps your body get as much oxygen as possible. The amount of time you will need to recover depends on the surgery you had. You probably will need to take at least 1 to 2 months off work dependent on the work you do. Your Recovery: Activity, Diet, Incisional Care and Exercise Rest when you feel tired. Getting enough sleep will help you recover. Try to walk each day. Start by walking a little more than you did the day before, increasing the amount you walk. Walking boosts blood flow and helps prevent pneumonia and constipation. Do not smoke or allow others to smoke around you. If you need help quitting, talk to your provider about stop-smoking programs and medicines. These can increase your chances of quitting for good. Try to avoid being around people who you know have a cold, the flu, or other illness. Avoid strenuous activities, such as bicycle riding, jogging, weight lifting, or aerobic exercise for at least 4 weeks. Also avoid swimming, tennis, golf, or other activities that could strain your arm and shoulder muscles, during this time. Initial weight restriction is 10lbs for 2 weeks, avoid lifting anything that would make you strain.This may include a child, heavy grocery bags and milk containers, a heavy briefcase or backpack, cat litter or dog food bags, or a vacuum tube cleaner. If your incision is in the front or the side of your chest, hold a pillow over the incision when you cough or take deep breaths. This will support your chest and decrease your pain. No driving for 2 weeks. This is because your arm and shoulder muscles may be stiff after surgery and could make it difficult to steer. You must also be off all narcotic and sedative medications priorto returning to driving. Ok to shower. Avoid any baths or hot-tubs for 3 weeks. Wash you incision daily with warm, soapy water, and pat it dry. Do not scrub your incision(s). Do not apply any lotions or powders, hydrogen peroxide or alcohol on your incision(s). You may cover the area with a gauze bandage if it weeps or rubs against your clothing. Keep the area clean and dry. Diet: You can eat your normal diet. If your stomach is upset, try bland, low-fat foods like plain rice, broiled chicken, toast, and yogurt. Drink plenty of fluids. You may notice that your bowel movements are not regular right after your surgery. This is common. Try to avoid constipation and straining with bowel movements. You may take an over the counter stool softener as needed. If your incision has sharla, these will be removed at your follow-up visit 10- 14 days with your provider. Also, sutures from drains/tubes will be removed at this time. Continue to follow discharge stretching exercises outlined below. Start each exercise slowly. Ease off the exercises if you start to have pain. Shoulder Stretch 1. sheet metal superintendent a doorway and place one arm against the door frame. Your elbow should be a little higher than your shoulder. 2. Relax your shoulders as you lean forward, allowing your chest and shoulder muscles to stretch. You can also turn your body slightly away from your arm to stretch the muscles even more. 3. Hold for 15 to 30 seconds. 4. Repeat 2 to 4 times with each arm. Shoulder and Chest Stretch 1. While sitting, relax your upper body so you slump slightly in your chair. 2. As you breathe in, straighten your back and open your arms out to the sides. 3. Gently pull your shoulder blades back and downward. 4. Hold for 15 to 30 seconds as your breathe normally. 5. Repeat 2 to 4 times. Overhead stretch 1. Reach up over your head with both arms. 2. Hold for 15 to 30 seconds. 3. Repeat 2 to 4 times. Acute post operative pain management: -Continue to use narcotic/opioid analgesic medication prescribed on discharge from the hospital. Ifyou are prescribed oxycodone/acetaminophen (Percocet) or hydrocodone/acetaminophen ([place]/Vicodin) be cautious when taking additional tylenol. No driving or operating heavy machinery while taking a narcotic/opioid analgesic medication. -Tylenol (acetaminophen) 500 mg 1-2 tablets every 6 hours. No more than 4 grams in 24 hour period. Tylenol is not recommended with liver disorders. -Motrin (ibuprofen) 200-400 mg by mouth every 4-6 hours (or) 600-800mg every 8 hours as needed if not contraindicated. Ibuprofen is not recommended with renal disorders or if you are taking Warfarin (coumadin/jantoven). Maximum dose 3,200 mg per day. -Over the counter pain patches called Salon pas may used as needed next to incision but not on yourincision. -Ice packs applied for 20 minutes then off for at least 20 minutes before reapplying. Call your Surgeon or return to the Emergency Room if you experience: -New or increased pain. -New or increased bleeding. -Nausea & vomiting. -Fever & chills. -Shortness of breath. -Chest pain. -Abdominal distention. documented in this encounter* Instructions* Dinorah Connelly RN - 08/19/2020 Implanted Port: What to Expect at Home Your Recovery You have had a procedure to implant a port. The port looks like a small bump under your skin. A thin, flexible tube called a catheter runs under the skin from the port into a large vein. You may have the port for weeks, months, or longer. You will be able to get medicine, blood, nutrients, or other fluids with more comfort. The port can be used right away. You will probably have some discomfort and bruising at the port site. This will go away in a few days. You may have strips of tape on the cut (incision) the doctor made, or the cut may have been closed with glue. It will be covered with a small bandage. This care sheet gives you a general idea about how long it will take for you to recover. But each person recovers at a different pace. Follow the steps below to feel better as quickly as possible. How can you care for yourself at home? Activity Avoid arm and upper body movements that may pull on the catheter. These movements include heavy weight lifting and vigorous use of your arms. No lifting over 5 pounds on the side with the port for 7 days. Check with your doctor as to when you may swim or exercise. You may drive 24 hours after the port placement. It's okay if the seat belt lays over the insertionsite. Medicines Your doctor will tell you if and when you can restart your medicines. He or she will also give you instructions about taking any new medicines. If you take blood thinners, such as warfarin (Coumadin), clopidogrel (Plavix), Apixaban (Eliquis), Dabigatran (Pradaxa), Rivaroxaban (Xarelto), or aspirin, be sure to talk to your doctor. He or she will tell you if and when to start taking those medicines again. Make sure that you understand exactly what your doctor wants you to do. Take pain medicines exactly as directed. If the doctor gave you a prescription medicine for pain, take it as prescribed. If you are not taking a prescription pain medicine, you may take Tylenol as directed. If you think your pain medicine is making you sick to your stomach: Take your medicine after meals (unless your doctor has told you not to). Ask your doctor for a different pain medicine. Incision care Remove the bandage the day after it has been placed to inspect the incision site. Replace with large bandaid or dressing. You will need to keep site clean & dry for 48 hours. After 48 hours days,you may shower and may wash the area with soap and water and pat it dry. Don't use hydrogen peroxide or alcohol, which can slow healing. You may cover the area with a gauze bandage if it weeps or rubs against clothing. Change the bandage every day for 7-10 days until healed. If you have strips of tape on the cut (incision) the doctor made, leave the tape on for a week or until it falls off. Use ice pack for the next 24 hours. On for 30 minutes, and off for 30 minutes. If you find relief with the use of the ice pack, you may continue to use it as needed. Other instructions Always carry the medical alert card that your doctor gives you. It contains information about your port. It will tell health care workers you have a port in case you need emergency care. Wear loose clothing over the port for the first 10 to 14 days. When getting dressed, be careful notto rub the port. Follow-up care is a erickson part of your treatment and safety. Be sure to make and go to all appointments, and call your doctor if you are having problems. It's also a good idea to know your test resultsand keep a list of the medicines you take. When should you call for help? Call 911 anytime you think you may need emergency care. For example, call if: You passed out (lost consciousness). You have severe trouble breathing. You have sudden chest pain and shortness of breath, or you cough up blood. Call your doctor now or seek immediate medical care if: You have signs of infection, such as: Increased pain, swelling, warmth, or redness near the port. Red streaks leading from the port. Pus draining from the port. A fever. You have pain or swelling in your neck or arm. You have trouble breathing or chest pain. Watch closely for changes in your health, and be sure to contact your doctor if: You have any problems with your port. You may call Special Procedures at with any questions or concerns about the port placement. After hours (before 7am or after 5 pm) call [phone] and ask for the Interventional Radiologist healthcare market consultant. Where can you learn more? Go to [email or web address] and sign in to your [facility] account. Enter M256 in the Search Health Information box to learn more about Implanted Port: What to Expect at Home. If you do not have an account, please click on the Sign Up Now link. Current as of: February 10, 2016 Content Version: 11.2 2619-7067 [email or web address]. Care instructions adapted under license by [employer]. If youhave questions about a medical condition or this instruction, always ask your healthcare professional. [email or web address] disclaims any warranty or liability for your use of this information. documented in this encounter* Instructions* Anali Ojeda RN - 07/26/2020 Please bring your [facility] Information folder on the day of surgery. Please eduard the last dose taken (date and time ) on your Daily Medications List provided in your After Visit Summary. Please bring a photo ID and insurance information TAKE ONLY the following medications the morning of your surgery LEVOTHYROXINE (SYNTHROID), LORAZEPAM (ATIVAN) IF NEEDED, PANTOPRAZOLE (PROTONIX), SERTRALINE (ZOLOFT) You may take your prescription pain medications. You may take Tylenol (Acetaminophen) if needed forpain. No Motrin, Ibuprofen, or Advil 24 hours prior to surgery, or longer if instructed by your surgeon. No Aleve or Naprosyn 3 days prior to surgery, or longer if instructed by your surgeon. NO ASPIRIN OR ASPIRIN CONTAINING PRODUCTS 5 DAYS PRIOR TO SURGERY OR LONGER IF INSTRUCTED BY DR WORKMAN Additional instructions Please shower with an antibacterial soap( example DIAL OR SAFEGUARD) FOLLOW ANY OTHER INSTRUCTIONS THAT DR WORKMAN MAY HAVE GIVEN YOU You will receive a reminder call the day before surgery with your Same Day Surgery arrival time. If you have specific questions, please call your surgeon. * Attachments The following attachments cannot be sent through Care Everywhere. * VATS (Video-Assisted Thoracoscopic Surgery): Post-op (Z[place]an) documented in this encounter* Attachments The following attachments cannot be sent through Care Everywhere. * Angiogram: General: Post-op ([place]an) documented in this encounter History of Present Illness * Tam Redd - 07/28/2020 12:52 PM EST Physical Therapy Facility/Department: [facility] Initial Assessment NAME: Devorah Santos : 1985 Date of Service: 07/28/2020 Discharge Recommendations: Home with assist PRN PT Equipment Recommendations Equipment Needed: No Assessment Body structures, Functions, Activity limitations: Increased pain Assessment: Pt admitted for mediastinal mass. Pt was indep with bedmobility, transfers, ambulation and stairs. Pt reports he feels good and safe to go home. PT recommends discharge to home with assist PRN. Prognosis: Excellent Decision Making: Low Complexity PT Education: Goals;PT Role;Plan of Care Patient Education: Pt educated to continue to move RUE. REQUIRES PT FOLLOW UP: No Activity Tolerance Activity Tolerance: Patient Tolerated treatment well Patient Diagnosis(es): There were no encounter diagnoses. has a past medical history of GERD (gastroesophageal reflux disease), HTN (hypertension), and Lymphoma (HCC). has a past surgical history that includes lymph node biopsy (Right, 2019); Colonoscopy (02/2020); and Thoracoscopy (07/27/2020). Restrictions Restrictions/Precautions Restrictions/Precautions: (Up with assist, Amb pt.) Required Braces or Orthoses?: No Vision/Hearing Vision: Impaired Vision Exceptions: (wears contacts/glasses all times) Hearing: Within functional limits Subjective General Chart Reviewed: Yes Patient assessed for rehabilitation services?: Yes Additional Pertinent Hx: Pt presents with Anterior mediastinal mass, right middle lobe lung mass. Pt underwent Right video-assisted thoracoscopy, biopsy of anterior mediastinal mass, right middle lobe wedge biopsy (07/27). Family / Caregiver Present: Yes() Diagnosis: Mediastinal mass Follows Commands: Within Functional Limits Subjective Subjective: Pt agreeable to PT this date. Pt reports he is feeling good today and just had his chest tube pulled earlier today. Pt reports slight discomfort as site where chest tube was. Pain Screening Patient Currently in Pain: Yes Pain Assessment Pain Assessment: 0-10 Pain Level: 3 Pain Location: Incision(chest tube site) Pain Orientation: Right Pain Descriptors: Discomfort Vital Signs Patient Currently in Pain: Yes Orientation Orientation Overall Orientation Status: Within Normal Limits Social/Functional History Social/Functional History Lives With: Spouse Type of Home: House Home Layout: Bed/Bath upstairs, Multi-level Home Access: Stairs to enter without rails Entrance Stairs - Number of Steps: 2 Bathroom Shower/Tub: Tub/Shower unit Bathroom Toilet: Standard Bathroom Equipment: (none) Bathroom Accessibility: Accessible Home Equipment: (none) Receives Help From: Family ADL Assistance: Independent Homemaking Assistance: Independent Homemaking Responsibilities: Yes Ambulation Assistance: Independent Transfer Assistance: Independent Active File Drawer Finisher: Yes Mode of Transportation: Car 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 AROM RLE (degrees) RLE AROM: WNL AROM LLE (degrees) LLE AROM : WNL AROM RUE (degrees) RUE AROM : WNL AROM LUE (degrees) LUE AROM : WNL Strength RLE Comment: 5/5 gross Strength LLE Comment: 5/5 gross Strength RUE Comment: >3+/5 Full AROM Strength LUE Comment: >3+/5 full AROM Tone RLE RLE Tone: Normotonic Tone LLE LLE Tone: Normotonic Motor Control Gross Motor?: WNL Sensation Overall Sensation Status: WNL(Denies N/T) Bed mobility Supine to Sit: Independent(Performed x1 to R.) Sit to Supine: Independent Transfers Sit to Stand: Independent Stand to sit: Independent(good descent) Ambulation Ambulation?: Yes Ambulation 1 Surface: level tile Device: No Device Assistance: Independent Gait Deviations: Decreased arm swing(R UE guarded at side. Pt reports he is afraid to rub site where chest tube was.) Distance: 80' x2 Stairs/Curb Stairs?: Yes Stairs # Steps : 10 Rails: Left ascending Device: No Device Assistance: Independent Comment: recipricol gait pattern ascending and descending. Balance Posture: Good Sitting - Static: Good Sitting - Dynamic: Good Standing - Static: Good Standing - Dynamic: Good Plan Plan Times per week: Discharge Plan Comment: discharge Safety Devices Type of devices: All fall risk precautions in place, Call light within reach, Gait belt, Left in bed AM-PAC Score AM-PAC Inpatient Mobility Raw Score : 23 (07/28/20 1251) AM-[facility] Inpatient T-Scale Score : 56.93 (07/28/20 1251) Mobility Inpatient CMS 0-100% Score: 11.2 (07/28/20 125) Mobility Inpatient CMS G-Code Modifier : CI (07/28/20 125) Goals Short term goals Time Frame for Short term goals: discharge Patient Goals Patient goals : To go home Therapy Time Individual Concurrent Group Co-treatment Time In 1116 Time Out 1125 Minutes 9 Tam Redd, [facility] No Bed/chair alarm on prior to session and no alarm after session Transfer Plan of care over to [facility] Physical Therapy staff. Goals and/or treatment plan was established in collaboration with patient. SPT wore N95, goggles, and gloves this session. * Elizabeth Quach RN - 07/27/2020 10:13 AM EST Iv started/ meds given/ pt tolerated well/ pt ready for surgery documented in this encounter* Rossana Boyce RN - 08/19/2020 12:01 PM EST Labs drawn and sent documented in this encounter* Flaquita Castro RN - 08/30/2020 9:00 AM EST Patient arrived ambulatory with spouse for cycle 1 AVD-brentuximab. Patient previously treated in 2000. Patient and spouse oriented to unit and process for visits. CBC with diff, CMP drawn per port and sent to [facility] and [facility]. Assessment reviewed-see flowsheet for detail. POC reviewed. 1348-Tolerated infusions without incident today. Neulasta OBI placed on L arm per preference. Device activated and green light flashing. Port flushed and deaccessed per ordered. AVS provided and reviewed. Patient aware of next appt, calendar was provided by [facility] office. Patient instructed to call the office with questions or concerns. Patient discharged ambulatory to home. documented in this encounter* Flaquita Castro RN - 09/13/2020 10:00 AM EST Arrived ambulatory with spouse for cycle 1 day 15. Reports tolerating first cycle well. Had minimalnausea,mild constipation, and very mild fatigue. Does report bone pain related to Neulasta. Taking tylenol and claritin. CBC with diff drawn per port and sent to [facility]. POC reviewed. 1425-Tolerated infusions well. Neulasta OBI placed on L arm per preference. Device activated and green light flashing. Patient aware of next appt. Port flushed and deaccessed. Gauze and tape to site.Patient discharged ambulatory to home. documented in this encounter* Evette Frye RN - 09/27/2020 9:00 AM EST Pt arrived ambulatory for Brentuximab, AVD, cycle 2, day 1. Plan of care discussed. Port accessed without difficulty. CBC/CMP drawn via port. Pt tolerated well. Pt reports some nausea. Some bone pain- started taking claritin for the bone pain, along with tylenol with some relief following the last treatment. Pt reports he received his COVID vaccine this am - prior to arrival. 1334 Pt tolerated treatment well. Port flushed and de-accessed per policy. Neulasta OBI intact, left arm. Pt aware to monitor for leaks and when to safely remove. Pt and spouse discharged to home ambulatory. Pt aware of his next appointment. documented in this encounter* Bam Roca RN - 10/11/2020 9:00 AM EST 0910 Pt arrived for AVD/Brentuximab treatment. Pt states that he is feeling well today. Biggest complaints has been on going bone pain from Neulasta. States that it was worse with his last cycle. Managingon Tylenol, Ibuprofen, and Claritin. Unable to obtain blood return from port. Cathflo instilled at 0912. 0942 + blood return from port. CBC drawn via mediport and taken to [facility] lab. 1330 Pt tolreated AVD/Brentuximab treatment well. Pt declined AVS at this time, but given an updated copy of his calender through the end of October. Pt aware of POC as well as next follow up appointments. Pt safely left infusion via ambulation in a stable condition with his . Pt left with OBI intact to L arm. Flashing green at time of D/C documented in this encounter* Ramila Gan RN - 10/25/2020 9:10 AM EST Patient arrived ambulatory for treatment. Port accessed with ease. CBC with diff per port to [facility] and CMP to [facility]. See toxicity assessment. Bone pain improved with last cycle. Patient aware of POC. Discharged to home in NAD. OBI blinking green at discharge. documented in this encounter* Bam Roca RN - 11/08/2020 9:00 AM EST 0920 Pt arrived for AVD/Brentuximab treatment. Pt states that he is feeling well today. Reports that he tolerated his last treatment acceptably. Of note, did have a lot of side effects from 2nd Covid vaccine, including 104 temp. Intermittent temp lasting 24 hours. Pt otherwise managing well on home suppo rtive meds. CBC drawn via mediport and taken to [facility] lab. 1310 Pt tolerated AVD/Brentuximab treatment well. Pt aware of POC as well as next follow up appointments. Pt safely left infusion via ambulation in a stable condition . Pt left with OBI intact to L arm. Flashing green at time of D/C. documented in this encounter* Flaquita Castro RN - 11/22/2020 9:00 AM EST Patient arrived ambulatory with spouse for cycle 4 day 1 chemo. Repots mild fatigue, intermittent mild neuropathy in fingertips that does not interfere with function, well managed constipation. Port accessed with ease, no blood return noted. Cath chace instilled per orders. POC reviewed. 1100-No blood return in port after 1hr 35min. CBC with diff, CMP collected via butterfly needle in L FA and sent to [facility] and [facility]. 1508-Patient tolerated infusion without incident. Port flushed and deaccessed per orders. Gauze andtape to site. Neulasta OBI placed on L arm per patient preference. Device activated and green lightflashing. Signal lights and administration times reviewed. Patient aware of next appt. Patient discharged ambulatory to home. documented in this encounter* Chandni Solomon RN - 12/06/2020 4:41 PM EDT Verified with Dr. Franks that pt is to be discharged at 1700. Pt does not need cxr. documented in this encounter* Flaquita Castro RN - 12/06/2020 9:00 AM EDT Arrived ambulatory with spouse for cycle 4 day 15. Reports mild fatigue and very mild tingling in toes. Patient reports increasing BP medication (Lisinopril) as he has had some elevated readings while at infusion center. He reports BP at work is much lower. Does admit he dreads coming for chemo. Has a hx of anxiety and BP elevated today. Will discuss adding PRN Ativan today and for remaining cycles. Patient is agreeable with this option. Patient also reports mild nausea for the first several days and some food aversions due to heightened sense of smell. Port accessed and no blood return noted. Patient positioned in multiple ways and flushed repeatedly without blood return. Placed a call to special procedures and they are able to see patient today if an order is obtained for a port check. Discussed with Dr. Caldwell and order received for port check and Ativan 0.5mg IV push with treatment. Will await call back from scheduling. Patient verbalizes understanding of POC. 0943-Cathflo instilled per orders. 0955-Received call from [facility] scheduling that patient is able to be seen now. Patient left infusion center to report to special procedures dept. Cathflo aspirated from port. Port remains accessed. 1120-Patient returned from specials. Will need an additional procedure to correct migrated port catheter. Specials is able to take patient at 1430 today. Patient rescheduled for 10 am tomorrow for chemo treatment. Orders coordinated by [facility] office. 1200-Port flushed and left accessed. Patient discharged ambulatory with spouse. documented in this encounter* Gila Hernandez RN - 12/07/2020 10:00 AM EDT Pt arrived ambulatory for cycle 4 day15 of chemo. Pt continues with fatigue. Pt had guide wire placed yesterday to reposition tip of med port catheter. Pt states was completed without complications. Pt has no residual pain or swelling from insertion site. Med port accessed and labs obtained withoutcomplications. CBC diff to [facility]. Reviewed plan of care and updated calendar. Copy to pt. Pt and verbalize understanding. 1445 Infusion completed without complications. Neulasta OBI placed on left arm without complications. Reviewed plan and to remove approximately 7pm tomorrow evening. Both verbalize understanding. Pt discharged ambulatory documented in this encounter* Asha Hawkins RN - 12/20/2020 9:13 AM EDT Pt arrived ambulatory with for C5 D1 of Adriamycin/Vinblastine/Dacarbazine/Brentuximab infusion. Pt states he experiences nausea a few days after treatment for about one day, has some fatigue, some bone pain post neulasta. Overall pt feeling fairly well. Labs drawn via port. CBC and CMP sent to [facility] and CCL at [facility]. Pt denies pain. BP high 157/101 and 155/103, taken multiple times. Pt states he has been monitoring this at home and it generally has been in the 130s/80s. Pt's lisinopril was increased a couple of weeks ago, beforelast treatment. 0945: RN notified Dr. Caldwell regarding pt's BP and med increase/home BP results. Dr. Caldwell okay with proceeding with treatment today. RN notified pt and . 1402: Pt tolerated treatment today well and without incident. Neulasta OBI placed on pt and instructed when to remove tomorrow. Pt expressed concern over high BPafter treatment. Reviewed with pt when to notify physician regarding BP symptoms- headache, dizziness, blurred vision, and reiterated that Dr. Caldwell felt comfortable proceeding with treatment today.Advised pt to continue monitoring BP at home and notify physician with any concerns and any symptoms. Pt verbalized understanding. Pt discharged home with without complication. documented in this encounter Reason for Referral Status Reason Specialty Diagnoses / Procedures Referre d By Contact Referred To Contact [facility] Radiology Diagnoses Poor venous access Procedures XA SPECIAL ANGIOGRAPHY PROCEDURE Prakash Caldwell MD [address] [facility] [address], [address] [place] [address] Status Reason Specialty Diagnoses / Procedures Re ferred By Contact Referred To Contact [facility] Card[facility] Diagnoses Hodgkin lymphoma of intrathoracic lymph nodes, unspecified Hodgkin lymphoma type (HCC) Procedures ECHO Complete 2D W Doppler W Color Prakash Caldwell MD [address] [facility] [address], [address] [place] [address] Status Reason Specialty Diagnoses / Procedures Referre d By Contact Referred To Contact Open Cardiology Diagnoses Nodular lymphocyte predominant Hodgkin lymphoma, unspecified body region (HCC) Pre-op testing Procedures EKG 12 lead Tay, David, ESCALATOR MECHANIC - PLOW HOLDER [address] [place] [address] Status Reason Specialty Diagnoses / Procedures Referre d By Contact Referred To Contact Closed Radiology Diagnoses Hodgkin lymphoma of intrathoracic lymph nodes, unspecified Hodgkin lymphoma type (HCC) Procedures PET CT SKULL BASE TO MID THIGH Prakash Caldwell MD [address] [facility] [address], [address] [place] [address] Specialty Diagnoses / Procedures Referred By Contac t Referred To Contact Diagnoses Adverse effect of chemotherapy, initial encounter Procedures Echocardiogram Cardio-Oncology Emily Kan MD [address] [place] [address] Referral ID Status Reason Start Date Expiration Date Visits Re quested Visits Authorized [id number] Closed 04/04/2022 04/04/2023 1 1 Specialty Diagnoses / Procedures Referred By Contac t Referred To Contact Diagnoses Traumatic amputation of left great toe, subsequent encounter (HCC) Procedures CONSULT TO ORTHOTIC/PROSTHETIC Latrice Velasco MD [address] [address] Referral ID Status Reason Start Date Expiration Date V isits Requested Visits Authorized [id number] Ref Not Required 05/08/2023 07/07/2023 1 1 Specialty Diagnoses / Procedures Referred By Contac t Referred To Contact Sleep Lab Diagnoses Hypersomnolence Procedures Home sleep apnea test (HSAT) Germania Moreau MD [address] [place] [address] Referral ID Status Reason Start Date Expiration Date V isits Requested Visits Authorized [id number] Pending Review 08/07/2023 08/06/2024 1 1 Specialty Diagnoses / Procedures Referred By Contac t Referred To Contact Primary Care Diagnoses Primary hypertension Acquired hypothyroidism Gastroesophageal reflux disease without esophagitis Hodgkin lymphoma, unspecified Hodgkin lymphoma type, unspecified body region ([facility]) Hodgkin's disease, nodular sclerosis, of intrathoracic lymph nodes ([facility]) Anxiety Hypersomnolence Procedures Follow Up In Primary Care - Established Germania Moreau MD [address] [place] [address] Referral ID Status Reason Start Date Expiration Date V isits Requested Visits Authorized [id number] Authorized 08/07/2023 08/06/2024 1 1 Chief Complaint HTN THYROID REV LABSRectal polyp surveillance1 MO F/U HTN REV LABSANX MED CK6 MO F/U REV LABS Additional Source Comments (unrecognized sect ion and content) No Status Records FoundNo Status Records FoundNo Status Records FoundNo Status Records FoundNo Status Records FoundNo Status Records FoundNo Status Records FoundNo Status Records FoundNo Status Records FoundNo Status Records FoundNo Status Records FoundNo Status Records FoundNo Status Records FoundNo Status Records Found INFORMATION SOURCE (unrecogn ized section and content) DATE CREATED AUTHOR 06/18/[address] [facility] DATE CREATED AUTHOR AUTHOR'S ORGANIZ ATION 07/02/2020 [facility] DATE CREATED AUTHOR AUTHOR'S ORGANIZ ATION 05/11/2021 [facility] DATE CREATED AUTHOR AUTHOR'S ORGANIZ ATION 07/11/2022 [facility] DATE CREATED AUTHOR AUTHOR'S ORGANIZ ATION 08/02/2022 [facility] DATE CREATED AUTHOR AUTHOR'S ORGANIZ ATION 10/25/2022 [facility] DATE CREATED AUTHOR AUTHOR'S ORGANIZ ATION 02/05/2023 [facility] DATE CREATED AUTHOR AUTHOR'S ORGANIZ ATION 02/25/2023 [facility] DATE CREATED AUTHOR AUTHOR'S ORGANIZ ATION 07/12/2023 [facility] DATE CREATED AUTHOR AUTHOR'S ORGANIZ ATION 08/30/2023 [facility] DATE CREATED AUTHOR AUTHOR'S ORGANIZ ATION 10/06/2024 [facility] DATE CREATED AUTHOR AUTHOR'S ORGANIZ ATION 07/16/2025 [facility] DATE CREATED AUTHOR AUTHOR'S ORGANIZ ATION 07/21/2025 [facility] DATE CREATED AUTHOR AUTHOR'S ORGANIZ ATION 07/24/2025 [facility] Ambulatory Reason for Visit (unrecogniz ed section and content) Status Reason Specialty Diagnoses / Procedures Referred By Contact Referred To Contact Authorized Diagnoses Hodgkin lymphoma, unspecified Hodgkin lymphoma type, unspecified body region (HCC) Prakash Caldwell MD [address] [facility] [place] [address] [facility] [address] [place] [address] Reason Comments Weight Loss Nsurg 4 Reason Comments Follow Up Phone Call Post Discharge F/U - attempt made. No answer. Reason Comments Post Op Specialty Diagnoses / Procedures Referred By Contac t Referred To Contact Orthopedics / ORTHOPAEDIC SURGERY Diagnoses Traumatic amputation toe, left, initial encounter (HCC) Post-op Left big toe amputation Procedures OFFICE/OUTPATIENT ESTABLISHED MOD MDM 30-39 MIN POST OP Latrice Velasco MD [address] [place] [address] Latrice Velasco MD [address] [place] [address] Referral ID Status Reason Start Date Expiration Date Visits Re quested Visits Authorized [id number] Closed 02/14/2023 09/15/2023 1 1 Reason Comments Established Patient Follow Up Post Op Specialty Diagnoses / Procedures Referred By Contac t Referred To Contact Orthopedics / ORTHOPAEDIC SURGERY Diagnoses Left big toe amputation SX: 02/03 Procedures OFFICE/OUTPATIENT ESTABLISHED MOD MDM 30-39 MIN POST OP Self Latrice Velasco MD [address] [place] [address] Referral ID Status Reason Start Date Expiration Date Visits Re quested Visits Authorized [id number] Closed 09/16/2022 09/15/2023 1 1 Specialty Diagnoses / Procedures Referred By Contac t Referred To Contact Orthopedics / ORTHOPAEDIC SURGERY Diagnoses PO LT FOOT GREAT TOE - 2WK FU Procedures POST OP Latrice Velasco MD [address] [place] [address] Latrice Velasco MD [address] [place] [address] Referral ID Status Reason Start Date Expiration Date Visits Re quested Visits Authorized [id number] Closed 09/16/2022 09/15/2023 1 1 Reason Comments Established Patient Follow Up Specialty Diagnoses / Procedures Referred By Contac t Referred To Contact Orthopedics / ORTHOPAEDIC SURGERY Diagnoses LT FOOT GRT TOE 2 WK FU Procedures EST PATIENT Self Latrice Velasco MD [address] [place] [address] Referral ID Status Reason Start Date Expiration Date Visits Re quested Visits Authorized [id number] Closed 09/16/2022 09/15/2023 1 1 Reason Comments Appointment Reason Comments Follow-up Reason Comments Established Patient Specialty Diagnoses / Procedures Referred By Contac t Referred To Contact Orthopedics / ORTHOPAEDIC SURGERY Diagnoses po Left great toe sx 02/03/23 Procedures OFFICE/OUTPATIENT ESTABLISHED MOD MDM 30-39 MIN EST PATIENT Latrice Velasco MD [address] [place] [address] Latrice Velasco MD [address] [place] [address] Referral ID Status Reason Start Date Expiration Date Visits Re quested Visits Authorized [id number] Closed 09/16/2022 09/15/2023 1 1 Reason Comments Annual Exam LABS Reason Comments Follow-up Hypertension Reason Comments Weight Loss NSURG #3 Reason Comments Annual Exam Labs Reason Onset Date Comments Other 02/15/2025 Refill Reason Comments Annual Exam Care Teams (unrecognized sec tion and content) [employer] Web Developer Relationship Specialty Start Date End Date Germania Moreau MD [address] [place] [id number] PCP - General Family Medicine 02/23/22 Ui Ux Web Developer Relationship Specialty Start Date End Date Germania Moreau MD [address] [place] [address] PCP - General Family Medicine 02/23/22 Ui U[employer] Web Developer Relationship Specialty Start Date End Date Germania Moreau [address] [place] [id number] PCP - General 02/23/22 Prakash Caldwell MD [address] [facility] [address] [place] [address] Consulting Physician Oncology 10/24/22 Ui Ux Web Developer Relationship Specialty Start Date End Date Germania Moreau MD [address] [place] [address] PCP - General Family Medicine 02/02/23 Ui Ux Web Developer Relationship Specialty Start Date End Date Germania Moreau MD [address] [place] [address] PCP - General Family Medicine 02/02/23 Ui Ux Web Developer Relationship Specialty Start Date End Date Germania Moreau MD [address] [place] [address] PCP - General Family Medicine 02/02/23 Ui Ux Web Developer Relationship Specialty Start Date End Date Germania Moreau MD [address] [facility] [place] [address] PCP - General Family Medicine 02/02/23 Ui Ux Web Developer Relationship Specialty Start Date End Date Germania Moreau MD [address] [facility] [place] [address] PCP - General Family Medicine 02/02/23 Ui Ux Web Developer Relationship Specialty Start Date End Date Germania Moreau MD [address] [place] [id number] PCP - General Family Medicine 02/02/23 Ui Ux Web Developer Relationship Specialty Start Date End Date Germania Moreau MD [address] [place] [id number] PCP - General Family Medicine 02/02/23 Ui Ux Web Developer Relationship Specialty Start Date End Date Germania Moreau [address] [place] [address] PCP - General 02/23/22 Prakash Caldwell MD [address] [place] [address], [address] [place] [address] Consulting Physician Oncology 10/24/22 Ui Ux Web Developer Relationship Specialty Start Date End Date Germania Moreau MD [address] [place] [address] PCP - General Family Medicine 02/02/23 Ui Ux Web Developer Relationship Specialty Start Date End Date Germania Moreau MD [address] [place] [address] PCP - General Family Medicine 08/07/23 Ui Ux Web Developer Relationship Specialty Start Date End Date Germania Moreau [address] [place] [id number] PCP - General 02/23/22 Prakash Caldwell MD [address] [facility] [place] [address] Consulting Physician Oncology 10/24/22 Ui Ux Web Developer Relationship Specialty Start Date End Date Germania Moreau [address] [facility], [facility] [address] PCP - General 02/23/22 Prakash Caldwell MD [address] [place] [address], [address] [place] [address] Consulting Physician Oncology 10/24/22 Ui Ux Web Developer Relationship Specialty Start Date End Date Germania Moreau [address] [place] [id number] PCP - General 02/23/22 Prakash Caldwell MD [address] [place] [address], [address] [place] [address] Consulting Physician Oncology 10/24/22 Ui Ux Web Developer Relationship Specialty Start Date End Date Germania Moreau [address] [place] [id number] PCP - General 02/23/22 Prakash Caldwell MD [address] [facility] [place] [address] Consulting Physician Oncology 10/24/22 Ui Ux Web Developer Relationship Specialty Start Date End Date Raman Moreauer [address] [place] [address] PCP - General 02/23/22 Ui Ux Web Developer Relationship Specialty Start Date End Date Germania Moreau [address] [place] [address] PCP - General 02/23/22 Ui Ux Web Developer Relationship Specialty Start Date End Date Germania Moreau [address] [place] [address] PCP - General 02/23/22 Prakash Caldwell MD [address] [facility] [place], [place] [address] Consulting Physician Oncology 10/24/22 Ui Ux Web Developer Relationship Specialty Start Date End Date Germania Moreau MD PCP - General Family Medicine 08/07/23 Ui Ux Web Developer Relationship Specialty Start Date End Date Germania Moreau PCP - General 02/23/22 Prakash Caldwell MD [address] [facility] [place] [place], [address] [place], [place] [id number] Consulting Physician Oncology 10/24/22 Ui Ux Web Developer Relationship Specialty Start Date End Date Germania Moreau PCP - General 02/23/22 Prakash Caldwell MD [address] [facility] [place] [place], [address] [place], [place] [id number] Consulting Physician Oncology 10/24/22 Ui Ux Web Developer Relationship Specialty Start Date End Date Germania Moreau PCP - General 02/23/22 Prakash Caldwell MD [address] [place] [address] Consulting Physician Oncology 10/24/22 Ui Ux Web Developer Relationship Specialty Start Date End Date Germania Moreau PCP - General 02/23/22 Prakash Caldwell MD [address] [place] [address] Consulting Physician Oncology 10/24/22 <item><item> Privacy Markings (unrecogniz ed section and content) Section Author: Serina Rain PROHIBITION ON REDISCLOSURE OF CONFIDENTIAL INFORMATION This notice accompanies a disclosure of information concerning a client made to you with the consent of such client. Section Author: Serina Rain PROHIBITION ON REDISCLOSURE OF CONFIDENTIAL INFORMATION This notice accompanies a disclosure of information concerning a client made to you with the consent of such client. Source Comments (unrecognize d section and content) In the event this informatio n is protected by the Federal Confidentiality of Alcohol and Drug Abuse Patient Records regulations: The Federal rules restrict any use of the information to criminally investigate or prosecute any alcohol or drug abuse patient.[facility] the event this information is protected by the Federal Confidentiality of Alcohol and Drug Abuse Patient Records regulations: The Federal rules restrict any use of the information to criminally investigate or prosecute any alcohol or drug abuse patient.[facility] Hospital[facility] the event this information is protected by the Federal Confidentiality of Alcohol and Drug Abuse Patient Records regulations: The Federal rules restrict any use of the information to criminally investigate or prosecute any alcohol or drug abuse patient.[facility] Hospital[facility] the event this information is protected by the Federal Confidentiality of Alcohol and Drug Abuse Patient Records regulations: The Federal rules restrict any use of the information to criminally investigate or prosecute any alcohol or drug abuse patient.[facility] Hospital[facility] the event this information is protected by the Federal Confidentiality of Alcohol and Drug Abuse Patient Records regulations: The Federal rules restrict any use of the information to criminally investigate or prosecute any alcohol or drug abuse patient.[facility] HospitalIn the event this information is protected by the Federal Confidentiality of Alcohol and Drug Abuse Patient Records regulations: The Federal rules restrict any use of the information to criminally investigate or prosecute any alcohol or drug abuse patient.[facility] HospitalIn the event this information is protected by the Federal Confidentiality of Alcohol and Drug Abuse Patient Records regulations: The Federal rules restrict any use of the information to criminally investigate or prosecute any alcohol or drug abuse patient.[facility] Hospital[facility] the event this information is protected by the Federal Confidentiality of Alcohol and Drug Abuse Patient Records regulations: The Federal rules restrict any use of the information to criminally investigate or prosecute any alcohol or drug abuse patient.[facility] FOR RECORDS PERTAINING TO PATIENTS WHO ARE OR HAVE BEEN ENROLLED IN A CHEMICAL DEPENDENCY/SUBSTANCEABUSE PROGRAM, SOME INFORMATION MAY BE OMITTED. This clinical summary was aggregated from multiple sources. Caution should be exercised in using it in the provision of clinical care. This summary normalizes information from multiple sources, and as a consequence, information in this document may materially change the coding, format and clinical context of patient data. In addition, data may be omitted in some cases. CLINICAL DECISIONS SHOULD BE BASED ON THE PRIMARY CLINICAL RECORDS. [facility] [employer] [facility]. provides no warranty or guarantee of the accuracy or completeness of information in this document.
[2025-08-27] MEDS: Lactated Ringers 1,000 ML 15 ML IV (12:44)
[2025-08-27] MEDS: Magnesium 1 GM over 15 mins IV (12:45)
[2025-08-27] MEDS: Midazolam 2 MG/2 ML Syringe IV (14:55)
[2025-08-27] MEDS: Cefazolin 1 GM/5 ML Vial 3 GM IV (15:00)
[2025-08-27] MEDS: Lidocaine 1% (5 ml sdv) 5 ML Vial IV (15:00)
[2025-08-27] MEDS: fentaNYL 100 MCG/2 ML Ampul IV (15:02)
--- NOTE | 2025-08-27 15:20 | RAD_ITS ---
PROCEDURE: FOOT 2 VIEWS 08/27/2025 REASON FOR EXAM: ARTHRODESIS LT 2ND PIP JOINT TECHNIQUE: Procedure Code: RADFO2 Modality: DX Procedure: FOOT 2 VIEWS Laterality: Left COMPARISON: None FINDINGS: Intraoperative fluoroscopy fluoroscopy performed of the 2nd toe left foot. Fluoroscopy demonstrates arthrodesis of the 2nd proximal interphalangeal joint. No radiopaque foreign body. Previous amputation of the great toe at the interphalangeal joint. RAD/Foot 2 Views IMPRESSION: Surgical changes 2nd toe. Reading Location: [id number]
[2025-08-27] MEDS: Lactated Ringers 2,000 ML 2000 ML IV (16:15)
--- NOTE | 2025-08-27 16:34 | PCM.POST.ANE ---
Anesthesia: Postop Eval I Current Vital Signs Temperature: 96.9 F Pulse Rate: 90 Blood Pressure: 152/90 Respiratory Rate: 20 Pulse Ox: 95 Oxygen Delivery Method: Room Air Assessment Airway patent: Yes Spontaneous unlabored respirations: Yes Mental status: Awake and Calm nausea: No Vomiting: No Anesthesia Complication: No Fluid Hydration Crystalloid volume administer (ml): 1,200 Total IV fluid infused: 1,200 Progress Note Anesthesia document: Postop Eval 1 completed: Yes
--- NOTE | 2025-08-27 16:44 | POSTOPAN2_ITS ---
Anesthesia Postop Eval I Sum Postop Eval Completion status Anesthesia document: Postop Eval 1 completed: Yes Anesthesia Postop Eval I Summary Anesthesia Postop Eval I Summary: Anesthesia Postop Eval I: Assessment Summary Airway patent Yes 08/27/25 16:34 ASSOCIATE DIRECTOR DATA & [email or web address] Spontaneous unlabored Yes 08/27/25 16:34 ASSOCIATE DIRECTOR DATA & [email or web address] respirations Mental status Awake,Calm 08/27/25 16:34 ASSOCIATE DIRECTOR DATA & [email or web address] nausea No 08/27/25 16:34 ASSOCIATE DIRECTOR DATA & [email or web address] Vomiting No 08/27/25 16:34 ASSOCIATE DIRECTOR DATA & [email or web address] Anesthesia Postop Eval I: Fluid Summary Crystalloid volume administer 1,200 08/27/25 16:34 ASSOCIATE DIRECTOR DATA & [email or web address] (ml) Colloids volume administered ( ml) Blood Product volume administered (ml) Total IV fluid infused 1,200 08/27/25 16:34 ASSOCIATE DIRECTOR DATA & [email or web address] Anesthesia Postop Eval I: Summary Notes Anesthesia Complication No 08/27/25 16:34 ASSOCIATE DIRECTOR DATA & [email or web address] Anesthesia Complication Comment: Post-operative progress note Anesthesia: Postop Eval II Evaluation Mental status: Awake Pain Level: 2 nausea: No Vomiting: No
--- NOTE | 2025-08-27 16:44 | PCM.POSTANE2 ---
Anesthesia Postop Eval I Sum Postop Eval Completion status Anesthesia document: Postop Eval 1 completed: Yes Anesthesia Postop Eval I Summary Anesthesia Postop Eval I Summary: Anesthesia Postop Eval I: Assessment Summary Airway patent Yes 08/27/25 16:34 [employer]OPPING [email or web address] Spontaneous unlabored Yes 08/27/25 16:34 CHOPPING MACHINE [email or web address] respirations Mental status Awake,Calm 08/27/25 16:34 CHOPPING [email or web address] nausea No 08/27/25 16:34 CHOPPING MACHINE [email or web address] Vomiting No 08/27/25 16:34 CHOPPING [email or web address] Anesthesia Postop Eval I: Fluid Summary Crystalloid volume administer 1,200 08/27/25 16:34 CHOPPING [email or web address] (ml) Colloids volume administered ( ml) Blood Product volume administered (ml) Total IV fluid infused 1,200 08/27/25 16:34 CHOPPING MACHINE [email or web address].[email or web address] Anesthesia Postop Eval I: Summary Notes Anesthesia Complication No 08/27/25 16:34 CHOPPING MACHINE [email or web address].[email or web address] Anesthesia Complication Comment: Post-operative progress note Anesthesia: Postop Eval II Evaluation Mental status: Awake Pain Level: 2 nausea: No Vomiting: No
== END 2025-08-27 17:56 | disposition home or self-care (01) ==
LOC: SDC 11:49 → AC 11:52
PROVIDERS: Anesthesiology; PCP Family Medicine; Referring Provider Podiatrist Foot & Ankle Surgery; Visit Provider Podiatrist Foot & Ankle Surgery
PROC: (CPT 28285; principal; 2025-08-27 13:45)
DX: M20.42 Other hammer toe(s) (acquired), left foot (principal); C81.90 Hodgkin lymphoma, unspecified, unspecified site; E66.813 Obesity, class 3; Z68.41 Body mass index [BMI] 40.0-44.9, adult; R26.2 Difficulty in walking, not elsewhere classified; F41.9 Anxiety disorder, unspecified; K21.9 Gastro-esophageal reflux disease without esophagitis; I10 Essential (primary) hypertension; E03.9 Hypothyroidism, unspecified; G47.33 Obstructive sleep apnea (adult) (pediatric); Z99.89 Dependence on other enabling machines and devices; E78.2 Mixed hyperlipidemia; Z01.818 Encounter for other preprocedural examination
CPT/HCPCS: 28285; 01480; 36415; 73620; 76000; 82306; 82962; 83036; 83735; 93005; C1713; J2405; J3475